=== PATIENT | female | born 1985 | race Caucasian/White ===

== ENCOUNTER 2019-04-05 12:51 | Emergency (ER) | payer SELFPAY ==
--- OUTSIDE RECORDS SUMMARY | 2019-04-05 12:57 | XMS REPORT | Continuity of Care Document ---
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 Locked-in state 02/06/2019 [facility] LOCKED-IN STATE Active [facility] Medications Medication Details Route Status Patient Ordering Order Source Instructions Provider Date baclofen 20 mg 20 mg=1 tab, Active 03/14/ [facility] oral tablet PO, TID, # 90 2019 tab, 4 Refill(s), Pharmacy: [facility] [place] citalopram 40 mg 40 mg=1 tab, Active 02/04/ [facility] oral tablet PEG, Daily, # 2019 30 tab, 1 Refill(s), Pharmacy: [facility] [place] lisinopril 40 mg 40 mg=1 tab, Active 02/04/ [facility] oral tablet PEG, Daily, # 2019 30 tab, 1 Refill(s), Pharmacy: [facility] metoprolol 100 mg=1 tab, Active 02/04/ [facility] tartrate 100 mg PEG, BID, # 60 2019 oral tablet tab, 1 Refill(s), Pharmacy: [facility] [place] pregabalin 150 mg 150 mg=1 cap, Active [facility] oral capsule PEG, Q8H-06, # 2019 90 caplet, 0 Refill(s) senna 8.8 mg/5 mL 26.4 mg=15 mL, Active [facility] oral syrup PEG, QNoon, # 2019 240 mL, 11 Refill(s) metoprolol 100 mg=2 tab, No Longer [facility] tartrate 50 mg PEG, BID, # 120 Active 2019 oral tablet tab, 1 Refill(s) lisinopril 20 mg 40 mg=2 tab, No Longer [facility] oral tablet GT, Daily, # 60 Active 2019 tab, 1 Refill(s) citalopram 20 mg 40 mg=2 tab, No Longer [facility] oral tablet PEG, Daily, # Active 2019 60 tab, 1 Refill(s) cetirizine 10 mg 10 mg=1 tab, Active [facility] oral tablet PO, Daily, 0 2019 Refill(s) Calcium Carbonate 1,500 mg=3 tab, Active [facility] 500 MG Chewable CHEW, TID, PRN 2019 Tablet acid reflux, 0 Refill(s) acetaminophen 160 PEG, Q6H, PRN Active [facility] mg/5 mL oral Other -See 2019 liquid Comment | Pain 1-10 or Temp >100.4F, 0 Refill(s) baclofen 10 mg 10 mg=1 tab, Active [facility] oral tablet PO, TID, # 90 2019 tab, 11 Refill(s) Bacitracin 1 appl, TOP, Active [facility] BID, 0 2019 Refill(s) Bacitracin 1 appl, Route: No Longer [facility] TOP, BID, Drug Active 2019 form: OINT, Start date: 02/01/19 21:00:00 CDT, Duration: 30 day, Stop date: 03/03/19 8:30:00 CDT phenol 6% AQ in 10 mL, Route: Inactive [facility] water for NERVE BLOCK, 2019 injection Drug Form: INJ, Dosing Weight 81.455, kg, ONCALL, Start date: 01/27/19 10:00:00 CDT, Duration: 30 day, Stop date: 02/26/19 9:59:00 CDTNotes: WASTE: F/P - Black; E - [employer]ash [employer] Baclofen 10 mg, 1 tab, No Longer [facility] Route: PO, Drug Active 2019 form: TAB, TID, Dosing Weight 81.455, kg, Start date: 01/25/19 13:00:00 CDT, Duration: 60 day, Stop date: 03/26/19 8:30:00 CDTNotes: (Same As: Lioresal) Baclofen 10 mg, Route: Inactive [facility] PO, Drug form: 2019 TAB, BID, Dosing Weight 81.455, kg, Start date: 01/24/19 21:00:00 CDT, Duration: 30 day, Stop date: 02/23/19 8:30:00 CDT Baclofen 10 mg, 1 tab, No Longer [facility] Route: PO, Drug Active 2019 form: TAB, BID, Dosing Weight 81.455, kg, Start date: 01/24/19 12:00:00 CDT, Duration: 30 day, Stop date: 02/23/19 8:30:00 CDTNotes: (Same As: Lioresal) pamidronate 60 mg, 20 mL, Inactive [facility] Route: IVPB, 2018 Drug form: SOLN, ONCE, Dosing Weight 81.455, kg, Start date: 01/24/19 11:45:00 CDT, Stop date: 01/24/19 11:45:00 CDT Diflucan 200 mg, 2 tab, No Longer [facility] Route: PO, Drug Active 2019 form: TAB, Daily, Dosing Weight 81.455, kg, Start date: 01/13/19 8:30:00 CDT, Duration: 3 day, Stop date: 01/15/19 8:30:00 CDT, ABX Indication: Genital Tract InfectionNotes: (Same as: Diflucan) Zyrtec 10 mg, 1 tab, No Longer [facility] Route: PO, Drug Active 2019 form: TAB, Daily, Dosing Weight 81.455, kg, Start date: 01/10/19 11:27:00 CDT, Duration: 30 day, Stop date: 03/11/19 8:30:00 CDTNotes: (Same As: Zyrtec) Cipro 250 mg, Route: Inactive [facility] PO, Drug form: 2019 TAB, [id number], Dosing Weight 81.455, kg, Start date: 01/10/19 8:00:00 CDT, Duration: 7 day, Stop date: 01/16/19 20:00:00 CDT, ABX Indication: Surgical Prophylaxis Cipro 500 mg, 1 tab, No Longer [facility] Route: NG, Drug Active 2018 form: TAB, [id number], Dosing Weight 81.455, kg, Start date: 01/09/19 20:00:00 CDT, Duration: 7 day, Stop date: 01/16/19 8:00:00 CDT, ABX Indication: Urinary Tract InfectionNotes: May interfere w/enteral feedings - Take 1 hr before or 2 hrs after antacids, dairy pdt & minerals. On empty stomach. Nystatin 100 1 appl, Route: No Longer [facility] UNT/MG Topical TOP, BID, Drug Active 2018 Powder form: PWDR, Start date: 01/06/19 10:23:00 CDT, Duration: 14 day, Stop date: 01/20/19 8:30:00 CDTNotes: (Same as:Mycostatin, Nilstat) For external use only. Lopressor 100 mg, 2 tab, No Longer [facility] Route: PEG, Active 2018 Drug form: TAB, BID, kg, Start date: 01/03/19 21:00:00 CDT, Duration: 60 day, Stop date: 03/04/19 8:30:00 CDTNotes: (Same as: Lopressor) pamidronate 60 mg, 20 mL, No Longer [facility] Route: IVPB, Active 2019 Drug form: SOLN, ONCE, Dosing Weight 81.455, kg, Start date: 01/03/19 17:00:00 CDT, Stop date: 01/03/19 17:00:00 CDT Guaifenesin 20 200 mg, 10 mL, No Longer [facility] MG/ML Oral Route: PO, Drug Active 2019 Solution form: SYRP, BID, Dosing Weight 81.455, kg, Start date: 01/02/19 21:00:00 CDT, Duration: 7 day, Stop date: 01/09/19 8:30:00 CDTNotes: (Same as: Robitussin) Sodium Chloride 3% 4 mL, Route: No Longer [facility] inhalation INHALATION, Active 2019 solution Drug Form: SOLN, Dosing Weight 81.455, kg, RQ6H, PRN Congestion, Start date: 01/02/19 13:19:00 CDT, Duration: 30 day, Stop date: 02/01/19 13:18:00 CDTNotes: SEE RT DOCUMENTATION (Same as: Hypertonic Saline 3%, Inhalation) Tums 1,500 mg, 3 No Longer [facility] tab, Route: Active 2018 CHEW, Drug form: CHEWTAB, TID, Dosing Weight 81.455, kg, PRN, Start date: 01/01/19 20:49:00 CDT, Stop date: 03/02/19 20:48:00 CDT, acid refluxNotes: (Same As: Tums) Calcium Carbonate 500 pv=274 mg elemental calcium Dose= mg calcium carbonate ( mg elemental calcium) pregabalin 150 mg, 1 cap, No Longer [facility] Route: PEG, Active 2018 Drug form: CAP, Q8H-06, kg, Start date: 12/27/18 14:00:00 CDT, Duration: 60 day, Stop date: 02/25/19 6:00:00 CDTNotes: Same as Lyrica Zyrtec 10 mg, 1 tab, No Longer [facility] Route: PO, Drug Active 2019 form: TAB, Daily, Dosing Weight 81.455, kg, Start date: 12/27/18 8:30:00 CDT, Duration: 30 day, Stop date: 01/25/19 8:30:00 CDTNotes: (Same As: Zyrtec) Pulmicort 180 microgram, Inactive [facility] Flexhaler Route: 2019 INHALATION, Dosing Weight 81.455, kg, BID, Start date: 12/26/18 21:00:00 CDT, Duration: 30 day, Stop date: 01/25/19 8:30:00 CDT Pulmicort Respules 0.25 mg, 2 mL, No Longer [facility] Route: NEB, Active 2018 Drug form: SUSP, TRBID, Start date: 12/26/18 19:30:00 CDT, Duration: 30 day, Stop date: 01/25/19 7:30:00 CDTNotes: (Same As: Pulmicort respule). pregabalin 100 mg, 1 cap, No Longer [facility] Route: PEG, Active 2018 Drug form: CAP, Q8H-06, kg, Start date: 12/23/18 14:00:00 CDT, Duration: 60 day, Stop date: 02/21/19 6:00:00 CDTNotes: (Same as: Lyrica) Lidocaine 40 MG/ML 1 appl, Route: No Longer [facility] Topical Cream TOP, TID, Drug Active 2019 form: CRM, Start date: 12/23/18 13:00:00 CDT, Duration: 7 day, Stop date: 12/30/18 8:30:00 CDTNotes: Same as Xylocaine Omnipaque 300 30,000 mg, Inactive [facility] Route: 2019 Intravesical, Dosing Weight 81.455, kg, ONCE, Start date: 12/19/18 13:26:00 CDT, Stop date: 12/19/18 13:26:00 CDT Tylenol 650 mg, 20.3 No Longer [facility] mL, Route: PEG, Active 2018 Drug form: LIQ, Q6H, Dosing Weight 81.455, kg, PRN Other -See Comment, Start date: 12/15/18 15:30:00 CDT, Duration: 38 day, Stop date: 02/13/19 9:13:00 CDT, Pain 1-10 or Temp >100.4FNotes: Max acetaminophen=4 000mg/day (4 gm/day). (Same as: Tylenol) Amlodipine 5 mg, 1 tab, No Longer [facility] Route: PEG, Active 2019 Drug form: TAB, Bedtime, kg, Start date: 12/13/18 21:00:00 CDT, Duration: 30 day, Stop date: 01/11/19 21:00:00 CDTNotes: (Same as: Aubree) Albuterol 0.833 3 ml, Route: No Longer [facility] MG/ML / NEB, Drug Form: Active 2019 Ipratropium SOLN, Dosing Pace 0.167 Weight 81.455, MG/ML Inhalant kg, PRN, PRN Solution [DuoNeb] Respiratory Pathway, Start date: 12/13/18 10:57:00 CDT, Duration: 36 day, Stop date: 02/11/19 9:12:00 CDTNotes: (Same as: Mehnaz) Amlodipine 5 mg, Route: No Longer [facility] PEG, Drug form: Active 2019 TAB, Daily, kg, Start date: 12/13/18 8:30:00 CDT, Duration: 30 day, Stop date: 01/11/19 8:30:00 CDT Albuterol 0.833 3 mL, Route: No Longer [facility] MG/ML / NEB, Drug Form: Active 2019 Ipratropium SOLN, kg, Pace 0.167 TRQ8H, Start MG/ML Inhalant date: 12/12/18 Solution [DuoNeb] 23:30:00 CDT, Duration: 30 day, Stop date: 01/11/19 15:30:00 CDTNotes: (Same as: Mehnaz) Fleet Enema Extra 230 mL, Route: Inactive [facility] MT, Drug Form: 2019 MICHELLE, Dosing Weight 81.455, kg, ONCE, Start date: 12/11/18 20:00:00 CDT, Stop date: 12/11/18 20:00:00 CDT sennosides, GROUP HOME 26.4 mg, 15 mL, No Longer [facility] Route: PEG, Active 2019 Drug Form: SYRP, kg, QNoon, Start date: 12/11/18 12:00:00 CDT, Duration: 60 day, Stop date: 04/09/19 12:00:00 CDTNotes: (Same as: Elsieot) sennosides, GROUP HOME 17.2 mg, 2 tab, Inactive [facility] Route: PO, Drug 2019 Form: TAB, Dosing Weight 81.455, kg, Daily, Start date: 12/11/18 8:30:00 CDT, Duration: 60 day, Stop date: 02/08/19 8:30:00 CDTNotes: (Same as: Barrett) Lisinopril 40 mg, 2 tab, No Longer [facility] Route: GT, Drug Active 2019 form: TAB, Daily, kg, Start date: 12/09/18 8:30:00 CDT, Duration: 30 day, Stop date: 03/08/19 8:30:00 CDTNotes: (Same as: Prinivil, Zestril) Amlodipine 10 mg, 1 tab, No Longer [facility] Route: PEG, Active 2019 Drug form: TAB, Daily, kg, Start date: 12/09/18 8:30:00 CDT, Duration: 30 day, Stop date: 01/07/19 8:30:00 CDTNotes: (Same as: Aubree) Lopressor 150 mg, 3 tab, No Longer [facility] Route: PEG, Active 2019 Drug form: TAB, BID, kg, Start date: 12/08/18 21:00:00 CDT, Duration: 30 day, Stop date: 02/06/19 8:30:00 CDTNotes: (Same as: Lopressor) Celexa 40 mg, 2 tab, No Longer [facility] Route: PEG, Active 2019 Drug form: TAB, Daily, Dosing Weight 81.455, kg, Start date: 12/07/18 8:30:00 CDT, Duration: 60 day, Stop date: 04/05/19 8:30:00 CDTNotes: (Same As: CeleXA) Sulfamethoxazole 1 tab, Route: No Longer [facility] 800 MG / PO, Drug Form: Active 2019 Trimethoprim 160 TAB, Dosing MG Oral Tablet Weight 81.455, [Bactrim] kg, Q12H, Start date: 12/06/18 21:00:00 CDT, Duration: 5 day, Stop date: 12/11/18 9:00:00 CDTNotes: One DS tablet=trimetho prim 160mg + sulfamethoxazol e 800 mg Dose based on trimethoprim component On empty stomach with a glass of water. (Same As: Bactrim DS, Septra DS) Tylenol 650 mg, 20.3 No Longer [facility] mL, Route: PEG, Active 2018 Drug form: LIQ, Q6H, kg, PRN Pain 1-3/Temp > 100.4 F, Start date: 12/05/18 11:14:00 CDT, Duration: 60 day, Stop date: 02/03/19 11:13:00 CDT, Pain 1-5/Temp > 100.4 FNotes: Max acetaminophen=4 000mg/day (4 gm/day). (Same as: Tylenol) Acetaminophen 300 1 tab, Route: No Longer [facility] MG / Codeine PEG, Drug Form: Active 2018 Phosphate 30 MG TAB, Dosing Oral Tablet Weight 81.455, [Tylenol with kg, Q6H, PRN Codeine #3] Pain Score 6-10, Start date: 12/05/18 11:14:00 CDT, Duration: 30 day, Stop date: 01/04/19 11:13:00 CDTNotes: Do not exceed 4gm/day of acetaminophen. (Same as: Tylenol with Codeine # 3) Ceftriaxone 1 gm, Route: No Longer [facility] IVP, [id number], Active 2018 Dosing Weight 81.455, kg, Start date: 12/04/18 19:00:00 CDT, Duration: 7 day, Stop date: 12/10/18 19:00:00 CDT, ABX Indication: Other (specify in Comments)Notes: (Same As: Rocephin). MEDICATION WASTE Product Size: 1000 mg Product Wasted: _0__ mg Sodium Chloride 1,000 mL, Rate: No Longer [facility] 0.45% IV 1,000 mL 100 ml/hr, Active 2018 Infuse over: 10 hr, Route: IV, Dosing Weight 81.455 kg, Total Volume: 1,000, Start date: 12/04/18 10:22:00 CDT, Duration: 30 day, Stop date: 01/03/19 10:21:00 CDT, 1.96, m2 Diflucan 150 mg, 1.5 Inactive [facility] tab, Route: PO, 2018 Drug form: TAB, Daily, Dosing Weight 81.455, kg, Start date: 12/03/18 10:14:00 CDT, Duration: 2 doses or times, Stop date: 12/04/18 8:30:00 CDT, ABX Indication: Other (specify in Comments)Notes: (Same as: Diflucan) pregabalin 75 mg, 1 cap, No Longer [facility] Route: PEG, Active 2018 Drug form: CAP, Q8H-06, kg, Start date: 12/02/18 22:00:00 CDT, Duration: 60 day, Stop date: 01/31/19 14:00:00 CDTNotes: (Same as: Lyrica) Diclofenac Sodium 4 gm, 2 appl, No Longer [facility] 0.01 MG/MG Topical Route: TOP, 2018 Gel Drug form: GEL, TID, Dosing Weight 81.455, kg, Start date: 12/02/18 21:00:00 CDT, Duration: 7 day, Stop date: 12/09/18 13:00:00 CDTNotes: Same as: Voltaren Gel Celexa 20 mg, 1 tab, No Longer [facility] Route: PEG, Active 2018 Drug form: TAB, Daily, Dosing Weight 81.455, kg, Start date: 12/02/18 8:30:00 CDT, Duration: 60 day, Stop date: 01/30/19 8:30:00 CDTNotes: (Same As: CeleXA) Guaifenesin 200 mg, 10 mL, No Longer [facility] Route: PEG, Active 2018 Drug form: SYRP, Q6H, kg, PRN as needed for congestion, Start date: 12/01/18 19:33:00 CDT, Duration: 30 day, Stop date: 12/31/18 19:32:00 CDTNotes: (Same as: Robitussin) pregabalin 75 mg, 1 cap, No Longer [facility] Route: PEG, Active 2018 Drug form: CAP, Q8H-06, kg, Start date: 12/01/18 14:00:00 CDT, Duration: 60 day, Stop date: 01/30/19 6:00:00 CDTNotes: (Same as: Lyrica) Celexa 20 mg, 1 tab, Inactive [facility] Route: PO, Drug 2019 form: TAB, Daily, Dosing Weight 81.455, kg, Start date: 12/01/18 8:30:00 CDT, Duration: 60 day, Stop date: 01/29/19 8:30:00 CDTNotes: (Same As: CeleXA) Tramadol 25 mg, 0.5 tab, No Longer [facility] Route: PO, Drug Active 2019 form: TAB, QID, Dosing Weight 81.455, kg, PRN Pain Score 4-6, Start date: 11/29/18 10:32:00 CDT, Duration: 30 day, Stop date: 12/29/18 10:31:00 CDTNotes: Not to exceed 400mg/day. (Same As: Ultram) tramadol 50 mg, 1 tab, No Longer [facility] hydrochloride 50 Route: PO, Drug Active 2019 MG Oral Tablet form: TAB, QID, Dosing Weight 81.455, kg, PRN Pain Score 7-10, Start date: 11/29/18 10:32:00 CDT, Duration: 30 day, Stop date: 12/29/18 10:31:00 CDTNotes: Not to exceed 400mg/day. (Same As: Ultram) Tylenol 650 mg, 20.3 No Longer [facility] mL, Route: PEG, Active 2018 Drug form: LIQ, Q6H, kg, PRN Pain 1-3/Temp > 100.4 F, Start date: 11/29/18 10:32:00 CDT, Duration: 30 day, Stop date: 12/29/18 10:31:00 CDTNotes: Max acetaminophen=4 000mg/day (4 gm/day). (Same as: Tylenol) pregabalin 50 mg, 1 cap, No Longer [facility] Route: PEG, Active 2018 Drug form: CAP, Q8H-06, kg, Start date: 11/28/18 22:00:00 CDT, Duration: 30 day, Stop date: 12/28/18 14:00:00 CDTNotes: Same as Lyrica Docusate Sodium 283 mg, 5 mL, No Longer [facility] 56.6 MG/ML Enema Route: MT, Drug Active 2019 [Enemeez] form: MICHELLE, Bedtime, Dosing Weight 81.455, kg, Start date: 11/28/18 21:00:00 CDT, Duration: 30 day, Stop date: 12/27/18 21:00:00 CDTNotes: Same as Enemeez Non formulary item Hydralazine 10 mg, 1 tab, No Longer [facility] Hydrochloride 10 Route: PO, Drug Active 2019 MG Oral Tablet form: TAB, Q6H, Dosing Weight 81.455, kg, PRN Hypertension, Start date: 11/28/18 19:44:00 CDT, Duration: 30 day, Stop date: 01/27/19 19:43:00 CDTNotes: (Same as: Apresoline) May interfere w/enteral feedings. Take With Food Dibucaine 1% 1 appl, Route: No Longer [facility] topical ointment TOP, BID, Drug Active 2018 form: OINT, PRN Other -See Comment, Start date: 11/28/18 16:24:00 CDT, Duration: 36 day, Stop date: 01/27/19 9:17:00 CDT, for comfort during bowel programNotes: Non-Formulary Drug (Same as: Nupercainal) Nitroglycerin 0.02 1 inch, Route: No Longer [facility] MG/MG Topical TOP, Drug Form: Active 2019 Ointment OINT, Dosing Weight 81.455, kg, TID, PRN Hypertension, Start date: 11/28/18 10:33:00 CDT, Duration: 60 day, Stop date: 03/28/19 9:17:00 CDTNotes: 1 gram is approximately 1 inch of nitroglycerin ointment (20 mg NTG per gram) (Same as:Nitro-Bid) Uro-Jet 2% topical 1 appl, Route: No Longer [facility] gel with TOP, QID, Drug Active 2018 applicator form: GEL/A, PRN Other -See Comment, Start date: 11/28/18 10:33:00 CDT, Duration: 36 day, Stop date: 01/27/19 9:17:00 CDT, urethral painNotes: (Same as: Uro-Jet) Irrigation w/ 250 ml, Route: No Longer [facility] Normal Saline IRRIG, Drug Active 2019 Form: SOLN, Dosing Weight 81.455, kg, PRN, PRN Other -See Comment, Start date: 11/28/18 10:33:00 CDT, Duration: 36 day, Stop date: 01/27/19 9:17:00 CDTNotes: For irrigation only. Dibucaine 1% 1 appl, Route: No Longer [facility] topical ointment TOP, PRN, Drug Active 2018 form: OINT, PRN Pain Score 1-3, Start date: 11/28/18 10:33:00 CDT, Duration: 30 day, Stop date: 12/28/18 10:32:00 CDTNotes: Non-Formulary Drug (Same as: Nupercainal) Sodium Chloride 3% 3 mL, Route: No Longer [facility] inhalation NEB, Drug Form: Active 2019 solution SOLN, Dosing Weight 81.455, kg, TRQ6H, PRN See Respiratory Notes, Start date: 11/26/18 19:30:00 CDT, Duration: 30 day, Stop date: 12/26/18 13:30:00 CDT, dry coughNotes: SEE RT DOCUMENTATION (Same as: Hypertonic Saline 3%, Inhalation) sennosides, GROUP HOME 17.6 mg, 10 mL, No Longer [facility] Route: PEG, Active 2018 Drug Form: SYRP, kg, QNoon, Start date: 11/26/18 12:00:00 CDT, Duration: 30 day, Stop date: 12/25/18 12:00:00 CDTNotes: (Same as: Senokot) Amlodipine 10 mg, 1 tab, No Longer [facility] Route: PEG, Active 2018 Drug form: TAB, Daily, kg, Start date: 11/26/18 8:30:00 CDT, Duration: 30 day, Stop date: 12/25/18 8:30:00 CDTNotes: (Same as: Norvasc) Lisinopril 40 mg, 2 tab, No Longer [facility] Route: GT, Drug Active 2018 form: TAB, Daily, kg, Start date: 11/26/18 8:30:00 CDT, Duration: 30 day, Stop date: 12/25/18 8:30:00 CDTNotes: (Same as: Prinivil, Zestril) Guaifenesin 200 mg, 10 mL, No Longer [facility] Route: PEG, Active 2018 Drug form: SYRP, Q6H, kg, Start date: 11/26/18 0:00:00 CDT, Duration: 30 day, Stop date: 12/25/18 18:00:00 CDTNotes: (Same as: Juanitussin) tramadol 50 mg, 1 tab, No Longer [facility] hydrochloride 50 Route: PO, Drug Active 2019 MG Oral Tablet form: TAB, Q4H, Dosing Weight 81.455, kg, PRN Pain Score 1-3, Start date: 11/25/18 22:56:00 CDT, Duration: 30 day, Stop date: 12/25/18 22:55:00 CDT Famotidine 20 mg, 1 tab, No Longer [facility] Route: PEG, 2018 Drug form: TAB, BID, kg, Start date: 11/25/18 21:00:00 CDT, Duration: 30 day, Stop date: 12/25/18 8:30:00 CDTNotes: (Same as: Pepcid) chlorhexidine 0.018 gm, No Longer [facility] gluconate 1.2 Route: PO, BID, Active 2019 MG/ML Mouthwash Drug form: LIQ, Start date: 11/25/18 21:00:00 CDT, Duration: 30 day, Stop date: 01/24/19 8:30:00 CDTNotes: (Same As: Peridex) Budesonide 0.5 mg, 2 mL, No Longer [facility] Route: NEB, Active 2018 Drug form: SUSP, TRBID, kg, Start date: 11/25/18 21:00:00 CDT, Duration: 30 day, Stop date: 12/25/18 19:30:00 CDTNotes: (Same As: Pulmicort) pregabalin 25 mg, 1 cap, No Longer [facility] Route: PEG, Active 2018 Drug form: CAP, TID, kg, Start date: 11/25/18 21:00:00 CDT, Duration: 30 day, Stop date: 12/25/18 13:00:00 CDTNotes: (Same as: Lyrica) Lopressor 150 mg, 3 tab, No Longer [facility] Route: PEG, Active 2018 Drug form: TAB, BID, kg, Start date: 11/25/18 21:00:00 CDT, Duration: 30 day, Stop date: 12/25/18 8:30:00 CDTNotes: (Same as: Lopressor) heparin 5,000 unit, 1 No Longer [facility] mL, Route: Active 2018 SUB-Q, Drug form: INJ, Q12H, kg, Start date: 11/25/18 21:00:00 CDT, Duration: 30 day, Stop date: 12/25/18 9:00:00 CDTNotes: porcine heparin Tylenol 500 mg, 1 tab, No Longer [facility] Route: PEG, Active 2018 Drug form: TAB, Q6H, kg, PRN Pain 1-3/Temp > 100.4 F, Start date: 11/25/18 19:48:00 CDT, Duration: 30 day, Stop date: 12/25/18 19:47:00 CDTNotes: Max acetaminophen 4000 mg/day (4 gm/day). (Same as: Tylenol Extra Strength) Albuterol 0.833 3 mL, Route: No Longer [facility] MG/ML / NEB, Drug Form: Active 2019 Ipratropium SOLN, kg, Pace 0.167 TRQ6H, Start MG/ML Inhalant date: 11/25/18 Solution [DuoNeb] 19:48:00 CDT, Duration: 30 day, Stop date: 12/25/18 19:30:00 CDTNotes: (Same as: Duoneb) Hydralazine 10 mg, 0.5 mL, No Longer 11/26/ [facility] Route: IVP, Active 2019 Drug form: INJ, Q4H, kg, PRN Hypertension, Start date: 11/25/18 19:48:00 CDT, Duration: 30 day, Stop date: 12/25/18 19:47:00 CDTNotes: (Same as: Apresoline) Push over 5 minutes Bisacodyl 10 mg, 1 supp, No Longer [facility] Route: MT, Drug Active 2019 form: SUPP, Daily, kg, PRN Constipation, Start date: 11/25/18 19:48:00 CDT, Duration: 30 day, Stop date: 12/25/18 19:47:00 CDTNotes: (Same As: Dulcolax, Bisco-Lax) Saline Flush 0.9% 10 mL, Route: No Longer [facility] IVP, Drug Form: Active 2019 INJ, kg, PRN, PRN Line Flush, Start date: 11/25/18 19:45:00 CDT, Duration: 30 day, Stop date: 12/25/18 19:44:00 CDTNotes: (Same as: BD Posiflush) Tylenol 500 mg, PEG, No Longer 11/25/ [facility] BID, 0 Active 2018 Refill(s) Budesonide 0.5 mg, NEB, No Longer 11/25/ [facility] BID, 0 Active 2018 Refill(s) amLODIPine 10 mg 10 mg=1 tab, No Longer 11/25/ [facility] oral tablet PEG, Daily, 0 Active 2018 Refill(s) Guaifenesin 200 mg, PEG, 0 No Longer 11/25/ [facility] Refill(s) Active 2019 pregabalin 25 mg, PEG, No Longer 11/25/ [facility] TID, 0 Active 2018 Refill(s) Famotidine 20 mg=1 tab, No Longer 11/25/ [facility] PEG, BID, # 60 Active 2019 tab, 0 Refill(s) Acetylcysteine 200 0.4 gm=2 mL, No Longer 11/25/ [facility] MG/ML Inhalant NEB, BID, 0 Active 2019 Solution Refill(s) Lopressor 150 mg, PEG, No Longer [facility] BID, 0 Active 2019 Refill(s) chlorhexidine 0.018 gm=15 ml, No Longer [facility] gluconate 1.2 PO, BID, # 480 Active 2018 MG/ML Mouthwash ml, 0 Refill(s) Albuterol 0.833 3 mL, NEB, Q6H, No Longer [facility] MG/ML / 0 Refill(s) Active 2019 Ipratropium Pace 0.167 MG/ML Inhalant Solution [DuoNeb] heparin 5,000 unit, No Longer [facility] SUB-Q, Q12H, 0 Active 2019 Refill(s) Allergies, Adverse Reactions, Alerts Substance Category Reaction Severity Reaction Status Date Comments Source type Reported traMADol<mendoza Assertion Propensity Active lethargic, [facility] p>1</sup> to adverse difficult reactions to arouse to drug Immunizations No Data Provided for This Section Results Order Name Results Value Reference Date Interpretation Comments Source Range CHEM PANEL Magnesium Lvl 2.1 1.8 - 2.4 02/02 [facility] CHEM PANEL Phosphorus 3.7 2.5 - 4.5 02/02 [facility] ELECTROLYTE AGAP 12.5 10.0 - 02/02 [facility] S 20.0 ELECTROLYTE eGFR 128 02/02 Result [facility] Comment: The eGFR is calculated using the CKD-EPI formula. In most young, healthy individuals the eGFR will be >90 mL/min/1.73m2 . The eGFR declines with age. An eGFR of 60-89 may be normal in some populations, particularly the elderly, for whom the CKD-EPI formula has not been extensively validated. Use of the eGFR is not recommended in the following populations:< br/>
Livia viduals with unstable creatinine concentration s, including patients and those with serious co-morbid conditions.<b r/>
Patie nts with extremes in muscle mass or diet.

The data above are obtained from the [employer] Program (NK[employer]) which additionally recommends that when the eGFR is used in patients with extremes of body mass index for purposes of drug dosing, the eGFR should be multiplied by the estimated BMI. ELECTROLYTE CO2 24 24 - 32 02/02 [facility] S ELECTROLYTE Calcium Lvl 9.0 8.5 - 10.5 02/02 [facility] S ELECTROLYTE Chloride Lvl 106 95 - 109 02/02 [facility] S ELECTROLYTE Potassium Lvl 4.5 3.5 - 5.1 02/02 [facility] S ELECTROLYTE Creatinine 0.51 0.50 - 02/02 [facility] S Lvl 1.40 /2019 ELECTROLYTE Sodium Lvl 138 135 - 145 02/02 [facility] ELECTROLYTE BUN 20 7 - 22 02/02 [facility] S /2018 ELECTROLYTE Glucose Lvl 76 70 - 99 02/02 [facility] HEMATOLOGY Lymphocytes # 2.6 1.0 - 5.5 02/02 [facility] /2018 HEMATOLOGY Neutrophils # 6.8 1.5 - 8.1 02/02 [facility] /2018 HEMATOLOGY Monocytes # 0.5 0.0 - 0.8 02/02 [facility] /2018 HEMATOLOGY Monocytes 5.0 2.0 - 12.0 02/02 [facility] /2018 HEMATOLOGY Lymphocytes 25.3 20.0 - 02/02 [facility] 40.0 2019 HEMATOLOGY Basophils 0.4 0.0 - 1.0 02/02 [facility] /2018 HEMATOLOGY Eosinophils 2.6 0.0 - 4.0 02/02 [facility] /2018 HEMATOLOGY Segs 66.7 45.0 - 02/02 [facility] 75.0 /2019 HEMATOLOGY Eosinophils # 0.3 0.0 - 0.5 02/02 [facility] /2018 HEMATOLOGY WBC 10.2 3.7 - 10.4 02/02 [facility] /2018 HEMATOLOGY RBC 4.15 4.20 - 02/02 [facility] 5.40 HEMATOLOGY MPV 10.6 7.4 - 10.4 02/02 [facility] /2018 HEMATOLOGY MCV 91.2 80.0 - 02/02 [facility] 98.0 2019 HEMATOLOGY Hgb 12.6 12.0 - 02/02 [facility] 16.0 /2018 HEMATOLOGY Hct 37.8 36.0 - 02/02 [facility] 48.0 /2018 HEMATOLOGY Platelet 256 133 - 450 02/02 [facility] /2018 HEMATOLOGY MCH 30.4 27.0 - 02/02 [facility] 31.0 HEMATOLOGY MCHC 33.3 32.0 - 02/02 [facility] 36.0 /2019 HEMATOLOGY RDW 13.0 11.5 - 06 [facility] 14. CHEM PANEL Phosphorus 2.8 2.5 - 4.5 01/26 [facility] CHEM PANEL Magnesium Lvl 2.1 1.8 - 2.4 01/26 [facility] ELECTROLYTE AGAP 12.1 10.0 - 01/26 [facility] S 20.0 ELECTROLYTE eGFR 130 01/26 Result [facility] Comment: The eGFR is calculated using the CKD-EPI formula. In most young, healthy individuals the eGFR will be >90 mL/min/1.73m2 . The eGFR declines with age. An eGFR of 60-89 may be normal in some populations, particularly the elderly, for whom the CKD-EPI formula has not been extensively validated. Use of the eGFR is not recommended in the following populations:< br/>
Livia viduals with unstable creatinine concentration s, including patients and those with serious co-morbid conditions.<b r/>
Patie nts with extremes in muscle mass or diet.

The data above are obtained from the National Kidney Disease Education Program (NKDEP) which additionally recommends that when the eGFR is used in patients with extremes of body mass index for purposes of drug dosing, the eGFR should be multiplied by the estimated BMI. ELECTROLYTE Calcium Lvl 8.8 8.5 - 10.5 01/26 [facility] ELECTROLYTE CO2 24 24 - 32 01/26R ELECTROLYTE BUN 18 7 - 22 01/26 [facility] ELECTROLYTE Glucose Lvl 67 70 - 99 01/26 [facility] ELECTROLYTE Sodium Lvl 139 135 - 145 01/26 [facility] ELECTROLYTE Creatinine 0.48 0.50 - 01/26 [facility] S Lvl 1.40 /2018 ELECTROLYTE Chloride Lvl 107 95 - 109 01/26 [facility] S ELECTROLYTE Potassium Lvl 4.1 3.5 - 5.1 01/26 [facility] HEMATOLOGY MPV 11.0 7.4 - 10.4 01/26 [facility] HEMATOLOGY Platelet 278 133 - 450 01/26 [facility] HEMATOLOGY MCHC 33.8 32.0 - 01/26 [facility] 36.0 HEMATOLOGY RDW 13.1 11.5 - 06/ [facility] 14.5 /2019 HEMATOLOGY RBC 3.97 4.20 - 06/ [facility] 5.40 /2018 HEMATOLOGY Hgb 12.3 12.0 - 01/26 [facility] 16.0 HEMATOLOGY MCV 91.6 80.0 - 01/26 [facility] 98.0 /2018 HEMATOLOGY Hct 36.3 36.0 - 01/26 [facility] 48.0 /2018 HEMATOLOGY MCH 31.0 27.0 - / [facility] 31.0 HEMATOLOGY WBC 6.4 3.7 - 10.4 06 [facility] /2018 HEMATOLOGY Eosinophils # 0.2 0.0 - 0.5 01/26 [facility] HEMATOLOGY Basophils # 0.1 0.0 - 0.2 01/26 [facility] /2018 HEMATOLOGY Monocytes 6.2 2.0 - 12.0 01/26 [facility] HEMATOLOGY Eosinophils 3.3 0.0 - 4.0 01/26 [facility] HEMATOLOGY Lymphocytes # 1.4 1.0 - 5.5 01/26 [facility] /2018 HEMATOLOGY Monocytes # 0.4 0.0 - 0.8 06 [facility] HEMATOLOGY Basophils 0.9 0.0 - 1.0 01/26 [facility] HEMATOLOGY Neutrophils # 4.3 1.5 - 8.1 01/26 [facility] HEMATOLOGY Segs 68.0 45.0 - 01/26 [facility] 75.0 HEMATOLOGY Lymphocytes 21.6 20.0 - 01/26 [facility] 40.0 2019 CHEM PANEL eGFR 130 01/19 Result [facility] Comment: The eGFR is calculated using the CKD-EPI formula. In most young, healthy individuals the eGFR will be >90 mL/min/1.73m2 . The eGFR declines with age. An eGFR of 60-89 may be normal in some populations, particularly the elderly, for whom the CKD-EPI formula has not been extensively validated. Use of the eGFR is not recommended in the following populations:< br/>
Livia viduals with unstable creatinine concentration s, including patients and those with serious co-morbid conditions.<b r/>
Patie nts with extremes in muscle mass or diet.

The data above are obtained from the National Kidney Disease Education Program (NKDEP) which additionally recommends that when the eGFR is used in patients with extremes of body mass index for purposes of drug dosing, the eGFR should be multiplied by the estimated BMI. CHEM PANEL Glucose Lvl 72 70 - 99 05/30 [facility] /2018 CHEM PANEL Sodium Lvl 139 135 - 145 05/30 [facility] /2018 CHEM PANEL Chloride Lvl 108 95 - 109 05/30 [facility] /2018 CHEM PANEL Creatinine 0.48 0.50 - 05/30 [facility] Lvl 1.40 /2019 CHEM PANEL BUN 16 7 - 22 05/30 [facility] /2018 CHEM PANEL Calcium Lvl 8.6 8.5 - 10.5 05/30 [facility] /2018 CHEM PANEL CO2 25 24 - 32 05/30 [facility] /2018 CHEM PANEL Potassium Lvl 4.3 3.5 - 5.1 05/ [facility] /2018 CHEM PANEL AGAP 10.3 10.0 - 05 [facility] 20.0 CHEM PANEL Phosphorus 3.0 2.5 - 4.5 05/30 [facility] /2018 CHEM PANEL Magnesium Lvl 2.3 1.8 - 2.4 05/30 [facility] /2019 HEMATOLOGY Lymphocytes 35.1 20.0 - 05/30 [facility] 40.0 /2019 HEMATOLOGY Monocytes 8.4 2.0 - 12.0 05/30 [facility] /2018 HEMATOLOGY Eosinophils 3.9 0.0 - 4.0 05/30 [facility] /2018 HEMATOLOGY Basophils 0.6 0.0 - 1.0 05/30 [facility] /2018 HEMATOLOGY Segs 52.0 45.0 - 05/ MH [facility] 75.0 /2019 HEMATOLOGY Monocytes # 0.7 0.0 - 0.8 05/30 [facility] /2019 HEMATOLOGY Eosinophils # 0.3 0.0 - 0.5 05/30 [facility] /2019 HEMATOLOGY Basophils # 0.1 0.0 - 0.2 05/30 [facility] /2019 HEMATOLOGY Lymphocytes # 2.8 1.0 - 5.5 05/30 [facility] /2019 HEMATOLOGY Neutrophils # 4.2 1.5 - 8.1 05/30 [facility] /2018 HEMATOLOGY MCH 31.2 27.0 - 0530 [facility] 31.0 /2018 HEMATOLOGY RBC 3.88 4.20 - 05/30 [facility] 5.40 /2018 HEMATOLOGY Hct 36.1 36.0 - 01/19 [facility] 48.0 /2018 HEMATOLOGY Hgb 12.1 12.0 - 01/19 [facility] 16.0 HEMATOLOGY MCV 92.9 80.0 - 01/19 [facility] 98.0 HEMATOLOGY WBC 8.1 3.7 - 10.4 01/19 [facility] HEMATOLOGY MPV 10.1 7.4 - 10.4 01/19 [facility] HEMATOLOGY Platelet 272 133 - 450 01/19 [facility] HEMATOLOGY MCHC 33.6 32.0 - 01/19 [facility] 36.0 HEMATOLOGY RDW 12.8 11.5 - 01/19 [facility] 14.5 TETRACYCLIN Culture: >100,000 CFU/mL Escherichia coli , Multi-drug Resistant Organism 01/10 [facility] E:SUSC:PT:I Urine Evaluation For ESBLIs SOLATE:ORDQ Upon supplemental testing, this organism was confirmed to produce a carbapenamase. N:THOMPSON >100,000 CFU/mL Skin Kyara TETRACYCLIN Enterococcus Enterococcu 01/10 [facility] E:SUSC:PT:I Species s Species SOLATE:ORDQ N:THOMPSON TETRACYCLIN Escherichia Escherichia 01/10 [facility] E:SUSC:PT:I coli coli SOLATE:ORDQ N:THOMPSON URINE AND UA Sq Epi None Seen 01/09 [facility] STOOL URINE AND UA Bacteria Few /HPF None Seen 01/09 [facility] STOOL /HPF URINE AND UA Amorph Moderate None Seen 01/09 [facility]OL Jill /HPF /HPF URINE AND UA Nitrite Positive Negative 01/09 [facility] *ABN* /2018 (01/09/19 6:31 PM) URINE AND UA <1.0 0.1 - 1.0 01/09 [facility] STOOL Urobilinogen /2018 URINE AND UA pH 7.0 5.0 - 8.0 01/09 [facility] URINE AND UA Spec Grav 1.005 <=1.030 01/09 [facility]OL URINE AND UA Turbidity Marked Clear 01/09 [facility] *ABN* /2018 (01/09/19 6:31 PM) URINE AND UA Color Yellow Yellow 01/09 [facility] *NA* /2018 (01/09/19 6:31 PM) URINE AND UA Protein Negative Negative 01/09 [facility] STOOL mg/dL mg/dL URINE AND UA RBC 4 0 - 2 01/09 [facility] STOOL /2018 URINE AND UA WBC 8 0 - 5 01/09 [facility]OL URINE AND UA Leuk Est Moderate Negative 01/09 [facility] STOOL *ABN* /2018 (01/09/19 6:31 PM) URINE AND UA Glucose Negative Negative 01/09 [facility]OOL mg/dL mg/dL URINE AND UA Blood Small Negative 01/09 [facility] STOOL *ABN* /2018 (01/09/19 6:31 PM) URINE AND UA Bili Negative Negative 01/09 [facility] STOOL *NA* /2018 (01/09/19 6:31 PM) URINE AND UA Ketones Negative Negative 01/09 [facility] STOOL mg/dL mg/dL IMIPENEM:MENDOZA Gram Stain Many Wbc'S; Less Than 25 Squamous Epithelial Cells/ Lpf 01/02 [facility] SC:PT:ISOLA Report Many Gram Positive Cocci In TE:ORDQN:OK Rare Gram Negative Rods C Good Quality Specimen IMIPENEM:MENDOZA Culture: Many Staphylococcus aureus 01/02 [facility] SC:PT:ISOLA Respiratory Few Escherichia coli TE:ORDQN:OK w/Gram Stain Rare Enterobacter cloacae C IMIPENEM:MENDOZA Enterobacter Enterobacte 01/02 [facility] SC:PT:ISOLA cloacae r cloacae TE:ORDQN:OK C IMIPENEM:MENDOZA Escherichia Escherichia 01/02 [facility] SC:PT:ISOLA coli coli TE:ORDQN:OK C IMIPENEM:MENDOZA Staphylococcu Staphylococ 01/02 [facility] SC:PT:ISOLA s aureus cus aureus TE:ORDQN:OK C CHEM PANEL Vitamin D, 41.9 30.0 - 12/15 [facility] 25-OH, Total 100.0 IMMUNOLOGY CRP, High 26.8 12/05 [facility] Sensitivity MOLECULAR Parainfluenza Negative Negative 12/04 [facility] DIAGNOSTIC 1 PCR (12/04/18 1:16 PM) MOLECULAR Parainfluenza Negative Negative 12/04 [facility] DIAGNOSTIC 3 PCR (12/04/18 1:16 PM) /2018 MOLECULAR Parainfluenza Negative Negative 12/04 [facility] DIAGNOSTIC 2 PCR (12/04/18 1:16 PM) /2018 MOLECULAR Source [employer] Swab 12/04 [facility] DIAGNOSTIC Parainfluenza (12/04/18 1:16 PM) /2018 Virus PCR MOLECULAR Adenovirus Negative Negative 12/04 [facility] DIAGNOSTIC PCR (12/04/18 1:16 PM) /2018 MOLECULAR Source [employer] Swab 12/04 [facility] DIAGNOSTIC Adenovirus (12/04/18 1:16 PM) /2018 PCR MOLECULAR RSV PCR Negative Negative 12/04 [facility] DIAGNOSTIC (12/04/18 1:16 PM) /2018 MOLECULAR Influenza A Negative Negative 12/04 [facility] DIAGNOSTIC PCR (12/04/18 1:16 PM) /2018 MOLECULAR Influenza B Negative Negative 12/04 [facility] DIAGNOSTIC PCR (12/04/18 1:16 PM) /2018 MOLECULAR Source [employer] Swab 12/04 [facility] DIAGNOSTIC Respiratory (12/04/18 1:16 PM) /2018 Panel PCR CEFAZOLIN:S Gram Stain Few Wbc'S; Less Than 25 Squamous Epithelial Cells/Lpf 12/04 [facility] USC:PT:ISOL Report Moderate Gram Positive Cocci In Pairs ATE:ORDQN:M Few Gram Negative Rods IC CEFAZOLIN:S Culture: Many Staphylococcus aureus 12/04 [facility] USC:PT:ISOL Respiratory Few Escherichia coli /2018 ATE:ORDQN:M w/Gram Stain IC CEFAZOLIN:S Escherichia Escherichia 12/04 [facility] USC:PT:ISOL coli coli ATE:ORDQN:M IC CEFAZOLIN:S Staphylococcu Staphylococ 12/04 [facility] USC:PT:ISOL s aureus cus aureus ATE:ORDQN:M IC CHEM PANEL Procalcitonin 0.10 0.00 - 12/04 [facility] Lvl 0.10 HEMATOLOGY RBC Morph Normal 12/04 [facility] (12/04/18 12:34 PM) HEMATOLOGY Large Plt slight 12/04 [facility] /2018 HEMATOLOGY Basophils # 0.1 0.0 - 0.2 12/04 [facility] /2018 CEFEPIME:MENDOZA Culture: 10,000 - 50,000 CFU/mL Enterobacter cloacae 12/04 [facility] SC:PT:ISOLA Urine 10,000 - 50,000 CFU/mL Escherichia coli /2018 TE:ORDQN:OK 10,000 - 50,000 CFU/mL Skin Kyara C CEFEPIME:MENDOZA Escherichia Escherichia 12/04 [facility] SC:PT:ISOLA coli coli /2018 TE:ORDQN:OK C CEFEPIME:MENDOZA Enterobacter Enterobacte 12/04 [facility] SC:PT:ISOLA cloacae r cloacae TE:ORDQN:OK C URINE AND UA Protein Negative Negative 12/04 [facility] STOOL (12/04/18 1:32 AM) URINE AND UA Ketones Negative Negative 12/04 [facility] STOOL *NA* (12/04/18 1:32 AM) URINE AND UA pH 7.0 5.0 - 8.0 12/04 [facility] STOOL URINE AND UA Glucose Negative Negative 12/04 [facility] STOOL *NA* (12/04/18 1:32 AM) URINE AND UA Bili Negative Negative 12/04 [facility] STOOL *NA* (12/04/18 1:32 AM) URINE AND UA Blood Negative Negative 12/04 [facility] STOOL (12/04/18 1:32 AM) URINE AND UA Nitrite Negative Negative 12/04 [facility] STOOL (12/04/18 1:32 AM) URINE AND UA 0.2 0.1 - 1.0 12/04 [facility] STOOL Urobilinogen /2018 URINE AND UA Leuk Est Small Negative 12/04 [facility]OOL *ABN* (12/04/18 1:32 AM) URINE AND UA Sq Epi Few /LPF Few /LPF 12/04 [facility]OOL URINE AND UA Color Yellow Yellow 12/04 [facility]OL *NA* (12/04/18 1:32 AM) URINE AND UA Turbidity Marked Clear 12/04 [facility] STOOL *ABN* (12/04/18 1:32 AM) URINE AND UA Spec Grav 1.016 <=1.030 12/04 [facility] ST[facility]OL URINE AND UA WBC 31 0 - 5 12/04 [facility]OOL URINE AND UA Bacteria Occasional None Seen 12/04 [facility] STOOL /HPF /HPF /2019 URINE AND UA Amorph Moderate None Seen 12/04 [facility] STOOL Jill /HPF /HPF /2019 URINE AND UA RBC 6 0 - 2 12/04 [facility] URINE AND UA Mucus Few /LPF None Seen 12/04 [facility] STOOL /LPF /2019 URINE AND UA Mesick Yeast Occasional None Seen 12/04 [facility] /HPF /HPF /2019 CHEM PANEL Bili Total 0.3 0.2 - 1.3 11/26 [facility] CHEM PANEL Alk Phos 110 39 - 136 04 [facility] CHEM PANEL AST 21 0 - 37 04 [facility] CHEM PANEL ALT 56 0 - 65 04 [facility] /2018 CHEM PANEL Albumin Lvl 3.2 3.5 - 5.0 11/26 [facility] /2018 CHEM PANEL Total Protein 7.5 6.4 - 8.4 04 [facility] CHEM PANEL A/G Ratio 0.7 0.7 - 1.6 11/26 [facility] /2018 CHEM PANEL Globulin 4.3 2.7 - 4.2 04 [facility] /2018 CHEM PANEL B/C Ratio 35 6 - 25 04 [facility] /2018 HEMATOLOGY INR 0.98 0.85 - 04 [facility] 1.17 /2019 HEMATOLOGY PT 12.8 12.0 - 04 [facility] 14.7 /2018 IMMUNOLOGY Prealbumin 19.2 18.0 - 04/06 [facility] 45.0 /2019 URINE AND UA WBC 7 0 - 5 11/26 [facility] STOOL URINE AND UA RBC 1 0 - 2 11/26 [facility] STOOL URINE AND UA Amorph Few /HPF None Seen 11/26 [facility] STOOL Jill /HPF /2019 URINE AND UA Sq Epi Occasional Few /LPF 11/26 [facility] STOOL /LPF /2019 URINE AND UA Bacteria Occasional None Seen 11/26 [facility] /HPF /HPF /2019 URINE AND UA Leuk Est Small Negative 11/26 [facility] STOOL *ABN* /2018 (11/26/18 5:30 AM) URINE AND UA <1.0 0.1 - 1.0 11/26 [facility] STOOL Urobilinogen /2018 URINE AND UA Blood Small Negative 11/26 [facility] STOOL *ABN* /2018 (11/26/18 5:30 AM) URINE AND UA Nitrite Positive Negative 11/26 [facility] STOOL *ABN* (11/26/18 5:30 AM) URINE AND UA Turbidity Slight Clear 11/26 [facility] STOOL *ABN* (11/26/18 5:30 AM) URINE AND UA Protein Negative Negative 11/26 [facility] STOOL (11/26/18 5:30 AM) URINE AND UA Spec Grav 1.010 <=1.030 11/26 [facility]OOL URINE AND UA Color Yellow Yellow 11/26 [facility] STOOL *NA* (11/26/18 5:30 AM) URINE AND UA Bili Negative Negative 11/26 [facility] STOOL *NA* (11/26/18 5:30 AM) URINE AND UA Ketones Negative Negative 11/26 [facility] STOOL *NA* (11/26/18 5:30 AM) URINE AND UA pH 7.0 5.0 - 8.0 11/26 [facility]OL URINE AND UA Glucose Negative Negative 11/26 [facility] STOOL *NA* (11/26/18 5:30 AM) Pathology Reports No Data Provided for This Section Diagnostic Reports Report Value Date Source Abdomen AP DX 1 view abdomen: 01/31/2019 [facility] HISTORY: PEG tube placement. FINDINGS: There are 2 radiopaque catheters over the abdomen. The more dense pigtail-type catheter is to the right of the spine in the right upper quadrant away from the expected position of the stomach. The less dense catheter crosses from right to left with the catheter tip over the left upper pelvis. This could be within an elongated stomach. For confirmation, suggest contrast injection with repeat KUB. There is a moderate amount of stool in the colon and rectum. No bowel obstruction. Lung bases clear. Intrauterine device in place. IMPRESSION: Uncertain catheter position SL: EG-M Hip 2/3 views uni w Right hip 2 views: 01/23/2019 [facility] pelvis DX HISTORY: Heterotopic ossification. FINDINGS: Minimal developing heterotopic ossification and soft tissues around the right femoral neck compared with 12/02/2018. No similar-type finding on the left side. Intrauterine device in place. No other bone or joint abnormality SL: EG-M Chest 2 views DX EXAM: Chest 2 views DX 12/05/2018 [facility] DATE: 12/05/2018 4:00 PM CDT INDICATION: Positive resp culture - Positive tracheal aspirate COMPARISON: 11/25/2018. IMPRESSION: Mildly enlarged cardiac silhouette. No definite failure. No gross focal consolidation, significant pleural effusion or pneumothorax. Tracheostomy tube is unchanged. Left ureteral stent is barely visualized. SL: [id number] Brain wo contrast CT Clinical Indication: - History of hemorrhagic stroke, now with some altered mental status; 12/03/2018 [facility] Comparison: None TECHNIQUE: CT images were obtained from the foramen magnum to the vertex without the use of intravenous contrast on a multidetector CT. Coronal and sagittal reconstructions were obtained. CT imaging performed at this location utilizes radiation dose optimization techniques which include one or more of the following: -Automated exposure control -Adjustment of the mA and/or kV according to patient size -Use of iterative reconstruction technique CT Radiation Dose DLP 1738.24 mGy-cm FINDINGS: BRAIN PARENCHYMA AND VENTRICLES: There is no acute intracranial hemorrhage, extra-axial collection, hydrocephalus, mass effect or midline shift. No cortical edema in large vascular distribution to suggest acute infarction. Supra and in fratentorial brain parenchyma is normal. Ventricles and cortical sulci are within normal limits. SKULL: There are no osseous abnormalities. ORBITS, MASTOIDS AND PARANASAL SINUSES: The limited visualized orbits are unremarkable. The limited visualized paranasal sinuses are unremarkable. The mastoid air cells are clear. IMPRESSION: 1. No CT demonstrable acute intracranial abnormality. If there is further concern for intracranial pathology or acute stroke, MRI of the brain may be performed for complete assessment. SL: LISA Hip 2/3 views uni w Patient Name: PAULA JERNIGAN 12/02/2018 [facility] pelvis DX : 1985; Age: 33 years y/o Female MR: [id number] * LEFT HIP (2 views) with frontal PELVIS History: Acute left anterior hip pain. Technique: Frontal neutral and frog-leg images of the left hip and a frontal radiograph of the pelvis were obtained. FINDINGS: There is no evidence of fracture, dislocation, or acute change. The joint space is well-maintained. There are no degenerative changes or other significant osseous abnormalities. The pelvic ring is intact. There are no destructive lesions. Again noted is a T-shaped intrauterine device in the mid pelvis. IMPRESSION: 1. Negative left hip and pelvis. 2. T-shaped intrauterine device noted. SL: [id number]-PC Chest 1view DX PROCEDURE: Chest Radiograph. 11/25/2018 [facility] Clinical Indication: Tracheostomy tube placement. Comparison: None. FINDINGS: The chest shows minimal vascular congestion. A tracheostomy tube is present with tip approximately 2.8 cm cephalad of lyndsay. The cardiac silhouette appears slightly enlarged. The trachea is midline. There are no clinically significant osseous abnormalities noted. IMPRESSION: 1. Findings suggesting minimal vascular congestion. 2. Tracheostomy tube placement as described. SL:[id number] Abdomen AP DX Procedure: Abdominal Radiograph. 11/25/2018 [facility] Clinical Indication: PEG tube placement, constipation. Comparison: None. FINDINGS: A supine radiograph of the abdomen in 2 views demonstrates a pigtail catheter projected overlying the stomach bubble. There is a nonspecific bowel gas pattern without definitive bowel obstruct ion or free intraperitoneal air. There is minimal retained fecal matter throughout the colon. No pathologic calcifications are observed. An intrauterine device projects overlying the pelvis. IMPRESSION: 1. Gastrostomy tube and intrauterine device present. 2. Nonspecific bowel gas pattern with minimal retained fecal matter throughout the colon. [id number] Consultation Notes No Data Provided for This Section Discharge Summaries No Data Provided for This Section History and Physicals No Data Provided for This Section Vital Signs Vital Sign Value Date Comments Source Weight 81.818 03/14/2019 [facility] BMI Calculated 35.23 03/14/2019 [facility] Systolic (mm Hg) 124 03/14/2019 [facility] Diastolic (mm Hg) 88 03/14/2019 [facility] Heart Rate 65 03/14/2019 [facility] Respitory Rate 20 03/14/2019 [facility] Height 152.4 cm 03/14/2019 [facility] Heart Rate 62 02/20/2019 [facility] Systolic (mm Hg) 120 02/20/2019 [facility] Diastolic (mm Hg) 83 02/20/2019 [facility] Respitory Rate 18 02/20/2019 [facility] Temperature Oral (F) 98 F 02/20/2019 [facility] Systolic (mm Hg) 126 02/04/2019 [facility] Diastolic (mm Hg) 85 02/04/2019 [facility] Temperature Oral (F) 97.7 F 02/04/2019 [facility] Heart Rate 94 02/04/2019 [facility] Respitory Rate 18 02/04/2019 [facility] Systolic (mm Hg) 98 02/04/2019 [facility] Diastolic (mm Hg) 63 02/04/2019 [facility] Heart Rate 82 02/04/2019 [facility] Systolic (mm Hg) 99 02/04/2019 [facility] Diastolic (mm Hg) 64 02/04/2019 [facility] Heart Rate 87 02/04/2019 [facility] Respitory Rate 18 02/04/2019 [facility] Temperature Oral (F) 98.1 F 02/04/2019 [facility] Respitory Rate 16 02/03/2019 [facility] Temperature Oral (F) 98.1 F 02/03/2019 [facility] Height 165.1 cm 11/26/2018 [facility] BMI Calculated 32.84 11/26/2018 [facility] Weight 81.455 11/26/2018 [facility] Height 157.48 cm 11/26/2018 [facility] Encounters Location Location Encounter Encounter Reason Attending ADM DC Status Source Details Type Number For Provider Date Date Visit [id number] [place] [facility] [place] [facility] [id number] [place] 02[facility]20 02/21 [facility] Outpatient [id number] [place] 03/14 03/15 [facility] [place] [facility] ([facility] Procedures Procedure Code Date Perfomer Comments [place] [id number] 01/27/2019 [facility] neurolytic agent; other peripheral nerve or branch Cystostomy and [id number] 01/12/2019 [facility] insertion of suprapubic tube Video urodynamic [id number] 12/19/2018 [facility] study Assessment and Plan No Data Provided for This Section Plan of Care No Data Provided for This Section Social History Social History Date Source Social History TypeResponse 03/14/2019 [facility] Smoking Status Never smoker; Exposure to Tobacco Smoke None; Cigarette Smoking Last 365 Days No; Reg Smoking Cessation Counseling No entered on: 03/14/19 Family History No Data Provided for This Section Advance Directives No Data Provided for This Section Functional Status No Data Provided for This Section"
--- OUTSIDE RECORDS SUMMARY | 2019-04-05 12:58 | XMS REPORT | Summary of Care ---
:1985 [address] [facility] Address [address] [place] [id number] Encounter [facility] Juan(FIN) [id number] Date(s): 02/20/19 - 02/20/[address] [address]- [phone] Discharge Disposition: Home or Self Care Attending Physician: [place] Bob MD Referring Physician: [place] Bob MD Vital Signs Most recent to oldest [Reference Range]: 1 Temperature Oral [96.4-99.1 DegF] 98 DegF (02/20/19 1:15 PM) Blood Pressure [90-140/60-90 mmHg] 120/83 mmHg (02/20/19 1:15 PM) Respiratory Rate [14-20 BRMIN] 18 BRMIN (02/20/19 1:15 PM) Peripheral Pulse Rate [60-100 bpm] 62 bpm (02/20/19 1:15 PM) Problem List Condition Effective Dates Status Health Status Informant Acute respiratory failure(Confirmed) Active Cerebrovascular accident Active (CVA)(Confirmed) Dysphagia(Confirmed) Active Escherichia coli(Confirmed)1, 2 Active Impaired mobility and ADLs(Confirmed) Active Impaired cognition(Confirmed) Active 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 Allergies, Adverse Reactions, Alerts Substance Reaction Severity Status NKDA Active [id number] Active 1lethargic, difficult to arouse Medications No Known Medications Results No data available for this section Immunizations No data available for this section Procedures Procedure Date Related Diagnosis Body Site Status Cystostomy and insertion of suprapubic 01/12/19 Completed tube Video urodynamic study 12/19/18 Completed Social History Social History Type Response Smoking Status Never smoker; Exposure to Tobacco Smoke None; Cigarette Smoking Last 365 Days No; Reg Smoking Cessation Counseling No entered on: 02/20/19 Assessment and Plan No data available for this section
--- OUTSIDE RECORDS SUMMARY | 2019-04-05 12:58 | XMS REPORT | Summary of Care ---
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) - Discharge Disposition: Home or Self Care Attending Physician: Diego Rust MD Admitting Physician: Diego Rust MD Vital Signs Most recent to oldest 1 2 3 [Reference Range]: Height 165.1 cm 157.48 cm (11/25/18 9:14 PM) (11/25/18 8:55 PM) Current Weight 84.091 kg 83.75 kg 80.727 kg (01/27/19 1:25 PM) (01/20/19 7:01 PM) (01/13/19 7:21 PM) Temperature Oral [96.4-99.1 97.7 DegF 98.1 DegF 98.1 DegF DegF] (02/04/19 7:03 AM) (02/03/19 7:30 PM) (02/02/19 7:30 PM) Blood Pressure [90-140/60-90 98/63 mmHg 99/64 mmHg mmHg] (02/03/19 9:12 PM) (02/03/19 9:11 PM) Systolic Blood Pressure 126 mmHg [90-140 mmHg] (02/04/19 7:03 AM) Diastolic Blood Pressure 85 mmHg [60-90 mmHg] (02/04/19 7:03 AM) Respiratory Rate [14-20 BRMIN] 18 BRMIN 18 BRMIN 16 BRMIN (02/04/19 7:03 AM) (02/03/19 7:30 PM) (02/03/19 12:00 PM) Peripheral Pulse Rate [60-100 94 bpm 82 bpm 87 bpm bpm] (02/04/19 7:03 AM) (02/03/19 9:12 PM) (02/03/19 9:11 PM) Weight 81.455 kg (11/25/18 8:55 PM) Body Mass Index 32.84 m2 (11/25/18 8:55 PM) Problem List Condition Effective Dates Status Health Status Informant Acute respiratory failure(Confirmed) Active Cerebrovascular accident Active (CVA)(Confirmed) Dysphagia(Confirmed) Active Escherichia coli(Confirmed)1, 2 Active Impaired mobility and ADLs(Confirmed) Active Impaired cognition(Confirmed) Active 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 Allergies, Adverse Reactions, Alerts Substance Reaction Severity Status NKDA Active [id number] Active 1lethargic, difficult to arouse Medications acetaminophen 160 mg/5 mL oral liquid PEG, Q6H, PRN Other -See Comment | Pain 1-10 or Temp >100.4F, 0 Refill(s) Start Date: 02/03/19 Status: Orderedacetylcysteine 20% inhalation solution 0.4 gm=2 mL, NEB, BID, 0 Refill(s) Start Date: 11/25/18 Stop Date: 02/03/19 Status: DiscontinuedamLODIPine 10 mg, 1 tab, Route: PEG, Drug form: TAB, Daily, kg, Start date: 11/26/18 8:30: 00 CDT, Duration: 30 day, Stop date: 12/25/18 8:30:00 CDT Notes: (Same as: Aubree) Start Date: 11/26/18 Stop Date: 12/08/18 Status: DiscontinuedamLODIPine 5 mg, 1 tab, Route: PEG, Drug form: TAB, Bedtime, kg, Start date: 12/13/18 21:00 :00 CDT, Duration: 30 day, Stop date: 01/11/19 21:00:00 CDT Notes: (Same as: Aubree) Start Date: 12/13/18 Stop Date: 12/15/18 Status: DiscontinuedamLODIPine 10 mg, 1 tab, Route: PEG, Drug form: TAB, Daily, kg, Start date: 12/09/18 8:30: 00 CDT, Duration: 30 day, Stop date: 01/07/19 8:30:00 CDT Notes: (Same as: Aubree) Start Date: 12/09/18 Stop Date: 12/12/18 Status: DiscontinuedamLODIPine 5 mg, Route: PEG, Drug form: TAB, Daily, kg, Start date: 12/13/18 8:30:00 CDT, Duration: 30 day, Stop date: 01/11/19 8:30:00 CDT Start Date: 12/13/18 Stop Date: 12/12/18 Status: CanceledamLODIPine 10 mg oral tablet 10 mg=1 tab, PEG, Daily, 0 Refill(s) Start Date: 11/25/18 Stop Date: 12/15/18 Status: Discontinuedbacitracin topical 1 appl, Route: TOP, BID, Drug form: OINT, Start date: 02/01/19 21:00:00 CDT, Duration: 30 day, Stop date: 03/03/19 8:30:00 CDT Start Date: 02/01/19 Stop Date: 02/04/19 Status: Discontinuedbacitracin topical 1 appl, TOP, BID, 0 Refill(s) Start Date: 02/03/19 Status: Orderedbaclofen 10 mg, 1 tab, Route: PO, Drug form: TAB, BID, Dosing Weight 81.455, kg, Start date: 01/24/19 12:00:00 CDT, Duration: 30 day, Stop date: 02/23/19 8:30:00 CDT Notes: (Same As: Flower) Start Date: 01/24/19 Stop Date: 01/25/19 Status: Discontinuedbaclofen 10 mg, Route: PO, Drug form: TAB, BID, Dosing Weight 81.455, kg, Start date: 12/09 21:00:00 CDT, Duration: 30 day, Stop date: 02/23/19 8:30:00 CDT Start Date: 01/24/19 Stop Date: 01/24/19 Status: Canceledbaclofen 10 mg, 1 tab, Route: PO, Drug form: TAB, TID, Dosing Weight 81.455, kg, Start date: 01/25/19 13:00:00 CDT, Duration: 60 day, Stop date: 03/26/19 8:30:00 CDT Notes: (Same As: Lioresal) Start Date: 01/25/19 Stop Date: 02/04/19 Status: Discontinuedbaclofen 10 mg oral tablet 10 mg=1 tab, PO, TID, # 90 tab, 11 Refill(s) Start Date: 02/03/19 Status: OrderedBactrim DS 800 mg- 160 mg oral tablet 1 tab, Route: PO, Drug Form: TAB, Dosing Weight 81.455, kg, Q12H, Start date: 21:00:00 CDT,Duration: 5 day, Stop date: 12/11/18 9:00:00 CDT Notes: One DS tablet=trimethoprim 160mg + sulfamethoxazole 800 mgDose based on trimethoprim component On empty stomach with a glass of water. (Same As: Bactrim DS, Septra DS) Start Date: 12/06/18 Stop Date: 12/11/18 Status: Completedbisacodyl 10 mg, 1 supp, Route: UT, Drug form: SUPP, Daily, kg, PRN Constipation, Start date: 11/25/18 19:48:00 CDT, Duration: 30 day, Stop date: 12/25/18 19:47:00 CDT Notes: (Same As: Dulcolax, Bisco-Lax) Start Date: 11/25/18 Stop Date: 11/29/18 Status: Discontinuedbudesonide 0.5 mg, 2 mL, Route: NEB, Drug form: SUSP, TRBID, kg, Start date: 11/25/18 21:00 :00 CDT, Duration: 30 day, Stop date: 12/25/18 19:30:00 CDT Notes: (Same As: Pulmicort) Start Date: 11/25/18 Stop Date: 12/12/18 Status: Discontinuedbudesonide 0.5 mg, NEB, BID, 0 Refill(s) Start Date: 11/25/18 Stop Date: 01/09/19 Status: Discontinuedcalcium carbonate 500 mg (200 mg elemental calcium) oral tablet 1,500 mg=3 tab, CHEW, TID, PRN acid reflux, 0 Refill(s) Start Date: 02/03/19 Status: OrderedcefTRIAXone + sterile water 10 mL 1 gm, Route: IVP, [id number], Dosing Weight 81.455, kg, Start date: 12/04/18 19:00: 00 CDT, Duration: 7 day, Stop date: 12/10/18 19:00:00 CDT, ABX Indication: Other (specify in Comments) Notes: (Same As: Alissa). MEDICATION WASTE Product Size: 1000 mgProduct Wasted: _0__ mg Start Date: 12/04/18 Stop Date: 12/06/18 Status: DiscontinuedCeleXA 40 mg, 2 tab, Route: PEG, Drug form: TAB, Daily, Dosing Weight 81.455, kg, Start date: 12/07/18 8:30:00 CDT, Duration: 60 day, Stop date: 04/05/19 8:30:00 CDT Notes: (Same As: CeleXA) Start Date: 12/07/18 Stop Date: 02/04/19 Status: DiscontinuedCeleXA 20 mg, 1 tab, Route: PO, Drug form: TAB, Daily, Dosing Weight 81.455, kg, Start date: 12/01/18 8:30:00 CDT, Duration: 60 day, Stop date: 01/29/19 8:30:00 CDT Notes: (Same As: CeleXA) Start Date: 12/01/18 Stop Date: 12/01/18 Status: DiscontinuedCeleXA 20 mg, 1 tab, Route: PEG, Drug form: TAB, Daily, Dosing Weight 81.455, kg, Start date: 12/02/18 8:30:00 CDT, Duration: 60 day, Stop date: 01/30/19 8:30:00 CDT Notes: (Same As: CeleXA) Start Date: 12/02/18 Stop Date: 12/07/18 Status: Discontinuedcetirizine 10 mg oral tablet 10 mg=1 tab, PO, Daily, 0 Refill(s) Start Date: 02/03/19 Status: Orderedchlorhexidine topical 0.12% liquid 0.018 gm, Route: PO, BID, Drug form: LIQ, Start date: 11/25/18 21:00:00 CDT, Duration: 30 day, Stop date: 01/24/19 8:30:00 CDT Notes: (Same As: Peridex) Start Date: 11/25/18 Stop Date: 01/05/19 Status: Discontinuedchlorhexidine topical 0.12% liquid 0.018 gm=15 ml, PO, BID, # 480 ml, 0 Refill(s) Start Date: 11/25/18 Stop Date: 01/05/19 Status: DiscontinuedCipro 500 mg, 1 tab, Route: NG, Drug form: TAB, [id number], Dosing Weight 81.455, kg, Start date: 01/09/19 20:00:00 CDT, Duration: 7 day, Stop date: 01/16/19 8:00:00 CDT, ABX Indication: Urinary Tract Infection Notes: May interfere w/enteral feedings - Take 1 hr before or 2 hrs after antacids, dairy pdt & minerals. On empty stomach. Start Date: 01/09/19 Stop Date: 01/16/19 Status: CompletedCipro 250 mg, Route: PO, Drug form: TAB, [id number], Dosing Weight 81.455, kg, Start date : 01/10/19 8:00:00 CDT, Duration: 7 day, Stop date: 01/16/19 20:00:00 CDT, ABX Indication: Surgical Prophylaxis Start Date: 01/10/19 Stop Date: 01/10/19 Status: Deletedcitalopram 20 mg oral tablet 40 mg=2 tab, PEG, Daily, # 60 tab, 1 Refill(s) Start Date: 02/03/19 Stop Date: 02/04/19 Status: Discontinuedcitalopram 40 mg oral tablet 40 mg=1 tab, PEG, Daily, # 30 tab, 1 Refill(s), Pharmacy: [facility] [place] Start Date: 02/04/19 Status: OrderedDibucaine 1% topical ointment 1 appl, Route: TOP, BID, Drug form: OINT, PRN Other -See Comment, Start date: 16:24:00 CDT,Duration: 36 day, Stop date: 01/27/19 9:17:00 CDT, for comfort during bowel program Notes: Non-Formulary Drug (Same as: Nupercainal) Start Date: 11/28/18 Stop Date: 01/19/19 Status: DiscontinuedDibucaine 1% topical ointment 1 appl, Route: TOP, PRN, Drug form: OINT, PRN Pain Score 1-3, Start date: 10:33:00 CDT, Duration: 30 day, Stop date: 12/28/18 10:32:00 CDT Notes: Non-Formulary Drug (Same as: Nupercainal) Start Date: 11/28/18 Stop Date: 12/06/18 Status: Discontinueddiclofenac topical 1% gel 4 gm, 2 appl, Route: TOP, Drug form: GEL, TID, Dosing Weight 81.455, kg, Start date: 12/02/18 21:00:00 CDT, Duration: 7 day, Stop date: 12/09/18 13:00:00 CDT Notes: Same as: Voltaren Gel Start Date: 12/02/18 Stop Date: 12/09/18 Status: CompletedDiflucan 200 mg, 2 tab, Route: PO, Drug form: TAB, Daily, Dosing Weight 81.455, kg, Start date: 01/13/19 8:30:00 CDT, Duration: 3 day, Stop date: 01/15/19 8:30:00 CDT, ABX Indication: Genital Tract Infection Notes: (Same as: Diflucan) Start Date: 01/13/19 Stop Date: 01/15/19 Status: CompletedDiflucan 150 mg, 1.5 tab, Route: PO, Drug form: TAB, Daily, Dosing Weight 81.455, kg, Start date: 12/03/18 10:14:00 CDT, Duration: 2 doses or times, Stop date: 8:30:00 CDT, ABX Indication: Other (specify in Comments) Notes: (Same as: Diflucan) Start Date: 12/03/18 Stop Date: 12/03/18 Status: DiscontinuedDuoNeb inhalation solution 3 mL, Route: NEB, Drug Form: SOLN, kg, TRQ8H, Start date: 12/12/18 23:30:00 CDT , Duration: 30 day, Stop date: 01/11/19 15:30:00 CDT Notes: (Same as: Duoneb) Start Date: 12/12/18 Stop Date: 12/13/18 Status: DiscontinuedDuoNeb inhalation solution 3 ml, Route: NEB, Drug Form: SOLN, Dosing Weight 81.455, kg, PRN, PRN Respiratory Pathway, Start date: 12/13/18 10:57:00 CDT, Duration: 36 day, Stop date: 02/11/19 9:12:00 CDT Notes: (Same as: Duoneb) Start Date: 12/13/18 Stop Date: 01/10/19 Status: DiscontinuedDuoNeb inhalation solution 3 mL, Route: NEB, Drug Form: SOLN, kg, TRQ6H, Start date: 11/25/18 19:48:00 CDT , Duration: 30 day, Stop date: 12/25/18 19:30:00 CDT Notes: (Same as: Duoneb) Start Date: 11/25/18 Stop Date: 12/12/18 Status: DiscontinuedDuoNeb inhalation solution 3 mL, NEB, Q6H, 0 Refill(s) Start Date: 11/25/18 Stop Date: 02/03/19 Status: DiscontinuedEnemeez Mini 283 mg rectal enema 283 mg, 5 mL, Route: UT, Drug form: MICHELLE, Bedtime, Dosing Weight 81.455, kg, Start date: 11/28/18 21:00:00 CDT, Duration: 30 day, Stop date: 12/27/18 21:00: 00 CDT Notes: Same as Joie Non formulary item Start Date: 11/28/18 Stop Date: 12/06/18 Status: Discontinuedfamotidine 20 mg, 1 tab, Route: PEG, Drug form: TAB, BID, kg, Start date: 11/25/18 21:00: 00 CDT, Duration: 30 day, Stop date: 12/25/18 8:30:00 CDT Notes: (Same as: Pepcid) Start Date: 11/25/18 Stop Date: 11/29/18 Status: Discontinuedfamotidine 20 mg=1 tab, PEG, BID, # 60 tab, 0 Refill(s) Start Date: 11/25/18 Stop Date: 02/03/19 Status: DiscontinuedFleet Enema Extra 230 mL, Route: UT, Drug Form: MICHELLE, Dosing Weight 81.455, kg, ONCE, Start date: 12/11/18 20:00:00 CDT, Stop date: 12/11/18 20:00:00 CDT Start Date: 12/11/18 Stop Date: 12/11/18 Status: CompletedguaiFENesin 200 mg, 10 mL, Route: PEG, Drug form: SYRP, Q6H, kg, PRN as needed for congestion, Start date: 12/01/18 19:33:00 CDT, Duration: 30 day, Stop date: 07/11 19:32:00 CDT Notes: (Same as: Bayron) Start Date: 12/01/18 Stop Date: 12/06/18 Status: DiscontinuedguaiFENesin 200 mg, PEG, 0 Refill(s) Start Date: 11/25/18 Stop Date: 02/03/19 Status: DiscontinuedguaiFENesin 200 mg, 10 mL, Route: PEG, Drug form: SYRP, Q6H, kg, Start date: 11/26/18 0:00: 00 CDT, Duration: 30 day, Stop date: 12/25/18 18:00:00 CDT Notes: (Same as: Bayron) Start Date: 11/26/18 Stop Date: 12/01/18 Status: DiscontinuedguaiFENesin 100 mg/5 mL oral liquid 200 mg, 10 mL, Route: PO, Drug form: SYRP, BID, Dosing Weight 81.455, kg, Start date: 01/02/19 21:00:00 CDT, Duration: 7 day, Stop date: 01/09/19 8:30:00 CDT Notes: (Same as: Bayron) Start Date: 01/02/19 Stop Date: 01/09/19 Status: Completedheparin 5,000 unit, 1 mL, Route: SUB-Q, Drug form: INJ, Q12H, kg, Start date: 11/25/18 21:00:00 CDT, Duration: 30 day, Stop date: 12/25/18 9:00:00 CDT Notes: porcine heparin Start Date: 11/25/18 Stop Date: 11/29/18 Status: Discontinuedheparin 5,000 unit, SUB-Q, Q12H, 0 Refill(s) Start Date: 11/25/18 Stop Date: 02/03/19 Status: DiscontinuedhydrALAZINE 10 mg, 0.5 mL, Route: IVP, Drug form: INJ, Q4H, kg, PRN Hypertension, Start date : 11/25/18 19:48:00 CDT, Duration: 30 day, Stop date: 12/25/18 19:47:00 CDT Notes: (Same as: Apresoline)Push over 5 minutes Start Date: 11/25/18 Stop Date: 11/28/18 Status: DiscontinuedhydrALAZINE 10 mg oral tablet 10 mg, 1 tab, Route: PO, Drug form: TAB, Q6H, Dosing Weight 81.455, kg, PRN Hypertension, Start date: 11/28/18 19:44:00 CDT, Duration: 30 day, Stop date: 19:43:00 CDT Notes: (Same as: Apresoline) May interfere w/enteral feedings.Take With Food Start Date: 11/28/18 Stop Date: 12/22/18 Status: DiscontinuedIrrigation w/ Normal Saline 250 ml, Route: IRRIG, Drug Form: SOLN, Dosing Weight 81.455, kg, PRN, PRN Other -See Comment, Start date: 11/28/18 10:33:00 CDT, Duration: 36 day, Stop date: 9:17:00 CDT Notes: For irrigation only. Start Date: 11/28/18 Stop Date: 01/19/19 Status: Discontinuedlidocaine 4% topical cream 1 appl, Route: TOP, TID, Drug form: CRM, Start date: 12/23/18 13:00:00 CDT, Duration: 7 day, Stop date: 12/30/18 8:30:00 CDT Notes: Same as Xylocaine Start Date: 12/23/18 Stop Date: 12/30/18 Status: Completedlisinopril 40 mg, 2 tab, Route: GT, Drug form: TAB, Daily, kg, Start date: 12/09/18 8:30: 00 CDT, Duration: 30 day, Stop date: 03/08/19 8:30:00 CDT Notes: (Same as: Prinivchristal Zestril) Start Date: 12/09/18 Stop Date: 02/04/19 Status: Discontinuedlisinopril 40 mg, 2 tab, Route: GT, Drug form: TAB, Daily, kg, Start date: 11/26/18 8:30: 00 CDT, Duration: 30 day, Stop date: 12/25/18 8:30:00 CDT Notes: (Same as: Prinivil, Zestril) Start Date: 11/26/18 Stop Date: 12/08/18 Status: Discontinuedlisinopril 20 mg oral tablet 40 mg=2 tab, GT, Daily, # 60 tab, 1 Refill(s) Start Date: 02/03/19 Stop Date: 02/04/19 Status: Discontinuedlisinopril 40 mg oral tablet 40 mg=1 tab, PEG, Daily, # 30 tab, 1 Refill(s), Pharmacy: [facility] Start Date: 02/04/19 Status: OrderedLopressor 100 mg, 2 tab, Route: PEG, Drug form: TAB, BID, kg, Start date: 01/03/19 21:00: 00 CDT, Duration: 60 day, Stop date: 03/04/19 8:30:00 CDT Notes: (Same as: Lopressor) Start Date: 01/03/19 Stop Date: 02/04/19 Status: DiscontinuedLopressor 150 mg, 3 tab, Route: PEG, Drug form: TAB, BID, kg, Start date: 11/25/18 21:00: 00 CDT, Duration: 30 day, Stop date: 12/25/18 8:30:00 CDT Notes: (Same as: Lopressor) Start Date: 11/25/18 Stop Date: 12/08/18 Status: DiscontinuedLopressor 150 mg, 3 tab, Route: PEG, Drug form: TAB, BID, kg, Start date: 12/08/18 21:00: 00 CDT, Duration: 30 day, Stop date: 02/06/19 8:30:00 CDT Notes: (Same as: Lopressor) Start Date: 12/08/18 Stop Date: 01/03/19 Status: DiscontinuedLopressor 150 mg, PEG, BID, 0 Refill(s) Start Date: 11/25/18 Stop Date: 02/03/19 Status: Discontinuedmetoprolol tartrate 100 mg oral tablet 100 mg=1 tab, PEG, BID, # 60 tab, 1 Refill(s), Pharmacy: [facility] Start Date: 02/04/19 Status: Orderedmetoprolol tartrate 50 mg oral tablet 100 mg=2 tab, PEG, BID, # 120 tab, 1 Refill(s) Start Date: 02/03/19 Stop Date: 02/04/19 Status: Discontinuednitroglycerin 2% topical ointment 1 inch, Route: TOP, Drug Form: OINT, Dosing Weight 81.455, kg, TID, PRN Hypertension, Start date: 11/28/18 10:33:00 CDT, Duration: 60 day, Stop date: 9:17:00 CDT Notes: 1 gram is approximately 1 inch of nitroglycerin ointment (20 mg NTG per gram) (Same as:Nitro-Bid) Start Date: 11/28/18 Stop Date: 02/04/19 Status: Discontinuednystatin topical 100,000 units/g powder 1 appl, Route: TOP, BID, Drug form: PWDR, Start date: 01/06/19 10:23:00 CDT, Duration: 14 day, Stop date: 01/20/19 8:30:00 CDT Notes: (Same as:Mycostatin, Nilstat) For external use only. Start Date: 01/06/19 Stop Date: 01/20/19 Status: CompletedOmnipaque 300 30,000 mg, Route: Intravesical, Dosing Weight 81.455, kg, ONCE, Start date: 13:26:00 CDT, Stop date: 12/19/18 13:26:00 CDT Start Date: 12/19/18 Stop Date: 12/19/18 Status: Completedpamidronate + Sodium Chloride 0.9% IV 500 mL 60 mg, 20 mL, Route: IVPB, Drug form: SOLN, ONCE, Dosing Weight 81.455, kg, Start date: 01/03/19 17:00:00 CDT, Stop date: 01/03/19 17:00:00 CDT Start Date: 01/03/19 Stop Date: 01/04/19 Status: Completedpamidronate + Sodium Chloride 0.9% IV 500 mL 60 mg, 20 mL, Route: IVPB, Drug form: SOLN, ONCE, Dosing Weight 81.455, kg, Start date: 01/24/19 11:45:00 CDT, Stop date: 01/24/19 11:45:00 CDT Start Date: 01/24/19 Stop Date: 01/24/19 Status: Completedphenol 6% AQ in water for injection 10 mL, Route: NERVE BLOCK, Drug Form: INJ, Dosing Weight 81.455, kg, ONCALL, Start date: 01/27/19 10:00:00 CDT, Duration: 30 day, Stop date: 02/26/19 9:59: 00 CDT Notes: WASTE: F/P - Black; E - [facility] Trash [facility] Start Date: 01/27/19 Stop Date: 01/27/19 Status: Completedpregabalin 50 mg, 1 cap, Route: PEG, Drug form: CAP, Q8H-06, kg, Start date: 11/28/18 22:00 :00 CDT, Duration: 30 day, Stop date: 12/28/18 14:00:00 CDT Notes: Same as Lyrica Start Date: 11/28/18 Stop Date: 12/01/18 Status: Discontinuedpregabalin 100 mg, 1 cap, Route: PEG, Drug form: CAP, Q8H-06, kg, Start date: 12/23/18 14: 00:00 CDT, Duration: 60 day, Stop date: 02/21/19 6:00:00 CDT Notes: (Same as: Lyrica) Start Date: 12/23/18 Stop Date: 12/27/18 Status: Discontinuedpregabalin 75 mg, 1 cap, Route: PEG, Drug form: CAP, Q8H-06, kg, Start date: 12/02/18 22:00 :00 CDT, Duration: 60 day, Stop date: 01/31/19 14:00:00 CDT Notes: (Same as: Lyrica) Start Date: 12/02/18 Stop Date: 12/23/18 Status: Discontinuedpregabalin 25 mg, 1 cap, Route: PEG, Drug form: CAP, TID, kg, Start date: 11/25/18 21:00: 00 CDT, Duration: 30 day, Stop date: 12/25/18 13:00:00 CDT Notes: (Same as: Lyrica) Start Date: 11/25/18 Stop Date: 11/28/18 Status: Discontinuedpregabalin 150 mg, 1 cap, Route: PEG, Drug form: CAP, Q8H-06, kg, Start date: 12/27/18 14: 00:00 CDT, Duration: 60 day, Stop date: 02/25/19 6:00:00 CDT Notes: Same as Lyrica Start Date: 12/27/18 Stop Date: 02/04/19 Status: Discontinuedpregabalin 25 mg, PEG, TID, 0 Refill(s) Start Date: 11/25/18 Stop Date: 02/03/19 Status: Discontinuedpregabalin 75 mg, 1 cap, Route: PEG, Drug form: CAP, Q8H-06, kg, Start date: 12/01/18 14:00 :00 CDT, Duration: 60 day, Stop date: 01/30/19 6:00:00 CDT Notes: (Same as: Lyrica) Start Date: 12/01/18 Stop Date: 12/02/18 Status: Discontinuedpregabalin 150 mg oral capsule 150 mg=1 cap, PEG, Q8H-06, # 90 caplet, 0 Refill(s) Start Date: 02/03/19 Status: OrderedPulmicort Flexhaler 180 microgram, Route: INHALATION, Dosing Weight 81.455, kg, BID, Start date: 02/08 21:00:00 CDT, Duration: 30 day, Stop date: 01/25/19 8:30:00 CDT Start Date: 12/26/18 Stop Date: 12/26/18 Status: DeletedPulmicort Respules 0.25 mg, 2 mL, Route: NEB, Drug form: SUSP, TRBID, Start date: 12/26/18 19:30: 00 CDT, Duration: 30 day, Stop date: 01/25/19 7:30:00 CDT Notes: (Same As: Pulmicort respule). Start Date: 12/26/18 Stop Date: 01/09/19 Status: DiscontinuedSaline Flush 0.9% 10 mL, Route: IVP, Drug Form: INJ, kg, PRN, PRN Line Flush, Start date: 04/05/ 19 19:45:00 CDT, Duration: 30 day, Stop date: 12/25/18 19:44:00 CDT Notes: (Same as: BD Posiflush) Start Date: 11/25/18 Stop Date: 12/06/18 Status: Discontinuedsenna 17.2 mg, 2 tab, Route: PO, Drug Form: TAB, Dosing Weight 81.455, kg, Daily, Start date: 12/11/18 8:30:00 CDT, Duration: 60 day, Stop date: 02/08/19 8:30:00 CDT Notes: (Same as: Barrett) Start Date: 12/11/18 Stop Date: 12/11/18 Status: Discontinuedsenna 17.6 mg, 10 mL, Route: PEG, Drug Form: SYRP, kg, QNoon, Start date: 11/26/18 12: 00:00 CDT, Duration:30 day, Stop date: 12/25/18 12:00:00 CDT Notes: (Same as: Barrett) Start Date: 11/26/18 Stop Date: 12/11/18 Status: Discontinuedsenna 26.4 mg, 15 mL, Route: PEG, Drug Form: SYRP, kg, QNoon, Start date: 12/11/18 12: 00:00 CDT, Duration:60 day, Stop date: 04/09/19 12:00:00 CDT Notes: (Same as: Barrett) Start Date: 12/11/18 Stop Date: 02/04/19 Status: Discontinuedsenna 8.8 mg/5 mL oral syrup 26.4 mg=15 mL, PEG, QNoon, # 240 mL, 11 Refill(s) Start Date: 02/03/19 Status: OrderedSodium Chloride 0.45% IV 1,000 mL 1,000 mL, Rate: 100 ml/hr, Infuse over: 10 hr, Route: IV, Dosing Weight 81.455 kg, Total Volume: 1,000, Start date: 12/04/18 10:22:00 CDT, Duration: 30 day, Stop date: 01/03/19 10:21:00 CDT, 1.96, m2 Start Date: 12/04/18 Stop Date: 12/06/18 Status: DiscontinuedSodium Chloride 3% inhalation solution 4 mL, Route: INHALATION, Drug Form: SOLN, Dosing Weight 81.455, kg, RQ6H, PRN Congestion, Start date: 01/02/19 13:19:00 CDT, Duration: 30 day, Stop date: 08/10 13:18:00 CDT Notes: SEE RT DOCUMENTATION (Same as: Hypertonic Saline 3%, Inhalation) Start Date: 01/02/19 Stop Date: 01/19/19 Status: DiscontinuedSodium Chloride 3% inhalation solution 3 mL, Route: NEB, Drug Form: SOLN, Dosing Weight 81.455, kg, TRQ6H, PRN See Respiratory Notes, Startdate: 11/26/18 19:30:00 CDT, Duration: 30 day, Stop date : 12/26/18 13:30:00 CDT, dry cough Notes: SEE RT DOCUMENTATION (Same as: Hypertonic Saline 3%, Inhalation) Start Date: 11/26/18 Stop Date: 12/06/18 Status: Discontinuedtramadol 25 mg, 0.5 tab, Route: PO, Drug form: TAB, QID, Dosing Weight 81.455, kg, PRN Pain Score 4-6, Start date: 11/29/18 10:32:00 CDT, Duration: 30 day, Stop date: 12/29/18 10:31:00 CDT Notes: Not to exceed 400mg/day. (Same As: Ultram) Start Date: 11/29/18 Stop Date: 12/05/18 Status: Discontinuedtramadol 50 mg oral tablet 50 mg, 1 tab, Route: PO, Drug form: TAB, QID, Dosing Weight 81.455, kg, PRN Pain Score 7-10, Start date: 11/29/18 10:32:00 CDT, Duration: 30 day, Stop date : 12/29/18 10:31:00 CDT Notes: Not to exceed 400mg/day. (Same As: Ultram) Start Date: 11/29/18 Stop Date: 12/05/18 Status: Discontinuedtramadol 50 mg oral tablet 50 mg, 1 tab, Route: PO, Drug form: TAB, Q4H, Dosing Weight 81.455, kg, PRN Pain Score 1-3, Start date: 11/25/18 22:56:00 CDT, Duration: 30 day, Stop date: 12/25/18 22:55:00 CDT Start Date: 11/25/18 Stop Date: 11/29/18 Status: DiscontinuedTums 1,500 mg, 3 tab, Route: CHEW, Drug form: CHEWTAB, TID, Dosing Weight 81.455, kg , PRN, Start date: 01/01/19 20:49:00 CDT, Stop date: 03/02/19 20:48:00 CDT, acid reflux Notes: (Same As: Tums)Calcium Carbonate 500 ef=406 mg elemental calcium Dose=_ mg calcium carbonate ( mg elemental calcium) Start Date: 01/01/19 Stop Date: 02/04/19 Status: DiscontinuedTylenol 500 mg, PEG, BID, 0 Refill(s) Start Date: 11/25/18 Stop Date: 02/03/19 Status: DiscontinuedTylenol 650 mg, 20.3 mL, Route: PEG, Drug form: LIQ, Q6H, kg, PRN Pain 1-3/Temp > 100.4 F, Start date: 12/05/18 11:14:00 CDT, Duration: 60 day, Stop date: 11:13:00 CDT, Pain 1-5/Temp > 100.4 F Notes: Max amkkccprqkjml=9791uj/day (4 gm/day). (Same as: Tylenol) Start Date: 12/05/18 Stop Date: 12/15/18 Status: DiscontinuedTylenol 500 mg, 1 tab, Route: PEG, Drug form: TAB, Q6H, kg, PRN Pain 1-3/Temp > 100.4 F, Start date: 11/25/18 19:48:00 CDT, Duration: 30 day, Stop date: 19:47:00 CDT Notes: Max acetaminophen 4000 mg/day (4 gm/day). (Same as: Tylenol Extra Strength) Start Date: 11/25/18 Stop Date: 11/29/18 Status: DiscontinuedTylenol 650 mg, 20.3 mL, Route: PEG, Drug form: LIQ, Q6H, kg, PRN Pain 1-3/Temp > 100.4 F, Start date: 11/29/18 10:32:00 CDT, Duration: 30 day, Stop date: 10:31:00 CDT Notes: Max iqlzhmofthdkv=5208bj/day (4 gm/day). (Same as: Tylenol) Start Date: 11/29/18 Stop Date: 12/05/18 Status: DiscontinuedTylenol 650 mg, 20.3 mL, Route: PEG, Drug form: LIQ, Q6H, Dosing Weight 81.455, kg, PRN Other -See Comment, Start date: 12/15/18 15:30:00 CDT, Duration: 38 day, Stop date: 02/13/19 9:13:00 CDT, Pain 1-10 or Temp >100.4F Notes: Max [id number]=7892cn/day (4 gm/day). (Same as: Tylenol) Start Date: 12/15/18 Stop Date: 02/04/19 Status: DiscontinuedTylenol with Codeine #3 oral tablet 1 tab, Route: PEG, Drug Form: TAB, Dosing Weight 81.455, kg, Q6H, PRN Pain Score 6-10, Start date: 12/05/18 11:14:00 CDT, Duration: 30 day, Stop date: 11:13:00 CDT Notes: Do not exceed 4gm/day of acetaminophen. (Same as: Tylenol with Codeine # 3) Start Date: 12/05/18 Stop Date: 12/15/18 Status: DiscontinuedUro-Jet 2% topical gel with applicator 1 appl, Route: TOP, QID, Drug form: GEL/A, PRN Other -See Comment, Start date: 11/28/18 10:33:00 CDT, Duration: 36 day, Stop date: 01/27/19 9:17:00 CDT, urethral pain Notes: (Same as: Uro-Jet) Start Date: 11/28/18 Stop Date: 01/19/19 Status: DiscontinuedZyrTEC 10 mg, 1 tab, Route: PO, Drug form: TAB, Daily, Dosing Weight 81.455, kg, Start date: 12/27/18 8:30:00 CDT, Duration: 30 day, Stop date: 01/25/19 8:30:00 CDT Notes: (Same As: Zyrtec) Start Date: 12/27/18 Stop Date: 01/09/19 Status: DiscontinuedZyrTEC 10 mg, 1 tab, Route: PO, Drug form: TAB, Daily, Dosing Weight 81.455, kg, Start date: 01/10/19 11:27:00 CDT, Duration: 30 day, Stop date: 03/11/19 8:30:00 CDT Notes: (Same As: Zyrtec) Start Date: 01/10/19 Stop Date: 02/04/19 Status: Discontinued Results Most recent to oldest 1 2 3 [Reference Range]: Procalcitonin Lvl 0.10 ng/mL [0.00-0.10 ng/mL] (12/04/18 12:34 PM) Neutrophils # [1.5-8.1 6.8 K/CMM 4.3 K/CMM 4.2 K/CMM K/CMM] (02/02/19 5:23 AM) (01/26/19 4:23 AM) (01/19/19 5:31 AM) Lymphocytes # [1.0-5.5 2.6 K/CMM 1.4 K/CMM 2.8 K/CMM K/CMM] (02/02/19 5:23 AM) (01/26/19 4:23 AM) (01/19/19 5:31 AM) Monocytes # [0.0-0.8 0.5 K/CMM 0.4 K/CMM 0.7 K/CMM K/CMM] (02/02/19 5:23 AM) (01/26/19 4:23 AM) (01/19/19 5:31 AM) Eosinophils # [0.0-0.5 0.3 K/CMM 0.2 K/CMM 0.3 K/CMM K/CMM] (02/02/19 5:23 AM) (01/26/19 4:23 AM) (01/19/19 5:31 AM) Basophils # [0.0-0.2 0.1 K/CMM 0.1 K/CMM 0.1 K/CMM K/CMM] (01/26/19 4:23 AM) (01/19/19 5:31 AM) (12/04/18 12:34 PM) CRP, High Sensitivity 26.8 mg/L *NA* (12/05/18 6:28 AM) Large Plt slight *NA* (12/04/18 12:34 PM) eGFR 128 mL/min/1.73m2 1 130 mL/min/1.73m2 2 130 mL/min/1.73m2 3 *NA* *NA* *NA* (02/02/19 5:23 AM) (01/26/19 4:23 AM) (01/19/19 5:31 AM) A/G Ratio [0.7-1.6] 0.7 (11/26/18 5:30 AM) Albumin Lvl [3.5-5.0 3.2 g/dL g/dL] *LOW* (11/26/18 5:30 AM) Alk Phos [39-136 unit/L] 110 unit/L (11/26/18 5:30 AM) ALT [0-65 unit/L] 56 unit/L (11/26/18 5:30 AM) AGAP [10.0-20.0 mEq/L] 12.5 mEq/L 12.1 mEq/L 10.3 mEq/L (02/02/19 5:23 AM) (01/26/19 4:23 AM) (01/19/19 5:31 AM) AST [0-37 unit/L] 21 unit/L (11/26/18 5:30 AM) B/C Ratio [6-25] 35 *HI* (11/26/18 5:30 AM) Basophils [0.0-1.0 %] 0.4 % 0.9 % 0.6 % (02/02/19 5:23 AM) (01/26/19 4:23 AM) (01/19/19 5:31 AM) BUN [7-22 mg/dL] 20 mg/dL 18 mg/dL 16 mg/dL (02/02/19 5:23 AM) (01/26/19 4:23 AM) (01/19/19 5:31 AM) Calcium Lvl [8.5-10.5 9.0 mg/dL 8.8 mg/dL 8.6 mg/dL mg/dL] (02/02/19 5:23 AM) (01/26/19 4:23 AM) (01/19/19 5:31 AM) Chloride Lvl [95-109 106 mEq/L 107 mEq/L 108 mEq/L mEq/L] (02/02/19 5:23 AM) (01/26/19 4:23 AM) (01/19/19 5:31 AM) CO2 [24-32 mEq/L] 24 mEq/L 24 mEq/L 25 mEq/L (02/02/19 5:23 AM) (01/26/19 4:23 AM) (01/19/19 5:31 AM) Creatinine Lvl [0.50-1.40 0.51 mg/dL 0.48 mg/dL 0.48 mg/dL mg/dL] (02/02/19 5:23 AM) *LOW* *LOW* (01/26/19 4:23 AM) (01/19/19 5:31 AM) Eosinophils [0.0-4.0 %] 2.6 % 3.3 % 3.9 % (02/02/19 5:23 AM) (01/26/19 4:23 AM) (01/19/19 5:31 AM) Globulin [2.7-4.2 g/dL] 4.3 g/dL *HI* (11/26/18 5:30 AM) Glucose Lvl [70-99 mg/dL] 76 mg/dL 67 mg/dL 72 mg/dL (02/02/19 5:23 AM) *LOW* (01/19/19:31 AM) (01/26/19 4:23 AM) Hct [36.0-48.0 %] 37.8 % 36.3 % 36.1 % (02/02/19 5:23 AM) (01/26/19 4:23 AM) (01/19/19 5:31 AM) Hgb [12.0-16.0 g/dL] 12.6 g/dL 12.3 g/dL 12.1 g/dL (02/02/19 5:23 AM) (01/26/19 4:23 AM) (01/19/19 5:31 AM) INR [0.85-1.17] 0.98 (11/26/18 5:30 AM) Potassium Lvl [3.5-5.1 4.5 mEq/L 4.1 mEq/L 4.3 mEq/L mEq/L] (02/02/19 5:23 AM) (01/26/19 4:23 AM) (01/19/19 5:31 AM) Lymphocytes [20.0-40.0 %] 25.3 % 21.6 % 35.1 % (02/02/19 5:23 AM) (01/26/19:23 AM) (01/19/19 5:31 AM) MCH [27.0-31.0 pg] 30.4 pg 31.0 pg 31.2 pg (02/02/19:23 AM) (01/26/19:23 AM) *HI* (01/19/19 5:31 AM) MCHC [32.0-36.0 g/dL] 33.3 g/dL 33.8 g/dL 33.6 g/dL (02/02/19:23 AM) (01/26/19:23 AM) (01/19/19 5:31 AM) MCV [80.0-98.0 fL] 91.2 fL 91.6 fL 92.9 fL (02/02/19:23 AM) (01/26/19:23 AM) (01/19/19 5:31 AM) Magnesium Lvl [1.8-2.4 2.1 mg/dL 2.1 mg/dL 2.3 mg/dL mg/dL] (02/02/19 5:23 AM) (01/26/19:23 AM) (01/19/19 5:31 AM) Monocytes [2.0-12.0 %] 5.0 % 6.2 % 8.4 % (02/02/19:23 AM) (01/26/19:23 AM) (01/19/19 5:31 AM) MPV [7.4-10.4 fL] 10.6 fL 11.0 fL 10.1 fL *HI* *HI* (01/19/19 5:31 AM) (02/02/19 5:23 AM) (6/6/19 4:23 AM) Sodium Lvl [135-145 138 mEq/L 139 mEq/L 139 mEq/L mEq/L] (02/02/19 5:23 AM) (01/26/19 4:23 AM) (01/19/19 5:31 AM) Phosphorus [2.5-4.5 3.7 mg/dL 2.8 mg/dL 3.0 mg/dL mg/dL] (02/02/19 5:23 AM) (01/26/19 4:23 AM) (01/19/19 5:31 AM) Platelet [133-450 K/CMM] 256 K/CMM 278 K/CMM 272 K/CMM (02/02/19 5:23 AM) (01/26/19 4:23 AM) (01/19/19 5:31 AM) Segs [45.0-75.0 %] 66.7 % 68.0 % 52.0 % (02/02/19 5:23 AM) (01/26/19 4:23 AM) (01/19/19 5:31 AM) Prealbumin [18.0-45.0 19.2 mg/dL mg/dL] (11/26/18 5:30 AM) Total Protein [6.4-8.4 7.5 g/dL g/dL] (11/26/18 5:30 AM) PT [12.0-14.7 seconds] 12.8 seconds (11/26/18 5:30 AM) RBC [4.20-5.40 M/CMM] 4.15 M/CMM 3.97 M/CMM 3.88 M/CMM *LOW* *LOW* *LOW* (02/02/19 5:23 AM) (01/26/19 4:23 AM) (01/19/19 5:31 AM) RBC Morph Normal (12/04/18 12:34 PM) RDW [11.5-14.5 %] 13.0 % 13.1 % 12.8 % (02/02/19 5:23 AM) (01/26/19 4:23 AM) (01/19/19 5:31 AM) Bili Total [0.2-1.3 0.3 mg/dL mg/dL] (11/26/18 5:30 AM) UA Amorph Jill [None Seen Moderate /HPF Moderate /HPF Few /HPF /HPF] *ABN* *ABN* *NA* (01/09/19 6:31 PM) (12/04/18 1:32 AM) (11/26/18 5:30 AM) UA Bacteria [None Seen Few /HPF Occasional /HPF Occasional /HPF /HPF] *NA* *NA* *NA* (01/09/19 6:31 PM) (12/04/18 1:32 AM) (11/26/18 5:30 AM) UA Bili [Negative] Negative Negative Negative *NA* *NA* *NA* (01/09/19 6:31 PM) (12/04/18 1:32 AM) (11/26/18 5:30 AM) UA Blood [Negative] Small Negative Small *ABN* (12/04/18 1:32 AM) *ABN* (01/09/19 6:31 PM) (11/26/18 5:30 AM) UA Color [Yellow] Yellow Yellow Yellow *NA* *NA* *NA* (01/09/19 6:31 PM) (12/04/18 1:32 AM) (11/26/18 5:30 AM) UA Glucose [Negative Negative mg/dL mg/dL] *NA* (01/09/19 6:31 PM) UA Glucose [Negative] Negative Negative *NA* *NA* (12/04/18 1:32 AM) (11/26/18 5:30 AM) UA Ketones [Negative Negative mg/dL mg/dL] *NA* (01/09/19 6:31 PM) UA Ketones [Negative] Negative Negative *NA* *NA* (12/04/18 1:32 AM) (11/26/18 5:30 AM) UA Leuk Est [Negative] Moderate Small Small *ABN* *ABN* *ABN* (01/09/19 6:31 PM) (12/04/18 1:32 AM) (11/26/18 5:30 AM) UA Mucus [None Seen /LPF] Few /LPF *NA* (12/04/18 1:32 AM) UA Nitrite [Negative] Positive Negative Positive *ABN* (12/04/18 1:32 AM) *ABN* (5/20/19 6:31 PM) (11/26/18 5:30 AM) UA pH [5.0-8.0] 7.0 7.0 7.0 (01/09/19 6:31 PM) (12/04/18 1:32 AM) (11/26/18 5:30 AM) UA Protein [Negative Negative mg/dL mg/dL] (01/09/19 6:31 PM) UA Protein [Negative] Negative Negative (12/04/18 1:32 AM) (11/26/18 5:30 AM) UA RBC [0-2 /HPF] 4 /HPF 6 /HPF 1 /HPF *HI* *HI* (11/26/18 5:30 AM) (01/09/19 6:31 PM) (12/04/18 1:32 AM) UA Spec Grav [<=1.030] 1.005 1.016 1.010 (01/09/19 6:31 PM) (12/04/18 1:32 AM) (11/26/18 5:30 AM) UA Sq Epi None Seen *NA* (01/09/19 6:31 PM) UA Sq Epi [Few /LPF] Few /LPF Occasional /LPF *NA* *NA* (12/04/18 1:32 AM) (11/26/18 5:30 AM) UA Turbidity [Clear] Marked Marked Slight *ABN* *ABN* *ABN* (01/09/19 6:31 PM) (12/04/18 1:32 AM) (11/26/18 5:30 AM) UA Urobilinogen [0.1-1.0 <1.0 mg/dL 0.2 mg/dL <1.0 mg/dL mg/dL] (01/09/19 6:31 PM) (12/04/18 1:32 AM) (11/26/18 5:30 AM) UA WBC [0-5 /HPF] 8 /HPF 31 /HPF 7 /HPF *HI* *HI* *HI* (01/09/19 6:31 PM) (12/04/18 1:32 AM) (11/26/18 5:30 AM) UA [place] Yeast [None Seen Occasional /HPF /HPF] *ABN* (12/04/18 1:32 AM) Vitamin D, 25-OH, Total 41.9 ng/mL [30.0-100.0 ng/mL] (12/15/18 4:28 AM) WBC [3.7-10.4 K/CMM] 10.2 K/CMM 6.4 K/CMM 8.1 K/CMM (02/02/19 5:23 AM) (01/26/19 4:23 AM) (01/19/19 5:31 AM) Influenza A PCR Negative [Negative] (12/04/18 1:16 PM) Influenza B PCR Negative [Negative] (12/04/18 1:16 PM) RSV PCR [Negative] Negative (12/04/18 1:16 PM) Source Respiratory Panel [employer]GER Swab PCR (12/04/18 1:16 PM) Adenovirus PCR [Negative] Negative (12/04/18 1:16 PM) Source Adenovirus PCR [employer] OPER[employer] MA[employer]GER Swab (12/04/18 1:16 PM) Parainfluenza 1 PCR Negative [Negative] (12/04/18 1:16 PM) Parainfluenza 2 PCR Negative [Negative] (12/04/18 1:16 PM) Parainfluenza 3 PCR Negative [Negative] (12/04/18 1:16 PM) Source Parainfluenza [employer] OPER[employer] MA[employer]GER Swab Virus PCR (12/04/18 1:16 PM) 1Result Comment: The eGFR is calculated using the CKD-EPI formula. In most young , healthy individualsthe eGFR will be >90 mL/min/1.73m2. The eGFR declines with age. An eGFR of 60-89 may be normal insome populations, particularly the elderly, for whom the CKD-EPI formula has not been extensively validated. Use of the eGFR is not recommended in the following populations: Individuals with unstable creatinine concentrations, including patients and those with serious co-morbid conditions. Patients with extremes in muscle mass or diet. The data above are obtained from the National Kidney Disease Education Program ( NKDEP) which additionally recommends that when the eGFR is used in patients with extremes of body mass index for purposesof drug dosing, the eGFR should be multiplied by the estimated BMI.2Result Comment: The eGFR is calculated using the CKD-EPI formula. In most young, healthy individualsthe eGFR will be >90 mL/min/1.73m2. The eGFR declines with age. An eGFR of 60-89 may be normal insome populations, particularly the elderly, for whom the CKD-EPI formula has not been extensively validated. Use of the eGFR is not recommended in the following populations: Individuals with unstable creatinine concentrations, including patients and those with serious co-morbid conditions. Patients with extremes in muscle mass or diet. The data above are obtained from the National Kidney Disease Education Program ( NKDEP) which additionally recommends that when the eGFR is used in patients with extremes of body mass index for purposesof drug dosing, the eGFR should be multiplied by the estimated BMI.3Result Comment: The eGFR is calculated using the CKD-EPI formula. In most young, healthy individualsthe eGFR will be >90 mL/min/1.73m2. The eGFR declines with age. An eGFR of 60-89 may be normal insome populations, particularly the elderly, for whom the CKD-EPI formula has not been extensively validated. Use of the eGFR is not recommended in the following populations: Individuals with unstable creatinine concentrations, including patients and those with serious co-morbid conditions. Patients with extremes in muscle mass or diet. The data above are obtained from the National Kidney Disease Education Program ( NKDEP) which additionally recommends that when the eGFR is used in patients with extremes of body mass index for purposesof drug dosing, the eGFR should be multiplied by the estimated BMI.Microbiology Reports TEST:Culture: Urine STATUS:Modified/Amended/Cor BODY SITE: SOURCE:Urine, Jesus COLLECTED DATE/TIME:01/10/19 6:31 PMFINAL REPORT>100,000 CFU/mL Escherichia coli , Multi-drug Resistant Organism Evaluation For ESBLIs Indeterminate Upon supplemental testing, this organism was confirmed to produce a carbapenamase. >100,000 CFU/mL Skin Kyara ORGANISM:Escherichia coliORGANISM:Enterococcus SpeciesTEST:Culture: Respiratory w/Gram Stain STATUS:Auth (Verified) BODY SITE: SOURCE:Sputum COLLECTED DATE/TIME:01/02/19 3:46 PMFINAL REPORTMany Staphylococcus aureus Few Escherichia coli Rare Enterobacter cloacaeSTAIN REPORTMany Wbc'S; Less Than 25 Squamous Epithelial Cells/Lpf Many Gram Positive Cocci In Clusters Rare Gram Negative Rods Good Quality Specimen ORGANISM:Staphylococcus aureusORGANISM:Escherichia coliORGANISM:Enterobacter cloacaeTEST:Culture: Respiratory w/Gram Stain STATUS:Auth (Verified) BODY SITE: SOURCE:Tracheal Aspirate COLLECTED DATE/TIME:12/04/18 12:46 PMFINAL REPORTMany Staphylococcus aureus Few Escherichia coliSTAIN REPORTFew Wbc'S; Less Than 25 Squamous Epithelial Cells/Lpf Moderate Gram Positive Cocci In Pairs Few Gram Negative Rods ORGANISM:Staphylococcus aureusORGANISM:Escherichia coliTEST:Culture: Urine STATUS:Auth (Verified) BODY SITE: SOURCE:Urine, Clean Catch COLLECTED DATE/TIME:12/04/18 3:29 AMFINAL REPORT10,000 - 50,000 CFU/mL Enterobacter cloacae 10,000 - 50,000 CFU/mL Escherichia coli 10,000 - 50,000 CFU/mL Skin Kyara ORGANISM:Enterobacter cloacaeORGANISM:Escherichia coli Immunizations No data available for this section Procedures Procedure Date Related Diagnosis Body Site Status Destruction by neurolytic agent; other 01/27/19 Completed peripheral nerve or branch Destruction by neurolytic agent; other 01/27/19 Completed peripheral nerve or branch Video urodynamic study 12/19/18 Completed Social History Social History Type Response Smoking Status Never smoker; Exposure to Tobacco Smoke None; Cigarette Smoking Last 365 Days No; Reg Smoking Cessation Counseling No entered on: 12/19/18 Assessment and Plan Extracted from: Title: Discharge Summary Author: Renea Salazar MD Date: 02/06/19 DISCHARGE SUMMARY ADMISSION DATE: 11/25/2018 DISCHARGE DATE: 02/04/2019 ADMISSION DIAGNOSIS: 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) Quadriplegia, unspecified (G82.50) Dysphagia, oropharyngeal phase (R13.12) Neurogenic bowel, not elsewhere classified (K59.2) Other muscle spasm (M62.838) Neuromuscular dysfunction of bladder, unspecified (N31.9) DISCHARGE DIAGNOSIS: 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) Quadriplegia, unspecified (G82.50) Dysphagia, oropharyngeal phase (R13.12) Neurogenic bowel, not elsewhere classified (K59.2) Other muscle spasm (M62.838) Neuromuscular dysfunction of bladder, unspecified (N31.9) ATTENDING PHYSICIAN: Barrera CONSULTING PHYSICIANS: Consulting Physicians: Scott Irwin MD Office: Service: Urology Brooks Herrera MD Office: Service: Otolaryngology Wilton Bob MD Office: Service: Urology Nuria Abhinav Lauren OD Office: Service: Eye Keila Chery MD Office: Service: Physical Medicine/ Rehabilitation Wood Vail MD Office: Service: Medicine BRIEF SUMMARY OF PRESENT ILLNESS: Per HPI: "This 33-year-old female with no past medical history was transferred to [facility] after she was found unresponsive on 09/06/18. It was reported that she met her at 9:30 AM and l eft for the gym. While at the gym at 10 AM she was reported to have a bout of emesis with decreased responsiveness. She was found to have an acute pontine hemorrhage on imaging. The patient was follo wed by pulmonology and the patient was eventually weaned from mechanical ventilation while at [facility]. She was treated for vaginal candidiasis while at [facility] also. She is currently being robert nued on straight cathing protocols for bladder care. It is reported that the patient is on Lyrica for reported burning pain and cramps in the lower extremities. Her blood pressure was also being manag ed while at [facility]. The patient received a PEG on 11/12/18 and was continued on tube feeds. Functionally she was reported to start moving her right hand and fingers on 11/11. Currently the patient is not in any respiratory distress that she feels comfortable in her bed. She does complain of left-sided neuropathic burning and tingling pain. She is anxious to start therapy s ets here but mother is present at bedside and state that they both ready" PERTINENT PAST HISTORY: Past Medical History: No past medical history Past Surgical History: History of Family History: Family history of high blood pressure Social History: Patient is , 1 child She denies smoking, drinking, it is reported that she does use marijuana Lives in a one-story home with 1 step to get in with her Allergies: traMADol, NKDA HOSPITAL COURSE: Pontinue hemorrhagic CVA: - likely due to uncontrolled HTN since OSH imaging demonstrated no evidence of vascular malformation, occurred on 08/27/18, 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 Neurogenic bowel: - due to stroke as above - cont. senna 3 tab at noon Neuropathic pain: - urning pain in bilateral feet - lyrica 150mg q8h (previously had hallucination w/ use of gabapentin at OSH) Nociceptive pain: - under control Chronic respiratory failure: - s/p trach, decannulated on 01/06 - INTERNATIONAL MARKETING SPECIALIST following; RT following - Pt reports h/o chronic bronchitis (smoked marijuana daily prior to CVA) for which she took Pulmicort and Zyrtec for allergic rhinitis. Pulmicort discontinued during hospitalization with no complications. Spasticity: - Increase spasticity specially in left hip flexor region, also has HO in right hip. Started baclofen 10 mg BID on 01/24, increase to TID (01/25). Dr. Chery for bilateral hip flexor phenol injection performed on 01/27.. Continue ROM. will benefit from outpatient PT for ROM in setting of HO and spasticity. Right Hip HO: 01/24: Noted on x ray, Pamidronate 60 mg x 1 on 01/24 Dysphagia: - due to stroke as above - fleet administrative assistant following - NPO except for pleasure feeds as below, TFs via PEG on admission - advanced to pureed and thin on 12/30, discontinued TF on 01/06 - started on ground diet with thin on 01/20, tolerating well - bacitracin to peg site 02/01 Impaired phonation: - likely due to lack of breath support and limited strength & endurance - decannulated 01/06, gradually phonation improving - continue therapy Visual disturbance: - due to stroke as above, diplopia, & vertical nystagmus at rest - alternate eye patch to minimize diplopia - appreciate funtional vision recs (12/07): continue to wear current glasses full-time, use patch over either eye for diplopia relief especially during therapy, ok for the patient to remove the occluder /patch during non-therapy times if desired; next appt due ~01/18 Depression: - celexa 20mg daily HTN: - continue lopressor and lisinopril - was previously on amlodipine but now stopped - appreciate medicine Skin: - nystatin powder for bilateral groin rash and moisture, completed (01/06-01/20) DISCHARGE FIM SCORES: PT Current Status PT Treatment Recommendations PT Treatment Recommendations: Pt is a 33 yo F w no significant PMH noted in history w fully independent PLOF who was found unresponsive on 09/06/18. At ED, pt found to have acute pontine hemorrhage. Pt h as been weaned from vent, PEG placed 0n 11/12/18, and trach w HME. Pt presents to inpatient rehabe w spasticity in B LEs, total A for all mobility, AOX 4, impaired functional mobility, severe generalized weakness in trunk and B LEs, pain in B hips w end range HF, and transfer deficits. Pt would benefit from skilled inpatient physical therapy to address above deficits, facilitate discharge home, decreas ed caregiver burden, return to role as and mother. Performed: 11/26/18 09 :09 Mobility Transfer Bed to and From Chair: Total assistance Performed: 02/02/19 12:51 Ambulation Level Surfaces Ambulation Device: Walker, rolling/platform standard Performed: 02/02/19 12:51 Ambulation Distance: 1 ft Performed: 02/02/19 12:51 Ambulation Uneven Surfaces Locomotion Walk: Tot A - 1 Performed: 02/02/19 12:51 Locomotion Stair: Does not occur Performed: 02/02/19 12:51 Bed,Chair,Wheelchair: Tot A - 1 Performed: 02/02/19 12:51 Wheelchair Mobility Level Surfaces Wheelchair Mobility Level Distance: 300 ft Performed: 02/02/19 12:51 OT Current Status ADL Eating: Tot A - 1 Performed: 02/03/19 17:29 Grooming: Tot A - 1 Performed: 02/03/19 17:29 Bathing: Tot A - 1 Performed: 02/03/19 17:29 Upper Extremity Dressing: Tot A - 1 Performed: 02/03/19 17:29 Lower Extremity Dressing: Tot A - 1 Performed: 02/03/19 17:29 Toileting: Tot A - 1 Performed: 02/04/19 09:00 Toilet Transfer: Does not occur Performed: 02/02/19 12:51 Shower Transfer: Tot A - 1 Performed: 02/02/19 12:51 IADL Meal Prep: Total A Performed: 12/31/18 18:17 Writing: Total A Performed: 12/31/18 18:17 Keyboarding: Total A Performed: 12/31/18 18:17 Phone Use: MAX A Performed: 12/31/18 18:17 Money Management: Total A Performed: 12/31/18 18:17 Grocery Shopping: Total A Performed: 12/31/18 18:17 Clothing Care: Total A Performed: 12/31/18 18:17 Light Cleaning: Total A Performed: 12/31/18 18:17 Heavy Cleaning: Total A Performed: 12/31/18 18:17 Transportation: Total A Performed: 12/31/18 18:17 Community Mobility, Safety: Total A Performed: 12/31/18 18:17 Care of Others: Total A Performed: 12/31/18 18:17 Medication Management: Total A Performed: 12/31/18 18:17 Child Rearing: Pt has 10 year old daughter at home with . Performed: 18:17 Other IADL: Total A Performed: 12/31/18 18:17 Cognition Cognition: Within functional limits Performed: 01/25/19 08:49 Vision Vision Status: Impaired Performed: 11/26/18 07:41 INTERNATIONAL MARKETING SPECIALIST Current Status Severity Level Comprehension: Modified I - 6 Performed: 02/05/19 07:56 Comprehension Mode: Auditory Performed: 02/05/19 07:56 Expression: Standby prompting - 5 Performed: 02/05/19 07:56 Expression Mode: Nonvocal Performed: 02/05/19 07:56 Memory: Modified I - 6 Performed: 02/05/19 07:56 Problem Solving: Modified I - 6 Performed: 02/05/19 07:56 Social Interaction: Modified I - 6 Performed: 02/05/19 07:56 PROCEDURES PERFORMED DURING ADMISSION: SPT, phenol injection PHYSICAL EXAM (at time of discharge): Vitals Tmp(F) Pulse BP RR SpO2 FIO2 (no data in last 48 hours) 24 Hr Tmax: No Data Available Vital Signs are the last 5 in the past 48 hours. Physical Exam General: awake and alert, No acute distress HEENT: NC, AT, PERRL, EOMI Neck: supple, trachea midline CV: tachycardic, S1S2, no murmurs/gallops/regurgitation Lungs: CTAB, non-labored respirations, on trach colar Abd: soft, NT, ND, +BS : SPT Psych: mood non-labile, affect appropriate Skin: Intact. Also refer to nursing intake. Neuro: Mental Status: alert and active Level of consciousness: Patient is awake alert interactive Orientation: Oriented to person place time and situation Speech and language: hypophonic Cerebellar: no nystagmus Reflexes: The patient is hyperreflexive with increased tone throughout DISCHARGE MEDICATIONS: Discharge Medications citalopram 40 mg oral tablet :40 mg, 1 tab, PEG, Daily, 30 tab, 1 Refill(s) Ordered by: Rosemary Shafer MD - 02/04/2019 09:37 lisinopril 40 mg oral tablet :40 mg, 1 tab, PEG, Daily, 30 tab, 1 Refill(s) Ordered by: Rosemary Shafer MD - 02/04/2019 09:36 metoprolol tartrate 100 mg oral tablet :100 mg, 1 tab, PEG, BID, 60 tab, 1 Refill(s) Ordered by: Rosemary Shafer MD - 02/04/2019 09:36 senna 8.8 mg/5 mL oral syrup :26.4 mg, 15 mL, PEG, QNoon, 240 mL, 11 Refill(s) Ordered by: Gary Rao (Fellow) - 02/03/2019 13:18 baclofen 10 mg oral tablet :10 mg, 1 tab, PO, TID, 90 tab, 11 Refill(s) Ordered by: Gary Rao (Fellow) - 02/03/2019 13:16 pregabalin 150 mg oral capsule :150 mg, 1 cap, PEG, Q8H-06, 90 caplet, 0 Refill (s) Ordered by: Gary Rao (Fellow) - 02/03/2019 13:15 CONDITION OF PATIENT ON DISCHARGE: stable DISPOSITION/INSTRUCTIONS/FOLLOW UP: Discharge to: home Helpful Information Primary Physician: Primary Care Physician Comments: Please make an appointment with your PCP within 2 weeks. Ask PCP to refer you to an ENT physician and neurologist, schedule as indicated. Follow up Care Provider: Diego Rust, [facility] Address: [address] [place] [phone] When: 03/07/2019 15:45 PM Comments: You have been scheduled for your pos discharge follow up visit. Please contact scheduling at [phone] should you need to reschedule your appoinmtnemt. Provider: [facility] Address: [address] [place] [id number] When: 02/15/2019 9:45 AM Comments: You have been scheduled for you post discharge follow up visit. Please contact scheduling at [phone] should you need to reschedule your appointment. Other: Spinal Cord Injury (SCI) Manual Download Comments: Please visit: [email or web address] to view helpful topics regarding Spinal Cord Injuries Other: Oral-maxillofacial Surgeon Comments: Ask your PCP to refer you to an Oral-Maxillofacial Surgeon for palatial lift consultation after discharge, schedule follow up as indicated. Other: ENT physician Comments: Ask your PCP to refer you to an ENT physician for evaluation of left hearing impairment and schedule follow-up as indicated. Other: Pharmacy refill request fax Comments: [phone] Other: [facility] Address: [facility] [address] Comments: A referral has yesy made for you for home health services. You will be contacted to schedule you first home health visit. Other: Dr. Margarito Quiñones, OD Address: [address] [address] Comments: Call for follow up functional vision appointment for evaluation of cranial nerve palsies, VALENTINA, diplopia and hypertropia 6-8 weeks from 12/07/18 ( around 01/18/19) to monitor possible improvment. Other: [employer] link referral for urological supplies Comments: Please call Cheri Casas @ [phone] or email her at [email or web address] for questions regarding home urological supplies after discharge from [facility]. Other: Triage/medical questions Comments: [phone] Other: Sherrie Randall, Supervisor [employer], Comments: Please call to schedule your follow-up appointment with Dr. Kuhn for palatial lift consultation. Other: Dorene Lennon, Shiftman, Comments: Please give me a call should you have any questions or concerns. Other: [place] concerns Comments: [phone] Other: Neurologist Comments: Call for follow up appointment after discharge. Other: [facility] Address: [address] [place] [address] When: 02/15/2019 9:45 AM Comments: Follow up with [facility] for Initial SP jesus change. No follow up referral services info available Activity: as tolerated Diet: Diet Dysphagia -- 01/20/19 11:43:00 CDT, Dysphagia Level Dysphagia-Mechanical ( ground), Liquid Consistency Thin Liquids, Extra Gravy Follow up Appointments: The discharge plan was reviewed and discussed with the patient/family and appropriate education and counseling was provided. They were given the opportunity to ask any questions which were answered to the best of my knowledge. Issues to address during [facility] follow up visit: HO, spasticity, phonation, dysphagia, SPT Extracted from: Title: pmr Author: Rosemary Shafer MD Date: 02/04/19 PM&R Progress Note Subjective: No event reported by nursing. Pain is controlled patient says she has had swelling in her ankle, nothing new Medication: Medication List Active Medications Ordered acetaminophen: 650 mg, 20.3 mL, PEG, Q6H, PRN: Other -See Comment. bacitracin topical: 1 appl, TOP, BID. baclofen: 10 mg, 1 tab, PO, TID. calcium carbonate: 1,500 mg, 3 tab, CHEW, TID, PRN: acid reflux. cetirizine: 10 mg, 1 tab, PO, Daily. citalopram: 40 mg, 2 tab, PEG, Daily. lisinopril: 40 mg, 2 tab, GT, Daily. metoprolol: 100 mg, 2 tab, PEG, BID. nitroglycerin: 1 inch, TOP, TID, PRN: Hypertension. pregabalin: 150 mg, 1 cap, PEG, Q8H-06. senna: 26.4 mg, 15 mL, PEG, QNoon. Prescribed baclofen: 10 mg, 1 tab, PO, TID, 90 tab, 11 Refill(s). citalopram: 40 mg, 2 tab, PEG, Daily, 60 tab, 1 Refill(s). lisinopril: 40 mg, 2 tab, GT, Daily, 60 tab, 1 Refill(s). metoprolol: 100 mg, 2 tab, PEG, BID, 120 tab, 1 Refill(s). pregabalin: 150 mg, 1 cap, PEG, Q8H-06, 90 caplet, 0 Refill(s). senna: 26.4 mg, 15 mL, PEG, QNoon, 240 mL, 11 Refill(s). Documented acetaminophen: PEG, Q6H, PRN: Other -See Comment | Pain 1-10 or Temp >100.4F, 0 Refill(s). bacitracin topical: 1 appl, TOP, BID, 0 Refill(s). calcium carbonate: 1,500 mg, 3 tab, CHEW, TID, PRN: acid reflux, 0 Refill(s). cetirizine: 10 mg, 1 tab, PO, Daily, 0 Refill(s). Medications Inactivated in the Last 72 Hours acetaminophen: 500 mg, PEG, BID, 0 Refill(s). acetylcysteine: 0.4 gm, 2 mL, NEB, BID, 0 Refill(s). albuterol-ipratropium: 3 mL, NEB, Q6H, 0 Refill(s). famotidine: 20 mg, 1 tab, PEG, BID, for 30 day, 60 tab, 0 Refill(s). guaiFENesin: 200 mg, PEG, 0 Refill(s). heparin: 5,000 unit, SUB-Q, Q12H, 0 Refill(s). metoprolol: 150 mg, PEG, BID, 0 Refill(s). pregabalin: 25 mg, PEG, TID, 0 Refill(s). Physical Exam: Vitals Tmp(F) Pulse BP RR SpO2 FIO2 02/03 21:12 ---- 82 98/63 -- --- --- 02/03 21:11 ---- 64 -- --- --- 02/03 21:02 ---- 64 -- --- --- 02/03 19:30 98.1 83 109/74 18 --- --- 02/03 12:00 96.8 72 107/77 16 --- --- 24 Hr Tmax: 98.1F (36.72c) at 02/03 19:30 Vital Signs are the last 5 in the past 48 hours. General: NAD, awake, well developed,well nourished HEENT: nc, neck supple resp: unlabored breathing, cta b/l, symmetric expansion CV: RRR GI: ND, +BS, NT, S neuro: alert, oriented, answers questions appropriately mood and affect appropriate LLE edema (pt says not new, will ask medicine to double check) lines/Tubes/Drains: [employer] BUN: 20 mg/dL (02/02/19) Hct: 37.8 % (02/02/19) Hgb: 12.6 g/dL (02/02/19) MCH: 30.4 pg (02/02/19) MCHC: 33.3 g/dL (02/02/19) MCV: 91.2 fL (02/02/19) MPV: 10.6 fL High (02/02/19) Platelet: 256 K/CMM (02/02/19) RBC: 4.15 M/CMM Low (02/02/19) RDW: 13 % (02/02/19) WBC: 10.2 K/CMM (02/02/19) Assessment/Plan: 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 Dr. Chaudhari. I agree with the assessment and plan as described above. per nurse leg edema stable Addendum by Rosemary Shafer MD on I contacted Dr. Rust, who confirmed 02/04/2019 13:15 patient discharging today. Asked patient re concerns about discharge and she had none. Extracted from: Title: Functional Vision Assessment Author: Abhinav Quiñones OD Date : 12/07/18 FUNCTIONAL VISION ASSESSMENT AT [facility]: Patient Name: Donna Flynn Date of Consult:12/07/18 HISTORY: Reason for referral: The patient was referred for vision consult requested by Dr. Avelar to determine if there are any vision deficits secondary to non- traumatic pontine stroke. Concerns from physician and/or rehab team are: no concerns noted Patient complaints: double and oscillopsia History of present illness: Medical: 33-year-old female with no past medical history was transferred to [facility] after she was found unresponsive on 09/06/18. It was reported that she met her at 9:30 AM an d left for the gym. While at the gym at 10 AM she was reported to have a bout of emesis with decreased responsiveness. She was found to have an acute pontine hemorrhage on imaging. The patient was fo llowed by pulmonology and the patient was eventually weaned from mechanical ventilation while at [facility]. She was treated for vaginal candidiasis while at [facility] also. She is currently being co ntinued on straight cathing protocols for bladder care. It is reported that the patient is on Lyrica for reported burning pain and cramps in the lower extremities. Her blood pressure was also being ma naged while at [facility]. The patient received a PEG on 11/12/18 and was continued on tube feeds. Functionally she was reported to start moving her right hand and fingers on 11/11. Ocular/Visual: Glasses: SV distance Blur: denies Diplopia: (+) constant horizontal and vertical with no noted improvement Visual Field loss Ocular discomfort Past medical/surgical history: No PMH previous to stroke Past ocular history: LAUREN: December 2017; updated glasses Ocular disease: denies Ocular surgery: denies Ocular Injury: denies Family history: HTN Social history:Patient is , 1 child (daughter) She denies smoking, drinking, it is reported that she does use marijuana Lives in a one-story home with 1 step to get in with her PM&R History & Physical and Review of Systems (ROS): The patient s admit History & Physical as well as Review of Systems were reviewed in [employer] from 11/25/18. There are no significant changes noted at this time. Behavioral/functional limitations: Pt in WC (automated), non-verbal but can mouth letters/words reliably and cooperative. No family present for exam. Allergies: NKDA Medications: The patient s current medications were reviewed in the [employer] EMR system. EXAMINATION DATA: DVAcc: RE 5/15 LE 10/30 (measured with HOTV mouthing) NVAcc: RE 20/40- LE 20/30- (measured with HOTV mouthing) Presenting Rx: RE: -2.25-2.40s512 Le: -2.00-1.58x907 Confrontation Visual Anguiano (nonseeing to seeing): (F=full; R=restricted) LE RE ST F SN F SN F ST F T F N F N F T F IT F IN F IN F IT F Difficult to neutralize CT with nystagmus Lisetky(cc): 10^IAET; 10^ILHrT Convergence: (+) intact but difficult EOM: RE LE SR-4 IO-4 IO-3 SR-4 LR-4 MR-4 MR-3 LR-4 IR-4 SO-4 SO-3 IR-4 -possible increase of nystagmus in right and left gazes with attempted abduction Pupils: Eye Light Dark D/C APD RE 4.5mm 5mm 3+ possible trace? LE 4.5mm 5mm 3+ - -difficult to confirm with eye movements between right APD vs hippus Retinoscopy: RE -2.00-1.54g900 40- LE -1.50-1.61i292 40 Subjective: RE -2.50-1.94w374 NI LE -2.00-1.06u607 NI External Ocular Health: (Handheld Slit lamp, gross externals) Tears: intact, BE Lids/Lashes: trace bleph, BE Conj/Sclera: W&Q, BE Cornea: clear, BE Iris: blue, flat, BE Ant. Chamber: 3x3, BE Lens: clear, BE Drops Instilled: 1gt BE 0.5% Tetracaine at 8:54am 1gt BE 1.0% Tropicamide at 8:55am Intraocular Pressure: (Tonopen) RE 14 mmHg; LE 15 mmHg; performed at 8:54am Internal Ocular Health: (BIO + 20D, 15D) C/D: 0.10R, RE; 0.15R, LE ONH: trace I-N edema, WP, (-)hemes, RE; WP, distinct, LE Macula: flat, even, (+)FR, BE Vasculature: A/V 2/3, BE Posterior Pole: clear, BE Periphery: flat, intact, (-)H/B/T, BE UH FUNCTIONAL VISION ASSESSMENT CONSULT REPORT OF FINDINGS: ASSESSMENT: 1. Distance aided visual acuity with her current glasses is 20/60 in the right eye and 20/60 in the left eye. There was no improvement with manifest refraction and the decreased vision is likely due to the patient's vertical nystagmus causing blur. 2. Near aided visual acuity with her current glasses is 20/40- (6pt font) in the right eye and 20/30- (5pt font) in the left eye. 3. Confrontation visual field testing revealed: full confrontation visual anguiano in each eye. 4. Binocular vision testing revealed: intermittent alternating esotropia ( inward eyeturn) and intermittent left hypertropia secondary to the patient's pontine stroke. 5. 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 A full diagnosis of VALENTINA is noted with horizontal nystagmus of the abducting eye which in this patient is potentially masked by her vertical nystagmus but the vertical nystagmus notably increased in right and left gazes with intact convergence. Another differential would be a right and left horizontal gaze palsy. 6. Down-beat nystagmus of moderate amplitude and frequency in primary gaze with an increase in frequency with attempted lateral gazes. Positive oscillopsia. 7. Pupil evaluation revealed: equal, round and reactive pupils with a possible trace right afferent pupillary defect. 8. The refractive error is low myopia and astigmatism in each eye. 9. External ocular health revealed: mild blepharitis with otherwise normal anterior segment structures bilaterally. 10. Internal ocular health revealed: mild optic nerve head edema on the right eye with otherwise normal macula, retina, and retinal vasculature. Normal optic nerve, macula, retina, and retinal vasculature in the left eye. PLAN: 1. The patient should continue to wear her current glasses full-time. Allow patient time to find the target. 2. Normal sized font is ok but if patient is having trouble finding the target be sure to have spacing between choices of visual targets to aid in her finding it. 3. Monitor visual field status yearly or PRN. 4. Use patch over either eye for diplopia relief especially during therapy time. It would be okay for the patient to remove the occluder during non-therapy times if desired. We recommend follow-up of the esotropia, hypertropia and diplopia in 6-8 weeks to monitor for possible improvement. 5. Recommend the patient move her head in all positions of gaze as much as possible to compensate for her EOM underactions. We also recommend placing materials in the patient's durect line of sight. U se patch over either eye for diplopia relief especially during therapy time. Today the patient was given a pirate patch (she preferred it over an occlusion foil). It would be okay for the patient to re move the occluder during non-therapy times if desired. We recommend follow-up of the cranial nerve palsies, VALENTINA and diplopia in 6-8 weeks to monitor for possible improvement. 6. Increase font or target size as necessary and recommend decluttering the patient's space to aid in tracking and finding targets, especially during therapies. 7. Recommend reassessing at the follow-up in 6-8 weeks. 8. Monitor external ocular health yearly or PRN. Recommend daily lid hygiene (wash eyelids and lashes with a warm wet washcloth) to manage the blepharitis and help alleviate ocular dryness and irritation. 9. Recommend further assessment of her ONH with OCT at the follow-up in 6-8 weeks for continued resolution. 10. We explained the A&P to the patient and gave them our contact information. 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 It was reported that she met her at 9:30 AM and le ft for the gym. While at the gym at 10 AM she was reported to have a bout of emesis with decreased responsiveness. She was found to have an acute pontine hemorrhage on imaging. The patient was follow ed by pulmonology and the patient was eventually weaned from mechanical ventilation while at [facility]. She was treated for vaginal candidiasis while at [facility] also. She is currently being contin ued on straight cathing protocols for bladder care. It is reported that the patient is on Lyrica for reported burning pain and cramps in the lower extremities. Her blood pressure was also being manage d while at [facility]. The patient received a PEG on 11/12/18 and was continued on tube feeds. Functionally she was reported to start moving her right hand and fingers on 11/11. Currently the patient is not in any respiratory distress that she feels comfortable in her bed. She does complain of left-sided neuropathic burning and tingling pain. She is anxious to start therapy s ets here but mother is present at bedside and state that they both ready Past Medical History: No past medical history Past Surgical History: History of Family History: Family history of high blood pressure Social History: Patient is , 1 child She denies smoking, drinking, it is reported that she does use marijuana Lives in a one-story home with 1 step to get in with her Functional History: Patient was completely independent with all mobility and ADLs without the use of an assistive device prior to injury. Current Function: Preadm Current Functional Status Bathing : Total A Bed Mobility : Total A Bed Wheelchair Transfer : Total A Bladder : Total A Bowel : Total A Eating : Does not occur Grooming : Total A Locomotion Walk : Does not occur Locomotion Wheelchair : Total A Lower Body Bathing : Total A Lower Extremity Dressing : Total A Rolling-Left to Right : Total A Rolling-Right to Left : Total A Toilet Transfer : Does not occur Sit to Stand : Does not occur Supine to Sit : Total A Tub, Shower Transfer : Does not occur Upper Body Bathing : Total A Upper Extremity Dressing : Total A Per speech notes from [facility] the patient seems to be able to mouth words and utilize facial expressions while using let us from an alphabet board to communicate. She is unable to write, point, or u tilize sunscreen selection. She may be a candidate for an eye gaze board. Allergies: Allergies: NKDA Medications: Medications (15) Active Scheduled Meds (11): 11/25/18 albuterol-ipratropium (DuoNeb inhalation solution) 3 mL NEB Q6H 11/26/18 amLODIPine 10 mg PEG Daily 11/25/18 budesonide 0.5 mg NEB BID 11/25/18 chlorhexidine topical (chlorhexidine topical 0.12% liquid) 0.018 gm PO BID 11/25/18 famotidine 20 mg PEG BID 11/25/18 guaiFENesin 200 mg PEG Q6H 11/25/18 heparin 5,000 unit SUB-Q Q12H 11/26/18 lisinopril 40 mg GT Daily 11/25/18 metoprolol (Lopressor) 150 mg PEG BID 11/25/18 pregabalin 25 mg PEG TID 11/26/18 senna 2 tab PO QNoon Unscheduled Meds: None PRN Meds (4): 11/25/18 acetaminophen (Tylenol) 500 mg PEG Q6H 11/25/18 bisacodyl 10 mg UT Daily 11/25/18 hydrALAZINE 10 mg IVP Q4H 11/25/18 sodium chloride (Saline Flush 0.9%) 10 mL IVP PRN One Time Meds: None Continuous Infusions: None Review of Systems: GENERAL: negative for fevers, chills, weight loss HEENT: negative for headache, positive for dysphagia CARDIOVASCULAR: negative for chest pain, palpitations RESPIRATORY: negative for shortness of breath, cough GASTROINTESTINAL: positive for constipation, Last BM today ENDOCRINE: negative for heat/cold intolerance HEMATOLOGY: negative for anemia or easy bruising MUSCULOSKELETAL: positive for pain on the left side of her body NEUROLOGICAL: positive for weakness PSYCHIATRIC: negative for sleep disturbance, depression, memory loss GENITOURINARY: negative for frequency, urgency, dysuria, has retention SKIN: negative for surgical incisions Physical Examination: Vitals and Temp: Vitals Tmp(F) Pulse BP RR SpO2 FIO2 11/25 19:52 98 --- 119/85 18 --- --- 24 Hr Tmax: 98F (36.67c) at 04 19:52 Vital Signs are the last 5 in the past 48 hours. General: awake and alert, No acute distress HEENT: NC, AT, PERRL, EOMI Neck: supple, trachea midline, Trach+ CV: tachycardic, S1S2, no murmurs/gallops/regurgitation Lungs: CTAB, non-labored respirations, on trach colar Abd: soft, NT, ND, +BS : no jesus Psych: mood non-labile, affect appropriate Skin: Intact. Also refer to nursing intake. Tubes/Lines: Neuro: Mental Status: alert and active Level of consciousness: Patient is awake alert interactive Orientation: Oriented to person place time and situation Attention/Concentration: The patient was able to attend well to interview content despite not being able to phonate Speech and language: Patient is unable to phonate but is able to communicate via a word board that her mother uses Sensory: Sensory is grossly not intact on the right side of her body on the left side she feels burning and tingling, and is responsive to touch Cerebellar: no nystagmus Reflexes: The patient is hyperreflexive with increased tone throughout MSK: The patient is only volitionally able to move her right hand on command otherwise all other extremities are not able to be actively moved. Imaging: Findings: No mediastinal or hilar lymphadenopathy. Mild cardiomegaly. No pericardial effusion. No thoracic aortic aneurysm or dissection. No pulmonary arterial filling defect. Central venous catheter terminates within the right atrium. Patent central airways. Satisfactory tracheostomy tube position. No pleural effusion or pneumothorax. Limited evaluation of the pulmonary parenchyma secondary to patient respiratory motion. The lungs demonstrate mild dependent atelectasis, but are otherwise clear. A calcified granuloma within the left lower lobe is consistent with previous granulomatous disease. No significant findings in the partially imaged abdomen. No aggressive osseous lesion. Impression: No evidence of pulmonary embolus. No additional acute findings in the chest. 10/29/18 Transthoracic Echocardiography Report (TTE) Summary Technically difficult study. Patient supine. Unable to position in left lateral position. Tachycardia to 140 bpm during the study. The LV endocardium is incompletely visualized. 1. The left ventricle is chamber size (by PSLAX dimension) is small (female - LVIDd < 3.8cm) . Moderate concentric LV hypertrophy. Endocardial definition is poor in the apical views. Based on the limited views obtained, from the parasternal window, grossly no significant regional wall motion bnormalities noted. Global LV systolic function hyperdynamic . Estimated LVEF by qualitative assessment is increased (>60%) . 2. Very limited views of the RV from the Parasternal windows. Grossly the RV appears normal in size and function. 3. LA is not well seen in the apical views. Based on the PLAX diameter of CT Brain 10/28/18 FINDINGS: The examination exhibits expected/inherent limitations in the evaluation of the brainstem, shavonne and posterior fossa. No acute abnormalities are identified. Previously noted pontine hemorrhage is no longer apparent. Supratentorial brain is stable and unremarkable in appearance. There is no identifiable supratentorial or extra-axial blood. There is no midline shift or hydrocephalus. No new or interval infarction is identified. Osseous structures are stable. IMPRESSION: Chronic appearing changes; suboptimal evaluation of the brainstem and posterior fossa. Impression: DONNA FLYNN 33 year old female with hx of pontine hemorrhage on 09/06/18 admitted for acute rehabilitation Impairments: pontine hemorrhage Cognitive deficits acute respiratory failure s/p trach Spasticity Dysphagia requiring PEG Neurogenic bladder Neurogenic bowel Neuropathic Pain Activity limitations: Decreased mobility Decreased transfers Decreased speech Decreased ADLs Participation restrictions: Driving Return to work/school Taking care of the home Recreation and leisure activities Baptism activities Community reintegration Plan: Rehabilitation: The patient will require oversight and coordination of an interdisciplinary team , 24 hour rehabilitation nursing for management of bowel, bladder, skin integrity, medication management, safety measur es and preventing risk factors and complications. Patient will require a minimum of 3 hours of therapy a day for 5-7 days a week throughout the hospitalization, including at least the followin.5-2 h ours of physical therapy and 1.5-2 hours of occupational therapy in order to improve the patient's impairments in mobility, transfers, and activities of daily living, swallowing, and cognition, as well as to evaluate need for durable medical equipment at discharge. Social work and case management will be consult to assist with discharge planning and family coping strategies. 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 showed no vascular malformation #Acute respiratory failure status post trach -patient was weaned from vent at [facility] -She is now called tolerating trach collar -Continue duo nebs and Pulmicort #Urinary retention neurogenic bladder -The patient has history of being treated for UTI with Rocephin for 3 doses on 11/17 -Continue straight cathing PVRs #Reported burning leg cramps in lower extremities -Patient was reported to have hallucinations while on gabapentin, -She is now on Lyrica since 11/16 -She is also on Tylenol as needed #Uncontrolled hypertension -Continue amlodipine 10 mg daily -Continue lisinopril 40 mg daily -Continue Lopressor 150 mg twice daily started on 11/13 [address] team [facility] at [facility] #Dysphasia -Continue on tube feeds bolus feeds -Continue dietitian following #Dispo -To be discussed at team rounds Addendum by Lien Jean DO on PM&R ATTENDING PHYSICIAN ADDENDUM 11/26/2018 17:23 POST-ADMISSION PHYSICIAN EVALUATION I saw, examined and discussed the patient with the resident, Dr. Astudillo and agree with the documentation except for the strikethrough and/or edits noted here: Labs reviewed, UA with pyuria but patient without symptoms, otherwise no acute findings Medications reviewed. Added hypertonic saline nebs for respiratoyr care. 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 There are no medical or functional changes since the pre-admission assessme nt. The patient has ongoing medical and functional impairments that can safely be met in the IRF setting, and these needs cannot be adequately addressed in a lower level of care, as the patient requires 24 hour nursing and daily medical management. The patient also has comorbidities including: tracheostomy status, neurogenic bowel and bladder, neuropathic pain, orophayrngeal dysphagia s/p PEG, which a lso necessitate close medical supervision, specialized rehabilitation nursing , and skilled therapy intervention. The patient is able to participate in and benefit from an acute inpatient rehabilitation program, with anticipated measurable gains as a result of this program. Prior to this event, the patient was independent. Currently, the patient is total A. There are no obvious barriers to disposition to the community following the IRF admission. Initial Plan of Care: Patient will require oversight by a rehabilitation physician and 24 hour rehabilitation nursing for management of bowel, bladder, skin integrity, medication management, safety measures, and preventing r isk factors and complications. Patient will require a minimum of 3 hours of therapy a day for 5-7 days a week throughout the hospitalization, including at least the followin-2 hours Physical Therapy , 1-2 hours Occupational Therapy, and 1 hour Speech-Language pathology, Neuropsychology, Exercise and Multidisciplinary Groups. These disciplines will be needed in order to improve the patient's impairm ents in mobility, transfers, activities of daily living, swallowing and cognition, and evaluation of durable medical equipment if needed at discharge. Social Work and Case Management will be consulted t o assist with discharge planning and family coping strategies. 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
--- OUTSIDE RECORDS SUMMARY | 2019-04-05 12:59 | XMS REPORT | Summary of Care ---
:1985 Author Organization [facility] Address [address] [place] [id number] Encounter HQ Samy_gabriel(FIN) [id number] Date(s): 03/14/19 - 03/14/[address] [address]- [phone] Discharge Disposition: Home or Self Care Attending Physician: Diego Rust MD Referring Physician: Diego Rust MD Vital Signs Most recent to oldest [Reference Range]: 1 Height 152.4 cm (03/14/19 4:33 PM) Blood Pressure [90-140/60-90 mmHg] 124/88 mmHg (03/14/19 4:33 PM) Respiratory Rate [14-20 BRMIN] 20 BRMIN (03/14/19 4:33 PM) Peripheral Pulse Rate [60-100 bpm] 65 bpm (03/14/19 4:33 PM) Weight 81.818 kg (03/14/19 4:33 PM) Body Mass Index 35.23 m2 (03/14/19 4:33 PM) Problem List Condition Effective Dates Status Health Status Informant Acute respiratory failure(Confirmed) Active Cerebrovascular accident Active (CVA)(Confirmed) Dysphagia(Confirmed) Active Escherichia coli(Confirmed)1, 2 Active Impaired mobility and ADLs(Confirmed) Active Impaired cognition(Confirmed) Active 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 Allergies, Adverse Reactions, Alerts Substance Reaction Severity Status NKDA Active traMADol1 Active 1lethargic, difficult to arouse Medications baclofen 20 mg oral tablet 20 mg=1 tab, PO, TID, # 90 tab, 4 Refill(s), Pharmacy: [facility] Start Date: 03/14/19 Status: Ordered Results No data available for this section [...] Smoking Cessation Counseling No entered on: 03/14/19 Assessment and Plan No data available for this section
--- OUTSIDE RECORDS SUMMARY | 2019-04-05 13:07 | XMS REPORT ---
:1985 [facility] Address [address] [place] [address] Care Team Providers Name Role Phone CROW DAIGLE Unavailable Unavailable Problems This patient has no known problems. Allergies, Adverse Reactions, Alerts This patient has no known allergies or adverse reactions. Medications This patient has no known medications. Results Test Description Test Time Test Comments Text Results Atomic Results Result Comments HCG Qualitative Urine 2019-01-12 09:08:25 Test Item Value Reference Range Comments hCG Ur (test code=hCG Ur) Negative If the result is "Negative" in patients suspected to be , recommend retest with a sample obtained 48 to 72 hours later, or by ordering a quantitative assay. If the result is "Borderline" testing should be repeated in 48 to 72 hours. Lot # (test code=Lot #) [id number] Expiration Dt (test code=Expiration 2020-01-21 Dt) Neg Control (test code=Neg Control) Negative Pos Control (test code=Pos Control) Positive Internal QC (test code=Internal QC) Acceptable COMPREHENSIVE METABOLIC [id number] 07:02:00 Test Item Value Reference Range Comments TOTAL PROTEIN (BEAKER) 7.3 gm/dL 6.0-8.3 (test cevr=364) ALBUMIN (BEAKER) (test 3.7 g/dL 3.5-5.0 bvms=3722) ALKALINE PHOSPHATASE 102 U/L 40-150 (BEAKER) (test tfmu=266) BILIRUBIN TOTAL (BEAKER) 0.4 mg/dL 0.2-1.2 (test glnc=095) SODIUM (BEAKER) (test 138 meq/L 136-145 nwfm=153) POTASSIUM (BEAKER) (test 4.3 meq/L 3.5-5.1 cvrr=359) CHLORIDE (BEAKER) (test 101 meq/L 98-107 zykf=308) CO2 (BEAKER) (test 28 meq/L 22-29 jeuh=280) BLOOD UREA NITROGEN 16 mg/dL 7-21 (BEAKER) (test ymvo=366) CREATININE (BEAKER) (test 0.56 mg/dL 0.57-1.25 oocr=748) GLUCOSE RANDOM (BEAKER) 94 mg/dL 70-105 (test ejav=731) CALCIUM (BEAKER) (test 10.5 mg/dL 8.4-10.2 ncey=352) AST (SGOT) (BEAKER) (test 23 U/L 5-34 maob=416) ALT (SGPT) (BEAKER) (test 49 U/L 6-55 rgaz=053) EGFR (BEAKER) (test 125 mL/min/1.73 sq ESTIMATED GFR IS NOT gthk=7837) m ACCURATE CREATININE CLEARANCE IN PREDICTING GLOMERULAR FILTRATION RATE. ESTIMATED GFR IS NOT APPLICABLE FOR DIALYSIS PATIENTS. CBC W/PLT COUNT & AUTO [id number] 06:29:00 Test Item Value Reference Range Comments WHITE BLOOD CELL COUNT (BEAKER) (test plbd=491) 11.0 K/ L 3.5-10.5 RED BLOOD CELL COUNT (BEAKER) (test humt=032) 3.87 M/ L 3.93-5.22 HEMOGLOBIN (BEAKER) (test wfcx=599) 12.5 GM/DL 11.2-15.7 HEMATOCRIT (BEAKER) (test tvgf=190) 37.9 % 34.1-44.9 MEAN CORPUSCULAR VOLUME (BEAKER) (test yrut=825) 97.9 fL 79.4-94.8 MEAN CORPUSCULAR HEMOGLOBIN (BEAKER) (test 32.3 pg 25.6-32.2 froe=113) MEAN CORPUSCULAR HEMOGLOBIN CONC (BEAKER) (test 33.0 GM/DL 32.2-35.5 aodm=860) RED CELL DISTRIBUTION WIDTH (BEAKER) (test 14.6 % 11.7-14.4 ayaq=139) PLATELET COUNT (BEAKER) (test oqvn=909) 263 K/CU MM 150-450 MEAN PLATELET VOLUME (BEAKER) (test vfph=539) 12.0 fL 9.4-12.3 NUCLEATED RED BLOOD CELLS (BEAKER) (test 0 /100 WBC 0-0 zqdb=694) NEUTROPHILS RELATIVE PERCENT (BEAKER) (test 69 % aehj=783) LYMPHOCYTES RELATIVE PERCENT (BEAKER) (test 20 % aejg=179) MONOCYTES RELATIVE PERCENT (BEAKER) (test 8 % bvzy=446) EOSINOPHILS RELATIVE PERCENT (BEAKER) (test 2 % jhlk=288) BASOPHILS RELATIVE PERCENT (BEAKER) (test 0 % vjjp=422) NEUTROPHILS ABSOLUTE COUNT (BEAKER) (test 7.55 K/ L 1.56-6.13 oprh=734) LYMPHOCYTES ABSOLUTE COUNT (BEAKER) (test 2.22 K/ L 1.18-3.74 ffja=656) MONOCYTES ABSOLUTE COUNT (BEAKER) (test 0.83 K/ L 0.24-0.36 bmfq=081) EOSINOPHILS ABSOLUTE COUNT (BEAKER) (test 0.24 K/ L 0.04-0.36 xesl=140) BASOPHILS ABSOLUTE COUNT (BEAKER) (test 0.04 K/ L 0.01-0.08 berc=181) IMMATURE GRANULOCYTES-RELATIVE PERCENT (BEAKER) 1 % 0-1 (test nllr=4661) GENITAL CULTURE + GRAM [id number] 12:06:00 Test Item Value Reference Range Comments CULTURE (BEAKER) (test ESCHERICHIA COLI 2+ Escherichia coli zxkq=8953) Amikacin (test code=1) Ampicillin + Sulbactam (test code=6) Aztreonam (test code=32) Cefepime (test code=51) Cefoxitin (test code=68) Ceftazidime (test code=27) Ceftriaxone (test code=52) Ertapenem (test code=38) Gentamicin (test code=18) Levofloxacin (test code=22) Meropenem (test code=34) Nitrofurantoin (test code=23) Piperacillin + Tazobactam (test code=29) Tetracycline (test code=2) Tobramycin (test code=25) Trimethoprim + Sulfamethoxazole (test code=47) GRAM STAIN RESULT (BEAKER) <1+ WBCs (test joej=9257) GRAM STAIN RESULT (BEAKER) 2+ gram positive rods (test hjjo=384090) GRAM STAIN RESULT (BEAKER) 2+ gram positive rods (test hpdj=917594) GRAM STAIN RESULT (BEAKER) 4+ gram positive cocci (test buxc=396273) in chains and pairs <1+ Normal vaginal jammie presentPOCT-GLUCOSE [id number] 09:10:00 Test Item Value Reference Range Comments POC-GLUCOSE METER (BEAKER) 85 mg/dL 70-110 TESTED AT [address] (test jiyf=4370) [facility] [address] POCT-GLUCOSE [id number] 21:00:00 Test Item Value Reference Range Comments POC-GLUCOSE METER (BEAKER) 92 mg/dL 70-110 TESTED AT [address] (test ycqq=4481) [facility] [address] POCT-GLUCOSE [id number] 12:05:00 Test Item Value Reference Range Comments POC-GLUCOSE METER (BEAKER) 85 mg/dL 70-110 TESTED AT [address] (test ueoa=2000) [facility] [address] POCT-GLUCOSE [id number] 08:23:00 Test Item Value Reference Range Comments POC-GLUCOSE METER (BEAKER) 91 mg/dL 70-110 TESTED AT [address] (test ndni=0985) [place] [address] RAD, CHEST, 1 VIEW, NON [id number] 12:57:00Reason for exam:->chest pain/ difficulty breathingShould this be performed at the bedside?->YesFINAL REPORT AP view of the chest dated 11/20/2018 COMPARISON: October 26, 2018 CLINICAL INFORMATION: chest pain/ difficulty breathing Comment: Heart is normal in size. Tracheostomy tube is present. Previously noted right PICC line has been removed. Pulmonary vasculature is unremarkable. Lungs are clear. No pulmonary infiltrate or pleural effusion is present. Impression: No active cardiopulmonary disease. Signed: Miles Arriaza Verified Date/Time : 11/20/2018 12:57:40 Reading Location: [facility] C0X Ortho Consult Reading Room POCT -GLUCOSE [id number] 09:31:00 Test Item Value Reference Range Comments POC-GLUCOSE METER (BEAKER) 89 mg/dL 70-110 TESTED AT [address] (test btrs=1868) [facility] [address] POCT-GLUCOSE [id number] 08:34:00 Test Item Value Reference Range Comments POC-GLUCOSE METER (BEAKER) 157 mg/dL 70-110 TESTED AT [address] (test tady=2262) [place] [address] WET [id number] 15:41:00 Test Item Value Reference Range Comments WBC WET PREP (BEAKER) (test Few white blood cells seen odas=066) CLUE CELLS (BEAKER) (test No clue cells seen vjzc=421) YEAST WET PREP (BEAKER) (test Few budding yeast seen bivr=803) TRICH WET PREP (BEAKER) (test No Trichomonas seen qrga=026) BACT WET PREP (BEAKER) (test Many bacteria seen gfhd=907) POCT-GLUCOSE [id number] 11:35:00 Test Item Value Reference Range Comments POC-GLUCOSE METER (BEAKER) 117 mg/dL 70-110 TESTED AT [address] (test ugmq=6015) [place] [address] POCT-GLUCOSE [id number] 10:13:00 Test Item Value Reference Range Comments POC-GLUCOSE METER (BEAKER) 104 mg/dL 70-110 TESTED AT [address] (test eetv=5974) [place] [address] URINALYSIS W/ REFLEX URINE [id number] 19:02:00 Test Item Value Reference Range Comments COLOR (BEAKER) (test ahfo=911) Yellow CLARITY (BEAKER) (test gzdx=057) Hazy SPECIFIC GRAVITY UA (BEAKER) (test ehfz=030) 1.010 1.001-1.035 PH UA (BEAKER) (test fakr=218) 7.0 5.0-8.0 PROTEIN UA (BEAKER) (test ntyh=581) Negative Negative GLUCOSE UA (BEAKER) (test omib=176) Negative Negative KETONES UA (BEAKER) (test kisl=814) Negative Negative BILIRUBIN UA (BEAKER) (test vzgj=005) Negative Negative BLOOD UA (BEAKER) (test miod=628) Negative Negative NITRITE UA (BEAKER) (test nmmt=550) Negative Negative LEUKOCYTE ESTERASE UA (BEAKER) (test grzb=108) Trace Negative UROBILINOGEN UA (BEAKER) (test gvpj=138) 0.2 mg/dL 0.2-1.0 RBC UA (BEAKER) (test diwy=238) 0 /HPF WBC UA (BEAKER) (test dkjo=107) 4 /HPF SOURCE(BEAKER) (test cyzc=4796) POCT-GLUCOSE [id number] 08:45:00 Test Item Value Reference Range Comments POC-GLUCOSE METER (BEAKER) 109 mg/dL 70-110 TESTED AT [address] (test toud=0719) [place] [id number] POCT-GLUCOSE [id number] 08:42:00 Test Item Value Reference Range Comments POC-GLUCOSE METER (BEAKER) 91 mg/dL 70-110 TESTED AT [address] (test egfj=1656) [place] [id number] SCREEN, [id number] 14:10:00 Test Item Value Reference Range Comments TEST URINE (BEAKER) (test mryc=532) Negative POCT-GLUCOSE [id number] 09:15:00 Test Item Value Reference Range Comments POC-GLUCOSE METER (BEAKER) 98 mg/dL 70-110 TESTED AT [address] (test sakn=3560) [place] [id number] CBC W/PLT COUNT & AUTO [id number] 14:21:00 Test Item Value Reference Range Comments WHITE BLOOD CELL COUNT (BEAKER) (test bwzq=241) 8.1 K/ L 3.5-10.5 RED BLOOD CELL COUNT (BEAKER) (test fnbi=279) 3.70 M/ L 3.93-5.22 HEMOGLOBIN (BEAKER) (test kqjn=374) 11.9 GM/DL 11.2-15.7 HEMATOCRIT (BEAKER) (test segn=334) 35.6 % 34.1-44.9 MEAN CORPUSCULAR VOLUME (BEAKER) (test vjfw=404) 96.2 fL 79.4-94.8 MEAN CORPUSCULAR HEMOGLOBIN (BEAKER) (test 32.2 pg 25.6-32.2 nsnp=415) MEAN CORPUSCULAR HEMOGLOBIN CONC (BEAKER) (test 33.4 GM/DL 32.2-35.5 wmzb=748) RED CELL DISTRIBUTION WIDTH (BEAKER) (test 15.1 % 11.7-14.4 apws=312) PLATELET COUNT (BEAKER) (test ysdi=424) 330 K/CU MM 150-450 MEAN PLATELET VOLUME (BEAKER) (test dkak=034) 11.4 fL 9.4-12.3 NUCLEATED RED BLOOD CELLS (BEAKER) (test 0 /100 WBC 0-0 ltwz=940) NEUTROPHILS RELATIVE PERCENT (BEAKER) (test 67 % ywhk=799) LYMPHOCYTES RELATIVE PERCENT (BEAKER) (test 22 % chdk=958) MONOCYTES RELATIVE PERCENT (BEAKER) (test 7 % clrm=380) EOSINOPHILS RELATIVE PERCENT (BEAKER) (test 3 % pznl=212) BASOPHILS RELATIVE PERCENT (BEAKER) (test 0 % kwxc=047) NEUTROPHILS ABSOLUTE COUNT (BEAKER) (test 5.43 K/ L 1.56-6.13 aizc=867) LYMPHOCYTES ABSOLUTE COUNT (BEAKER) (test 1.79 K/ L 1.18-3.74 ckan=566) MONOCYTES ABSOLUTE COUNT (BEAKER) (test 0.60 K/ L 0.24-0.36 gozn=926) EOSINOPHILS ABSOLUTE COUNT (BEAKER) (test 0.25 K/ L 0.04-0.36 fkvx=661) BASOPHILS ABSOLUTE COUNT (BEAKER) (test 0.02 K/ L 0.01-0.08 dhgf=038) IMMATURE GRANULOCYTES-RELATIVE PERCENT (BEAKER) 1 % 0-1 (test lkpf=9744) [id number] 14:02:00 Test Item Value Reference Range Comments MAGNESIUM (BEAKER) (test hojh=132) 1.8 mg/dL 1.6-2.6 COMPREHENSIVE METABOLIC [id number] 14:02:00 Test Item Value Reference Range Comments TOTAL PROTEIN (BEAKER) 7.2 gm/dL 6.0-8.3 (test duyx=029) ALBUMIN (BEAKER) (test 3.5 g/dL 3.5-5.0 qtbo=2782) ALKALINE PHOSPHATASE 111 U/L 40-150 (BEAKER) (test cqlv=012) BILIRUBIN TOTAL (BEAKER) 0.2 mg/dL 0.2-1.2 (test memg=894) SODIUM (BEAKER) (test 137 meq/L 136-145 nvtt=012) POTASSIUM (BEAKER) (test 4.2 meq/L 3.5-5.1 esje=400) CHLORIDE (BEAKER) (test 101 meq/L 98-107 tupx=107) CO2 (BEAKER) (test 29 meq/L 22-29 xfln=172) BLOOD UREA NITROGEN 16 mg/dL 7-21 (BEAKER) (test hdmw=202) CREATININE (BEAKER) (test 0.56 mg/dL 0.57-1.25 zqzo=042) GLUCOSE RANDOM (BEAKER) 131 mg/dL 70-105 (test bgrc=332) CALCIUM (BEAKER) (test 9.5 mg/dL 8.4-10.2 okxq=282) AST (SGOT) (BEAKER) (test 27 U/L 5-34 ybrz=665) ALT (SGPT) (BEAKER) (test 75 U/L 6-55 lklr=947) EGFR (BEAKER) (test 125 mL/min/1.73 sq ESTIMATED GFR IS NOT kwef=4786) m ACCURATE CREATININE CLEARANCE IN PREDICTING GLOMERULAR FILTRATION RATE. ESTIMATED GFR IS NOT APPLICABLE FOR DIALYSIS PATIENTS. POCT-GLUCOSE [id number] 08:21:00 Test Item Value Reference Range Comments POC-GLUCOSE METER (BEAKER) 82 mg/dL 70-110 TESTED AT [address] (test zzge=4945) [place] [address] POCT-GLUCOSE [id number] 08:32:00 Test Item Value Reference Range Comments POC-GLUCOSE METER (BEAKER) 104 mg/dL 70-110 TESTED AT [address] (test nlkm=5627) [place] [address] TROPONIN [id number] 13:17:00 Test Item Value Reference Range Comments TROPONIN I (BEAKER) (test lsut=310) < ng/mL 0.00-0.03 Troponin I (TnI) levels must be interpreted in the context of the presenting symptoms and the clinical findings. Elevated TnI levels indicate myocardial damage, but are not specific for ischemic heart disease. Elevated TnI levels are seen in patients with other cardiac conditions (including myocarditis and congestive heart failure), and slight TnI elevations occur in patients with other conditions, including sepsis, renal failure, acidosis, acute neurological disease, and persistent tachyarrhythmia.B-TYPE NATRIURETIC FACTOR (BNP) 13:14:00 Test Item Value Reference Range Comments B-TYPE NATRIURETIC PEPTIDE (BEAKER) (test kkuk=490) 17 pg/mL 0-100 [id number] 13:11:00 Test Item Value Reference Range Comments MAGNESIUM (BEAKER) (test 2.3 mg/dL 1.6-2.6 Specimen moderately hemolyzed ulmt=507) COMPREHENSIVE METABOLIC [id number] 13:11:00 Test Item Value Reference Range Comments TOTAL PROTEIN (BEAKER) 7.5 gm/dL 6.0-8.3 Specimen moderately (test blxn=636) hemolyzed ALBUMIN (BEAKER) (test 3.4 g/dL 3.5-5.0 Specimen moderately hpfo=7321) hemolyzed ALKALINE PHOSPHATASE 95 U/L 40-150 (BEAKER) (test iftb=037) BILIRUBIN TOTAL (BEAKER) 0.2 mg/dL 0.2-1.2 Specimen moderately (test zimp=422) hemolyzed SODIUM (BEAKER) (test 137 meq/L 136-145 qhoc=087) POTASSIUM (BEAKER) (test 4.9 meq/L 3.5-5.1 Specimen moderately zhnr=121) hemolyzed CHLORIDE (BEAKER) (test 100 meq/L 98-107 tvah=388) CO2 (BEAKER) (test 28 meq/L 22-29 hkie=880) BLOOD UREA NITROGEN 17 mg/dL 7-21 (BEAKER) (test hkmt=784) CREATININE (BEAKER) (test 0.59 mg/dL 0.57-1.25 Specimen moderately xwjo=760) hemolyzed GLUCOSE RANDOM (BEAKER) 112 mg/dL 70-105 (test xgty=555) CALCIUM (BEAKER) (test 10.0 mg/dL 8.4-10.2 uudw=488) AST (SGOT) (BEAKER) (test 39 U/L 5-34 Specimen moderately argm=239) hemolyzed ALT (SGPT) (BEAKER) (test 73 U/L 6-55 Specimen moderately meuh=325) hemolyzed EGFR (BEAKER) (test 118 mL/min/1.73 sq ESTIMATED GFR IS NOT fkpv=4158) m ACCURATE CREATININE CLEARANCE IN PREDICTING GLOMERULAR FILTRATION RATE. ESTIMATED GFR IS NOT APPLICABLE FOR DIALYSIS PATIENTS. CREATINE KINASE (CK)2018-11-12 13:11:00 Test Item Value Reference Range Comments CREATINE KINASE TOTAL (BEAKER) (test uyly=707) 20 U/L 29-200 POCT-GLUCOSE [id number] 12:58:00 Test Item Value Reference Range Comments POC-GLUCOSE METER (BEAKER) 107 mg/dL 70-110 TESTED AT [facility] [address] (test pdww=8804) [place] [address] CBC W/PLT COUNT & AUTO [id number] 12:43:00 Test Item Value Reference Range Comments WHITE BLOOD CELL COUNT (BEAKER) (test shkl=612) 7.7 K/ L 3.5-10.5 RED BLOOD CELL COUNT (BEAKER) (test rrqs=156) 3.64 M/ L 3.93-5.22 HEMOGLOBIN (BEAKER) (test vaex=039) 11.7 GM/DL 11.2-15.7 HEMATOCRIT (BEAKER) (test rhso=450) 35.1 % 34.1-44.9 MEAN CORPUSCULAR VOLUME (BEAKER) (test ckft=739) 96.4 fL 79.4-94.8 MEAN CORPUSCULAR HEMOGLOBIN (BEAKER) (test 32.1 pg 25.6-32.2 bpxt=740) MEAN CORPUSCULAR HEMOGLOBIN CONC (BEAKER) (test 33.3 GM/DL 32.2-35.5 pkai=836) RED CELL DISTRIBUTION WIDTH (BEAKER) (test 15.0 % 11.7-14.4 ixof=308) PLATELET COUNT (BEAKER) (test gelx=979) 323 K/CU MM 150-450 MEAN PLATELET VOLUME (BEAKER) (test drwn=430) 10.9 fL 9.4-12.3 NUCLEATED RED BLOOD CELLS (BEAKER) (test 0 /100 WBC 0-0 spjg=930) NEUTROPHILS RELATIVE PERCENT (BEAKER) (test 54 % qjvs=135) LYMPHOCYTES RELATIVE PERCENT (BEAKER) (test 31 % xapp=389) MONOCYTES RELATIVE PERCENT (BEAKER) (test 11 % hwyr=790) EOSINOPHILS RELATIVE PERCENT (BEAKER) (test 3 % vqbq=490) BASOPHILS RELATIVE PERCENT (BEAKER) (test 0 % hbfq=803) NEUTROPHILS ABSOLUTE COUNT (BEAKER) (test 4.14 K/ L 1.56-6.13 tdrz=701) LYMPHOCYTES ABSOLUTE COUNT (BEAKER) (test 2.41 K/ L 1.18-3.74 oyzs=590) MONOCYTES ABSOLUTE COUNT (BEAKER) (test 0.83 K/ L 0.24-0.36 nrba=275) EOSINOPHILS ABSOLUTE COUNT (BEAKER) (test 0.23 K/ L 0.04-0.36 uakz=903) BASOPHILS ABSOLUTE COUNT (BEAKER) (test 0.03 K/ L 0.01-0.08 ljqr=316) IMMATURE GRANULOCYTES-RELATIVE PERCENT (BEAKER) 1 % 0-1 (test eaqc=3312) POCT-GLUCOSE [id number] 12:21:00 Test Item Value Reference Range Comments POC-GLUCOSE METER (BEAKER) 90 mg/dL 70-110 TESTED AT [address] (test xkqj=1210) [place] [address] POCT-GLUCOSE [id number] 08:57:00 Test Item Value Reference Range Comments POC-GLUCOSE METER (BEAKER) 92 mg/dL 70-110 TESTED AT [address] (test tlah=1201) [place] [address] POCT-GLUCOSE [id number] 13:03:00 Test Item Value Reference Range Comments POC-GLUCOSE METER (BEAKER) 133 mg/dL 70-110 TESTED AT [address] (test fgal=3293) [place] [address] POCT-GLUCOSE [id number] 08:49:00 Test Item Value Reference Range Comments POC-GLUCOSE METER (BEAKER) 88 mg/dL 70-110 TESTED AT [address] (test xyzo=4960) [place] [id number] POCT-GLUCOSE [id number] 19:04:00 Test Item Value Reference Range Comments POC-GLUCOSE METER (BEAKER) 131 mg/dL 70-110 TESTED AT [address] (test sxhd=6953) [place] [id number] POCT-GLUCOSE [id number] 12:14:00 Test Item Value Reference Range Comments POC-GLUCOSE METER (BEAKER) 101 mg/dL 70-110 TESTED AT [address] (test uplt=7727) [place] [address] URINALYSIS W/ REFLEX URINE [id number] 11:39:00 Test Item Value Reference Range Comments COLOR (BEAKER) (test sfhn=238) Yellow CLARITY (BEAKER) (test xvwd=367) Hazy SPECIFIC GRAVITY UA (BEAKER) (test ppxw=038) 1.011 1.001-1.035 PH UA (BEAKER) (test zcpw=837) 7.0 5.0-8.0 PROTEIN UA (BEAKER) (test rygb=668) Negative Negative GLUCOSE UA (BEAKER) (test hwvp=300) Negative Negative KETONES UA (BEAKER) (test afct=780) Negative Negative BILIRUBIN UA (BEAKER) (test svcp=389) Negative Negative BLOOD UA (BEAKER) (test dfly=303) Negative Negative NITRITE UA (BEAKER) (test fhbq=719) Negative Negative LEUKOCYTE ESTERASE UA (BEAKER) (test npww=104) Negative Negative UROBILINOGEN UA (BEAKER) (test pmmg=160) 2.0 mg/dL 0.2-1.0 RBC UA (BEAKER) (test wmlc=645) 0 /HPF WBC UA (BEAKER) (test tuoc=726) 0 /HPF MUCUS (BEAKER) (test wots=7520) Rare AMORPHOUS CRYSTALS (BEAKER) (test cqqp=1860) Moderate SOURCE(BEAKER) (test rpmj=5875) POCT-GLUCOSE [id number] 08:14:00 Test Item Value Reference Range Comments POC-GLUCOSE METER (BEAKER) 94 mg/dL 70-110 TESTED AT [address] (test fpuk=3980) [facility] [address] POCT-GLUCOSE [id number] 08:54:00 Test Item Value Reference Range Comments POC-GLUCOSE METER (BEAKER) 91 mg/dL 70-110 TESTED AT [address] (test zlgs=1567) [facility] [address] POCT-GLUCOSE [id number] 18:20:00 Test Item Value Reference Range Comments POC-GLUCOSE METER (BEAKER) 154 mg/dL 70-110 TESTED AT [address] (test rojr=8886) [facility] [address] POCT-GLUCOSE [id number] 12:49:00 Test Item Value Reference Range Comments POC-GLUCOSE METER (BEAKER) 84 mg/dL 70-110 TESTED AT [address] (test lnfn=8632) [facility] [address] POCT-GLUCOSE [id number] 09:06:00 Test Item Value Reference Range Comments POC-GLUCOSE METER (BEAKER) 99 mg/dL 70-110 TESTED AT [address] (test rtnp=4576) [place] [id number] POCT-GLUCOSE [id number] 06:02:00 Test Item Value Reference Range Comments POC-GLUCOSE METER (BEAKER) 98 mg/dL 70-110 TESTED AT [facility] [address] (test upuo=2836) [facility] [address] [id number] 05:39:00 Test Item Value Reference Range Comments MAGNESIUM (BEAKER) (test buys=214) 2.1 mg/dL 1.6-2.6 COMPREHENSIVE METABOLIC [id number] 05:39:00 Test Item Value Reference Range Comments TOTAL PROTEIN (BEAKER) 6.9 gm/dL 6.0-8.3 (test mxdf=428) ALBUMIN (BEAKER) (test 3.4 g/dL 3.5-5.0 nyte=5565) ALKALINE PHOSPHATASE 82 U/L 40-150 (BEAKER) (test yovo=440) BILIRUBIN TOTAL (BEAKER) 0.3 mg/dL 0.2-1.2 (test hosb=409) SODIUM (BEAKER) (test 138 meq/L 136-145 qkta=704) POTASSIUM (BEAKER) (test 4.7 meq/L 3.5-5.1 lvxh=030) CHLORIDE (BEAKER) (test 101 meq/L 98-107 ttqv=808) CO2 (BEAKER) (test 28 meq/L 22-29 anzj=356) BLOOD UREA NITROGEN 18 mg/dL 7-21 (BEAKER) (test nhyn=737) CREATININE (BEAKER) (test 0.55 mg/dL 0.57-1.25 qexs=780) GLUCOSE RANDOM (BEAKER) 83 mg/dL 70-105 (test rweh=824) CALCIUM (BEAKER) (test 10.5 mg/dL 8.4-10.2 oybb=324) AST (SGOT) (BEAKER) (test 20 U/L 5-34 ezip=883) ALT (SGPT) (BEAKER) (test 59 U/L 6-55 crtu=206) EGFR (BEAKER) (test 128 mL/min/1.73 sq ESTIMATED GFR IS NOT ezah=7049) m ACCURATE CREATININE CLEARANCE IN PREDICTING GLOMERULAR FILTRATION RATE. ESTIMATED GFR IS NOT APPLICABLE FOR DIALYSIS PATIENTS. CBC W/PLT COUNT & AUTO [id number] 05:07:00 Test Item Value Reference Range Comments WHITE BLOOD CELL COUNT (BEAKER) (test xdgr=279) 6.6 K/ L 3.5-10.5 RED BLOOD CELL COUNT (BEAKER) (test uror=134) 3.69 M/ L 3.93-5.22 HEMOGLOBIN (BEAKER) (test iaix=600) 11.5 GM/DL 11.2-15.7 HEMATOCRIT (BEAKER) (test hwov=382) 36.4 % 34.1-44.9 MEAN CORPUSCULAR VOLUME (BEAKER) (test bhke=481) 98.6 fL 79.4-94.8 MEAN CORPUSCULAR HEMOGLOBIN (BEAKER) (test 31.2 pg 25.6-32.2 ckwt=117) MEAN CORPUSCULAR HEMOGLOBIN CONC (BEAKER) (test 31.6 GM/DL 32.2-35.5 jnqw=168) RED CELL DISTRIBUTION WIDTH (BEAKER) (test 15.9 % 11.7-14.4 ezab=167) PLATELET COUNT (BEAKER) (test onqx=283) 339 K/CU MM 150-450 MEAN PLATELET VOLUME (BEAKER) (test coug=848) 11.0 fL 9.4-12.3 NUCLEATED RED BLOOD CELLS (BEAKER) (test 0 /100 WBC 0-0 fosh=063) NEUTROPHILS RELATIVE PERCENT (BEAKER) (test 49 % ivmk=616) LYMPHOCYTES RELATIVE PERCENT (BEAKER) (test 37 % qlek=212) MONOCYTES RELATIVE PERCENT (BEAKER) (test 9 % qehe=000) EOSINOPHILS RELATIVE PERCENT (BEAKER) (test 4 % yknx=945) BASOPHILS RELATIVE PERCENT (BEAKER) (test 1 % nfgw=202) NEUTROPHILS ABSOLUTE COUNT (BEAKER) (test 3.23 K/ L 1.56-6.13 jlfb=872) LYMPHOCYTES ABSOLUTE COUNT (BEAKER) (test 2.43 K/ L 1.18-3.74 krfj=844) MONOCYTES ABSOLUTE COUNT (BEAKER) (test 0.60 K/ L 0.24-0.36 pqjr=560) EOSINOPHILS ABSOLUTE COUNT (BEAKER) (test 0.24 K/ L 0.04-0.36 ykyt=824) BASOPHILS ABSOLUTE COUNT (BEAKER) (test 0.03 K/ L 0.01-0.08 wnby=404) IMMATURE GRANULOCYTES-RELATIVE PERCENT (BEAKER) 1 % 0-1 (test ravr=7514) POCT-GLUCOSE [id number] 23:57:00 Test Item Value Reference Range Comments POC-GLUCOSE METER (BEAKER) 109 mg/dL 70-110 TESTED AT [address] (test cevl=9641) [facility] [address] POCT-GLUCOSE [id number] 18:11:00 Test Item Value Reference Range Comments POC-GLUCOSE METER (BEAKER) 100 mg/dL 70-110 TESTED AT [address] (test kqgp=4885) [facility] [id number] POCT-GLUCOSE [id number] 12:28:00 Test Item Value Reference Range Comments POC-GLUCOSE METER (BEAKER) 96 mg/dL 70-110 TESTED AT [address] (test hpub=7250) [facility] [address] POCT-GLUCOSE [id number] 08:01:00 Test Item Value Reference Range Comments POC-GLUCOSE METER (BEAKER) 104 mg/dL 70-110 TESTED AT [address] (test tdoq=7741) [facility] [address] POCT-GLUCOSE [id number] 06:30:00 Test Item Value Reference Range Comments POC-GLUCOSE METER (BEAKER) 99 mg/dL 70-110 TESTED AT [address] (test nyjp=8155) [facility] [address] POCT-GLUCOSE [id number] 02:07:00 Test Item Value Reference Range Comments POC-GLUCOSE METER (BEAKER) 131 mg/dL 70-110 TESTED AT [address] (test emug=8112) [facility] [address] POCT-GLUCOSE [id number] 16:38:00 Test Item Value Reference Range Comments POC-GLUCOSE METER (BEAKER) 108 mg/dL 70-110 TESTED AT [address] (test melc=4729) [facility] [address] POCT-GLUCOSE [id number] 06:28:00 Test Item Value Reference Range Comments POC-GLUCOSE METER (BEAKER) 92 mg/dL 70-110 TESTED AT [address] (test jesc=6520) [facility] [address] POCT-GLUCOSE [id number] 00:32:00 Test Item Value Reference Range Comments POC-GLUCOSE METER (BEAKER) 122 mg/dL 70-110 TESTED AT [address] (test xwos=6760) [facility] [address] POCT-GLUCOSE [id number] 08:49:00 Test Item Value Reference Range Comments POC-GLUCOSE METER (BEAKER) 99 mg/dL 70-110 TESTED AT [address] (test tgjb=2114) [facility] [address] POCT-GLUCOSE [id number] 06:31:00 Test Item Value Reference Range Comments POC-GLUCOSE METER (BEAKER) 98 mg/dL 70-110 TESTED AT [address] (test sqif=8322) [facility] [address] POCT-GLUCOSE [id number] 00:13:00 Test Item Value Reference Range Comments POC-GLUCOSE METER (BEAKER) 152 mg/dL 70-110 TESTED AT [address] (test ofug=5169) [facility] [address] POCT-GLUCOSE [id number] 06:30:00 Test Item Value Reference Range Comments POC-GLUCOSE METER (BEAKER) 105 mg/dL 70-110 TESTED AT [address] (test hlal=6407) [facility] [address] POCT-GLUCOSE [id number] 23:58:00 Test Item Value Reference Range Comments POC-GLUCOSE METER (BEAKER) 125 mg/dL 70-110 TESTED AT [address] (test qvkl=2923) [facility] [address] POCT-GLUCOSE [id number] 16:59:00 Test Item Value Reference Range Comments POC-GLUCOSE METER (BEAKER) 123 mg/dL 70-110 TESTED AT [address] (test xweo=5968) [facility] [address] BLOOD [id number] 12:01:00 Test Item Value Reference Range Comments CULTURE (BEAKER) (test qftd=0422) No growth in 5 days BLOOD [id number] 12:01:00 Test Item Value Reference Range Comments CULTURE (BEAKER) (test pfqp=3448) No growth in 5 days POCT-GLUCOSE [id number] 11:55:00 Test Item Value Reference Range Comments POC-GLUCOSE METER (BEAKER) 96 mg/dL 70-110 TESTED AT [address] (test nogi=5871) [facility] [address] POCT-GLUCOSE [id number] 06:12:00 Test Item Value Reference Range Comments POC-GLUCOSE METER (BEAKER) 125 mg/dL 70-110 TESTED AT [facility] [address] (test huwl=6361) [facility] [address] BASIC METABOLIC [id number] 04:43:00 Test Item Value Reference Range Comments SODIUM (BEAKER) (test 139 meq/L 136-145 vvep=992) POTASSIUM (BEAKER) (test 4.0 meq/L 3.5-5.1 peoc=424) CHLORIDE (BEAKER) (test 102 meq/L 98-107 gijn=797) CO2 (BEAKER) (test 27 meq/L 22-29 ihcb=974) BLOOD UREA NITROGEN 20 mg/dL 7-21 (BEAKER) (test gnmq=481) CREATININE (BEAKER) (test 0.57 mg/dL 0.57-1.25 sdvq=896) GLUCOSE RANDOM (BEAKER) 173 mg/dL 70-105 (test qmld=279) CALCIUM (BEAKER) (test 9.7 mg/dL 8.4-10.2 gcgm=509) EGFR (BEAKER) (test 123 mL/min/1.73 sq m ESTIMATED GFR IS NOT lcae=3194) ACCURATE CREATININE CLEARANCE IN PREDICTING GLOMERULAR FILTRATION RATE. ESTIMATED GFR IS NOT APPLICABLE FOR DIALYSIS PATIENTS. CBC W/PLT COUNT & AUTO [id number] 04:33:00 Test Item Value Reference Range Comments WHITE BLOOD CELL COUNT (BEAKER) (test xtmn=393) 8.4 K/ L 3.5-10.5 RED BLOOD CELL COUNT (BEAKER) (test faog=110) 3.20 M/ L 3.93-5.22 HEMOGLOBIN (BEAKER) (test htrg=235) 10.2 GM/DL 11.2-15.7 HEMATOCRIT (BEAKER) (test vjcw=495) 30.6 % 34.1-44.9 MEAN CORPUSCULAR VOLUME (BEAKER) (test ayrj=954) 95.6 fL 79.4-94.8 MEAN CORPUSCULAR HEMOGLOBIN (BEAKER) (test 31.9 pg 25.6-32.2 sops=246) MEAN CORPUSCULAR HEMOGLOBIN CONC (BEAKER) (test 33.3 GM/DL 32.2-35.5 lkoo=612) RED CELL DISTRIBUTION WIDTH (BEAKER) (test 15.6 % 11.7-14.4 jnfe=118) PLATELET COUNT (BEAKER) (test eypo=983) 298 K/CU MM 150-450 MEAN PLATELET VOLUME (BEAKER) (test rcmf=605) 10.9 fL 9.4-12.3 NUCLEATED RED BLOOD CELLS (BEAKER) (test 0 /100 WBC 0-0 htvb=155) NEUTROPHILS RELATIVE PERCENT (BEAKER) (test 62 % zpzd=641) LYMPHOCYTES RELATIVE PERCENT (BEAKER) (test 25 % ynki=941) MONOCYTES RELATIVE PERCENT (BEAKER) (test 9 % knrh=258) EOSINOPHILS RELATIVE PERCENT (BEAKER) (test 3 % viop=588) BASOPHILS RELATIVE PERCENT (BEAKER) (test 0 % tyxi=986) NEUTROPHILS ABSOLUTE COUNT (BEAKER) (test 5.18 K/ L 1.56-6.13 rzhv=848) LYMPHOCYTES ABSOLUTE COUNT (BEAKER) (test 2.09 K/ L 1.18-3.74 ribd=430) MONOCYTES ABSOLUTE COUNT (BEAKER) (test 0.78 K/ L 0.24-0.36 lsjt=416) EOSINOPHILS ABSOLUTE COUNT (BEAKER) (test 0.23 K/ L 0.04-0.36 ruvs=885) BASOPHILS ABSOLUTE COUNT (BEAKER) (test 0.02 K/ L 0.01-0.08 zlni=858) IMMATURE GRANULOCYTES-RELATIVE PERCENT (BEAKER) 1 % 0-1 (test diif=8686) POCT-GLUCOSE [id number] 23:59:00 Test Item Value Reference Range Comments POC-GLUCOSE METER (BEAKER) 117 mg/dL 70-110 TESTED AT [address] (test ejuj=9407) [place] [address] POCT-GLUCOSE [id number] 13:25:00 Test Item Value Reference Range Comments POC-GLUCOSE METER (BEAKER) 134 mg/dL 70-110 TESTED AT [address] (test obwc=1742) [place] [address] BLOOD [id number] 02:00:00 Test Item Value Reference Range Comments CULTURE (BEAKER) (test obuq=3751) No growth in 5 days POCT-GLUCOSE [id number] 00:16:00 Test Item Value Reference Range Comments POC-GLUCOSE METER (BEAKER) 149 mg/dL 70-110 TESTED AT [address] (test wyee=2125) [facility] [address] POCT-GLUCOSE [id number] 17:33:00 Test Item Value Reference Range Comments POC-GLUCOSE METER (BEAKER) 78 mg/dL 70-110 TESTED AT [address] (test vubk=8140) [facility] [address] POCT-GLUCOSE [id number] 13:00:00 Test Item Value Reference Range Comments POC-GLUCOSE METER (BEAKER) 116 mg/dL 70-110 TESTED AT [address] (test tvxj=5973) [facility] [address] POCT-GLUCOSE [id number] 06:21:00 Test Item Value Reference Range Comments POC-GLUCOSE METER (BEAKER) 118 mg/dL 70-110 TESTED AT [address] (test lsmc=6838) [facility] [address] POCT-GLUCOSE [id number] 06:02:00 Test Item Value Reference Range Comments POC-GLUCOSE METER (BEAKER) 107 mg/dL 70-110 TESTED AT [address] (test jhws=8536) [facility] [address] POCT-GLUCOSE [id number] 18:33:00 Test Item Value Reference Range Comments POC-GLUCOSE METER (BEAKER) 170 mg/dL 70-110 TESTED AT [address] (test smuc=2272) [facility] [address] POCT-GLUCOSE [id number] 17:17:00 Test Item Value Reference Range Comments POC-GLUCOSE METER (BEAKER) 143 mg/dL 70-110 TESTED AT [address] (test hyii=5057) [facility] [address] POCT-GLUCOSE [id number] 06:28:00 Test Item Value Reference Range Comments POC-GLUCOSE METER (BEAKER) 77 mg/dL 70-110 TESTED AT [address] (test ulou=0821) [facility] [address] LACTIC ACID, VENOUS, WHOLE [id number] 04:16:00 Test Item Value Reference Range Comments LACTATE BLOOD VENOUS (2) (BEAKER) (test 1.0 mmol/L 0.5-2.2 eedt=3412) POCT-GLUCOSE [id number] 23:44:00 Test Item Value Reference Range Comments POC-GLUCOSE METER (BEAKER) 186 mg/dL 70-110 TESTED AT [address] (test xwqd=7053) [place] [address] POCT-GLUCOSE [id number] 18:39:00 Test Item Value Reference Range Comments [facility] 134 mg/dL 70-110 TESTED AT [address] (test rhqh=7803) [place] [address] VANCOMYCIN LEVEL, [id number] 17:24:00 Test Item Value Reference Range Comments VANCOMYCIN TROUGH (BEAKER) (test rgxv=722) 14.9 ug/mL 10.0-20.0 POCT-GLUCOSE [id number] 12:47:00 Test Item Value Reference Range Comments POC-GLUCOSE METER (BEAKER) 150 mg/dL 70-110 TESTED AT [address] (test xlin=2262) [place] [address] TROPONIN [id number] 10:28:00 Test Item Value Reference Range Comments TROPONIN I (BEAKER) (test gwnl=259) < ng/mL 0.00-0.03 Troponin I (TnI) levels must be interpreted in the context of the presenting symptoms and the clinical findings. Elevated TnI levels indicate myocardial damage, but are not specific for ischemic heart disease. Elevated TnI levels are seen in patients with other cardiac conditions (including myocarditis and congestive heart failure), and slight TnI elevations occur in patients with other conditions, including sepsis, renal failure, acidosis, acute neurological disease, and persistent tachyarrhythmia.BLOOD [id number] 08:41:00 Test Item Value Reference Range Comments CULTURE (BEAKER) From Aerobic And Anaerobic (test nhmw=3308) Bottles Coagulase negative Staphylococcus GRAM STAIN RESULT From aerobic and (BEAKER) (test anaerobic bottles: lcgd=3464) gram positive cocci in clusters [id number] 07:15:00 Test Item Value Reference Range Comments PROCALCITONIN (BEAKER) (test jmkw=4492) 0.07 ng/mL <0.05 SEPSIS RISK (ng/mL)Low: 0.05-0.50Intermediate: 0.51-2.00High: & gt;=2.01CBC W/PLT COUNT & AUTO [id number] 05:01:00 Test Item Value Reference Range Comments WHITE BLOOD CELL COUNT (BEAKER) (test ppfr=054) 7.2 K/ L 3.5-10.5 RED BLOOD CELL COUNT (BEAKER) (test ojal=027) 2.93 M/ L 3.93-5.22 HEMOGLOBIN (BEAKER) (test hkyj=318) 9.3 GM/DL 11.2-15.7 HEMATOCRIT (BEAKER) (test umwn=350) 28.4 % 34.1-44.9 MEAN CORPUSCULAR VOLUME (BEAKER) (test shor=694) 96.9 fL 79.4-94.8 MEAN CORPUSCULAR HEMOGLOBIN (BEAKER) (test 31.7 pg 25.6-32.2 kkkl=744) MEAN CORPUSCULAR HEMOGLOBIN CONC (BEAKER) (test 32.7 GM/DL 32.2-35.5 zked=914) RED CELL DISTRIBUTION WIDTH (BEAKER) (test 15.6 % 11.7-14.4 qnos=036) PLATELET COUNT (BEAKER) (test mzno=468) 256 K/CU MM 150-450 MEAN PLATELET VOLUME (BEAKER) (test inpg=208) 11.0 fL 9.4-12.3 NUCLEATED RED BLOOD CELLS (BEAKER) (test 0 /100 WBC 0-0 afeq=096) NEUTROPHILS RELATIVE PERCENT (BEAKER) (test 53 % yqhz=265) LYMPHOCYTES RELATIVE PERCENT (BEAKER) (test 31 % agiw=130) MONOCYTES RELATIVE PERCENT (BEAKER) (test 11 % sstm=232) EOSINOPHILS RELATIVE PERCENT (BEAKER) (test 4 % rwsl=592) BASOPHILS RELATIVE PERCENT (BEAKER) (test 0 % sjxr=922) NEUTROPHILS ABSOLUTE COUNT (BEAKER) (test 3.78 K/ L 1.56-6.13 mjgt=143) LYMPHOCYTES ABSOLUTE COUNT (BEAKER) (test 2.24 K/ L 1.18-3.74 jggt=822) MONOCYTES ABSOLUTE COUNT (BEAKER) (test 0.76 K/ L 0.24-0.36 kalw=235) EOSINOPHILS ABSOLUTE COUNT (BEAKER) (test 0.29 K/ L 0.04-0.36 rgyh=682) BASOPHILS ABSOLUTE COUNT (BEAKER) (test 0.02 K/ L 0.01-0.08 cefz=185) IMMATURE GRANULOCYTES-RELATIVE PERCENT (BEAKER) 1 % 0-1 (test oceb=3418) LACTIC ACID, VENOUS, WHOLE [id number] 04:59:00 Test Item Value Reference Range Comments LACTATE BLOOD VENOUS (2) (AKER) (test 0.8 mmol/L 0.5-2.2 zjqv=5195) POCT-GLUCOSE [id number] 21:20:00 Test Item Value Reference Range Comments POC-GLUCOSE METER (BEAKER) 114 mg/dL 70-110 TESTED AT [address] (test vyuo=8488) [place] [id number] TSH/FREE T4 IF [id number] 19:16:00 Test Item Value Reference Range Comments THYROID STIMULATING HORMONE (BEAKER) (test 1.86 uIU/mL 0.35-4.94 tdws=758) TROPONIN [id number] 19:02:00 Test Item Value Reference Range Comments TROPONIN I (BEAKER) (test oqgn=246) < ng/mL 0.00-0.03 Troponin I (TnI) levels must be interpreted in the context of the presenting symptoms and the clinical findings. Elevated TnI levels indicate myocardial damage, but are not specific for ischemic heart disease. Elevated TnI levels are seen in patients with other cardiac conditions (including myocarditis and congestive heart failure), and slight TnI elevations occur in patients with other conditions, including sepsis, renal failure, acidosis, acute neurological disease, and persistent tachyarrhythmia.POCT-GLUCOSE [id number] 18:10:00 Test Item Value Reference Range Comments POC-GLUCOSE METER (BEAKER) 158 mg/dL 70-110 TESTED AT [address] (test ittl=4692) [place] [address] CT, CHEST WITH IV CONTRAST- PE TEST [id number] 13:15:00FINAL REPORT CT Chest with contrast (pulmonary embolus protocol) History:Tachycardia Comparison:none Technique: serial axial imaging was performed following up to 100cc of non ionic iodinated intravenous contrast as per departmental protocol. Multiplanar and maximum intensity projection images are reconstructed and reviewed. This CT examination is performed using one or moreof the following dose reduction techniques: Automated exposure control, adjustment of the mA and /orkV according to patient size, and/or use of iterative reconstruction technique. Findings:No mediastinal or hilar lymphadenopathy. Mild cardiomegaly. No pericardial effusion. No thoracic aortic aneurysm or dissection. No pulmonary arterial filling defect. Central venous catheter terminates withinthe right atrium. Patent central airways. Satisfactory tracheostomy tube position. No pleural effusion or pneumothorax. Limited evaluation of the pulmonary parenchyma secondary to patient respiratory motion. The lungs demonstrate mild dependent atelectasis, but are otherwise clear. A calcified granuloma within the left lower lobe is consistent with previous granulomatous disease. No significant findings in the partially imaged abdomen. No aggressive osseous lesion. Impression:No evidence of pulmonary embolus. No additional acute findings in the chest. Signed: Juan José Lawrence Verified Date/Time: 10/28/2018 13:15:09 Reading Location: [facility] Diagnostic Imaging Reading Room - [place] [address], BRAIN, WITHOUT [id number] 12:45:00FINAL REPORT CT, BRAIN, WITHOUT CONTRAST CLINICAL INDICATION: acute encephalopathy COMPARISON: October 20, 2018 TECHNIQUE: Noncontrast axial CT imaging of the brain and skull. DOSE REDUCTION : Dose modulation, iterative reconstruction, and/or weight-based adjustment of the mA/kV was utilized to reduce the radiation dose to as low as reasonably achievable. FINDINGS:The examination exhibits expected/inherent limitations in the evaluation [...] evaluation of the brainstem and posterior fossa. If there is persistent clinical concern for intracranialpathology, MR examination is recommended for further characterization. Signed: JR Edmond Robert MDReport Verified Date/Time: 10/28/2018 12:45:44 Reading Location: [facility] Radiology Reading Room POCT-LACTIC ACID, [id number] 12:10:00 Test Item Value Reference Range Comments POC-LACTIC ACID, ARTERIAL 1.2 mmol/L 0.4-1.3 TESTED AT [facility] [address] (BEAKER) (test tidd=6848) [place] [id number] POCT-BLOOD GASES, [id number] 12:10:00 Test Item Value Reference Range Comments TEMP, CELSIUS-POC (BEAKER) 37.0 (test fvyx=8710) FIO2-POC (BEAKER) (test TESTED AT [address] lcdf=4883) [place] [address] PH, ARTERIAL-POC (BEAKER) 7.472 7.350-7.450 (test amwp=1429) PCO2, ARTERIAL-POC (BEAKER) 40.8 mm Hg 35.0-45.0 (test osph=8304) PO2, ARTERIAL-POC (BEAKER) 146.0 mm Hg 80.0-90.0 (test sirw=5902) SO2, ARTERIAL-POC (BEAKER) 99.0 % 96.0-97.0 (test raeu=5858) HCO3, ARTERIAL-POC (BEAKER) 29.8 meq/L 21.0-29.0 (test veiv=7163) BASE EXCESS, ARTERIAL-POC 6.0 meq/L -2.0-3.0 (BEAKER) (test wwul=4377) [id number] 12:10:00 Test Item Value Reference Range Comments POC-SODIUM (BEAKER) (test 136 meq/L 135-148 TESTED AT [address] mnow=2157) [place] [address] [id number] 12:10:00 Test Item Value Reference Range Comments POC-POTASSIUM (BEAKER) (test 4.6 meq/L 3.6-5.5 TESTED AT [address] lqgr=8223) [place] [address] [id number] 12:10:00 Test Item Value Reference Range Comments POC-GLUCOSE (BEAKER) (test 124 mg/dL 70-110 TESTED AT [address] ughq=3703) [place] [address] POCT-CALCIUM [id number] 12:10:00 Test Item Value Reference Range Comments POC-CALCIUM IONIZED (BEAKER) 1.29 mmol/L 1.12-1.27 TESTED AT [address] (test wopi=1620) [place] [address] [id number] 12:10:00 Test Item Value Reference Range Comments POC-HEMATOCRIT (BEAKER) (test 31 % 36-45 TESTED AT [address] ghuh=8096) [place] [address] [id number] 12:10:00 Test Item Value Reference Range Comments POC-HEMOGLOBIN (BEAKER) 10.5 g/dL 12.0-15.0 TESTED AT [address] (test xfif=6029) [place] [address]TESTED AT [place] [address] POCT-GLUCOSE [id number] 11:38:00 Test Item Value Reference Range Comments POC-GLUCOSE METER (BEAKER) 126 mg/dL 70-110 TESTED AT [address] (test nadf=9279) [place] [address] POCT-GLUCOSE [id number] 09:08:00 Test Item Value Reference Range Comments POC-GLUCOSE METER (BEAKER) 120 mg/dL 70-110 TESTED AT [address] (test wbwi=1059) [place] [address] LACTIC ACID, VENOUS, WHOLE [id number] 08:13:00 Test Item Value Reference Range Comments LACTATE BLOOD VENOUS (2) (BEAKER) (test 1.4 mmol/L 0.5-2.2 hrda=8561) POCT-GLUCOSE [id number] 08:06:00 Test Item Value Reference Range Comments POC-GLUCOSE METER (BEAKER) 99 mg/dL 70-110 TESTED AT [address] (test oyos=3193) [place] [address] CBC W/PLT COUNT & AUTO [id number] 04:22:00 Test Item Value Reference Range Comments WHITE BLOOD CELL COUNT (BEAKER) (test fckl=683) 7.1 K/ L 3.5-10.5 RED BLOOD CELL COUNT (BEAKER) (test xsas=188) 3.13 M/ L 3.93-5.22 HEMOGLOBIN (BEAKER) (test irmg=085) 9.7 GM/DL 11.2-15.7 HEMATOCRIT (BEAKER) (test zlfz=894) 30.1 % 34.1-44.9 MEAN CORPUSCULAR VOLUME (BEAKER) (test sogs=103) 96.2 fL 79.4-94.8 MEAN CORPUSCULAR HEMOGLOBIN (BEAKER) (test 31.0 pg 25.6-32.2 bxln=418) MEAN CORPUSCULAR HEMOGLOBIN CONC (BEAKER) (test 32.2 GM/DL 32.2-35.5 gydd=218) RED CELL DISTRIBUTION WIDTH (BEAKER) (test 15.5 % 11.7-14.4 alup=287) PLATELET COUNT (BEAKER) (test alwo=520) 257 K/CU MM 150-450 MEAN PLATELET VOLUME (BEAKER) (test cbeo=000) 10.7 fL 9.4-12.3 NUCLEATED RED BLOOD CELLS (BEAKER) (test 0 /100 WBC 0-0 vsfg=217) NEUTROPHILS RELATIVE PERCENT (BEAKER) (test 52 % etce=259) LYMPHOCYTES RELATIVE PERCENT (BEAKER) (test 32 % vwiw=402) MONOCYTES RELATIVE PERCENT (BEAKER) (test 10 % tmcn=907) EOSINOPHILS RELATIVE PERCENT (BEAKER) (test 5 % ddlh=208) BASOPHILS RELATIVE PERCENT (BEAKER) (test 0 % dbqb=715) NEUTROPHILS ABSOLUTE COUNT (BEAKER) (test 3.69 K/ L 1.56-6.13 sfbe=123) LYMPHOCYTES ABSOLUTE COUNT (BEAKER) (test 2.24 K/ L 1.18-3.74 vnio=118) MONOCYTES ABSOLUTE COUNT (BEAKER) (test 0.72 K/ L 0.24-0.36 lfqx=200) EOSINOPHILS ABSOLUTE COUNT (BEAKER) (test 0.33 K/ L 0.04-0.36 zyza=106) BASOPHILS ABSOLUTE COUNT (BEAKER) (test 0.02 K/ L 0.01-0.08 xjyg=746) IMMATURE GRANULOCYTES-RELATIVE PERCENT (BEAKER) 1 % 0-1 (test ddbq=3794) POCT-GLUCOSE [id number] 00:22:00 Test Item Value Reference Range Comments POC-GLUCOSE METER (BEAKER) 110 mg/dL 70-110 TESTED AT [address] (test lqrn=1374) [place] [address] POCT-GLUCOSE [id number] 22:10:00 Test Item Value Reference Range Comments POC-GLUCOSE METER (BEAKER) 96 mg/dL 70-110 TESTED AT [address] (test zzlu=9226) [place] [address] BASIC METABOLIC [id number] 14:24:00 Test Item Value Reference Range Comments SODIUM (BEAKER) (test 136 meq/L 136-145 ujqw=367) POTASSIUM (BEAKER) (test 4.4 meq/L 3.5-5.1 ynls=283) CHLORIDE (BEAKER) (test 99 meq/L 98-107 rhhd=762) CO2 (BEAKER) (test 31 meq/L 22-29 denh=561) BLOOD UREA NITROGEN 29 mg/dL 7-21 (BEAKER) (test agot=872) CREATININE (BEAKER) (test 0.62 mg/dL 0.57-1.25 ihkw=557) GLUCOSE RANDOM (BEAKER) 126 mg/dL 70-105 (test gjcc=054) CALCIUM (BEAKER) (test 9.8 mg/dL 8.4-10.2 uhap=289) EGFR (BEAKER) (test 112 mL/min/1.73 sq m ESTIMATED GFR IS NOT nnot=0767) ACCURATE CREATININE CLEARANCE IN PREDICTING GLOMERULAR FILTRATION RATE. ESTIMATED GFR IS NOT APPLICABLE FOR DIALYSIS PATIENTS. LACTIC ACID, VENOUS, WHOLE [id number] 14:22:00 Test Item Value Reference Range Comments LACTATE BLOOD VENOUS (2) (BEAKER) (test 1.1 mmol/L 0.5-2.2 tniv=7921) BLOOD CULTURE IDENTIFICATION [id number] 14:15:00 Test Item Value Reference Range Comments LISTERIA MONOCYTOGENES (test Not detected Not detected ypio=1022258) STAPHYLOCOCCUS (test Detected Not detected First line therapy: inlr=[id number]) Vancomycin Coagulase Negative Staphylococcus (CoNS) DETECTEDmecA DETECTED Possible contamination.The likelihood of pathogenicity is increased if the organism is observed in multiple blood cultures obtained from separate venipunctures. Reference Range: Not Detected STAPHYLOCOCCUS AUREUS (test Not detected Not detected mabr=4751438) STREPTOCOCCUS (test Not detected Not detected dpom=5960652) STREPTOCOCCUS AGALACTIAE Not detected Not detected (GROUP B) (test jkvs=9665521) STREPTOCOCCUS PNEUMONIAE (test Not detected Not detected evhn=1246478) STREPTOCOCCUS PYOGENES (GROUP Not detected Not detected A) (test grwa=5414330) ACINETOBACTER BAUMANNII (test Not detected Not detected wamy=1730276) HAEMOPHILUS INFLUENZAE (test Not detected Not detected loub=5455592) NEISSERIA MENINGITIDIS (test Not detected Not detected adtv=6643155) ENTEROBACTERIACEAE (test Not detected Not detected qhcw=9734731) ENTEROBACTER CLOACOE COMPLEX Not detected Not detected (test owza=4709176) KLEBSIELLA OXYTOCA (test Not detected Not detected sbgu=9752277) KLEBSIELLA PNEUMONIAE (test Not detected Not detected ylsc=8215) PROTEUS (test jzgm=7365955) Not detected Not detected SERRATIA MARCESCENS (test Not detected Not detected igwv=4269016) NURA ALBICANS (test Not detected Not detected slyg=1253903) NURA GLABRATA (test Not detected Not detected taju=8854761) NURA KRUSEI (test Not detected Not detected ioaf=8715018) NURA PARAPSILOSIS (test Not detected Not detected sgvy=7630846) NURA TROPICALIS (test Not detected Not detected evme=9963416) ESCHERICHIA COLI (test Not detected Not detected owud=6402473) METHICILLIN-RESISTANCE GENE Detected Not detected (test rxjf=8302338) VANCOMYCIN-RESISTANCE GENE Not detected (test kfhn=[id number]) CARBAPENEM-RESISTANCE GENE Not detected (test vijx=[id number]) ENTEROCOCCUS-BEAKER (test Not detected Not detected olkr=[id number]) PSEUDOMONAS AERUGINOSA-BEAKER Not detected Not detected (test wrnw=[id number]) Other bacteria and resistance markers not targeted by this PCR panel cannot be excluded; therefore clinical correlation and follow up of serology, culture results, and other molecular studies is required. The results are not intended to be used as the sole means for clinical diagnosis or patient management decisions. This sample was tested at the [facility] using the CrossReader Blood Culture ID Panel. It is FDA cleared and has been verified and approved by the [facility] for clinical use. This laboratory is CLIA-certified and [employer] (CAP)-accredited to perform high complexity testing.CBC W/PLT COUNT & AUTO [id number] 14:10:00 Test Item Value Reference Range Comments WHITE BLOOD CELL COUNT (BEAKER) (test yqar=911) 9.3 K/ L 3.5-10.5 RED BLOOD CELL COUNT (BEAKER) (test tiyt=974) 3.64 M/ L 3.93-5.22 HEMOGLOBIN (BEAKER) (test pour=162) 11.3 GM/DL 11.2-15.7 HEMATOCRIT (BEAKER) (test pzum=368) 34.6 % 34.1-44.9 MEAN CORPUSCULAR VOLUME (BEAKER) (test yobv=189) 95.1 fL 79.4-94.8 MEAN CORPUSCULAR HEMOGLOBIN (BEAKER) (test 31.0 pg 25.6-32.2 gnyy=255) MEAN CORPUSCULAR HEMOGLOBIN CONC (BEAKER) (test 32.7 GM/DL 32.2-35.5 fewk=773) RED CELL DISTRIBUTION WIDTH (BEAKER) (test 15.3 % 11.7-14.4 kibf=328) PLATELET COUNT (BEAKER) (test lksm=959) 309 K/CU MM 150-450 MEAN PLATELET VOLUME (BEAKER) (test kson=616) 10.6 fL 9.4-12.3 NUCLEATED RED BLOOD CELLS (BEAKER) (test 0 /100 WBC 0-0 gjad=488) NEUTROPHILS RELATIVE PERCENT (BEAKER) (test 54 % hfhq=680) LYMPHOCYTES RELATIVE PERCENT (BEAKER) (test 32 % yflo=966) MONOCYTES RELATIVE PERCENT (BEAKER) (test 10 % nzov=668) EOSINOPHILS RELATIVE PERCENT (BEAKER) (test 3 % pfag=678) BASOPHILS RELATIVE PERCENT (BEAKER) (test 0 % roet=905) NEUTROPHILS ABSOLUTE COUNT (BEAKER) (test 5.04 K/ L 1.56-6.13 woqq=515) LYMPHOCYTES ABSOLUTE COUNT (BEAKER) (test 2.94 K/ L 1.18-3.74 fujv=192) MONOCYTES ABSOLUTE COUNT (BEAKER) (test 0.93 K/ L 0.24-0.36 pgwx=122) EOSINOPHILS ABSOLUTE COUNT (BEAKER) (test 0.29 K/ L 0.04-0.36 pbgx=632) BASOPHILS ABSOLUTE COUNT (BEAKER) (test 0.04 K/ L 0.01-0.08 skpo=495) IMMATURE GRANULOCYTES-RELATIVE PERCENT (BEAKER) 1 % 0-1 (test bjlm=6466) POCT-GLUCOSE [id number] 12:13:00 Test Item Value Reference Range Comments POC-GLUCOSE METER (BEAKER) 160 mg/dL 70-110 TESTED AT [address] (test ojbe=4443) [facility] [address] POCT-GLUCOSE [id number] 08:49:00 Test Item Value Reference Range Comments POC-GLUCOSE METER (BEAKER) 94 mg/dL 70-110 TESTED AT [address] (test urwx=5292) [facility] [address] POCT-GLUCOSE [id number] 00:30:00 Test Item Value Reference Range Comments POC-GLUCOSE METER (BEAKER) 148 mg/dL 70-110 TESTED AT [facility] [address] [facility] (test zmqs=1926) [facility] [address] POCT-GLUCOSE [id number] 18:38:00 Test Item Value Reference Range Comments POC-GLUCOSE METER (BEAKER) 108 mg/dL 70-110 TESTED AT [place] [id number] [facility] (test mkqf=8760) [facility] [address] RAD, CHEST, 1 VIEW, NON [id number] 18:36:00Reason for exam:->feverFINAL REPORT History: Fever Comparison: 10/20/2018 Findings: Minimal horizontal linear opacity in the lower right lung, most likely subsegmental atelectasis. No pleural effusions or pneumothorax. The heart shadow is normal in size. The thoracic aorta is normal in caliber. Tracheostomy tube tip remains well above the lyndsay. Right PICC line tip is in the region of the atriocaval junction. Signed: Kathy Ulloa MDReport Verified Date/Time: 01/2019 18:36:56 Reading Location: [address] Consult Reading Room LACTIC ACID, VENOUS, WHOLE [id number] 17:22:00 Test Item Value Reference Range Comments LACTATE BLOOD VENOUS (2) (BEAKER) (test 2.0 mmol/L 0.5-2.2 mhlt=0404) URINALYSIS W/ REFLEX URINE [id number] 17:14:00 Test Item Value Reference Range Comments COLOR (BEAKER) (test ezvq=002) Light Yellow CLARITY (BEAKER) (test flsl=357) Clear SPECIFIC GRAVITY UA (BEAKER) (test kimc=649) 1.013 1.001-1.035 PH UA (BEAKER) (test sfri=658) 7.0 5.0-8.0 PROTEIN UA (BEAKER) (test iywi=871) Negative Negative GLUCOSE UA (BEAKER) (test fmql=687) Negative Negative KETONES UA (BEAKER) (test oddo=143) Negative Negative BILIRUBIN UA (BEAKER) (test bifw=131) Negative Negative BLOOD UA (BEAKER) (test offu=508) Negative Negative NITRITE UA (BEAKER) (test ipac=220) Positive Negative LEUKOCYTE ESTERASE UA (BEAKER) (test pdnq=492) Small Negative UROBILINOGEN UA (BEAKER) (test rvtu=828) 2.0 mg/dL 0.2-1.0 RBC UA (BEAKER) (test cmgl=246) 1 /HPF WBC UA (BEAKER) (test wvmf=134) 1 /HPF BACTERIA (BEAKER) (test aonc=110) Occasional MUCUS (BEAKER) (test azbv=4171) Rare SQUAMOUS EPITHELIAL (BEAKER) (test teiw=658) 1 /HPF SOURCE(BEAKER) (test xsts=5408) CBC W/PLT COUNT & AUTO [id number] 13:59:00 Test Item Value Reference Range Comments WHITE BLOOD CELL COUNT (BEAKER) (test palt=161) 8.4 K/ L 3.5-10.5 RED BLOOD CELL COUNT (BEAKER) (test gurd=932) 3.58 M/ L 3.93-5.22 HEMOGLOBIN (BEAKER) (test xvty=025) 11.3 GM/DL 11.2-15.7 HEMATOCRIT (BEAKER) (test palz=925) 33.8 % 34.1-44.9 MEAN CORPUSCULAR VOLUME (BEAKER) (test icqq=546) 94.4 fL 79.4-94.8 MEAN CORPUSCULAR HEMOGLOBIN (BEAKER) (test 31.6 pg 25.6-32.2 ddzf=052) MEAN CORPUSCULAR HEMOGLOBIN CONC (BEAKER) (test 33.4 GM/DL 32.2-35.5 nial=292) RED CELL DISTRIBUTION WIDTH (BEAKER) (test 15.1 % 11.7-14.4 bptn=092) PLATELET COUNT (BEAKER) (test zoce=310) 328 K/CU MM 150-450 MEAN PLATELET VOLUME (BEAKER) (test awly=031) 10.7 fL 9.4-12.3 NUCLEATED RED BLOOD CELLS (BEAKER) (test 0 /100 WBC 0-0 oggf=674) NEUTROPHILS RELATIVE PERCENT (BEAKER) (test 54 % xmhl=778) LYMPHOCYTES RELATIVE PERCENT (BEAKER) (test 30 % gtvc=909) MONOCYTES RELATIVE PERCENT (BEAKER) (test 12 % prrd=446) EOSINOPHILS RELATIVE PERCENT (BEAKER) (test 3 % ihff=730) BASOPHILS RELATIVE PERCENT (BEAKER) (test 0 % zilh=564) NEUTROPHILS ABSOLUTE COUNT (BEAKER) (test 4.54 K/ L 1.56-6.13 jrgh=856) LYMPHOCYTES ABSOLUTE COUNT (BEAKER) (test 2.52 K/ L 1.18-3.74 ieup=986) MONOCYTES ABSOLUTE COUNT (BEAKER) (test 0.99 K/ L 0.24-0.36 vlqu=554) EOSINOPHILS ABSOLUTE COUNT (BEAKER) (test 0.24 K/ L 0.04-0.36 zmwg=221) BASOPHILS ABSOLUTE COUNT (BEAKER) (test 0.02 K/ L 0.01-0.08 mktv=674) IMMATURE GRANULOCYTES-RELATIVE PERCENT (BEAKER) 1 % 0-1 (test dvnw=5304) POCT-GLUCOSE [id number] 22:25:00 Test Item Value Reference Range Comments POC-GLUCOSE METER (BEAKER) 179 mg/dL 70-110 TESTED AT [address] (test evxx=5546) [place] [address] POCT-GLUCOSE [id number] 17:57:00 Test Item Value Reference Range Comments POC-GLUCOSE METER (BEAKER) 163 mg/dL 70-110 TESTED AT [address] (test ghrz=9456) [place] [address] POCT-GLUCOSE [id number] 12:04:00 Test Item Value Reference Range Comments POC-GLUCOSE METER (BEAKER) 158 mg/dL 70-110 TESTED AT [address] (test rykl=9865) [place] [address] POCT-GLUCOSE [id number] 08:37:00 Test Item Value Reference Range Comments POC-GLUCOSE METER (BEAKER) 127 mg/dL 70-110 TESTED AT [address] (test pigy=7731) [place] [address] BASIC METABOLIC [id number] 06:30:00 Test Item Value Reference Range Comments SODIUM (BEAKER) (test 136 meq/L 136-145 azxe=975) POTASSIUM (BEAKER) (test 4.5 meq/L 3.5-5.1 kcrp=815) CHLORIDE (BEAKER) (test 99 meq/L 98-107 jvqa=659) CO2 (BEAKER) (test 28 meq/L 22-29 ivzc=455) BLOOD UREA NITROGEN 28 mg/dL 7-21 (BEAKER) (test crpc=134) CREATININE (BEAKER) (test 0.60 mg/dL 0.57-1.25 tvxe=882) GLUCOSE RANDOM (BEAKER) 109 mg/dL 70-105 (test jzok=774) CALCIUM (BEAKER) (test 10.4 mg/dL 8.4-10.2 dpxc=440) EGFR (BEAKER) (test 116 mL/min/1.73 sq m ESTIMATED GFR IS NOT qhdq=6342) ACCURATE CREATININE CLEARANCE IN PREDICTING GLOMERULAR FILTRATION RATE. ESTIMATED GFR IS NOT APPLICABLE FOR DIALYSIS PATIENTS. CBC W/PLT COUNT & AUTO [id number] 05:54:00 Test Item Value Reference Range Comments WHITE BLOOD CELL COUNT (BEAKER) (test jalx=980) 7.5 K/ L 3.5-10.5 RED BLOOD CELL COUNT (BEAKER) (test bery=493) 3.41 M/ L 3.93-5.22 HEMOGLOBIN (BEAKER) (test dlvy=746) 10.4 GM/DL 11.2-15.7 HEMATOCRIT (BEAKER) (test mmvd=522) 32.8 % 34.1-44.9 MEAN CORPUSCULAR VOLUME (BEAKER) (test mpvh=422) 96.2 fL 79.4-94.8 MEAN CORPUSCULAR HEMOGLOBIN (BEAKER) (test 30.5 pg 25.6-32.2 sbfe=283) MEAN CORPUSCULAR HEMOGLOBIN CONC (BEAKER) (test 31.7 GM/DL 32.2-35.5 wokq=814) RED CELL DISTRIBUTION WIDTH (BEAKER) (test 14.8 % 11.7-14.4 fxsa=609) PLATELET COUNT (BEAKER) (test wejo=204) 293 K/CU MM 150-450 MEAN PLATELET VOLUME (BEAKER) (test gima=589) 10.9 fL 9.4-12.3 NUCLEATED RED BLOOD CELLS (BEAKER) (test 0 /100 WBC 0-0 dppv=962) NEUTROPHILS RELATIVE PERCENT (BEAKER) (test 46 % yxrf=455) LYMPHOCYTES RELATIVE PERCENT (BEAKER) (test 37 % ehog=809) MONOCYTES RELATIVE PERCENT (BEAKER) (test 10 % ofsc=079) EOSINOPHILS RELATIVE PERCENT (BEAKER) (test 5 % iglr=459) BASOPHILS RELATIVE PERCENT (BEAKER) (test 1 % yzzs=260) NEUTROPHILS ABSOLUTE COUNT (BEAKER) (test 3.44 K/ L 1.56-6.13 qzcs=014) LYMPHOCYTES ABSOLUTE COUNT (BEAKER) (test 2.78 K/ L 1.18-3.74 xakz=631) MONOCYTES ABSOLUTE COUNT (BEAKER) (test 0.77 K/ L 0.24-0.36 gqbg=602) EOSINOPHILS ABSOLUTE COUNT (BEAKER) (test 0.40 K/ L 0.04-0.36 rvbt=927) BASOPHILS ABSOLUTE COUNT (BEAKER) (test 0.04 K/ L 0.01-0.08 torl=850) IMMATURE GRANULOCYTES-RELATIVE PERCENT (BEAKER) 1 % 0-1 (test dukr=5043) POCT-GLUCOSE [id number] 23:34:00 Test Item Value Reference Range Comments POC-GLUCOSE METER (BEAKER) 174 mg/dL 70-110 TESTED AT [address] (test jmko=3000) [facility] [address] POCT-GLUCOSE [id number] 18:24:00 Test Item Value Reference Range Comments POC-GLUCOSE METER (BEAKER) 146 mg/dL 70-110 TESTED AT [address] (test zzvq=0696) [facility] [address] POCT-GLUCOSE [id number] 12:20:00 Test Item Value Reference Range Comments POC-GLUCOSE METER (BEAKER) 112 mg/dL 70-110 TESTED AT [address] (test iiid=2321) [facility] [address] POCT-GLUCOSE [id number] 08:17:00 Test Item Value Reference Range Comments POC-GLUCOSE METER (BEAKER) 91 mg/dL 70-110 TESTED AT [address] (test jygr=7690) [facility] [address] POCT-GLUCOSE [id number] 05:47:00 Test Item Value Reference Range Comments POC-GLUCOSE METER (BEAKER) 89 mg/dL 70-110 TESTED AT [address] (test mmwl=1576) [facility] [address] POCT-GLUCOSE [id number] 23:36:00 Test Item Value Reference Range Comments POC-GLUCOSE METER (BEAKER) 98 mg/dL 70-110 TESTED AT [address] (test qgub=6232) [facility] [address] POCT-GLUCOSE [id number] 17:36:00 Test Item Value Reference Range Comments POC-GLUCOSE METER (BEAKER) 76 mg/dL 70-110 TESTED AT [address] (test wzqq=1863) [facility] [address] POCT-GLUCOSE [id number] 12:06:00 Test Item Value Reference Range Comments POC-GLUCOSE METER (BEAKER) 100 mg/dL 70-110 TESTED AT [address] (test inhh=8889) [facility] [address] POCT-GLUCOSE [id number] 06:27:00 Test Item Value Reference Range Comments POC-GLUCOSE METER (BEAKER) 117 mg/dL 70-110 TESTED AT [address] (test rtzi=1462) [facility] [address] POCT-GLUCOSE [id number] 23:48:00 Test Item Value Reference Range Comments POC-GLUCOSE METER (BEAKER) 149 mg/dL 70-110 TESTED AT [address] (test scqe=5418) [facility] [address] POCT-GLUCOSE [id number] 17:42:00 Test Item Value Reference Range Comments POC-GLUCOSE METER (BEAKER) 131 mg/dL 70-110 TESTED AT [address] (test rtpf=3541) [facility] [address] POCT-GLUCOSE [id number] 12:32:00 Test Item Value Reference Range Comments POC-GLUCOSE METER (BEAKER) 132 mg/dL 70-110 TESTED AT [address] (test xbyj=3115) [facility] [address] POCT-GLUCOSE [id number] 06:16:00 Test Item Value Reference Range Comments POC-GLUCOSE METER (BEAKER) 112 mg/dL 70-110 TESTED AT [address] (test fmdd=4798) [facility] [address] POCT-GLUCOSE [id number] 00:37:00 Test Item Value Reference Range Comments POC-GLUCOSE METER (BEAKER) 107 mg/dL 70-110 TESTED AT [address] (test gjmy=7538) [facility] [address] POCT-GLUCOSE [id number] 00:25:00 Test Item Value Reference Range Comments POC-GLUCOSE METER (BEAKER) 80 mg/dL 70-110 TESTED AT [address] (test voxr=0568) [facility] [address] POCT-GLUCOSE [id number] 13:34:00 Test Item Value Reference Range Comments POC-GLUCOSE METER (BEAKER) 95 mg/dL 70-110 TESTED AT [address] (test zsyy=5681) [facility] [address] POCT-GLUCOSE [id number] 09:48:00 Test Item Value Reference Range Comments POC-GLUCOSE METER (BEAKER) 107 mg/dL 70-110 TESTED AT [address] (test aanf=5291) [facility] [address] POCT-GLUCOSE [id number] 00:31:00 Test Item Value Reference Range Comments POC-GLUCOSE METER (BEAKER) 147 mg/dL 70-110 TESTED AT [address] (test xink=8215) [facility] [address] URINALYSIS W/ REFLEX URINE [id number] 16:19:00 Test Item Value Reference Range Comments COLOR (BEAKER) (test aqit=008) Yellow CLARITY (BEAKER) (test uboe=359) Clear SPECIFIC GRAVITY UA (BEAKER) (test xian=910) 1.022 1.001-1.035 PH UA (BEAKER) (test qotx=009) 5.5 5.0-8.0 PROTEIN UA (BEAKER) (test npwi=425) Negative Negative GLUCOSE UA (BEAKER) (test ihcd=868) Negative Negative KETONES UA (BEAKER) (test djzd=430) Negative Negative BILIRUBIN UA (BEAKER) (test txtm=900) Negative Negative BLOOD UA (BEAKER) (test hspu=117) Negative Negative NITRITE UA (BEAKER) (test toke=253) Negative Negative LEUKOCYTE ESTERASE UA (BEAKER) (test uqhm=144) Trace Negative UROBILINOGEN UA (BEAKER) (test uwll=533) 0.2 mg/dL 0.2-1.0 RBC UA (BEAKER) (test yepo=373) 0 /HPF WBC UA (BEAKER) (test rtof=122) 3 /HPF BACTERIA (BEAKER) (test lknr=048) Many MUCUS (BEAKER) (test mdvl=1127) Many SOURCE(BEAKER) (test ggwl=2571) RAD, CHEST, 1 VIEW, NON [id number] 13:31:00Reason for exam:->decreased mental statusShould this be performed at the bedside?->YesFINAL REPORT AP view of the chest dated 10/20/2018 COMPARISON: September 27, 1999 and CLINICAL INFORMATION: decreased mental status Comment: Heart is normal in size. Pulmonary vasculature is unremarkable. Lungs are clear. No pulmonary infiltrate or pleural effusion is present. Tracheostomy tube and right PICC line remain in place. Impression: No active cardiopulmonary disease or interval change. Signed: Miles Arriaza MDReport Verified Date/Time: 10/20/2018 13:31:42 Reading Location: [facility] [id number] Consult Reading Room 01: 31 PMCOMPREHENSIVE METABOLIC [id number] 11:10:00 Test Item Value Reference Range Comments TOTAL PROTEIN (BEAKER) 7.1 gm/dL 6.0-8.3 (test yejt=798) ALBUMIN (BEAKER) (test 3.6 g/dL 3.5-5.0 qccn=3769) ALKALINE PHOSPHATASE 54 U/L 40-150 (BEAKER) (test vcke=291) BILIRUBIN TOTAL (BEAKER) 0.4 mg/dL 0.2-1.2 (test wrpr=373) SODIUM (BEAKER) (test 137 meq/L 136-145 nhbw=825) POTASSIUM (BEAKER) (test 4.9 meq/L 3.5-5.1 muzs=363) CHLORIDE (BEAKER) (test 99 meq/L 98-107 kebl=560) CO2 (BEAKER) (test 30 meq/L 22-29 jwhj=805) BLOOD UREA NITROGEN 36 mg/dL 7-21 (BEAKER) (test eldb=324) CREATININE (BEAKER) (test 0.65 mg/dL 0.57-1.25 agrd=387) GLUCOSE RANDOM (BEAKER) 110 mg/dL 70-105 (test qvnn=426) CALCIUM (BEAKER) (test 10.3 mg/dL 8.4-10.2 ffom=209) AST (SGOT) (BEAKER) (test 17 U/L 5-34 mmjs=583) ALT (SGPT) (BEAKER) (test 26 U/L 6-55 zagn=248) EGFR (BEAKER) (test 106 mL/min/1.73 sq ESTIMATED GFR IS NOT tgfs=8436) m ACCURATE CREATININE CLEARANCE IN PREDICTING GLOMERULAR FILTRATION RATE. ESTIMATED GFR IS NOT APPLICABLE FOR DIALYSIS PATIENTS. CBC W/PLT COUNT & AUTO [id number] 10:57:00 Test Item Value Reference Range Comments WHITE BLOOD CELL COUNT (BEAKER) (test gpus=060) 6.7 K/ L 3.5-10.5 RED BLOOD CELL COUNT (BEAKER) (test jydw=509) 3.38 M/ L 3.93-5.22 HEMOGLOBIN (BEAKER) (test iolp=232) 10.4 GM/DL 11.2-15.7 HEMATOCRIT (BEAKER) (test oows=755) 32.0 % 34.1-44.9 MEAN CORPUSCULAR VOLUME (BEAKER) (test gpcl=129) 94.7 fL 79.4-94.8 MEAN CORPUSCULAR HEMOGLOBIN (BEAKER) (test 30.8 pg 25.6-32.2 xetc=215) MEAN CORPUSCULAR HEMOGLOBIN CONC (BEAKER) (test 32.5 GM/DL 32.2-35.5 lqgi=907) RED CELL DISTRIBUTION WIDTH (BEAKER) (test 15.0 % 11.7-14.4 ehzr=509) PLATELET COUNT (BEAKER) (test okka=688) 258 K/CU MM 150-450 MEAN PLATELET VOLUME (BEAKER) (test aiar=591) 11.6 fL 9.4-12.3 NUCLEATED RED BLOOD CELLS (BEAKER) (test 0 /100 WBC 0-0 czbw=294) NEUTROPHILS RELATIVE PERCENT (BEAKER) (test 59 % achg=488) LYMPHOCYTES RELATIVE PERCENT (BEAKER) (test 27 % oioo=802) MONOCYTES RELATIVE PERCENT (BEAKER) (test 10 % lhae=299) EOSINOPHILS RELATIVE PERCENT (BEAKER) (test 3 % rodm=411) BASOPHILS RELATIVE PERCENT (BEAKER) (test 0 % luie=296) NEUTROPHILS ABSOLUTE COUNT (BEAKER) (test 3.91 K/ L 1.56-6.13 cezs=522) LYMPHOCYTES ABSOLUTE COUNT (BEAKER) (test 1.82 K/ L 1.18-3.74 yrtk=360) MONOCYTES ABSOLUTE COUNT (BEAKER) (test 0.69 K/ L 0.24-0.36 zjxa=049) EOSINOPHILS ABSOLUTE COUNT (BEAKER) (test 0.21 K/ L 0.04-0.36 djfe=767) BASOPHILS ABSOLUTE COUNT (BEAKER) (test 0.02 K/ L 0.01-0.08 ksbi=237) IMMATURE GRANULOCYTES-RELATIVE PERCENT (BEAKER) 0 % 0-1 (test yifc=6692) CT, BRAIN/STROKE [id number] 10:57:00FINAL REPORT CT Head without contrast CLINICAL HISTORY: Stroke TECHNIQUE: Contiguous axial images through the head without contrast. This exam was performed according to the departmental dose optimization program which includes automated exposure control, adjustment of the mA and/or kV according to the patient size, and/or use of an iterative reconstruction technique. COMPARISON: 09/15/2018 FINDINGS: There is no CT evidence of acute infarct or intracranial hemorrhage. 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 There is no hydrocephalus or midlineshift. A right frontal gay hole and underlying catheter tract is again seen. There are no extra-axial fluid collections. The paranasal sinuses are well-aerated. IMPRESSION: There is no CT evidence of acute infarct or intracranial hemorrhage. The findings were discussed with the stroke neurologist at 10/20/2018 Signed: Krzysztof Seymour Verified Date/ Time: 10/20/2018 10:57:25 Reading Location: [address] Neuro Reading Room POCT- LACTIC ACID, [id number] 10:52:00 Test Item Value Reference Range Comments POC-LACTIC ACID, ARTERIAL 1.6 mmol/L 0.4-1.3 TESTED AT [address] ([facility]) (test xlbj=8675) [facility] [address] POCT-BLOOD GASES, [id number] 10:52:00 Test Item Value Reference Range Comments TEMP, CELSIUS-POC (BEAKER) 36.1 (test cazi=5605) FIO2-POC (BEAKER) (test 40 TESTED AT [address] yjtx=8325) [place] [address] PH, ARTERIAL-POC (BEAKER) 7.446 7.350-7.450 (test htxm=6288) PCO2, ARTERIAL-POC (BEAKER) 45.3 mm Hg 35.0-45.0 (test cfbs=3104) PO2, ARTERIAL-POC (BEAKER) 123.0 mm Hg 80.0-90.0 (test dqnt=9916) SO2, ARTERIAL-POC (BEAKER) 99.0 % 96.0-97.0 (test odng=9915) HCO3, ARTERIAL-POC (BEAKER) 31.4 meq/L 21.0-29.0 (test doqt=4305) BASE EXCESS, ARTERIAL-POC 7.0 meq/L -2.0-3.0 (BEAKER) (test gcfy=1906) [id number] 10:52:00 Test Item Value Reference Range Comments POC-SODIUM (BEAKER) (test 135 meq/L 135-148 TESTED AT [address] klsz=9953) [place] [address] [id number] 10:52:00 Test Item Value Reference Range Comments POC-POTASSIUM (BEAKER) (test 4.8 meq/L 3.6-5.5 TESTED AT [address] xtze=2787) [place] [address] [id number] 10:52:00 Test Item Value Reference Range Comments POC-GLUCOSE (BEAKER) (test 114 mg/dL 70-110 TESTED AT [address] odmy=5644) [place] [address] POCT-CALCIUM [id number] 10:52:00 Test Item Value Reference Range Comments POC-CALCIUM IONIZED (BEAKER) 1.27 mmol/L 1.12-1.27 TESTED AT [address] (test dqig=9723) [place] [address] [id number] 10:52:00 Test Item Value Reference Range Comments POC-HEMATOCRIT (BEAKER) (test 31 % 36-45 TESTED AT [address] pyhn=0619) [place] [address] [id number] 10:52:00 Test Item Value Reference Range Comments POC-HEMOGLOBIN (BEAKER) 10.5 g/dL 12.0-15.0 TESTED AT [address] (test rphr=8493) [facility] [address]CT[place] AT [address] [address] POCT-GLUCOSE [id number] 06:41:00 Test Item Value Reference Range Comments POC-GLUCOSE METER (BEAKER) 113 mg/dL 70-110 TESTED AT [address] (test hjse=3625) [facility] [address] POCT-GLUCOSE [id number] 00:04:00 Test Item Value Reference Range Comments POC-GLUCOSE METER (BEAKER) 109 mg/dL 70-110 TESTED AT [address] (test zckb=9410) [facility] [address] POCT-GLUCOSE [id number] 06:19:00 Test Item Value Reference Range Comments POC-GLUCOSE METER (BEAKER) 137 mg/dL 70-110 TESTED AT [address] (test nbqq=0162) [place] [id number] POCT-GLUCOSE [id number] 23:52:00 Test Item Value Reference Range Comments POC-GLUCOSE METER (BEAKER) 117 mg/dL 70-110 TESTED AT [address] (test fkpm=4113) [facility] [address] POCT-LACTIC ACID, [id number] 22:24:00 Test Item Value Reference Range Comments POC-LACTIC ACID, VENOUS 1.1 mmol/L 0.9-1.7 TESTED AT [address] (BEAKER) (test tgah=1441) [facility] [address] POCT-GLUCOSE [id number] 22:23:00 Test Item Value Reference Range Comments POC-GLUCOSE METER (BEAKER) 129 mg/dL 70-110 TESTED AT [address] (test cjaw=5678) [facility] [address] POCT-GLUCOSE [id number] 11:27:00 Test Item Value Reference Range Comments POC-GLUCOSE METER (BEAKER) 104 mg/dL 70-110 TESTED AT [address] (test iwma=8050) [facility] [address] POCT-GLUCOSE [id number] 05:23:00 Test Item Value Reference Range Comments POC-GLUCOSE METER (BEAKER) 104 mg/dL 70-110 TESTED AT [address] (test npql=0461) [facility] [address] POCT-GLUCOSE [id number] 00:15:00 Test Item Value Reference Range Comments POC-GLUCOSE METER (BEAKER) 105 mg/dL 70-110 TESTED AT [address] (test aiam=3592) [facility] [address] POCT-GLUCOSE [id number] 17:06:00 Test Item Value Reference Range Comments POC-GLUCOSE METER (BEAKER) 89 mg/dL 70-110 TESTED AT [address] (test vdnn=4899) [facility] [address] POCT-GLUCOSE [id number] 11:39:00 Test Item Value Reference Range Comments POC-GLUCOSE METER (BEAKER) 121 mg/dL 70-110 TESTED AT [address] (test brid=8379) [facility] [address] POCT-GLUCOSE [id number] 06:40:00 Test Item Value Reference Range Comments POC-GLUCOSE METER (BEAKER) 114 mg/dL 70-110 TESTED AT [address] (test oycn=0961) [facility] [address] POCT-GLUCOSE [id number] 00:09:00 Test Item Value Reference Range Comments POC-GLUCOSE METER (BEAKER) 120 mg/dL 70-110 TESTED AT [address] (test gthn=5977) [facility] [address] POCT-GLUCOSE [id number] 17:44:00 Test Item Value Reference Range Comments POC-GLUCOSE METER (BEAKER) 104 mg/dL 70-110 TESTED AT [address] (test cdqm=1848) [facility] [address] POCT-GLUCOSE [id number] 11:56:00 Test Item Value Reference Range Comments POC-GLUCOSE METER (BEAKER) 122 mg/dL 70-110 TESTED AT [address] (test ckoo=4640) [facility] [address] POCT-GLUCOSE [id number] 17:48:00 Test Item Value Reference Range Comments POC-GLUCOSE METER (BEAKER) 91 mg/dL 70-110 TESTED AT [address] (test sjsy=8984) [facility] [address] POCT-GLUCOSE [id number] 12:24:00 Test Item Value Reference Range Comments POC-GLUCOSE METER (BEAKER) 141 mg/dL 70-110 TESTED AT [address] (test rmck=6296) [facility] [address] POCT-GLUCOSE [id number] 06:02:00 Test Item Value Reference Range Comments POC-GLUCOSE METER (BEAKER) 108 mg/dL 70-110 [facility]ED AT [facility] [address] [facility] (test ldxd=7418) [facility] [address] BASIC METABOLIC [id number] 05:23:00 Test Item Value Reference Range Comments SODIUM (BEAKER) (test 135 meq/L 136-145 iycb=602) POTASSIUM (BEAKER) (test 4.5 meq/L 3.5-5.1 Specimen slightly yzvs=651) hemolyzed CHLORIDE (BEAKER) (test 97 meq/L 98-107 aubn=258) CO2 (BEAKER) (test 27 meq/L 22-29 alej=074) BLOOD UREA NITROGEN 42 mg/dL 7-21 (BEAKER) (test hoea=035) CREATININE (BEAKER) (test 0.73 mg/dL 0.57-1.25 Specimen slightly hkzg=543) hemolyzed GLUCOSE RANDOM (BEAKER) 92 mg/dL 70-105 (test hxvh=879) CALCIUM (BEAKER) (test 10.9 mg/dL 8.4-10.2 rugu=954) EGFR (BEAKER) (test 92 mL/min/1.73 sq m ESTIMATED GFR IS NOT vszl=3718) ACCURATE CREATININE CLEARANCE IN PREDICTING GLOMERULAR FILTRATION RATE. ESTIMATED GFR IS NOT APPLICABLE FOR DIALYSIS PATIENTS. CBC W/PLT COUNT & AUTO [id number] 04:41:00 Test Item Value Reference Range Comments WHITE BLOOD CELL COUNT (BEAKER) (test wxed=960) 6.9 K/ L 3.5-10.5 RED BLOOD CELL COUNT (BEAKER) (test wcbw=760) 3.81 M/ L 3.93-5.22 HEMOGLOBIN (BEAKER) (test msbo=070) 11.7 GM/DL 11.2-15.7 HEMATOCRIT (BEAKER) (test zngy=003) 36.3 % 34.1-44.9 MEAN CORPUSCULAR VOLUME (BEAKER) (test ggnh=182) 95.3 fL 79.4-94.8 MEAN CORPUSCULAR HEMOGLOBIN (BEAKER) (test 30.7 pg 25.6-32.2 ossk=476) MEAN CORPUSCULAR HEMOGLOBIN CONC (BEAKER) (test 32.2 GM/DL 32.2-35.5 kujj=327) RED CELL DISTRIBUTION WIDTH (BEAKER) (test 14.9 % 11.7-14.4 zhkp=770) PLATELET COUNT (BEAKER) (test jegv=837) 236 K/CU MM 150-450 MEAN PLATELET VOLUME (BEAKER) (test gsdn=225) 12.3 fL 9.4-12.3 NUCLEATED RED BLOOD CELLS (BEAKER) (test 0 /100 WBC 0-0 nfaw=314) NEUTROPHILS RELATIVE PERCENT (BEAKER) (test 44 % oubk=737) LYMPHOCYTES RELATIVE PERCENT (BEAKER) (test 41 % jjdx=806) MONOCYTES RELATIVE PERCENT (BEAKER) (test 12 % zjmy=085) EOSINOPHILS RELATIVE PERCENT (BEAKER) (test 3 % fuid=155) BASOPHILS RELATIVE PERCENT (BEAKER) (test 0 % kdwo=596) NEUTROPHILS ABSOLUTE COUNT (BEAKER) (test 3.00 K/ L 1.56-6.13 hmni=110) LYMPHOCYTES ABSOLUTE COUNT (BEAKER) (test 2.80 K/ L 1.18-3.74 nupj=570) MONOCYTES ABSOLUTE COUNT (BEAKER) (test 0.85 K/ L 0.24-0.36 imla=594) EOSINOPHILS ABSOLUTE COUNT (BEAKER) (test 0.19 K/ L 0.04-0.36 keng=318) BASOPHILS ABSOLUTE COUNT (BEAKER) (test 0.02 K/ L 0.01-0.08 tguv=282) IMMATURE GRANULOCYTES-RELATIVE PERCENT (BEAKER) 0 % 0-1 (test arnh=5025) POCT-GLUCOSE [id number] 03:44:00 Test Item Value Reference Range Comments POC-GLUCOSE METER (BEAKER) 91 mg/dL 70-110 TESTED AT [address] (test vect=3872) [facility] [address] POCT-GLUCOSE [id number] 18:28:00 Test Item Value Reference Range Comments POC-GLUCOSE METER (BEAKER) 123 mg/dL 70-110 TESTED AT [address] (test xneu=8727) [facility] [address] POCT-GLUCOSE [id number] 12:00:00 Test Item Value Reference Range Comments POC-GLUCOSE METER (BEAKER) 118 mg/dL 70-110 TESTED AT [address] (test tgwb=8665) [facility] [facility] [address] POCT-GLUCOSE [id number] 06:24:00 Test Item Value Reference Range Comments POC-GLUCOSE METER (BEAKER) 107 mg/dL 70-110 TESTED AT [address] (test mefp=2352) [facility] [address] POCT-GLUCOSE [id number] 23:26:00 Test Item Value Reference Range Comments POC-GLUCOSE METER (BEAKER) 122 mg/dL 70-110 TESTED AT [address] (test emht=3882) [facility] [address] POCT-GLUCOSE [id number] 17:27:00 Test Item Value Reference Range Comments POC-GLUCOSE METER (BEAKER) 104 mg/dL 70-110 TESTED AT [address] (test blpa=4527) [facility] [address] POCT-GLUCOSE [id number] 11:56:00 Test Item Value Reference Range Comments POC-GLUCOSE METER (BEAKER) 140 mg/dL 70-110 TESTED AT [address] (test jbzh=6447) [facility] [address] POCT-GLUCOSE [id number] 06:29:00 Test Item Value Reference Range Comments POC-GLUCOSE METER (BEAKER) 114 mg/dL 70-110 TESTED AT [address] (test mspc=5490) [facility] [address] POCT-GLUCOSE [id number] 00:10:00 Test Item Value Reference Range Comments POC-GLUCOSE METER (BEAKER) 116 mg/dL 70-110 TESTED AT [address] (test hffs=1266) [facility] [address] POCT-GLUCOSE [id number] 17:52:00 Test Item Value Reference Range Comments POC-GLUCOSE METER (BEAKER) 171 mg/dL 70-110 TESTED AT [address] (test flra=4084) [facility] [address] POCT-GLUCOSE [id number] 11:41:00 Test Item Value Reference Range Comments POC-GLUCOSE METER (BEAKER) 113 mg/dL 70-110 TESTED AT [address] (test cwkb=9852) [facility] [address] POCT-GLUCOSE [id number] 18:26:00 Test Item Value Reference Range Comments POC-GLUCOSE METER (BEAKER) 116 mg/dL 70-110 TESTED AT [address] (test aibg=0297) [facility] [address] POCT-GLUCOSE [id number] 14:13:00 Test Item Value Reference Range Comments POC-GLUCOSE METER (BEAKER) 95 mg/dL 70-110 TESTED AT [address] (test qexj=1991) [facility] [address] POCT-GLUCOSE [id number] 01:35:00 Test Item Value Reference Range Comments POC-GLUCOSE METER (BEAKER) 116 mg/dL 70-110 TESTED AT [address] (test jdkr=6050) [facility] [address] POCT-GLUCOSE [id number] 18:34:00 Test Item Value Reference Range Comments POC-GLUCOSE METER (BEAKER) 115 mg/dL 70-110 TESTED AT [address] (test odlu=9958) [facility] [address] POCT-GLUCOSE [id number] 11:24:00 Test Item Value Reference Range Comments POC-GLUCOSE METER (BEAKER) 123 mg/dL 70-110 TESTED AT [address] (test hkhk=5666) [facility] [address] POCT-GLUCOSE [id number] 05:46:00 Test Item Value Reference Range Comments POC-GLUCOSE METER (BEAKER) 131 mg/dL 70-110 TESTED AT [address] (test tglj=2290) [facility] [address] COMPREHENSIVE METABOLIC [id number] 03:51:00 Test Item Value Reference Range Comments TOTAL PROTEIN (BEAKER) 7.4 gm/dL 6.0-8.3 (test ukas=575) ALBUMIN (BEAKER) (test 3.7 g/dL 3.5-5.0 dvmb=6292) ALKALINE PHOSPHATASE 47 U/L 40-150 (BEAKER) (test vetm=040) BILIRUBIN TOTAL (BEAKER) 0.3 mg/dL 0.2-1.2 (test ocub=486) SODIUM (BEAKER) (test 136 meq/L 136-145 iyvo=199) POTASSIUM (BEAKER) (test 4.2 meq/L 3.5-5.1 xiam=105) CHLORIDE (BEAKER) (test 98 meq/L 98-107 galn=566) CO2 (BEAKER) (test 26 meq/L 22-29 gaar=993) BLOOD UREA NITROGEN 40 mg/dL 7-21 (BEAKER) (test ppvj=105) CREATININE (BEAKER) (test 0.71 mg/dL 0.57-1.25 xyrt=722) GLUCOSE RANDOM (BEAKER) 111 mg/dL 70-105 (test wxvu=089) CALCIUM (BEAKER) (test 10.2 mg/dL 8.4-10.2 pnur=324) AST (SGOT) (BEAKER) (test 12 U/L 5-34 cida=851) ALT (SGPT) (BEAKER) (test 20 U/L 6-55 qoxr=250) EGFR (BEAKER) (test 95 mL/min/1.73 sq m ESTIMATED GFR IS NOT gnbo=0278) ACCURATE CREATININE CLEARANCE IN PREDICTING GLOMERULAR FILTRATION RATE. ESTIMATED GFR IS NOT APPLICABLE FOR DIALYSIS PATIENTS. CBC W/PLT COUNT & AUTO [id number] 03:36:00 Test Item Value Reference Range Comments WHITE BLOOD CELL COUNT (BEAKER) (test wdiq=393) 10.9 K/ L 3.5-10.5 RED BLOOD CELL COUNT (BEAKER) (test ikty=378) 3.92 M/ L 3.93-5.22 HEMOGLOBIN (BEAKER) (test ljvs=642) 11.8 GM/DL 11.2-15.7 HEMATOCRIT (BEAKER) (test hkcy=547) 37.4 % 34.1-44.9 MEAN CORPUSCULAR VOLUME (BEAKER) (test secg=957) 95.4 fL 79.4-94.8 MEAN CORPUSCULAR HEMOGLOBIN (BEAKER) (test 30.1 pg 25.6-32.2 ldyi=279) MEAN CORPUSCULAR HEMOGLOBIN CONC (BEAKER) (test 31.6 GM/DL 32.2-35.5 zpjn=001) RED CELL DISTRIBUTION WIDTH (BEAKER) (test 15.0 % 11.7-14.4 aaom=050) PLATELET COUNT (BEAKER) (test tczr=153) 274 K/CU MM 150-450 MEAN PLATELET VOLUME (BEAKER) (test mndw=860) 10.8 fL 9.4-12.3 NUCLEATED RED BLOOD CELLS (BEAKER) (test 0 /100 WBC 0-0 byjh=669) NEUTROPHILS RELATIVE PERCENT (BEAKER) (test 53 % rqhk=840) LYMPHOCYTES RELATIVE PERCENT (BEAKER) (test 33 % wiwq=432) MONOCYTES RELATIVE PERCENT (BEAKER) (test 10 % zbfl=311) EOSINOPHILS RELATIVE PERCENT (BEAKER) (test 2 % swtl=602) BASOPHILS RELATIVE PERCENT (BEAKER) (test 1 % gvnw=208) NEUTROPHILS ABSOLUTE COUNT (BEAKER) (test 5.79 K/ L 1.56-6.13 txzi=167) LYMPHOCYTES ABSOLUTE COUNT (BEAKER) (test 3.58 K/ L 1.18-3.74 dmto=106) MONOCYTES ABSOLUTE COUNT (BEAKER) (test 1.10 K/ L 0.24-0.36 xdtp=001) EOSINOPHILS ABSOLUTE COUNT (BEAKER) (test 0.23 K/ L 0.04-0.36 hzul=233) BASOPHILS ABSOLUTE COUNT (BEAKER) (test 0.05 K/ L 0.01-0.08 tpmm=796) IMMATURE GRANULOCYTES-RELATIVE PERCENT (BEAKER) 1 % 0-1 (test vzgr=0610) POCT-GLUCOSE [id number] 23:32:00 Test Item Value Reference Range Comments POC-GLUCOSE METER (BEAKER) 107 mg/dL 70-110 TESTED AT [address] (test qxpx=8589) [place] [address] POCT-GLUCOSE [id number] 18:13:00 Test Item Value Reference Range Comments POC-GLUCOSE METER (BEAKER) 99 mg/dL 70-110 TESTED AT [address] (test ywqh=9752) [place] [id number] POCT-GLUCOSE [id number] 12:09:00 Test Item Value Reference Range Comments POC-GLUCOSE METER (BEAKER) 110 mg/dL 70-110 TESTED AT [address] (test schb=8521) [place] [id number] COMPREHENSIVE METABOLIC [id number] 08:21:00 Test Item Value Reference Range Comments TOTAL PROTEIN (BEAKER) 7.5 gm/dL 6.0-8.3 Specimen slightly (test qwvv=596) hemolyzed ALBUMIN (BEAKER) (test 3.7 g/dL 3.5-5.0 Specimen slightly ripx=2252) hemolyzed ALKALINE PHOSPHATASE 47 U/L 40-150 (BEAKER) (test oupx=680) BILIRUBIN TOTAL (BEAKER) 0.4 mg/dL 0.2-1.2 Specimen slightly (test yuxq=036) hemolyzed SODIUM (BEAKER) (test 137 meq/L 136-145 nfat=528) POTASSIUM (BEAKER) (test 4.2 meq/L 3.5-5.1 Specimen slightly bfgc=437) hemolyzed CHLORIDE (BEAKER) (test 99 meq/L 98-107 ezlf=693) CO2 (BEAKER) (test 25 meq/L 22-29 tsaf=226) BLOOD UREA NITROGEN 37 mg/dL 7-21 (BEAKER) (test fnto=997) CREATININE (BEAKER) (test 0.76 mg/dL 0.57-1.25 Specimen slightly qhnd=338) hemolyzed GLUCOSE RANDOM (BEAKER) 118 mg/dL 70-105 (test fass=905) CALCIUM (BEAKER) (test 10.4 mg/dL 8.4-10.2 ygif=742) AST (SGOT) (BEAKER) (test 17 U/L 5-34 Specimen slightly slkp=640) hemolyzed ALT (SGPT) (BEAKER) (test 23 U/L 6-55 Specimen slightly hdvx=001) hemolyzed EGFR (BEAKER) (test 88 mL/min/1.73 sq m ESTIMATED GFR IS NOT irej=0765) ACCURATE CREATININE CLEARANCE IN PREDICTING GLOMERULAR FILTRATION RATE. ESTIMATED GFR IS NOT APPLICABLE FOR DIALYSIS PATIENTS. POCT-GLUCOSE [id number] 06:59:00 Test Item Value Reference Range Comments POC-GLUCOSE METER (BEAKER) 102 mg/dL 70-110 TESTED AT [facility] [address] [facility] (test roxu=0922) [facility] [address] BLOOD GAS, [id number] 05:29:00 Test Item Value Reference Range Comments PH ARTERIAL (BEAKER) (test ytfy=716) 7.43 7.35-7.45 PCO2 ARTERIAL (BEAKER) (test uqzt=503) 44 mmHg 35-45 PO2 ARTERIAL (BEAKER) (test cjha=519) 109 mmHg 80-90 O2 SATURATION ARTERIAL (BEAKER) (test qvnp=824) 98.1 % 96.0-97.0 HCO3 ARTERIAL (BEAKER) (test yrsa=484) 29 mmol/L 21-29 BASE EXCESS ARTERIAL (BEAKER) (test nopy=637) 4.1 mmol/L -2.0-3.0 PATIENT TEMPERATURE (BEAKER) (test jbwz=9650) 37.1 C FIO2 (BEAKER) (test gbtd=2556) 28.0 % CBC W/PLT COUNT & AUTO [id number] 04:22:00 Test Item Value Reference Range Comments WHITE BLOOD CELL COUNT (BEAKER) (test zbgo=601) 9.3 K/ L 3.5-10.5 RED BLOOD CELL COUNT (BEAKER) (test czqj=547) 3.79 M/ L 3.93-5.22 HEMOGLOBIN (BEAKER) (test zzih=814) 11.4 GM/DL 11.2-15.7 HEMATOCRIT (BEAKER) (test ldmy=446) 35.8 % 34.1-44.9 MEAN CORPUSCULAR VOLUME (BEAKER) (test xnxz=934) 94.5 fL 79.4-94.8 MEAN CORPUSCULAR HEMOGLOBIN (BEAKER) (test 30.1 pg 25.6-32.2 xkli=309) MEAN CORPUSCULAR HEMOGLOBIN CONC (BEAKER) (test 31.8 GM/DL 32.2-35.5 jkmi=995) RED CELL DISTRIBUTION WIDTH (BEAKER) (test 14.7 % 11.7-14.4 iwme=530) PLATELET COUNT (BEAKER) (test mymn=164) 249 K/CU MM 150-450 MEAN PLATELET VOLUME (BEAKER) (test aaff=982) 10.8 fL 9.4-12.3 NUCLEATED RED BLOOD CELLS (BEAKER) (test 0 /100 WBC 0-0 qnwn=612) NEUTROPHILS RELATIVE PERCENT (BEAKER) (test 55 % tyak=288) LYMPHOCYTES RELATIVE PERCENT (BEAKER) (test 32 % lelv=843) MONOCYTES RELATIVE PERCENT (BEAKER) (test 9 % jgtx=377) EOSINOPHILS RELATIVE PERCENT (BEAKER) (test 3 % nypr=915) BASOPHILS RELATIVE PERCENT (BEAKER) (test 0 % xtgy=278) NEUTROPHILS ABSOLUTE COUNT (BEAKER) (test 5.09 K/ L 1.56-6.13 bkrn=262) LYMPHOCYTES ABSOLUTE COUNT (BEAKER) (test 2.92 K/ L 1.18-3.74 rbnc=697) MONOCYTES ABSOLUTE COUNT (BEAKER) (test 0.84 K/ L 0.24-0.36 fyuw=835) EOSINOPHILS ABSOLUTE COUNT (BEAKER) (test 0.25 K/ L 0.04-0.36 seln=868) BASOPHILS ABSOLUTE COUNT (BEAKER) (test 0.04 K/ L 0.01-0.08 dpfl=210) IMMATURE GRANULOCYTES-RELATIVE PERCENT (BEAKER) 1 % 0-1 (test fhws=5395) POCT-GLUCOSE [id number] 23:29:00 Test Item Value Reference Range Comments POC-GLUCOSE METER (BEAKER) 102 mg/dL 70-110 TESTED AT [address] (test snrh=8750) [facility] [address] POCT-GLUCOSE [id number] 17:56:00 Test Item Value Reference Range Comments POC-GLUCOSE METER (BEAKER) 113 mg/dL 70-110 TESTED AT [address] (test nfke=1219) [facility] [address] POCT-GLUCOSE [id number] 11:57:00 Test Item Value Reference Range Comments POC-GLUCOSE METER (BEAKER) 103 mg/dL 70-110 TESTED AT [address] (test yszi=3607) [facility] [address] POCT-GLUCOSE [id number] 06:38:00 Test Item Value Reference Range Comments POC-GLUCOSE METER (BEAKER) 105 mg/dL 70-110 TESTED AT [address] (test ulfw=1121) [facility] [address] POCT-GLUCOSE [id number] 01:39:00 Test Item Value Reference Range Comments POC-GLUCOSE METER (BEAKER) 121 mg/dL 70-110 TESTED AT [address] (test npfi=7576) [facility] [address] POCT-GLUCOSE [id number] 18:15:00 Test Item Value Reference Range Comments POC-GLUCOSE METER (BEAKER) 114 mg/dL 70-110 TESTED AT [address] (test lrdy=7895) [facility] [address] POCT-GLUCOSE [id number] 12:12:00 Test Item Value Reference Range Comments POC-GLUCOSE METER (BEAKER) 110 mg/dL 70-110 TESTED AT [address] (test tlsv=6728) [facility] [address] POCT-GLUCOSE [id number] 06:36:00 Test Item Value Reference Range Comments POC-GLUCOSE METER (BEAKER) 130 mg/dL 70-110 TESTED AT [facility] [address] (test klot=7510) [facility] [address] COMPREHENSIVE METABOLIC [id number] 05:36:00 Test Item Value Reference Range Comments TOTAL PROTEIN (BEAKER) 7.2 gm/dL 6.0-8.3 (test dmts=331) ALBUMIN (BEAKER) (test 3.6 g/dL 3.5-5.0 hyvw=6840) ALKALINE PHOSPHATASE 48 U/L 40-150 (BEAKER) (test fjyf=675) BILIRUBIN TOTAL (BEAKER) 0.3 mg/dL 0.2-1.2 (test vfuk=937) SODIUM (BEAKER) (test 138 meq/L 136-145 kqoi=517) POTASSIUM (BEAKER) (test 4.4 meq/L 3.5-5.1 ljtj=264) CHLORIDE (BEAKER) (test 102 meq/L 98-107 wvgx=784) CO2 (BEAKER) (test 26 meq/L 22-29 xzqi=134) BLOOD UREA NITROGEN 37 mg/dL 7-21 (BEAKER) (test tsea=654) CREATININE (BEAKER) (test 0.71 mg/dL 0.57-1.25 ogyj=464) GLUCOSE RANDOM (BEAKER) 113 mg/dL 70-105 (test fwag=656) CALCIUM (BEAKER) (test 10.3 mg/dL 8.4-10.2 buhc=121) AST (SGOT) (BEAKER) (test 16 U/L 5-34 ohte=986) ALT (SGPT) (BEAKER) (test 36 U/L 6-55 gzbl=503) EGFR (BEAKER) (test 95 mL/min/1.73 sq m ESTIMATED GFR IS NOT xrca=3341) ACCURATE CREATININE CLEARANCE IN PREDICTING GLOMERULAR FILTRATION RATE. ESTIMATED GFR IS NOT APPLICABLE FOR DIALYSIS PATIENTS. CBC W/PLT COUNT & AUTO [id number] 05:09:00 Test Item Value Reference Range Comments WHITE BLOOD CELL COUNT (BEAKER) (test kegp=262) 9.0 K/ L 3.5-10.5 RED BLOOD CELL COUNT (BEAKER) (test wkqd=516) 3.85 M/ L 3.93-5.22 HEMOGLOBIN (BEAKER) (test bnea=804) 11.6 GM/DL 11.2-15.7 HEMATOCRIT (BEAKER) (test sdgu=487) 37.5 % 34.1-44.9 MEAN CORPUSCULAR VOLUME (BEAKER) (test clks=125) 97.4 fL 79.4-94.8 MEAN CORPUSCULAR HEMOGLOBIN (BEAKER) (test 30.1 pg 25.6-32.2 ushj=510) MEAN CORPUSCULAR HEMOGLOBIN CONC (BEAKER) (test 30.9 GM/DL 32.2-35.5 nblv=375) RED CELL DISTRIBUTION WIDTH (BEAKER) (test 14.6 % 11.7-14.4 loyb=242) PLATELET COUNT (BEAKER) (test bbau=526) 277 K/CU MM 150-450 MEAN PLATELET VOLUME (BEAKER) (test rqyj=839) 10.7 fL 9.4-12.3 NUCLEATED RED BLOOD CELLS (BEAKER) (test 0 /100 WBC 0-0 ktyg=335) NEUTROPHILS RELATIVE PERCENT (BEAKER) (test 54 % lmnx=711) LYMPHOCYTES RELATIVE PERCENT (BEAKER) (test 32 % dbzo=201) MONOCYTES RELATIVE PERCENT (BEAKER) (test 8 % tlmf=836) EOSINOPHILS RELATIVE PERCENT (BEAKER) (test 3 % erif=164) BASOPHILS RELATIVE PERCENT (BEAKER) (test 0 % wqmd=595) NEUTROPHILS ABSOLUTE COUNT (BEAKER) (test 4.87 K/ L 1.56-6.13 zccn=001) LYMPHOCYTES ABSOLUTE COUNT (BEAKER) (test 2.86 K/ L 1.18-3.74 buer=394) MONOCYTES ABSOLUTE COUNT (BEAKER) (test 0.75 K/ L 0.24-0.36 kbeu=235) EOSINOPHILS ABSOLUTE COUNT (BEAKER) (test 0.28 K/ L 0.04-0.36 tanc=056) BASOPHILS ABSOLUTE COUNT (BEAKER) (test 0.04 K/ L 0.01-0.08 gepz=091) IMMATURE GRANULOCYTES-RELATIVE PERCENT (BEAKER) 2 % 0-1 (test gvyt=3499) POCT-GLUCOSE [id number] 23:53:00 Test Item Value Reference Range Comments POC-GLUCOSE METER (BEAKER) 122 mg/dL 70-110 TESTED AT [facility] [address] [facility] (test xcib=7621) [facility] [address] POCT-GLUCOSE [id number] 18:09:00 Test Item Value Reference Range Comments POC-GLUCOSE METER (BEAKER) 105 mg/dL 70-110 TESTED AT [address] (test qyuc=8304) [facility] [address] POCT-GLUCOSE [id number] 12:13:00 Test Item Value Reference Range Comments POC-GLUCOSE METER (BEAKER) 97 mg/dL 70-110 TESTED AT [address] (test ibcy=3680) [facility] [address] POCT-GLUCOSE [id number] 06:15:00 Test Item Value Reference Range Comments POC-GLUCOSE METER (BEAKER) 116 mg/dL 70-110 TESTED AT [address] (test oohj=2899) [facility] [address] POCT-GLUCOSE [id number] 00:39:00 Test Item Value Reference Range Comments POC-GLUCOSE METER (BEAKER) 119 mg/dL 70-110 TESTED AT [address] (test iirz=1918) [facility] [address] POCT-GLUCOSE [id number] 18:51:00 Test Item Value Reference Range Comments POC-GLUCOSE METER (BEAKER) 110 mg/dL 70-110 TESTED AT [address] (test enhe=2515) [facility] [address] POCT-GLUCOSE [id number] 12:42:00 Test Item Value Reference Range Comments POC-GLUCOSE METER (BEAKER) 131 mg/dL 70-110 TESTED AT [address] (test geoo=5283) [facility] [address] POCT-GLUCOSE [id number] 05:27:00 Test Item Value Reference Range Comments POC-GLUCOSE METER (BEAKER) 111 mg/dL 70-110 TESTED AT [address] (test pzyi=1480) [facility] [address] POCT-GLUCOSE [id number] 00:09:00 Test Item Value Reference Range Comments POC-GLUCOSE METER (BEAKER) 117 mg/dL 70-110 TESTED AT [address] (test inyo=5714) [facility] [address] POCT-GLUCOSE [id number] 17:33:00 Test Item Value Reference Range Comments POC-GLUCOSE METER (BEAKER) 108 mg/dL 70-110 TESTED AT [address] (test ubnr=0308) [facility] [address] POCT-GLUCOSE [id number] 11:33:00 Test Item Value Reference Range Comments POC-GLUCOSE METER (BEAKER) 126 mg/dL 70-110 TESTED AT [facility] [address] [facility] (test aach=5932) [facility] [address] POCT-GLUCOSE [id number] 05:37:00 Test Item Value Reference Range Comments POC-GLUCOSE METER (BEAKER) 117 mg/dL 70-110 TESTED AT [facility] [address] [facility] (test frwt=2688) [facility] [address] COMPREHENSIVE METABOLIC [id number] 05:21:00 Test Item Value Reference Range Comments TOTAL PROTEIN (BEAKER) 7.2 gm/dL 6.0-8.3 (test wgqv=121) ALBUMIN (BEAKER) (test 3.5 g/dL 3.5-5.0 piur=9919) ALKALINE PHOSPHATASE 47 U/L 40-150 (BEAKER) (test qsbp=529) BILIRUBIN TOTAL (BEAKER) 0.4 mg/dL 0.2-1.2 (test uphi=138) SODIUM (BEAKER) (test 138 meq/L 136-145 jmig=798) POTASSIUM (BEAKER) (test 4.1 meq/L 3.5-5.1 ekke=974) CHLORIDE (BEAKER) (test 102 meq/L 98-107 sxjc=763) CO2 (BEAKER) (test 29 meq/L 22-29 cbzt=174) BLOOD UREA NITROGEN 32 mg/dL 7-21 (BEAKER) (test ponh=557) CREATININE (BEAKER) (test 0.75 mg/dL 0.57-1.25 lzas=820) GLUCOSE RANDOM (BEAKER) 115 mg/dL 70-105 (test tpzx=615) CALCIUM (BEAKER) (test 10.0 mg/dL 8.4-10.2 ztbw=632) AST (SGOT) (BEAKER) (test 31 U/L 5-34 kery=493) ALT (SGPT) (BEAKER) (test 67 U/L 6-55 ukvo=075) EGFR (BEAKER) (test 90 mL/min/1.73 sq m ESTIMATED GFR IS NOT nahr=4300) ACCURATE CREATININE CLEARANCE IN PREDICTING GLOMERULAR FILTRATION RATE. ESTIMATED GFR IS NOT APPLICABLE FOR DIALYSIS PATIENTS. CBC W/PLT COUNT & AUTO [id number] 05:06:00 Test Item Value Reference Range Comments WHITE BLOOD CELL COUNT (BEAKER) (test vhhh=981) 8.2 K/ L 3.5-10.5 RED BLOOD CELL COUNT (BEAKER) (test vyxs=546) 3.58 M/ L 3.93-5.22 HEMOGLOBIN (BEAKER) (test iqib=595) 10.8 GM/DL 11.2-15.7 HEMATOCRIT (BEAKER) (test rlhn=269) 34.0 % 34.1-44.9 MEAN CORPUSCULAR VOLUME (BEAKER) (test vomw=973) 95.0 fL 79.4-94.8 MEAN CORPUSCULAR HEMOGLOBIN (BEAKER) (test 30.2 pg 25.6-32.2 voko=527) MEAN CORPUSCULAR HEMOGLOBIN CONC (BEAKER) (test 31.8 GM/DL 32.2-35.5 vygm=251) RED CELL DISTRIBUTION WIDTH (BEAKER) (test 13.6 % 11.7-14.4 rfnp=404) PLATELET COUNT (BEAKER) (test rdmg=548) 250 K/CU MM 150-450 MEAN PLATELET VOLUME (BEAKER) (test gypp=958) 11.3 fL 9.4-12.3 NUCLEATED RED BLOOD CELLS (BEAKER) (test 0 /100 WBC 0-0 brpe=251) NEUTROPHILS RELATIVE PERCENT (BEAKER) (test 58 % bcwn=790) LYMPHOCYTES RELATIVE PERCENT (BEAKER) (test 30 % jkys=607) MONOCYTES RELATIVE PERCENT (BEAKER) (test 8 % guoq=215) EOSINOPHILS RELATIVE PERCENT (BEAKER) (test 3 % sfhn=932) BASOPHILS RELATIVE PERCENT (BEAKER) (test 0 % emxa=407) NEUTROPHILS ABSOLUTE COUNT (BEAKER) (test 4.75 K/ L 1.56-6.13 ytaa=834) LYMPHOCYTES ABSOLUTE COUNT (BEAKER) (test 2.45 K/ L 1.18-3.74 djne=930) MONOCYTES ABSOLUTE COUNT (BEAKER) (test 0.63 K/ L 0.24-0.36 vxwp=247) EOSINOPHILS ABSOLUTE COUNT (BEAKER) (test 0.28 K/ L 0.04-0.36 ullh=094) BASOPHILS ABSOLUTE COUNT (BEAKER) (test 0.02 K/ L 0.01-0.08 jisn=614) IMMATURE GRANULOCYTES-RELATIVE PERCENT (BEAKER) 1 % 0-1 (test vnjk=1306) POCT-GLUCOSE [id number] 00:55:00 Test Item Value Reference Range Comments POC-GLUCOSE METER (BEAKER) 101 mg/dL 70-110 TESTED AT [address] (test ujcm=7335) [place] [address] POCT-GLUCOSE [id number] 17:44:00 Test Item Value Reference Range Comments POC-GLUCOSE METER (BEAKER) 131 mg/dL 70-110 TESTED AT [address] (test pjmx=9877) [place] [address] MR, BRAIN, WITHOUT [id number] 14:18:00FINAL REPORT MRI Brain without contrast Clinical History: Stroke Technique: MRI of the brain utilizing axial T2, FLAIR, GRE, DWI; sagittal and coronal T1-weighted images. Comparisons: CT 09/15/2018 Findings: There is T1 and T2 signal hyperintensity in the central shavonne corresponding to the subacute hemorrhage seen on the previous head CT. Allowing for differences in technique, the overall size is unchanged. There is mild T2 FLAIR signal hyperintensity in the bilateral middle cerebellar peduncles, compatible with vasogenic edema. There is no evidence of acute infarct or acute hemorrhage. A right frontal approach EVD tract is again seen post catheter removal. There is no hydrocephalus or midline shift. There are no extra-axial fluid collections. The craniocervical junction is otherwise preserved. The major intracranial flow-voids appear patent. Please note that I was not on service during the week of this examination, but was asked to report this examination today. 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 Signed: Krzysztof Seymour MDReport Verified Date/ Time: 10/03/2018 14:18:49 Reading Location:[address] Neuro Reading Room POCT- GLUCOSE [id number] 11:45:00 Test Item Value Reference Range Comments POC-GLUCOSE METER (BEAKER) 118 mg/dL 70-110 TESTED AT [address] (test ouds=3988) [place] [address] POCT-GLUCOSE [id number] 06:13:00 Test Item Value Reference Range Comments POC-GLUCOSE METER (BEAKER) 122 mg/dL 70-110 TESTED AT [address] (test vwem=3440) [facility] [address] POCT-GLUCOSE [id number] 23:44:00 Test Item Value Reference Range Comments POC-GLUCOSE METER (BEAKER) 108 mg/dL 70-110 TESTED AT [address] (test vxeg=9885) [place] [id number] POCT-GLUCOSE [id number] 17:48:00 Test Item Value Reference Range Comments POC-GLUCOSE METER (BEAKER) 105 mg/dL 70-110 TESTED AT [address] (test qrov=7174) [place] [id number] POCT-GLUCOSE [id number] 12:10:00 Test Item Value Reference Range Comments POC-GLUCOSE METER (BEAKER) 101 mg/dL 70-110 TESTED AT [address] (test ljdf=3355) [place] [address] BLOOD [id number] 11:00:00 Test Item Value Reference Range Comments CULTURE (BEAKER) (test uxzd=2659) No growth in 5 days BLOOD [id number] 11:00:00 Test Item Value Reference Range Comments CULTURE (BEAKER) (test tyfj=2994) No growth in 5 days POCT-GLUCOSE [id number] 06:09:00 Test Item Value Reference Range Comments POC-GLUCOSE METER (BEAKER) 108 mg/dL 70-110 TESTED AT [address] (test xepr=9735) [facility] [address] POCT-GLUCOSE [id number] 04:00:00 Test Item Value Reference Range Comments POC-GLUCOSE METER (BEAKER) 106 mg/dL 70-110 TESTED AT [address] (test hbjg=5992) [facility] [address] POCT-GLUCOSE [id number] 23:28:00 Test Item Value Reference Range Comments POC-GLUCOSE METER (BEAKER) 73 mg/dL 70-110 TESTED AT [address] (test kxvn=9378) [facility] [address] POCT-GLUCOSE [id number] 18:04:00 Test Item Value Reference Range Comments POC-GLUCOSE METER (BEAKER) 100 mg/dL 70-110 TESTED AT [address] (test fbxv=8022) [facility] [address] POCT-GLUCOSE [id number] 12:41:00 Test Item Value Reference Range Comments POC-GLUCOSE METER (BEAKER) 116 mg/dL 70-110 TESTED AT [address] (test pxqh=7591) [facility] [address] POCT-GLUCOSE [id number] 06:10:00 Test Item Value Reference Range Comments POC-GLUCOSE METER (BEAKER) 115 mg/dL 70-110 TESTED AT [address] (test ievb=1874) [facility] [address] BASIC METABOLIC [id number] 04:32:00 Test Item Value Reference Range Comments SODIUM (BEAKER) (test 142 meq/L 136-145 lusi=009) POTASSIUM (BEAKER) (test 3.7 meq/L 3.5-5.1 lmjm=426) CHLORIDE (BEAKER) (test 107 meq/L 98-107 ddkw=753) CO2 (BEAKER) (test 28 meq/L 22-29 vehs=334) BLOOD UREA NITROGEN 34 mg/dL 7-21 (BEAKER) (test nlnx=006) CREATININE (BEAKER) (test 0.70 mg/dL 0.57-1.25 rohl=460) GLUCOSE RANDOM (BEAKER) 109 mg/dL 70-105 (test eswi=854) CALCIUM (BEAKER) (test 9.6 mg/dL 8.4-10.2 nanw=469) EGFR (BEAKER) (test 97 mL/min/1.73 sq m ESTIMATED GFR IS NOT kktn=0108) ACCURATE CREATININE CLEARANCE IN PREDICTING GLOMERULAR FILTRATION RATE. ESTIMATED GFR IS NOT APPLICABLE FOR DIALYSIS PATIENTS. CBC W/PLT COUNT & AUTO [id number] 03:56:00 Test Item Value Reference Range Comments WHITE BLOOD CELL COUNT (BEAKER) (test bvnx=303) 5.2 K/ L 3.5-10.5 RED BLOOD CELL COUNT (BEAKER) (test qtzg=968) 3.13 M/ L 3.93-5.22 HEMOGLOBIN (BEAKER) (test dnaq=934) 9.5 GM/DL 11.2-15.7 HEMATOCRIT (BEAKER) (test lwin=958) 30.1 % 34.1-44.9 MEAN CORPUSCULAR VOLUME (BEAKER) (test uwps=996) 96.2 fL 79.4-94.8 MEAN CORPUSCULAR HEMOGLOBIN (BEAKER) (test 30.4 pg 25.6-32.2 wsud=912) MEAN CORPUSCULAR HEMOGLOBIN CONC (BEAKER) (test 31.6 GM/DL 32.2-35.5 unts=404) RED CELL DISTRIBUTION WIDTH (BEAKER) (test 14.3 % 11.7-14.4 tqon=103) PLATELET COUNT (BEAKER) (test zvze=990) 147 K/CU MM 150-450 MEAN PLATELET VOLUME (BEAKER) (test dldg=446) 13.1 fL 9.4-12.3 NUCLEATED RED BLOOD CELLS (BEAKER) (test 0 /100 WBC 0-0 ddlf=367) NEUTROPHILS RELATIVE PERCENT (BEAKER) (test 56 % ybfd=712) LYMPHOCYTES RELATIVE PERCENT (BEAKER) (test 28 % ujgi=700) MONOCYTES RELATIVE PERCENT (BEAKER) (test 11 % elpd=396) EOSINOPHILS RELATIVE PERCENT (BEAKER) (test 4 % lbnj=388) BASOPHILS RELATIVE PERCENT (BEAKER) (test 0 % askm=318) NEUTROPHILS ABSOLUTE COUNT (BEAKER) (test 2.93 K/ L 1.56-6.13 pfvx=784) LYMPHOCYTES ABSOLUTE COUNT (BEAKER) (test 1.47 K/ L 1.18-3.74 qywo=716) MONOCYTES ABSOLUTE COUNT (BEAKER) (test 0.59 K/ L 0.24-0.36 cvci=803) EOSINOPHILS ABSOLUTE COUNT (BEAKER) (test 0.18 K/ L 0.04-0.36 ievj=368) BASOPHILS ABSOLUTE COUNT (BEAKER) (test 0.01 K/ L 0.01-0.08 rgdn=191) IMMATURE GRANULOCYTES-RELATIVE PERCENT (BEAKER) 0 % 0-1 (test ywxn=8951) POCT-GLUCOSE [id number] 00:03:00 Test Item Value Reference Range Comments POC-GLUCOSE METER (BEAKER) 107 mg/dL 70-110 TESTED AT [address] (test erlv=3597) [facility] [address] POCT-GLUCOSE [id number] 17:48:00 Test Item Value Reference Range Comments POC-GLUCOSE METER (BEAKER) 100 mg/dL 70-110 TESTED AT [address] (test ksmb=7578) [facility] [address] POCT-GLUCOSE [id number] 11:41:00 Test Item Value Reference Range Comments POC-GLUCOSE METER (BEAKER) 102 mg/dL 70-110 TESTED AT [address] (test wlgc=2595) [place] [id number] POCT-GLUCOSE [id number] 05:29:00 Test Item Value Reference Range Comments POC-GLUCOSE METER (BEAKER) 111 mg/dL 70-110 TESTED AT [address] (test zvnk=3289) [place] [id number] POCT-GLUCOSE [id number] 00:03:00 Test Item Value Reference Range Comments POC-GLUCOSE METER (BEAKER) 100 mg/dL 70-110 TESTED AT [address] (test oqoc=4392) [place] [id number] POCT-GLUCOSE [id number] 17:48:00 Test Item Value Reference Range Comments POC-GLUCOSE METER (BEAKER) 108 mg/dL 70-110 TESTED AT [address] (test zrox=8526) [place] [id number] POCT-GLUCOSE [id number] 12:04:00 Test Item Value Reference Range Comments POC-GLUCOSE METER (BEAKER) 123 mg/dL 70-110 TESTED AT [address] (test csoq=4470) [place] [address] SPUTUM CULTURE + GRAM [id number] 10:50:00 Test Item Value Reference Range Comments CULTURE (BEAKER) (test ESCHERICHIA COLI 4+ Escherichia coli yzrx=7214) Amikacin (test code=1) Ampicillin + Sulbactam (test code=6) Aztreonam (test code=32) Cefepime (test code=51) Cefoxitin (test code=68) Ceftazidime (test code=27) Ceftriaxone (test code=52) Ertapenem (test code=38) Gentamicin (test code=18) Levofloxacin (test code=22) Meropenem (test code=34) Nitrofurantoin (test code=23) Piperacillin + Tazobactam (test code=29) Tetracycline (test code=2) Tobramycin (test code=25) Trimethoprim + Sulfamethoxazole (test code=47) GRAM STAIN RESULT (BEAKER) 3+ WBCs (test felw=7045) GRAM STAIN RESULT (BEAKER) 0-5 epithelial cells (test ipyp=030268) GRAM STAIN RESULT (BEAKER) 1+ gram negative rods (test cgad=612662) GRAM STAIN RESULT (BEAKER) 3+ gram positive rods (test clop=234573) GRAM STAIN RESULT (BEAKER) 2+ gram positive cocci (test dqla=878464) in pairs and clusters 4+ Normal respiratory jammie presentCBC W/PLT COUNT & AUTO [id number] 09:42:00 Test Item Value Reference Range Comments WHITE BLOOD CELL COUNT (BEAKER) (test wolu=518) 6.5 K/ L 3.5-10.5 RED BLOOD CELL COUNT (BEAKER) (test pntc=037) 2.87 M/ L 3.93-5.22 HEMOGLOBIN (BEAKER) (test nkmi=244) 8.8 GM/DL 11.2-15.7 HEMATOCRIT (BEAKER) (test bmiu=161) 27.8 % 34.1-44.9 MEAN CORPUSCULAR VOLUME (BEAKER) (test zuet=520) 96.9 fL 79.4-94.8 MEAN CORPUSCULAR HEMOGLOBIN (BEAKER) (test 30.7 pg 25.6-32.2 biui=836) MEAN CORPUSCULAR HEMOGLOBIN CONC (BEAKER) (test 31.7 GM/DL 32.2-35.5 kxrp=949) RED CELL DISTRIBUTION WIDTH (BEAKER) (test 15.0 % 11.7-14.4 keqy=996) PLATELET COUNT (BEAKER) (test cchq=987) 116 K/CU MM 150-450 MEAN PLATELET VOLUME (BEAKER) (test oiul=633) 13.5 fL 9.4-12.3 NUCLEATED RED BLOOD CELLS (BEAKER) (test 0 /100 WBC 0-0 zalj=673) (CELLAVISION MANUAL DIFF)2018-09-29 09:42:00 Test Item Value Reference Range Comments NEUTROPHILS - REL (CELLAVISION)(BEAKER) (test 77 % ihxo=2136) LYMPHOCYTES - REL (CELLAVISION)(BEAKER) (test 17 % yhjh=2984) MONOCYTES - REL (CELLAVISION)(BEAKER) (test 2 % ybuz=3335) EOSINOPHILS - REL (CELLAVISION)(BEAKER) (test 2 % ysqq=4229) BANDS - REL (CELLAVISION)(BEAKER) (test irqf=9376) 2 % 0-10 NEUTROPHILS - ABS (CELLAVISION)(BEAKER) (test 5.01 K/ul 1.56-6.13 pccc=9457) LYMPHOCYTES - ABS (CELLAVISION)(BEAKER) (test 1.11 K/ul 1.18-3.74 xnqr=8140) MONOCYTES - ABS (CELLAVISION)(BEAKER) (test 0.13 K/uL 0.24-0.36 empe=6740) EOSINOPHILS - ABS (CELLAVISION)(BEAKER) (test 0.13 K/uL 0.04-0.36 emiw=6883) BANDS - ABS (CELLAVISION)(BEAKER) (test wdls=2892) 0.13 K/uL 0.00-0.80 TOTAL COUNTED (BEAKER) (test bfgl=9904) 100 RBC MORPHOLOGY (BEAKER) (test yzzt=265) Normal WBC MORPHOLOGY (BEAKER) (test ftag=919) Normal PLT MORPHOLOGY (BEAKER) (test pnfj=408) Normal ARTIFACT (CELLAVISION)(BEAKER) (test qaet=0290) Present PLATELET CONCENTRATION (CELLAVISION)(BEAKER) (test Decreased vrsx=0111) Received comment: User comments: Slide comments:POCT-GLUCOSE [id number] 05: 40:00 Test Item Value Reference Range Comments POC-GLUCOSE METER (BEAKER) 129 mg/dL 70-110 TESTED AT [address] (test vgdd=0466) [facility] [address] [id number] 05:19:00 Test Item Value Reference Range Comments MAGNESIUM (BEAKER) (test vfho=843) 1.9 mg/dL 1.6-2.6 BASIC METABOLIC [id number] 05:19:00 Test Item Value Reference Range Comments SODIUM (BEAKER) (test 142 meq/L 136-145 lxxf=198) POTASSIUM (BEAKER) (test 4.3 meq/L 3.5-5.1 wpxt=678) CHLORIDE (BEAKER) (test 111 meq/L 98-107 yfdw=740) CO2 (BEAKER) (test 24 meq/L 22-29 ycjp=540) BLOOD UREA NITROGEN 45 mg/dL 7-21 ([facility]) (test pjsn=491) CREATININE (BEAKER) (test 0.81 mg/dL 0.57-1.25 wnxg=853) GLUCOSE RANDOM ([facility]) 106 mg/dL 70-105 (test mfzy=206) CALCIUM (AKER) (test 9.0 mg/dL 8.4-10.2 rknd=552) EGFR ([facility]) (test 82 mL/min/1.73 sq m ESTIMATED GFR IS NOT coot=6681) ACCURATE CREATININE CLEARANCE IN PREDICTING GLOMERULAR FILTRATION RATE. ESTIMATED GFR IS NOT APPLICABLE FOR DIALYSIS PATIENTS. POCT-GLUCOSE [id number] 18:02:00 Test Item Value Reference Range Comments POC-GLUCOSE METER ([facility]) 146 mg/dL 70-110 TESTED AT [address] (test jnvi=0944) [place] [address] URINE [id number] 14:15:00 Test Item Value Reference Range Comments CULTURE ([facility]) (test ESCHERICHIA COLI >100,000 col/mL qgvu=4805) Escherichia coli Amikacin (test code=1) Ampicillin + Sulbactam (test code=6) Aztreonam (test code=32) Cefepime (test code=51) Cefoxitin (test code=68) Ceftazidime (test code=27) Ceftriaxone (test code=52) Ertapenem (test code=38) Gentamicin (test code=18) Levofloxacin (test code=22) Meropenem (test code=34) Nitrofurantoin (test code=23) Piperacillin + Tazobactam (test code=29) Tetracycline (test code=2) Tobramycin (test code=25) Trimethoprim + Sulfamethoxazole (test code=47) POCT-GLUCOSE [id number] 11:50:00 Test Item Value Reference Range Comments POC-GLUCOSE METER ([facility]) 159 mg/dL 70-110 TESTED AT [address] (test taxg=6643) [place] [address] CBC W/PLT COUNT & AUTO [id number] 08:37:00 Test Item Value Reference Range Comments WHITE BLOOD CELL COUNT ([facility]) (test uwpx=103) 9.9 K/ L 3.5-10.5 RED BLOOD CELL COUNT (BEAKER) (test tblt=763) 3.28 M/ L 3.93-5.22 HEMOGLOBIN (BEAKER) (test rxih=735) 9.9 GM/DL 11.2-15.7 HEMATOCRIT (BEAKER) (test mxrg=576) 31.1 % 34.1-44.9 MEAN CORPUSCULAR VOLUME (BEAKER) (test qgea=893) 94.8 fL 79.4-94.8 MEAN CORPUSCULAR HEMOGLOBIN (BEAKER) (test 30.2 pg 25.6-32.2 ibhs=915) MEAN CORPUSCULAR HEMOGLOBIN CONC (BEAKER) (test 31.8 GM/DL 32.2-35.5 ycbc=076) RED CELL DISTRIBUTION WIDTH (BEAKER) (test 14.6 % 11.7-14.4 hakw=133) PLATELET COUNT (BEAKER) (test xjbp=531) 139 K/CU MM 150-450 MEAN PLATELET VOLUME (BEAKER) (test ophj=467) 13.4 fL 9.4-12.3 NUCLEATED RED BLOOD CELLS (BEAKER) (test 0 /100 WBC 0-0 vmkj=764) (CELLAVISION MANUAL DIFF)2018-09-28 08:37:00 Test Item Value Reference Range Comments NEUTROPHILS - REL (CELLAVISION)(BEAKER) (test 78 % xpxl=9313) LYMPHOCYTES - REL (CELLAVISION)(BEAKER) (test 9 % nppv=3865) BANDS - REL (CELLAVISION)(BEAKER) (test kxiw=5527) 12 % 0-10 ATYPICAL LYMPHOCYTES - REL (CELLAVISION)(BEAKER) 1 % 0-0 (test rvhi=9675) NEUTROPHILS - ABS (CELLAVISION)(BEAKER) (test 7.72 K/ul 1.56-6.13 jgqp=5110) LYMPHOCYTES - ABS (CELLAVISION)(BEAKER) (test 0.89 K/ul 1.18-3.74 jdlw=7594) BANDS - ABS (CELLAVISION)(BEAKER) (test puqo=6020) 1.19 K/uL 0.00-0.80 ATYPICAL LYMPHOCYTES - ABS (CELLAVISION)(BEAKER) 0.10 K/uL 0.00-0.00 (test pfqf=5630) TOTAL COUNTED (BEAKER) (test tgkc=2823) 100 WBC MORPHOLOGY (BEAKER) (test lwse=208) Normal PLT MORPHOLOGY (BEAKER) (test uxju=470) Normal POLYCHROMATOPHILLIC RBCS(BEAKER) (test xrbb=496) 1+ few ANISOCYTOSIS (BEAKER) (test ghhd=737) 1+ few ARTIFACT (CELLAVISION)(BEAKER) (test ehfm=6406) Present PLATELET CONCENTRATION (CELLAVISION)(BEAKER) (test Decreased ysqr=4428) Received comment: User comments: Slide comments:POCT-GLUCOSE [id number] 07: 26:00 Test Item Value Reference Range Comments POC-GLUCOSE METER (BEAKER) 157 mg/dL 70-110 TESTED AT [facility] [address] [facility] (test amoc=3757) [facility] [address] [id number] 03:50:00 Test Item Value Reference Range Comments MAGNESIUM (BEAKER) (test spnk=020) 1.9 mg/dL 1.6-2.6 BASIC METABOLIC [id number] 03:50:00 Test Item Value Reference Range Comments SODIUM (BEAKER) (test 138 meq/L 136-145 snvr=185) POTASSIUM (BEAKER) (test 4.3 meq/L 3.5-5.1 axxt=525) CHLORIDE (BEAKER) (test 104 meq/L 98-107 onsv=935) CO2 (BEAKER) (test 25 meq/L 22-29 xvgi=949) BLOOD UREA NITROGEN 74 mg/dL 7-21 (BEAKER) (test xsgz=847) CREATININE (BEAKER) (test 1.92 mg/dL 0.57-1.25 wvjo=394) GLUCOSE RANDOM (BEAKER) 138 mg/dL 70-105 (test umid=531) CALCIUM (BEAKER) (test 9.4 mg/dL 8.4-10.2 efso=918) EGFR (BEAKER) (test 30 mL/min/1.73 sq m ESTIMATED GFR IS NOT sjro=0503) ACCURATE CREATININE CLEARANCE IN PREDICTING GLOMERULAR FILTRATION RATE. ESTIMATED GFR IS NOT APPLICABLE FOR DIALYSIS PATIENTS. POCT-GLUCOSE [id number] 00:46:00 Test Item Value Reference Range Comments POC-GLUCOSE METER (BEAKER) 140 mg/dL 70-110 TESTED AT [facility] [address] [facility] (test fsew=8826) [facility] [address] POCT-GLUCOSE [id number] 17:10:00 Test Item Value Reference Range Comments POC-GLUCOSE METER (BEAKER) 125 mg/dL 70-110 TESTED AT [facility] [address] [facility] [address] (test raqx=2123) [facility] [address] C. DIFFICILE GDH [id number] 16:18:00 Test Item Value Reference Range Comments CDT TOXIN (test Negative Negative arez=[id number]) CDT GDH ANTIGEN (test Negative Negative No indication of Clostridium mdyk=[id number]) difficile infection and no colonization. Discontinue enteric isolation and therapy. Testing performed by [employer] Rapid Cassette Assay. For GDH, published sensitivity of the assay is 98.7% compared to cytotoxicity testing. For Toxin AB, published sensitivity is 87.8% and specificity 99.4% compared to cytotoxicity testing.Verification of kit performance was done by the [facility] Microbiology Lab prior to clinical use.URINALYSIS W/ REFLEX URINE [id number] 12:04:00 Test Item Value Reference Range Comments COLOR (BEAKER) (test rqat=391) Yellow CLARITY (BEAKER) (test cldv=097) Cloudy SPECIFIC GRAVITY UA (BEAKER) (test dlud=720) 1.014 1.001-1.035 PH UA (BEAKER) (test tbow=589) 7.5 5.0-8.0 PROTEIN UA (BEAKER) (test irbn=968) 200 mg/dL Negative GLUCOSE UA (BEAKER) (test uxbz=514) Negative Negative KETONES UA (BEAKER) (test cwni=478) Negative Negative BILIRUBIN UA (BEAKER) (test makq=358) Negative Negative BLOOD UA (BEAKER) (test sgqp=170) Moderate Negative NITRITE UA (BEAKER) (test glpn=801) Negative Negative LEUKOCYTE ESTERASE UA (BEAKER) (test wajb=464) Large Negative UROBILINOGEN UA (BEAKER) (test anft=432) 0.2 mg/dL 0.2-1.0 RBC UA (BEAKER) (test oexw=251) 37 /HPF WBC UA (BEAKER) (test idjv=913) 1325 /HPF BACTERIA (BEAKER) (test yfwu=708) Many SOURCE(BEAKER) (test vltx=0602) CREATININE, RANDOM [id number] 11:53:00 Test Item Value Reference Range Comments CREATININE URINE (BEAKER) (test yuzj=823) 69.4 mg/dL Reference Range: No NormalsSODIUM, RANDOM [id number] 11:53:00 Test Item Value Reference Range Comments SODIUM URINE (BEAKER) (test arld=386) 31 meq/L Reference Range: No NormalsPOCT-GLUCOSE [id number] 11:35:00 Test Item Value Reference Range Comments POC-GLUCOSE METER (BEAKER) 133 mg/dL 70-110 TESTED AT [facility] [address] [facility] (test ycsu=1178) [place] [address] CBC W/PLT COUNT & AUTO [id number] 11:12:00 Test Item Value Reference Range Comments WHITE BLOOD CELL COUNT (BEAKER) (test ccem=713) 14.0 K/ L 3.5-10.5 RED BLOOD CELL COUNT (BEAKER) (test ireq=333) 3.53 M/ L 3.93-5.22 HEMOGLOBIN (BEAKER) (test sukp=509) 10.8 GM/DL 11.2-15.7 HEMATOCRIT (BEAKER) (test wgqn=138) 34.0 % 34.1-44.9 MEAN CORPUSCULAR VOLUME (BEAKER) (test yjca=400) 96.3 fL 79.4-94.8 MEAN CORPUSCULAR HEMOGLOBIN (BEAKER) (test 30.6 pg 25.6-32.2 smeb=008) MEAN CORPUSCULAR HEMOGLOBIN CONC (BEAKER) (test 31.8 GM/DL 32.2-35.5 ynmo=082) RED CELL DISTRIBUTION WIDTH (BEAKER) (test 14.6 % 11.7-14.4 jgxo=063) PLATELET COUNT (BEAKER) (test inam=946) 208 K/CU MM 150-450 MEAN PLATELET VOLUME (BEAKER) (test lmln=705) 12.8 fL 9.4-12.3 NUCLEATED RED BLOOD CELLS (BEAKER) (test 0 /100 WBC 0-0 bvkv=754) (CELLAVISION MANUAL DIFF)2018-09-27 11:12:00 Test Item Value Reference Range Comments NEUTROPHILS - REL (CELLAVISION)(BEAKER) (test 86 % xgyb=2408) LYMPHOCYTES - REL (CELLAVISION)(BEAKER) (test 7 % ezja=9610) MONOCYTES - REL (CELLAVISION)(BEAKER) (test 1 % rylu=0978) BANDS - REL (CELLAVISION)(BEAKER) (test 6 % 0-10 qjnn=1238) NEUTROPHILS - ABS (CELLAVISION)(BEAKER) (test 12.04 K/ul 1.56-6.13 sgfl=3760) LYMPHOCYTES - ABS (CELLAVISION)(BEAKER) (test 0.98 K/ul 1.18-3.74 aotf=9291) MONOCYTES - ABS (CELLAVISION)(BEAKER) (test 0.14 K/uL 0.24-0.36 jawy=6552) BANDS - ABS (CELLAVISION)(BEAKER) (test 0.84 K/uL 0.00-0.80 wqau=6365) TOTAL COUNTED (BEAKER) (test toqd=7336) 100 WBC MORPHOLOGY (BEAKER) (test ndpm=107) Normal LARGE PLT(BEAKER) (test hrby=4802) Present POLYCHROMATOPHILLIC RBCS(BEAKER) (test imfj=537) 1+ few PLATELET CONCENTRATION (CELLAVISION)(BEAKER) Adequate (test bgan=6849) Received comment: User comments: Slide comments:BASIC METABOLIC [id number] 09:50:00 Test Item Value Reference Range Comments SODIUM (BEAKER) (test 137 meq/L 136-145 frdj=118) POTASSIUM (BEAKER) (test 4.5 meq/L 3.5-5.1 llyb=627) CHLORIDE (BEAKER) (test 103 meq/L 98-107 gjcs=680) CO2 (BEAKER) (test 23 meq/L 22-29 bpni=713) BLOOD UREA NITROGEN 64 mg/dL 7-21 (BEAKER) (test dtck=421) CREATININE (BEAKER) (test 1.69 mg/dL 0.57-1.25 gkcx=955) GLUCOSE RANDOM (BEAKER) 140 mg/dL 70-105 (test ngcp=750) CALCIUM (BEAKER) (test 9.7 mg/dL 8.4-10.2 eavk=581) EGFR (BEAKER) (test 35 mL/min/1.73 sq m ESTIMATED GFR IS NOT skjq=9709) ACCURATE CREATININE CLEARANCE IN PREDICTING GLOMERULAR FILTRATION RATE. ESTIMATED GFR IS NOT APPLICABLE FOR DIALYSIS PATIENTS. RAD, CHEST, 1 VIEW, NON [id number] 09:36:00Reason for exam:->fever on vent, eval for pnaShould this be performed at the bedside?->YesFINAL REPORT Chest, 1 view. History: Fever. Comparison: 09/18/2018. Discussion: Tracheostomy cannula identified in stable position. Right-sided PICC line identified in stable position. The trachea is midline. The lungs are symmetrically without evidence for focal consolidation, pneumothorax, or significant pleural effusion. The cardiomediastinal silhouette is stable in appearance. No acute osseous abnormality is identified. Partially visualized pigtail gastrostomy catheter identified within the left upper quadrant. IMPRESSION: No significant detrimental interval change from09/18/2018. Signed: Nacho Samson MDReport Verified Date/Time: 09/27/2018 09:36:17 Reading Location :[facility] Radiology Reading Room POCT-GLUCOSE [id number] 17:58:00 Test Item Value Reference Range Comments POC-GLUCOSE METER (BEAKER) 107 mg/dL 70-110 TESTED AT [address] (test qzcd=8390) [facility] [address] POCT-GLUCOSE [id number] 12:02:00 Test Item Value Reference Range Comments POC-GLUCOSE METER (BEAKER) 107 mg/dL 70-110 TESTED AT [address] (test lnsv=2824) [facility] [address] POCT-GLUCOSE [id number] 06:30:00 Test Item Value Reference Range Comments POC-GLUCOSE METER (BEAKER) 117 mg/dL 70-110 TESTED AT [address] (test bwyd=7449) [facility] [address] POCT-GLUCOSE [id number] 00:04:00 Test Item Value Reference Range Comments POC-GLUCOSE METER (BEAKER) 113 mg/dL 70-110 TESTED AT [address] (test foqn=2211) [facility] [address] POCT-GLUCOSE [id number] 17:43:00 Test Item Value Reference Range Comments POC-GLUCOSE METER (BEAKER) 106 mg/dL 70-110 TESTED AT [address] (test aglo=4311) [place] [address] POCT-GLUCOSE [id number] 11:24:00 Test Item Value Reference Range Comments POC-GLUCOSE METER (BEAKER) 119 mg/dL 70-110 TESTED AT [address] (test nvlo=5164) [place] [address] [id number] 06:53:00 Test Item Value Reference Range Comments MAGNESIUM (BEAKER) (test wglt=065) 1.7 mg/dL 1.6-2.6 BASIC METABOLIC [id number] 06:53:00 Test Item Value Reference Range Comments SODIUM (BEAKER) (test 141 meq/L 136-145 pbvq=811) POTASSIUM (BEAKER) (test 4.0 meq/L 3.5-5.1 nmty=476) CHLORIDE (BEAKER) (test 109 meq/L 98-107 umrn=972) CO2 (BEAKER) (test 26 meq/L 22-29 wskw=372) BLOOD UREA NITROGEN 34 mg/dL 7-21 (BEAKER) (test yohj=678) CREATININE (BEAKER) (test 0.88 mg/dL 0.57-1.25 xjlc=320) GLUCOSE RANDOM (BEAKER) 105 mg/dL 70-105 (test xgsv=321) CALCIUM (BEAKER) (test 9.1 mg/dL 8.4-10.2 ntfj=779) EGFR (BEAKER) (test 74 mL/min/1.73 sq m ESTIMATED GFR IS NOT kndv=7351) ACCURATE CREATININE CLEARANCE IN PREDICTING GLOMERULAR FILTRATION RATE. ESTIMATED GFR IS NOT APPLICABLE FOR DIALYSIS PATIENTS. POCT-GLUCOSE [id number] 06:31:00 Test Item Value Reference Range Comments POC-GLUCOSE METER (BEAKER) 117 mg/dL 70-110 TESTED AT [address] (test musg=0835) [place] [address] CBC W/PLT COUNT & AUTO [id number] 05:59:00 Test Item Value Reference Range Comments WHITE BLOOD CELL COUNT (BEAKER) (test uktu=383) 8.9 K/ L 3.5-10.5 RED BLOOD CELL COUNT (BEAKER) (test sbtz=474) 3.35 M/ L 3.93-5.22 HEMOGLOBIN (BEAKER) (test fgke=104) 10.0 GM/DL 11.2-15.7 HEMATOCRIT (BEAKER) (test pgkk=512) 32.3 % 34.1-44.9 MEAN CORPUSCULAR VOLUME (BEAKER) (test ybea=985) 96.4 fL 79.4-94.8 MEAN CORPUSCULAR HEMOGLOBIN (BEAKER) (test 29.9 pg 25.6-32.2 uhar=219) MEAN CORPUSCULAR HEMOGLOBIN CONC (BEAKER) (test 31.0 GM/DL 32.2-35.5 aklf=656) RED CELL DISTRIBUTION WIDTH (BEAKER) (test 14.1 % 11.7-14.4 spxs=956) PLATELET COUNT (BEAKER) (test kacz=217) 237 K/CU MM 150-450 MEAN PLATELET VOLUME (BEAKER) (test rshy=990) 12.9 fL 9.4-12.3 NUCLEATED RED BLOOD CELLS (BEAKER) (test 0 /100 WBC 0-0 uakn=570) NEUTROPHILS RELATIVE PERCENT (BEAKER) (test 69 % czfg=462) LYMPHOCYTES RELATIVE PERCENT (BEAKER) (test 19 % slsu=965) MONOCYTES RELATIVE PERCENT (BEAKER) (test 8 % kloi=221) EOSINOPHILS RELATIVE PERCENT (BEAKER) (test 4 % sqcz=873) BASOPHILS RELATIVE PERCENT (BEAKER) (test 0 % cecl=947) NEUTROPHILS ABSOLUTE COUNT (BEAKER) (test 6.13 K/ L 1.56-6.13 iwxj=282) LYMPHOCYTES ABSOLUTE COUNT (BEAKER) (test 1.67 K/ L 1.18-3.74 rmcb=934) MONOCYTES ABSOLUTE COUNT (BEAKER) (test 0.69 K/ L 0.24-0.36 vkmo=847) EOSINOPHILS ABSOLUTE COUNT (BEAKER) (test 0.35 K/ L 0.04-0.36 zhxy=738) BASOPHILS ABSOLUTE COUNT (BEAKER) (test 0.03 K/ L 0.01-0.08 tanu=647) IMMATURE GRANULOCYTES-RELATIVE PERCENT (BEAKER) 0 % 0-1 (test mqyz=3458) POCT-GLUCOSE [id number] 00:35:00 Test Item Value Reference Range Comments POC-GLUCOSE METER (BEAKER) 114 mg/dL 70-110 TESTED AT [address] (test mkcm=0813) [place] [id number] POCT-GLUCOSE [id number] 17:28:00 Test Item Value Reference Range Comments POC-GLUCOSE METER (BEAKER) 113 mg/dL 70-110 TESTED AT [address] (test hvyx=5651) [place] [id number] POCT-GLUCOSE [id number] 12:02:00 Test Item Value Reference Range Comments POC-GLUCOSE METER (BEAKER) 120 mg/dL 70-110 TESTED AT [address] (test wvln=4551) [place] [id number] POCT-GLUCOSE [id number] 05:58:00 Test Item Value Reference Range Comments POC-GLUCOSE METER (BEAKER) 97 mg/dL 70-110 TESTED AT [address] (test zbfe=0835) [place] [id number] POCT-GLUCOSE [id number] 00:35:00 Test Item Value Reference Range Comments POC-GLUCOSE METER (BEAKER) 99 mg/dL 70-110 TESTED AT [address] (test cgvs=6338) [place] [address] BLOOD [id number] 19:01:00 Test Item Value Reference Range Comments CULTURE (BEAKER) (test nunj=1424) No growth in 5 days POCT-GLUCOSE [id number] 18:06:00 Test Item Value Reference Range Comments POC-GLUCOSE METER (BEAKER) 103 mg/dL 70-110 TESTED AT [address] (test mlxp=1375) [place] [id number] POCT-GLUCOSE [id number] 12:19:00 Test Item Value Reference Range Comments POC-GLUCOSE METER (BEAKER) 107 mg/dL 70-110 TESTED AT [address] (test wcva=9087) [place] [id number] POCT-GLUCOSE [id number] 06:18:00 Test Item Value Reference Range Comments POC-GLUCOSE METER (BEAKER) 114 mg/dL 70-110 TESTED AT [address] (test kwxi=6686) [place] [address] [id number] 06:09:00 Test Item Value Reference Range Comments MAGNESIUM (BEAKER) (test udki=556) 1.8 mg/dL 1.6-2.6 BASIC METABOLIC [id number] 06:09:00 Test Item Value Reference Range Comments SODIUM (BEAKER) (test 142 meq/L 136-145 ibxq=363) POTASSIUM (BEAKER) (test 3.8 meq/L 3.5-5.1 kzxb=953) CHLORIDE (BEAKER) (test 111 meq/L 98-107 qpok=067) CO2 (BEAKER) (test 26 meq/L 22-29 frud=523) BLOOD UREA NITROGEN 26 mg/dL 7-21 (BEAKER) (test wvas=632) CREATININE (BEAKER) (test 0.76 mg/dL 0.57-1.25 tsdd=477) GLUCOSE RANDOM (BEAKER) 112 mg/dL 70-105 (test yaws=637) CALCIUM (BEAKER) (test 8.3 mg/dL 8.4-10.2 kato=922) EGFR (BEAKER) (test 88 mL/min/1.73 sq m ESTIMATED GFR IS NOT domg=9080) ACCURATE CREATININE CLEARANCE IN PREDICTING GLOMERULAR FILTRATION RATE. ESTIMATED GFR IS NOT APPLICABLE FOR DIALYSIS PATIENTS. CBC W/PLT COUNT & AUTO [id number] 05:41:00 Test Item Value Reference Range Comments WHITE BLOOD CELL COUNT (BEAKER) (test irfl=799) 7.2 K/ L 3.5-10.5 RED BLOOD CELL COUNT (BEAKER) (test ngnt=203) 3.13 M/ L 3.93-5.22 HEMOGLOBIN (BEAKER) (test xxzj=153) 9.5 GM/DL 11.2-15.7 HEMATOCRIT (BEAKER) (test uexh=925) 30.3 % 34.1-44.9 MEAN CORPUSCULAR VOLUME (BEAKER) (test siic=799) 96.8 fL 79.4-94.8 MEAN CORPUSCULAR HEMOGLOBIN (BEAKER) (test 30.4 pg 25.6-32.2 onfm=613) MEAN CORPUSCULAR HEMOGLOBIN CONC (BEAKER) (test 31.4 GM/DL 32.2-35.5 fjhl=214) RED CELL DISTRIBUTION WIDTH (BEAKER) (test 13.2 % 11.7-14.4 gnoo=205) PLATELET COUNT (BEAKER) (test rfbt=626) 221 K/CU MM 150-450 MEAN PLATELET VOLUME (BEAKER) (test rbmo=230) 12.8 fL 9.4-12.3 NUCLEATED RED BLOOD CELLS (BEAKER) (test 0 /100 WBC 0-0 xgbq=158) NEUTROPHILS RELATIVE PERCENT (BEAKER) (test 70 % eueh=002) LYMPHOCYTES RELATIVE PERCENT (BEAKER) (test 19 % ehjt=546) MONOCYTES RELATIVE PERCENT (BEAKER) (test 8 % utdz=639) EOSINOPHILS RELATIVE PERCENT (BEAKER) (test 2 % oflp=526) BASOPHILS RELATIVE PERCENT (BEAKER) (test 0 % minj=573) NEUTROPHILS ABSOLUTE COUNT (BEAKER) (test 4.98 K/ L 1.56-6.13 ltcg=372) LYMPHOCYTES ABSOLUTE COUNT (BEAKER) (test 1.38 K/ L 1.18-3.74 muke=682) MONOCYTES ABSOLUTE COUNT (BEAKER) (test 0.60 K/ L 0.24-0.36 rqfh=805) EOSINOPHILS ABSOLUTE COUNT (BEAKER) (test 0.15 K/ L 0.04-0.36 nkwv=840) BASOPHILS ABSOLUTE COUNT (BEAKER) (test 0.02 K/ L 0.01-0.08 tznc=545) IMMATURE GRANULOCYTES-RELATIVE PERCENT (BEAKER) 0 % 0-1 (test gjxo=4169) POCT-GLUCOSE [id number] 00:38:00 Test Item Value Reference Range Comments POC-GLUCOSE METER (BEAKER) 110 mg/dL 70-110 TESTED AT [address] (test isuo=2016) [place] [address] POCT-GLUCOSE [id number] 19:02:00 Test Item Value Reference Range Comments POC-GLUCOSE METER (BEAKER) 107 mg/dL 70-110 TESTED AT [address] (test nvca=9525) [place] [address] POCT-GLUCOSE [id number] 12:30:00 Test Item Value Reference Range Comments POC-GLUCOSE METER (BEAKER) 89 mg/dL 70-110 TESTED AT [address] (test ljyz=0422) [place] [address] POCT-GLUCOSE [id number] 08:27:00 Test Item Value Reference Range Comments POC-GLUCOSE METER (BEAKER) 106 mg/dL 70-110 TESTED AT [address] (test izcc=6213) [place] [address] [id number] 05:16:00 Test Item Value Reference Range Comments MAGNESIUM (BEAKER) (test vjos=398) 1.9 mg/dL 1.6-2.6 BASIC METABOLIC [id number] 05:16:00 Test Item Value Reference Range Comments SODIUM (BEAKER) (test 141 meq/L 136-145 gpcm=796) POTASSIUM (BEAKER) (test 3.8 meq/L 3.5-5.1 skyy=398) CHLORIDE (BEAKER) (test 107 meq/L 98-107 hikn=536) CO2 (BEAKER) (test 27 meq/L 22-29 zzfl=298) BLOOD UREA NITROGEN 26 mg/dL 7-21 (BEAKER) (test wbni=183) CREATININE (BEAKER) (test 0.85 mg/dL 0.57-1.25 weof=094) GLUCOSE RANDOM (BEAKER) 103 mg/dL 70-105 (test jtku=175) CALCIUM (BEAKER) (test 8.9 mg/dL 8.4-10.2 ynrh=853) EGFR (BEAKER) (test 78 mL/min/1.73 sq m ESTIMATED GFR IS NOT wwfr=1328) ACCURATE CREATININE CLEARANCE IN PREDICTING GLOMERULAR FILTRATION RATE. ESTIMATED GFR IS NOT APPLICABLE FOR DIALYSIS PATIENTS. CBC W/PLT COUNT & AUTO [id number] 05:00:00 Test Item Value Reference Range Comments WHITE BLOOD CELL COUNT (BEAKER) (test tukj=440) 8.8 K/ L 3.5-10.5 RED BLOOD CELL COUNT (BEAKER) (test tmmz=131) 3.08 M/ L 3.93-5.22 HEMOGLOBIN (BEAKER) (test ygja=447) 9.4 GM/DL 11.2-15.7 HEMATOCRIT (BEAKER) (test awjs=364) 29.3 % 34.1-44.9 MEAN CORPUSCULAR VOLUME (BEAKER) (test afth=252) 95.1 fL 79.4-94.8 MEAN CORPUSCULAR HEMOGLOBIN (BEAKER) (test 30.5 pg 25.6-32.2 oasv=544) MEAN CORPUSCULAR HEMOGLOBIN CONC (BEAKER) (test 32.1 GM/DL 32.2-35.5 bieh=692) RED CELL DISTRIBUTION WIDTH (BEAKER) (test 13.2 % 11.7-14.4 skft=026) PLATELET COUNT (BEAKER) (test glia=797) 220 K/CU MM 150-450 MEAN PLATELET VOLUME (BEAKER) (test pdtk=051) 12.9 fL 9.4-12.3 NUCLEATED RED BLOOD CELLS (BEAKER) (test 0 /100 WBC 0-0 gplp=897) NEUTROPHILS RELATIVE PERCENT (BEAKER) (test 72 % unux=939) LYMPHOCYTES RELATIVE PERCENT (BEAKER) (test 18 % frzl=495) MONOCYTES RELATIVE PERCENT (BEAKER) (test 6 % ckwd=720) EOSINOPHILS RELATIVE PERCENT (BEAKER) (test 3 % rdmr=679) BASOPHILS RELATIVE PERCENT (BEAKER) (test 0 % srmy=309) NEUTROPHILS ABSOLUTE COUNT (BEAKER) (test 6.32 K/ L 1.56-6.13 qsul=905) LYMPHOCYTES ABSOLUTE COUNT (BEAKER) (test 1.60 K/ L 1.18-3.74 abwp=040) MONOCYTES ABSOLUTE COUNT (BEAKER) (test 0.54 K/ L 0.24-0.36 nfxa=704) EOSINOPHILS ABSOLUTE COUNT (BEAKER) (test 0.26 K/ L 0.04-0.36 vucz=511) BASOPHILS ABSOLUTE COUNT (BEAKER) (test 0.02 K/ L 0.01-0.08 qdvf=462) IMMATURE GRANULOCYTES-RELATIVE PERCENT (BEAKER) 1 % 0-1 (test sumr=1260) POCT-GLUCOSE [id number] 00:05:00 Test Item Value Reference Range Comments POC-GLUCOSE METER (BEAKER) 113 mg/dL 70-110 TESTED AT [address] (test uvdj=4226) [place] [address] POCT-GLUCOSE [id number] 17:34:00 Test Item Value Reference Range Comments POC-GLUCOSE METER (BEAKER) 95 mg/dL 70-110 TESTED AT [address] (test yakd=1794) [place] [address] SPUTUM CULTURE + GRAM [id number] 15:37:00 Test Item Value Reference Range Comments CULTURE (BEAKER) (test dfaa=8714) See comment GRAM STAIN RESULT (BEAKER) (test 2+ WBCs usai=4474) GRAM STAIN RESULT (BEAKER) (test 0-5 epithelial cells pzuw=905562) GRAM STAIN RESULT (BEAKER) (test <1+ yeast cgyp=412634) 1+ Yeast<1+ normal respiratory jammie presentPOCT-GLUCOSE [id number] 11: 39:00 Test Item Value Reference Range Comments POC-GLUCOSE METER (BEAKER) 98 mg/dL 70-110 TESTED AT [place] [id number] [facility] (test oqvd=4650) [facility] [address] POCT-GLUCOSE [id number] 06:51:00 Test Item Value Reference Range Comments POC-GLUCOSE METER (BEAKER) 90 mg/dL 70-110 TESTED AT [address] (test dngd=0517) [facility] [address] [id number] 04:33:00 Test Item Value Reference Range Comments MAGNESIUM (BEAKER) (test yxjo=459) 2.1 mg/dL 1.6-2.6 BASIC METABOLIC [id number] 04:33:00 Test Item Value Reference Range Comments SODIUM (BEAKER) (test 143 meq/L 136-145 ptbn=486) POTASSIUM (BEAKER) (test 3.9 meq/L 3.5-5.1 tego=635) CHLORIDE (BEAKER) (test 111 meq/L 98-107 xgvw=067) CO2 (BEAKER) (test 27 meq/L 22-29 fnvw=118) BLOOD UREA NITROGEN 23 mg/dL 7-21 (BEAKER) (test nikx=014) CREATININE (BEAKER) (test 0.93 mg/dL 0.57-1.25 ljut=584) GLUCOSE RANDOM (BEAKER) 97 mg/dL 70-105 (test chen=460) CALCIUM (BEAKER) (test 9.0 mg/dL 8.4-10.2 quzg=818) EGFR (BEAKER) (test 70 mL/min/1.73 sq m ESTIMATED GFR IS NOT ynae=4315) ACCURATE CREATININE CLEARANCE IN PREDICTING GLOMERULAR FILTRATION RATE. ESTIMATED GFR IS NOT APPLICABLE FOR DIALYSIS PATIENTS. CBC W/PLT COUNT & AUTO [id number] 04:24:00 Test Item Value Reference Range Comments WHITE BLOOD CELL COUNT (BEAKER) (test ikgp=772) 9.7 K/ L 3.5-10.5 RED BLOOD CELL COUNT (BEAKER) (test rdqe=135) 3.15 M/ L 3.93-5.22 HEMOGLOBIN (BEAKER) (test krhl=157) 9.6 GM/DL 11.2-15.7 HEMATOCRIT (BEAKER) (test bseb=812) 30.3 % 34.1-44.9 MEAN CORPUSCULAR VOLUME (BEAKER) (test ktbe=171) 96.2 fL 79.4-94.8 MEAN CORPUSCULAR HEMOGLOBIN (BEAKER) (test 30.5 pg 25.6-32.2 fzin=581) MEAN CORPUSCULAR HEMOGLOBIN CONC (BEAKER) (test 31.7 GM/DL 32.2-35.5 sfal=743) RED CELL DISTRIBUTION WIDTH (BEAKER) (test 13.3 % 11.7-14.4 cczb=418) PLATELET COUNT (BEAKER) (test kixh=954) 214 K/CU MM 150-450 MEAN PLATELET VOLUME (BEAKER) (test xlkf=114) 12.8 fL 9.4-12.3 NUCLEATED RED BLOOD CELLS (BEAKER) (test 0 /100 WBC 0-0 mler=980) NEUTROPHILS RELATIVE PERCENT (BEAKER) (test 72 % fjnq=870) LYMPHOCYTES RELATIVE PERCENT (BEAKER) (test 19 % mhzd=860) MONOCYTES RELATIVE PERCENT (BEAKER) (test 6 % hlxj=132) EOSINOPHILS RELATIVE PERCENT (BEAKER) (test 3 % qwud=218) BASOPHILS RELATIVE PERCENT (BEAKER) (test 0 % uaph=716) NEUTROPHILS ABSOLUTE COUNT (BEAKER) (test 7.04 K/ L 1.56-6.13 vtdh=969) LYMPHOCYTES ABSOLUTE COUNT (BEAKER) (test 1.81 K/ L 1.18-3.74 xfda=860) MONOCYTES ABSOLUTE COUNT (BEAKER) (test 0.57 K/ L 0.24-0.36 wang=699) EOSINOPHILS ABSOLUTE COUNT (BEAKER) (test 0.26 K/ L 0.04-0.36 nccl=844) BASOPHILS ABSOLUTE COUNT (BEAKER) (test 0.01 K/ L 0.01-0.08 cbbj=038) IMMATURE GRANULOCYTES-RELATIVE PERCENT (BEAKER) 0 % 0-1 (test yijb=5644) POCT-GLUCOSE [id number] 00:20:00 Test Item Value Reference Range Comments POC-GLUCOSE METER (BEAKER) 91 mg/dL 70-110 TESTED AT [place] [id number] [facility] (test ugfj=0002) [facility] [address] [id number] 17:58:00 Test Item Value Reference Range Comments MAGNESIUM (BEAKER) (test ljou=155) 2.3 mg/dL 1.6-2.6 ANG, INSERTION G TUBE, W/ [id number] 16:37:00Reason for exam:->insert PEG tubeFINAL REPORT History: Stroke. Procedure: Following informed written consent,the patient's anterior abdominal wall was prepped and draped in the usual sterile manner. The patient was given one mg of IV glucagon. 2% lidocaine was used locally for anesthesia. No conscious sedation was administered. Vitals signs were monitored and remained stable. Conscious sedation and continuous patient monitoring were performed by the attending radiologist and a registered nurse for approximately 20 minutes during the procedure. The stomach was insufflated through the patient's existing nasogastric feeding tube. Under fluoroscopic guidance and using a 19 gauge singlewall needle, direct percutaneous access to the gastric body was obtained. Small contrast injection was performed to confirm position. An Amplatz wire was placed through the needle and coiled in the gastric fundus. The tract was dilated and a 14 [place] percutaneous gastrostomy tube was placed over the wire and into position under fluoroscopic guidance. Repeat contrast injection was performed to confirm position. The catheterwas secured to the skin using 2-0 silk suture. There were no immediate complications. Findings: Spotfilms of the stomach during the procedure demonstrate a 19 gauge needle and subsequently the catheter within the gastric lumen. Contrast is noted within the gastric fundus. Impression: 1. Successful uncomplicated placement of a 14 [place] percutaneous gastrostomy tube. Fluoroscopy time: 2.8 minsEstimated dose reported as (Ka,r): 66 mGy Signed: Pj Gunter MDReport Verified Date/ Time: 09/20/2018 16:37:40 Reading Location: [place] [address] Angio Body Reading Room BLOOD GAS, [id number] 15:28:00 Test Item Value Reference Range Comments PH ARTERIAL (BEAKER) (test npit=586) 7.49 7.35-7.45 PCO2 ARTERIAL (BEAKER) (test honz=943) 33 mmHg 35-45 PO2 ARTERIAL (BEAKER) (test aifk=011) 154 mmHg 80-90 O2 SATURATION ARTERIAL (BEAKER) (test edjx=793) 99.1 % 96.0-97.0 HCO3 ARTERIAL (BEAKER) (test wdcx=856) 25 mmol/L 21-29 BASE EXCESS ARTERIAL (BEAKER) (test etfa=130) 2.0 mmol/L -2.0-3.0 PATIENT TEMPERATURE (BEAKER) (test pqgj=0524) 38.1 C FIO2 (BEAKER) (test cbvj=6170) 30.0 % POCT-GLUCOSE [id number] 12:00:00 Test Item Value Reference Range Comments POC-GLUCOSE METER (BEAKER) 87 mg/dL 70-110 TESTED AT [facility] [address] [facility] (test bocf=4293) [facility] [address] BLOOD [id number] 11:01:00 Test Item Value Reference Range Comments CULTURE (BEAKER) (test gejk=5169) No growth in 5 days BLOOD [id number] 11:01:00 Test Item Value Reference Range Comments CULTURE (BEAKER) (test bhln=5150) No growth in 5 days BASIC METABOLIC [id number] 05:26:00 Test Item Value Reference Range Comments SODIUM (BEAKER) (test 143 meq/L 136-145 eolw=759) POTASSIUM (BEAKER) (test 3.8 meq/L 3.5-5.1 bkks=802) CHLORIDE (BEAKER) (test 108 meq/L 98-107 dtup=484) CO2 (BEAKER) (test 26 meq/L 22-29 hegt=236) BLOOD UREA NITROGEN 27 mg/dL 7-21 (BEAKER) (test knxi=638) CREATININE (BEAKER) (test 0.99 mg/dL 0.57-1.25 vvzh=635) GLUCOSE RANDOM (BEAKER) 108 mg/dL 70-105 (test wkox=572) CALCIUM (BEAKER) (test 9.0 mg/dL 8.4-10.2 xoty=136) EGFR (BEAKER) (test 65 mL/min/1.73 sq m ESTIMATED GFR IS NOT lydx=8812) ACCURATE CREATININE CLEARANCE IN PREDICTING GLOMERULAR FILTRATION RATE. ESTIMATED GFR IS NOT APPLICABLE FOR DIALYSIS PATIENTS. [id number] 03:56:00 Test Item Value Reference Range Comments MAGNESIUM (BEAKER) (test oang=487) 1.8 mg/dL 1.6-2.6 CBC W/PLT COUNT & AUTO [id number] 03:44:00 Test Item Value Reference Range Comments WHITE BLOOD CELL COUNT (BEAKER) (test bltp=939) 9.6 K/ L 3.5-10.5 RED BLOOD CELL COUNT (BEAKER) (test nrzc=197) 3.09 M/ L 3.93-5.22 HEMOGLOBIN (BEAKER) (test dpeg=424) 9.4 GM/DL 11.2-15.7 HEMATOCRIT (BEAKER) (test atkd=871) 29.6 % 34.1-44.9 MEAN CORPUSCULAR VOLUME (BEAKER) (test oqmn=876) 95.8 fL 79.4-94.8 MEAN CORPUSCULAR HEMOGLOBIN (BEAKER) (test 30.4 pg 25.6-32.2 vtaa=523) MEAN CORPUSCULAR HEMOGLOBIN CONC (BEAKER) (test 31.8 GM/DL 32.2-35.5 nzzy=288) RED CELL DISTRIBUTION WIDTH (BEAKER) (test 13.5 % 11.7-14.4 okra=130) PLATELET COUNT (BEAKER) (test imzq=341) 219 K/CU MM 150-450 MEAN PLATELET VOLUME (BEAKER) (test ucgm=658) 12.4 fL 9.4-12.3 NUCLEATED RED BLOOD CELLS (BEAKER) (test 0 /100 WBC 0-0 avfa=668) NEUTROPHILS RELATIVE PERCENT (BEAKER) (test 68 % mpdk=394) LYMPHOCYTES RELATIVE PERCENT (BEAKER) (test 23 % mlmt=653) MONOCYTES RELATIVE PERCENT (BEAKER) (test 6 % vntx=180) EOSINOPHILS RELATIVE PERCENT (BEAKER) (test 2 % ltbn=344) BASOPHILS RELATIVE PERCENT (BEAKER) (test 0 % uqok=631) NEUTROPHILS ABSOLUTE COUNT (BEAKER) (test 6.48 K/ L 1.56-6.13 vcab=306) LYMPHOCYTES ABSOLUTE COUNT (BEAKER) (test 2.22 K/ L 1.18-3.74 vynw=766) MONOCYTES ABSOLUTE COUNT (BEAKER) (test 0.58 K/ L 0.24-0.36 mtjn=825) EOSINOPHILS ABSOLUTE COUNT (BEAKER) (test 0.22 K/ L 0.04-0.36 zlqj=962) BASOPHILS ABSOLUTE COUNT (BEAKER) (test 0.02 K/ L 0.01-0.08 jcig=172) IMMATURE GRANULOCYTES-RELATIVE PERCENT (BEAKER) 0 % 0-1 (test ixrj=9179) POCT-GLUCOSE [id number] 00:49:00 Test Item Value Reference Range Comments POC-GLUCOSE METER (BEAKER) 78 mg/dL 70-110 TESTED AT [address] (test hqvo=6838) [place] [address] POCT-GLUCOSE [id number] 17:42:00 Test Item Value Reference Range Comments POC-GLUCOSE METER (BEAKER) 106 mg/dL 70-110 TESTED AT [address] (test xbno=4825) [place] [address] POCT-GLUCOSE [id number] 12:47:00 Test Item Value Reference Range Comments POC-GLUCOSE METER (BEAKER) 84 mg/dL 70-110 TESTED AT [address] (test hxec=7730) [place] [address] PROTHROMBIN [id number] 10:31:00 Test Item Value Reference Range Comments PROTIME (BEAKER) (test xcwk=809) 14.8 seconds 11.7-14.7 INR (BEAKER) (test qdmo=775) 1.2 <=5.9 RECOMMENDED COUMADIN/WARFARIN INR THERAPY RANGESSTANDARD DOSE: 2.0 - 3.0 Includes: PROPHYLAXIS forvenous thrombosis, systemic embolization; TREATMENT for venous thrombosis and/or pulmonary embolus.HIGH RISK: Target INR is 2.5-3.5 for patients with mechanical heart valves.POCT-GLUCOSE [id number] 08:03:00 Test Item Value Reference Range Comments POC-GLUCOSE METER (BEAKER) 93 mg/dL 70-110 TESTED AT [address] (test ommn=7317) [place] [id number] BASIC METABOLIC [id number] 03:53:00 Test Item Value Reference Range Comments SODIUM (BEAKER) (test 149 meq/L 136-145 zumq=405) POTASSIUM (BEAKER) (test 3.7 meq/L 3.5-5.1 mztx=886) CHLORIDE (BEAKER) (test 118 meq/L 98-107 kexr=745) CO2 (BEAKER) (test 26 meq/L 22-29 utjb=341) BLOOD UREA NITROGEN 32 mg/dL 7-21 (BEAKER) (test pvjw=560) CREATININE (BEAKER) (test 1.02 mg/dL 0.57-1.25 useq=152) GLUCOSE RANDOM (BEAKER) 86 mg/dL 70-105 (test xslg=903) CALCIUM (BEAKER) (test 9.0 mg/dL 8.4-10.2 bysj=929) EGFR (BEAKER) (test 63 mL/min/1.73 sq m ESTIMATED GFR IS NOT mesg=3078) ACCURATE CREATININE CLEARANCE IN PREDICTING GLOMERULAR FILTRATION RATE. ESTIMATED GFR IS NOT APPLICABLE FOR DIALYSIS PATIENTS. CBC W/PLT COUNT & AUTO [id number] 03:43:00 Test Item Value Reference Range Comments WHITE BLOOD CELL COUNT (BEAKER) (test hsbv=480) 8.8 K/ L 3.5-10.5 RED BLOOD CELL COUNT (BEAKER) (test njtm=138) 3.03 M/ L 3.93-5.22 HEMOGLOBIN (BEAKER) (test sqjk=913) 9.1 GM/DL 11.2-15.7 HEMATOCRIT (BEAKER) (test ubvz=481) 30.3 % 34.1-44.9 MEAN CORPUSCULAR VOLUME (BEAKER) (test vwdt=495) 100.0 fL 79.4-94.8 MEAN CORPUSCULAR HEMOGLOBIN (BEAKER) (test 30.0 pg 25.6-32.2 gilq=352) MEAN CORPUSCULAR HEMOGLOBIN CONC (BEAKER) (test 30.0 GM/DL 32.2-35.5 lmin=838) RED CELL DISTRIBUTION WIDTH (BEAKER) (test 14.0 % 11.7-14.4 aedo=815) PLATELET COUNT (BEAKER) (test jnso=104) 228 K/CU MM 150-450 MEAN PLATELET VOLUME (BEAKER) (test wili=582) 12.3 fL 9.4-12.3 NUCLEATED RED BLOOD CELLS (BEAKER) (test 0 /100 WBC 0-0 phkq=863) NEUTROPHILS RELATIVE PERCENT (BEAKER) (test 62 % diwx=811) LYMPHOCYTES RELATIVE PERCENT (BEAKER) (test 28 % npnh=134) MONOCYTES RELATIVE PERCENT (BEAKER) (test 7 % tpdw=900) EOSINOPHILS RELATIVE PERCENT (BEAKER) (test 3 % ztcd=918) BASOPHILS RELATIVE PERCENT (BEAKER) (test 0 % cqvy=508) NEUTROPHILS ABSOLUTE COUNT (BEAKER) (test 5.49 K/ L 1.56-6.13 hyjj=796) LYMPHOCYTES ABSOLUTE COUNT (BEAKER) (test 2.43 K/ L 1.18-3.74 seeh=623) MONOCYTES ABSOLUTE COUNT (BEAKER) (test 0.61 K/ L 0.24-0.36 gmxt=533) EOSINOPHILS ABSOLUTE COUNT (BEAKER) (test 0.26 K/ L 0.04-0.36 tguj=160) BASOPHILS ABSOLUTE COUNT (BEAKER) (test 0.02 K/ L 0.01-0.08 lbis=705) IMMATURE GRANULOCYTES-RELATIVE PERCENT (BEAKER) 0 % 0-1 (test klqd=0271) POCT-GLUCOSE [id number] 00:07:00 Test Item Value Reference Range Comments POC-GLUCOSE METER (BEAKER) 116 mg/dL 70-110 TESTED AT [address] (test ftpg=6753) [place] [id number] POCT-GLUCOSE [id number] 18:14:00 Test Item Value Reference Range Comments POC-GLUCOSE METER (BEAKER) 116 mg/dL 70-110 TESTED AT [address] (test ktkg=3314) [facility] [address] SODIUM, RANDOM [id number] 17:54:00 Test Item Value Reference Range Comments SODIUM URINE (BEAKER) (test qzqi=255) 88 meq/L Reference Range: No NormalsOSMOLALITY, [id number] 16:41:00 Test Item Value Reference Range Comments OSMOLALITY, SERUM (BEAKER) (test pzus=249) 328 mOsm/kg 275-295 [id number] 16:32:00 Test Item Value Reference Range Comments SODIUM (BEAKER) (test ldwz=902) 151 meq/L 136-145 POTASSIUM (BEAKER) (test hdsj=859) 3.6 meq/L 3.5-5.1 CHLORIDE (BEAKER) (test rtkq=207) 119 meq/L 98-107 CO2 (BEAKER) (test jcfd=540) 26 meq/L 22-29 OSMOLALITY, [id number] 16:32:00 Test Item Value Reference Range Comments OSMOLALITY URINE (BEAKER) (test qlgk=982) 573 mOsm/kg 40-1,400 POCT-GLUCOSE [id number] 13:08:00 Test Item Value Reference Range Comments POC-GLUCOSE METER (BEAKER) 118 mg/dL 70-110 TESTED AT [facility] [address] [facility] (test viog=9623[facility] [address] URINALYSIS W/ REFLEX URINE [id number] 12:51:00 Test Item Value Reference Range Comments COLOR (BEAKER) (test amkl=959) Yellow CLARITY (BEAKER) (test tgnz=901) Clear SPECIFIC GRAVITY UA (BEAKER) (test omsq=607) 1.014 1.001-1.035 PH UA (BEAKER) (test mhjf=838) 5.5 5.0-8.0 PROTEIN UA (BEAKER) (test ools=621) 10 mg/dL Negative GLUCOSE UA (BEAKER) (test rcls=321) Negative Negative KETONES UA (BEAKER) (test vacw=037) Negative Negative BILIRUBIN UA (BEAKER) (test nhae=660) Negative Negative BLOOD UA (BEAKER) (test ukwa=752) Small Negative NITRITE UA (BEAKER) (test trfg=021) Negative Negative LEUKOCYTE ESTERASE UA (BEAKER) (test tmqb=971) Small Negative UROBILINOGEN UA (BEAKER) (test fsdk=331) 0.2 mg/dL 0.2-1.0 RBC UA (BEAKER) (test upxm=229) 13 /HPF WBC UA (BEAKER) (test oopm=317) 20 /HPF MUCUS (BEAKER) (test zpne=2265) Rare SQUAMOUS EPITHELIAL (BEAKER) (test okhc=293) < /HPF SOURCE(BEAKER) (test vdhe=7330) SPUTUM CULTURE + GRAM [id number] 10:06:00 Test Item Value Reference Range Comments CULTURE (BEAKER) (test gacy=7004) See comment GRAM STAIN RESULT (BEAKER) (test 1+ WBCs ywrp=9550) GRAM STAIN RESULT (BEAKER) (test 0-5 epithelial cells ipnd=195733) GRAM STAIN RESULT (BEAKER) (test No organisms seen xpfj=003219) 1+ yeast1+ Normal respiratory jammie presentRAD, CHEST, 1 VIEW, NON [id number] 10:01:00Reason for exam:->assess lung fieldsShould this be performed at the bedside?->YesFINAL REPORT AP chest HISTORY: Assessed lung oden. COMPARISON: 09/17/2018. IMPRESSION: Tracheostomy tube. Cardiomegaly. Hypoinflation. Mild vascular congestion. No large effusion. No pneumothorax. Signed: Luana Dumont MDReport Verified Date/Time: 09/18/2018 10:01:34 ReadingLocation: [facility] B1 C013X Ortho Consult Reading Room POCT -GLUCOSE [id number] 08:38:00 Test Item Value Reference Range Comments POC-GLUCOSE METER (BEAKER) 100 mg/dL 70-110 TESTED AT [facility] [address] [facility] (test umor=2285) [facility] [address] BASIC METABOLIC [id number] 03:45:00 Test Item Value Reference Range Comments SODIUM (BEAKER) (test 155 meq/L 136-145 xvzp=394) POTASSIUM (BEAKER) (test 3.8 meq/L 3.5-5.1 pqgo=157) CHLORIDE (BEAKER) (test 121 meq/L 98-107 qcar=061) CO2 (BEAKER) (test 28 meq/L 22-29 dbyq=521) BLOOD UREA NITROGEN 36 mg/dL 7-21 (BEAKER) (test mstm=688) CREATININE (BEAKER) (test 1.26 mg/dL 0.57-1.25 erng=313) GLUCOSE RANDOM (BEAKER) 114 mg/dL 70-105 (test qdsp=680) CALCIUM (BEAKER) (test 9.4 mg/dL 8.4-10.2 arag=656) EGFR (BEAKER) (test 49 mL/min/1.73 sq m ESTIMATED GFR IS NOT sbfq=9020) ACCURATE CREATININE CLEARANCE IN PREDICTING GLOMERULAR FILTRATION RATE. ESTIMATED GFR IS NOT APPLICABLE FOR DIALYSIS PATIENTS. Check Serum Phosphorus level 4 hours after IV phosphorus replacement or 8 hours after PO replacementcompleted.[id number] 03:41:00 Test Item Value Reference Range Comments PHOSPHORUS (BEAKER) (test fcue=189) 4.0 mg/dL 2.3-4.7 Check Serum Phosphorus level 4 hours after IV phosphorus replacement or 8 hours after PO replacementcompleted.[id number] 03:41:00 Test Item Value Reference Range Comments MAGNESIUM (BEAKER) (test scbq=480) 2.3 mg/dL 1.6-2.6 Check Serum Phosphorus level 4 hours after IV phosphorus replacement or 8 hours after PO replacementcompleted.BLOOD GAS, [id number] 03:24:00 Test Item Value Reference Range Comments PH ARTERIAL (BEAKER) (test kqkv=298) 7.43 7.35-7.45 PCO2 ARTERIAL (BEAKER) (test wtko=602) 41 mmHg 35-45 PO2 ARTERIAL (BEAKER) (test ypxm=842) 295 mmHg 80-90 O2 SATURATION ARTERIAL (BEAKER) (test cuen=816) 99.7 % 96.0-97.0 HCO3 ARTERIAL (BEAKER) (test kyci=382) 26 mmol/L 21-29 BASE EXCESS ARTERIAL (BEAKER) (test bbpr=364) 1.9 mmol/L -2.0-3.0 PATIENT TEMPERATURE (BEAKER) (test hcpm=7844) 38.0 C FIO2 (BEAKER) (test rhaa=7228) 60.0 % CBC W/PLT COUNT & AUTO [id number] 03:24:00 Test Item Value Reference Range Comments WHITE BLOOD CELL COUNT (BEAKER) (test vwdg=351) 8.6 K/ L 3.5-10.5 RED BLOOD CELL COUNT (BEAKER) (test vmxt=505) 3.26 M/ L 3.93-5.22 HEMOGLOBIN (BEAKER) (test yqch=324) 9.9 GM/DL 11.2-15.7 HEMATOCRIT (BEAKER) (test dhzk=607) 32.3 % 34.1-44.9 MEAN CORPUSCULAR VOLUME (BEAKER) (test xita=090) 99.1 fL 79.4-94.8 MEAN CORPUSCULAR HEMOGLOBIN (BEAKER) (test 30.4 pg 25.6-32.2 snbw=328) MEAN CORPUSCULAR HEMOGLOBIN CONC (BEAKER) (test 30.7 GM/DL 32.2-35.5 sxgl=858) RED CELL DISTRIBUTION WIDTH (BEAKER) (test 14.5 % 11.7-14.4 wiwq=112) PLATELET COUNT (BEAKER) (test etos=606) 242 K/CU MM 150-450 MEAN PLATELET VOLUME (BEAKER) (test fpca=782) 11.8 fL 9.4-12.3 NUCLEATED RED BLOOD CELLS (BEAKER) (test 0 /100 WBC 0-0 afta=904) NEUTROPHILS RELATIVE PERCENT (BEAKER) (test 69 % ypyy=358) LYMPHOCYTES RELATIVE PERCENT (BEAKER) (test 20 % ubxe=711) MONOCYTES RELATIVE PERCENT (BEAKER) (test 8 % pqvs=550) EOSINOPHILS RELATIVE PERCENT (BEAKER) (test 2 % uuyz=180) BASOPHILS RELATIVE PERCENT (BEAKER) (test 0 % japi=218) NEUTROPHILS ABSOLUTE COUNT (BEAKER) (test 5.93 K/ L 1.56-6.13 lned=332) LYMPHOCYTES ABSOLUTE COUNT (BEAKER) (test 1.72 K/ L 1.18-3.74 yieq=872) MONOCYTES ABSOLUTE COUNT (BEAKER) (test 0.69 K/ L 0.24-0.36 wwod=835) EOSINOPHILS ABSOLUTE COUNT (BEAKER) (test 0.16 K/ L 0.04-0.36 zvku=045) BASOPHILS ABSOLUTE COUNT (BEAKER) (test 0.02 K/ L 0.01-0.08 szjy=428) IMMATURE GRANULOCYTES-RELATIVE PERCENT (BEAKER) 1 % 0-1 (test ioge=1420) POCT-GLUCOSE [id number] 00:58:00 Test Item Value Reference Range Comments POC-GLUCOSE METER (BEAKER) 108 mg/dL 70-110 TESTED AT [address] (test devo=0694) [place] [address] POCT-GLUCOSE [id number] 00:15:00 Test Item Value Reference Range Comments POC-GLUCOSE METER (BEAKER) 96 mg/dL 70-110 TESTED AT [address] (test vefk=3436) [place] [id number] BLOOD [id number] 15:17:00 Test Item Value Reference Range Comments CULTURE (BEAKER) From Anaerobic Bottle Only (test znqd=9065) Coagulase negative Staphylococcus GRAM STAIN RESULT From anaerobic bottle (BEAKER) (test only: gram positive ujtv=9057) cocci in clusters POCT-GLUCOSE [id number] 14:43:00 Test Item Value Reference Range Comments POC-GLUCOSE METER (BEAKER) 94 mg/dL 70-110 TESTED AT [facility] [address] (test woxs=9102) [facility] [address] RAD, ABDOMEN/KUB, 1 VIEW [id number] 14:29:00Reason for exam:->corpak verificationShould this be performed at the bedside?->YesFINAL REPORT AP abdomen HISTORY: Feeding tube COMPARISON: 09/14/2018 IMPRESSION:Feeding tube looped in stomach with tip at fundus. Bowel gas pattern grossly nonobstructive. Signed: Luana Dumont Verified Date/Time: 14:29:05 Reading Location: [address] Ortho Consult Reading Room RAD , ABDOMEN/KUB, 1 VIEW [id number] 14:22:00Reason for exam:->corpak verification after repositioningShould this be performed at the bedside?-> YesFINAL REPORT AP abdomen HISTORY: Feeding tube COMPARISON: 09/17/2018 IMPRESSION:Feeding tube present. Tip in descending duodenum. Bowel gas pattern grossly nonobstructive. Signed:Luana Dumont Verified Date/Time: 09/17/2018 14:22:48 Reading Location: [address] Ortho Consult Reading Room URINE [id number] 08:42:00 Test Item Value Reference Range Comments CULTURE (BEAKER) (test roaq=1658) No growth RAD, CHEST, 1 VIEW, NON [id number] 07:43:00Reason for exam:->assess lung fieldsShould this be performed at the bedside?->YesFINAL REPORT Chest, one view. HISTORY: assess lung oden COMPARISON: Radiograph from 09/16/2018 IMPRESSION: Unchanged positioning of a tracheostomy tube, right PICC, and partially visualized feeding tube. New small left pleural effusion. Left basilar atelectasis increased. Thepatient is rotated which makes evaluation suboptimal. However, there is likely interstitial edema. The cardiac silhouette is unchanged. No acute bony abnormality. Signed: Kel Moralez MDReport Verified Date/Time: 09/17/2018 07:43:11 Reading Location: [facility] B1 C013Y CT Body Reading Room 07 :43 AMPOCT-GLUCOSE [id number] 05:53:00 Test Item Value Reference Range Comments POC-GLUCOSE METER (BEAKER) 91 mg/dL 70-110 TESTED AT [facility] [address] [facility] (test ylcr=2275) [facility] [address] BLOOD GAS, [id number] 05:21:00 Test Item Value Reference Range Comments PH ARTERIAL (BEAKER) (test emgc=113) 7.46 7.35-7.45 PCO2 ARTERIAL (BEAKER) (test ykeg=251) 41 mmHg 35-45 PO2 ARTERIAL (BEAKER) (test zwsk=403) 82 mmHg 80-90 O2 SATURATION ARTERIAL (BEAKER) (test mvjh=254) 96.1 % 96.0-97.0 HCO3 ARTERIAL (BEAKER) (test ubha=088) 28 mmol/L 21-29 BASE EXCESS ARTERIAL (BEAKER) (test jpdd=207) 4.6 mmol/L -2.0-3.0 PATIENT TEMPERATURE (BEAKER) (test teyk=8978) 38.0 C FIO2 (BEAKER) (test brrg=2179) 40.0 % BASIC METABOLIC [id number] 04:58:00 Test Item Value Reference Range Comments SODIUM (BEAKER) (test 158 meq/L 136-145 pjry=071) POTASSIUM (BEAKER) (test 3.7 meq/L 3.5-5.1 itsm=012) CHLORIDE (BEAKER) (test 123 meq/L 98-107 ynmr=039) CO2 (BEAKER) (test 27 meq/L 22-29 tdyg=532) BLOOD UREA NITROGEN 32 mg/dL 7-21 (BEAKER) (test skyh=835) CREATININE (BEAKER) (test 1.22 mg/dL 0.57-1.25 ybzc=062) GLUCOSE RANDOM (BEAKER) 95 mg/dL 70-105 (test oscb=710) CALCIUM (BEAKER) (test 9.6 mg/dL 8.4-10.2 wmya=909) EGFR (BEAKER) (test 51 mL/min/1.73 sq m ESTIMATED GFR IS NOT qahd=5226) ACCURATE CREATININE CLEARANCE IN PREDICTING GLOMERULAR FILTRATION RATE. ESTIMATED GFR IS NOT APPLICABLE FOR DIALYSIS PATIENTS. [id number] 04:37:00 Test Item Value Reference Range Comments PHOSPHORUS (BEAKER) (test lhbw=230) 3.8 mg/dL 2.3-4.7 [id number] 04:37:00 Test Item Value Reference Range Comments MAGNESIUM (BEAKER) (test rfpy=032) 2.2 mg/dL 1.6-2.6 CBC W/PLT COUNT & AUTO [id number] 04:23:00 Test Item Value Reference Range Comments WHITE BLOOD CELL COUNT (BEAKER) (test nqpy=091) 9.4 K/ L 3.5-10.5 RED BLOOD CELL COUNT (BEAKER) (test txws=382) 3.43 M/ L 3.93-5.22 HEMOGLOBIN (BEAKER) (test ibor=524) 10.6 GM/DL 11.2-15.7 HEMATOCRIT (BEAKER) (test posz=791) 33.4 % 34.1-44.9 MEAN CORPUSCULAR VOLUME (BEAKER) (test uaxe=005) 97.4 fL 79.4-94.8 MEAN CORPUSCULAR HEMOGLOBIN (BEAKER) (test 30.9 pg 25.6-32.2 zuft=218) MEAN CORPUSCULAR HEMOGLOBIN CONC (BEAKER) (test 31.7 GM/DL 32.2-35.5 hkbq=502) RED CELL DISTRIBUTION WIDTH (BEAKER) (test 14.6 % 11.7-14.4 vxpr=348) PLATELET COUNT (BEAKER) (test ygpe=098) 236 K/CU MM 150-450 MEAN PLATELET VOLUME (BEAKER) (test kkyj=858) 11.9 fL 9.4-12.3 NUCLEATED RED BLOOD CELLS (BEAKER) (test 0 /100 WBC 0-0 wmdz=791) NEUTROPHILS RELATIVE PERCENT (BEAKER) (test 68 % skrx=697) LYMPHOCYTES RELATIVE PERCENT (BEAKER) (test 21 % xheb=878) MONOCYTES RELATIVE PERCENT (BEAKER) (test 8 % ucom=373) EOSINOPHILS RELATIVE PERCENT (BEAKER) (test 2 % thtf=713) BASOPHILS RELATIVE PERCENT (BEAKER) (test 0 % jnud=754) NEUTROPHILS ABSOLUTE COUNT (BEAKER) (test 6.36 K/ L 1.56-6.13 rqkt=910) LYMPHOCYTES ABSOLUTE COUNT (BEAKER) (test 1.92 K/ L 1.18-3.74 iokc=995) MONOCYTES ABSOLUTE COUNT (BEAKER) (test 0.75 K/ L 0.24-0.36 jlye=746) EOSINOPHILS ABSOLUTE COUNT (BEAKER) (test 0.17 K/ L 0.04-0.36 tvns=188) BASOPHILS ABSOLUTE COUNT (BEAKER) (test 0.03 K/ L 0.01-0.08 kbio=860) IMMATURE GRANULOCYTES-RELATIVE PERCENT (BEAKER) 1 % 0-1 (test tdrg=7288) POCT-GLUCOSE [id number] 00:01:00 Test Item Value Reference Range Comments POC-GLUCOSE METER (BEAKER) 100 mg/dL 70-110 TESTED AT [facility] [address] [facility] (test ejqk=3386) [facility] [address] BLOOD [id number] 19:01:00 Test Item Value Reference Range Comments CULTURE (BEAKER) (test rpeb=8154) No growth in 5 days RAD, CHEST, 1 VIEW, NON [id number] 17:26:00Reason for exam:->assess lung fieldsShould this be performed at the bedside?->YesFINAL REPORT Chest, 1 view. History: Assess lung oden. Comparison: 09/14/2018. Impression: There has been interval placement of a tracheostomy cannula with tip terminating approximately 4.4 cm above the lyndsay. Right-sided PICC line identified in stable position. Partially visualized enteric tube noted coursing below the diaphragm. The lungs are symmetrically expanded withoutevidence for focal consolidation, pneumothorax, or significant pleural effusion. The cardiac mediastinal silhouette is stable in appearance. No acute osseous abdomen is identified. Signed: Nacho Samson MDReport Verified Date/Time: 09/16/2018 17:26 :24 Reading Location: [facility] B1 C013W Consult Reading Room POCT-GLUCOSE [id number] 12:04:00 Test Item Value Reference Range Comments POC-GLUCOSE METER (BEAKER) 108 mg/dL 70-110 TESTED AT [facility] [address] (test mzim=0256) [facility] [address] BASIC METABOLIC [id number] 07:34:00 Test Item Value Reference Range Comments SODIUM (BEAKER) (test 157 meq/L 136-145 niuv=420) POTASSIUM (BEAKER) (test 3.6 meq/L 3.5-5.1 jhry=195) CHLORIDE (BEAKER) (test 122 meq/L 98-107 ggbw=310) CO2 (BEAKER) (test 27 meq/L 22-29 xvzf=363) BLOOD UREA NITROGEN 42 mg/dL 7-21 (BEAKER) (test vrlr=393) CREATININE (BEAKER) (test 1.35 mg/dL 0.57-1.25 afyt=101) GLUCOSE RANDOM (BEAKER) 131 mg/dL 70-105 (test rymj=305) CALCIUM (BEAKER) (test 9.4 mg/dL 8.4-10.2 vxsb=919) EGFR (BEAKER) (test 45 mL/min/1.73 sq m ESTIMATED GFR IS NOT cgkc=8937) ACCURATE CREATININE CLEARANCE IN PREDICTING GLOMERULAR FILTRATION RATE. ESTIMATED GFR IS NOT APPLICABLE FOR DIALYSIS PATIENTS. CBC W/PLT COUNT & AUTO [id number] 06:56:00 Test Item Value Reference Range Comments WHITE BLOOD CELL COUNT (BEAKER) (test odvf=598) 10.9 K/ L 3.5-10.5 RED BLOOD CELL COUNT (BEAKER) (test rxth=972) 3.54 M/ L 3.93-5.22 HEMOGLOBIN (BEAKER) (test cplg=997) 10.7 GM/DL 11.2-15.7 HEMATOCRIT (BEAKER) (test zfiv=475) 34.5 % 34.1-44.9 MEAN CORPUSCULAR VOLUME (BEAKER) (test fuat=956) 97.5 fL 79.4-94.8 MEAN CORPUSCULAR HEMOGLOBIN (BEAKER) (test 30.2 pg 25.6-32.2 fewg=195) MEAN CORPUSCULAR HEMOGLOBIN CONC (BEAKER) (test 31.0 GM/DL 32.2-35.5 ltdj=039) RED CELL DISTRIBUTION WIDTH (BEAKER) (test 14.9 % 11.7-14.4 kmwj=881) PLATELET COUNT (BEAKER) (test jltw=651) 273 K/CU MM 150-450 MEAN PLATELET VOLUME (BEAKER) (test oabe=267) 11.8 fL 9.4-12.3 NUCLEATED RED BLOOD CELLS (BEAKER) (test 0 /100 WBC 0-0 cmtq=097) NEUTROPHILS RELATIVE PERCENT (BEAKER) (test 68 % rpcm=861) LYMPHOCYTES RELATIVE PERCENT (BEAKER) (test 18 % kyjj=436) MONOCYTES RELATIVE PERCENT (BEAKER) (test 11 % ndms=238) EOSINOPHILS RELATIVE PERCENT (BEAKER) (test 3 % ndid=455) BASOPHILS RELATIVE PERCENT (BEAKER) (test 0 % alfj=816) NEUTROPHILS ABSOLUTE COUNT (BEAKER) (test 7.44 K/ L 1.56-6.13 kqrq=484) LYMPHOCYTES ABSOLUTE COUNT (BEAKER) (test 1.91 K/ L 1.18-3.74 slfe=278) MONOCYTES ABSOLUTE COUNT (BEAKER) (test 1.18 K/ L 0.24-0.36 oklp=663) EOSINOPHILS ABSOLUTE COUNT (BEAKER) (test 0.28 K/ L 0.04-0.36 crow=157) BASOPHILS ABSOLUTE COUNT (BEAKER) (test 0.02 K/ L 0.01-0.08 gvqs=899) IMMATURE GRANULOCYTES-RELATIVE PERCENT (BEAKER) 1 % 0-1 (test siqt=9351) POCT-GLUCOSE [id number] 06:49:00 Test Item Value Reference Range Comments POC-GLUCOSE METER (BEAKER) 132 mg/dL 70-110 TESTED AT [facility] [address] [facility] (test nahp=7873) [facility] [address] BLOOD GAS, [id number] 06:42:00 Test Item Value Reference Range Comments PH ARTERIAL (BEAKER) (test jvwp=865) 7.44 7.35-7.45 PCO2 ARTERIAL (BEAKER) (test qlmu=428) 44 mmHg 35-45 PO2 ARTERIAL (BEAKER) (test lphz=919) 203 mmHg 80-90 O2 SATURATION ARTERIAL (BEAKER) (test uanu=976) 99.4 % 96.0-97.0 HCO3 ARTERIAL (BEAKER) (test chbp=917) 29 mmol/L 21-29 BASE EXCESS ARTERIAL (BEAKER) (test wfps=829) 4.2 mmol/L -2.0-3.0 PATIENT TEMPERATURE (BEAKER) (test jlfc=1787) 37.5 C FIO2 (BEAKER) (test hayx=4939) 40.0 % POCT-GLUCOSE [id number] 00:18:00 Test Item Value Reference Range Comments POC-GLUCOSE METER (BEAKER) 124 mg/dL 70-110 TESTED AT [address] (test kbaz=3627) [place] [address] POCT-GLUCOSE [id number] 19:47:00 Test Item Value Reference Range Comments POC-GLUCOSE METER (BEAKER) 139 mg/dL 70-110 TESTED AT [address] (test ztfy=3583) [place] [address] POCT-GLUCOSE [id number] 12:34:00 Test Item Value Reference Range Comments POC-GLUCOSE METER (BEAKER) 120 mg/dL 70-110 TESTED AT [address] (test eksq=9118) [place] [address] CT, BRAIN, WITHOUT [id number] 08:20:00FINAL REPORT CT, BRAIN, WITHOUT CONTRAST CLINICAL INDICATION: Intracranial hemorrhage COMPARISON: September 14, 2018 TECHNIQUE: Noncontrast axial CT imaging of the brain and skull. DOSE REDUCTION: Dose modulation, iterative reconstruction, and/or weight-based adjustment of the mA/kV was utilized to reduce the radiation dose to as low as reasonably achievable. 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 Interval removal of right ventricular drainage device with minimal residual intraventricular hemorrhage. No new hemorrhagic or ischemic injury. Signed: JR Feli, Avi Gao Verified Date/Time: 09/15/2018 08:20:07 Reading Location: [facility] Neuro Reading Room POCT-GLUCOSE [id number] 06:34: 00 Test Item Value Reference Range Comments POC-GLUCOSE METER (BEAKER) 130 mg/dL 70-110 TESTED AT [address] (test ogbb=9352) [place] [address] BASIC METABOLIC [id number] 05:16:00 Test Item Value Reference Range Comments SODIUM (BEAKER) (test 155 meq/L 136-145 kzmp=427) POTASSIUM (BEAKER) (test 4.4 meq/L 3.5-5.1 moiv=255) CHLORIDE (BEAKER) (test 122 meq/L 98-107 nukr=091) CO2 (BEAKER) (test 23 meq/L 22-29 fdsd=995) BLOOD UREA NITROGEN 46 mg/dL 7-21 (BEAKER) (test muay=140) CREATININE (BEAKER) (test 1.73 mg/dL 0.57-1.25 fotk=203) GLUCOSE RANDOM (BEAKER) 113 mg/dL 70-105 (test zyzm=413) CALCIUM (BEAKER) (test 9.9 mg/dL 8.4-10.2 rkhf=741) EGFR (BEAKER) (test 34 mL/min/1.73 sq m ESTIMATED GFR IS NOT ayzt=9371) ACCURATE CREATININE CLEARANCE IN PREDICTING GLOMERULAR FILTRATION RATE. ESTIMATED GFR IS NOT APPLICABLE FOR DIALYSIS PATIENTS. [id number] 05:15:00 Test Item Value Reference Range Comments PHOSPHORUS (BEAKER) (test ddqr=876) 4.2 mg/dL 2.3-4.7 [id number] 05:15:00 Test Item Value Reference Range Comments MAGNESIUM (BEAKER) (test zdke=250) 2.7 mg/dL 1.6-2.6 CBC W/PLT COUNT & AUTO [id number] 05:02:00 Test Item Value Reference Range Comments WHITE BLOOD CELL COUNT (BEAKER) (test oewd=508) 10.8 K/ L 3.5-10.5 RED BLOOD CELL COUNT (BEAKER) (test doxx=944) 3.89 M/ L 3.93-5.22 HEMOGLOBIN (BEAKER) (test amhv=669) 11.9 GM/DL 11.2-15.7 HEMATOCRIT (BEAKER) (test yaod=064) 38.0 % 34.1-44.9 MEAN CORPUSCULAR VOLUME (BEAKER) (test xzxl=355) 97.7 fL 79.4-94.8 MEAN CORPUSCULAR HEMOGLOBIN (BEAKER) (test 30.6 pg 25.6-32.2 djan=937) MEAN CORPUSCULAR HEMOGLOBIN CONC (BEAKER) (test 31.3 GM/DL 32.2-35.5 empv=720) RED CELL DISTRIBUTION WIDTH (BEAKER) (test 15.3 % 11.7-14.4 sbre=148) PLATELET COUNT (BEAKER) (test ihaj=614) 302 K/CU MM 150-450 MEAN PLATELET VOLUME (BEAKER) (test mkhf=319) 12.3 fL 9.4-12.3 NUCLEATED RED BLOOD CELLS (BEAKER) (test 0 /100 WBC 0-0 vsdp=562) NEUTROPHILS RELATIVE PERCENT (BEAKER) (test 72 % qppa=922) LYMPHOCYTES RELATIVE PERCENT (BEAKER) (test 16 % gwae=098) MONOCYTES RELATIVE PERCENT (BEAKER) (test 9 % weto=999) EOSINOPHILS RELATIVE PERCENT (BEAKER) (test 2 % wipp=185) BASOPHILS RELATIVE PERCENT (BEAKER) (test 0 % zxdi=770) NEUTROPHILS ABSOLUTE COUNT (BEAKER) (test 7.77 K/ L 1.56-6.13 qouc=716) LYMPHOCYTES ABSOLUTE COUNT (BEAKER) (test 1.76 K/ L 1.18-3.74 giug=639) MONOCYTES ABSOLUTE COUNT (BEAKER) (test 0.97 K/ L 0.24-0.36 wjkx=625) EOSINOPHILS ABSOLUTE COUNT (BEAKER) (test 0.18 K/ L 0.04-0.36 oqbg=508) BASOPHILS ABSOLUTE COUNT (BEAKER) (test 0.04 K/ L 0.01-0.08 zlig=788) IMMATURE GRANULOCYTES-RELATIVE PERCENT (BEAKER) 1 % 0-1 (test ykoi=1920) BLOOD GAS, [id number] 04:14:00 Test Item Value Reference Range Comments PH ARTERIAL (BEAKER) (test pous=315) 7.46 7.35-7.45 PCO2 ARTERIAL (BEAKER) (test ygyb=709) 38 mmHg 35-45 PO2 ARTERIAL (BEAKER) (test zrpx=026) 164 mmHg 80-90 O2 SATURATION ARTERIAL (BEAKER) (test uptl=905) 99.1 % 96.0-97.0 HCO3 ARTERIAL (BEAKER) (test wrpk=421) 26 mmol/L 21-29 BASE EXCESS ARTERIAL (BEAKER) (test bxjs=917) 2.7 mmol/L -2.0-3.0 PATIENT TEMPERATURE (BEAKER) (test zrzl=5271) 39.0 C FIO2 (BEAKER) (test ehht=2814) 40.0 % POCT-GLUCOSE [id number] 00:28:00 Test Item Value Reference Range Comments POC-GLUCOSE METER (BEAKER) 123 mg/dL 70-110 TESTED AT [facility] [address] [facility] (test utbf=7550) [facility] [address] POCT-GLUCOSE [id number] 19:31:00 Test Item Value Reference Range Comments POC-GLUCOSE METER (BEAKER) 126 mg/dL 70-110 TESTED AT [facility] [address] [facility] (test hvzt=1700) [facility] [address] RAD, ABDOMEN/KUB, 1 VIEW [id number] 18:38:00Reason for exam:->tube feeding placementFINAL REPORT TECHNIQUE: Single View of the Abdomen. INDICATION: Feeding tube placement. COMPARISON: Radiograph from 2018. FINDINGS/IMPRESSION: Feeding tube with tip over the second portion of the duodenum. Intrauterine device over the expected location. The bowel gas pattern is normal. No acute bony abnormality. Signed: Kel Moralez MDReport Verified Date/Time: 09/14/2018 18:38:09 Reading Location: [facility] C013W Consult Reading Room 06 :38 PMRESPIRATORY PANEL [id number] 15:27:00 Test Item Value Reference Range Comments HUMAN METAPNEUMOVIRUS (BEAKER) (test Not detected Not detected, Equivocal gkak=8090) RHINOVIRUS (BEAKER) (test pahi=7641) Not detected Not detected, Equivocal INFLUENZA A (BEAKER) (test gtzh=5835) Not detected Not detected, Equivocal INFLUENZA A (NO SUBTYPE) (test Not detected, Equivocal uude=0285) INFLUENZA A SUBTYPE H1 (BEAKER) (test Not detected, Equivocal rtum=6345) INFLUENZA A SUBTYPE H3 (BEAKER) (test Not detected, Equivocal idfn=9241) INFLUENZA A SUBTYPE H1-2009 (BEAKER) Not detected, Equivocal (test sxqf=9919) INFLUENZA B (BEAKER) (test ucif=4026) Not detected Not detected, Equivocal RESPIRATORY SYNCYTIAL VIRUS (BEAKER) Not detected Not detected, Equivocal (test avlm=7150) PARAINFLUENZA VIRUS 1 (BEAKER) (test Not detected Not detected, Equivocal cqom=4705) PARAINFLUENZA VIRUS 2 (BEAKER) (test Not detected Not detected, Equivocal agig=0266) PARAINFLUENZA VIRUS 3 (BEAKER) (test Not detected Not detected, Equivocal aaeo=9166) PARAINFLUENZA VIRUS 4 (BEAKER) (test Not detected Not detected, Equivocal qhgy=6282) ADENOVIRUS (BEAKER) (test pcjm=5976) Not detected Not detected, Equivocal CORONAVIRUS 229E (BEAKER) (test Not detected Not detected, Equivocal nkrq=1188) CORONAVIRUS HKU1 (BEAKER) (test Not detected Not detected, Equivocal udfm=5744) CORONAVIRUS NL63 (BEAKER) (test Not detected Not detected, Equivocal hgkl=9958) CORONAVIRUS OC43 (BEAKER) (test Not detected Not detected, Equivocal sksj=1593) BORDETELLA PERTUSSIS (BEAKER) (test Not detected Not detected, Equivocal avfc=9396) CHLAMYDOPHILA PNEUMONIAE (BEAKER) (test Not detected Not detected, Equivocal dkom=5279) MYCOPLASMA PNEUMONIAE (BEAKER) (test Not detected Not detected, Equivocal bbpm=3613) Other viruses and bacteria not targeted by this PCR panel cannot be excluded; therefore clinical correlation and follow up of serology, culture results, and other molecular studies is required. The results are not intended to be used as the sole means for clinical diagnosis or patient management decisions. This sample was tested at the [facility] Molecular Diagnostics Laboratory using the ADIT[employer] SASArray Respiratory Panel. It is FDA cleared and has been verified and approved by the [facility] for clinical use on nasal swab specimens. It is not FDA-cleared for use on bronchial wash/lavage samples. However, for this sample type, validation was performed and test characteristics were determined and approved, by [facility] [place] [facility] for clinical use under the Clinical Laboratory Improvement Amendments (CLIA) of 1988 requirements. Therefore, FDA clearance isnot required. This laboratory is CLIA-certified and [employer] [employer] ([employer])-accredited to perform high complexity testing.SPUTUM CULTURE + GRAM [id number] 15:22:00 Test Item Value Reference Range Comments CULTURE (BEAKER) (test 4+ Normal respiratory jammie ikya=6356) present GRAM STAIN RESULT (BEAKER) 3+ White blood cells seen (test ypsu=5521) GRAM STAIN RESULT (BEAKER) 0-5 epithelial cells (test zppk=17181) GRAM STAIN RESULT (BEAKER) No organisms seen (test pxyy=58950) CSF CULTURE + GRAM [id number] 14:31:00 Test Item Value Reference Range Comments CULTURE (BEAKER) (test dntf=5076) No growth GRAM STAIN RESULT (BEAKER) (test <1+ White blood cells seen yccf=5198) GRAM STAIN RESULT (BEAKER) (test No organisms seen tsfz=97152) BASIC METABOLIC [id number] 14:08:00 Test Item Value Reference Range Comments SODIUM (BEAKER) (test 152 meq/L 136-145 oxgl=272) POTASSIUM (BEAKER) (test 3.7 meq/L 3.5-5.1 aaha=220) CHLORIDE (BEAKER) (test 121 meq/L 98-107 xpmm=856) CO2 (BEAKER) (test 25 meq/L 22-29 gqun=073) BLOOD UREA NITROGEN 35 mg/dL 7-21 (BEAKER) (test rmih=486) CREATININE (BEAKER) (test 1.08 mg/dL 0.57-1.25 niby=726) GLUCOSE RANDOM (BEAKER) 111 mg/dL 70-105 (test muiv=811) CALCIUM (BEAKER) (test 8.9 mg/dL 8.4-10.2 jrdh=610) EGFR (BEAKER) (test 59 mL/min/1.73 sq m ESTIMATED GFR IS NOT oovn=0941) ACCURATE CREATININE CLEARANCE IN PREDICTING GLOMERULAR FILTRATION RATE. ESTIMATED GFR IS NOT APPLICABLE FOR DIALYSIS PATIENTS. HEPATIC FUNCTION [id number] 13:51:00 Test Item Value Reference Range Comments TOTAL PROTEIN (BEAKER) (test nkxp=057) 6.5 gm/dL 6.0-8.3 ALBUMIN (BEAKER) (test njgw=1907) 3.3 g/dL 3.5-5.0 BILIRUBIN TOTAL (BEAKER) (test qcde=426) 0.4 mg/dL 0.2-1.2 BILIRUBIN DIRECT (BEAKER) (test qrqv=056) 0.2 mg/dL 0.1-0.5 ALKALINE PHOSPHATASE (BEAKER) (test xwww=047) 53 U/L 40-150 AST (SGOT) (BEAKER) (test jbpk=972) 46 U/L 5-34 ALT (SGPT) (BEAKER) (test nlvw=259) 136 U/L 6-55 POCT-GLUCOSE [id number] 13:07:00 Test Item Value Reference Range Comments POC-GLUCOSE METER (BEAKER) 129 mg/dL 70-110 TESTED AT [facility] [address] (test lzcx=0952) [facility] [address] CT BRAIN WITHOUT IV CONTRAST - [id number] 06:19:00Reason for exam:-> EVD clampedFINAL REPORT CT Head without contrast CLINICAL HISTORY: EVD clamped TECHNIQUE: Contiguous axial images through the head without contrast on the portable CT unit. This exam was performed according to the departmental dose optimization program which includes automated exposure control, adjustment of the mA and/or kV according to the patient size, and/or use of an iterative reconstruction technique. COMPARISON: CT head dated 09/12/2018. FINDINGS:Again seen is the right frontal approach ventricular shunt catheter with tip terminating in the foramen of Hernandez. There is been slight interval increase in size of the bilateral lateral ventricles, most evident in the frontal horns bilaterally. Unchanged appearance of the pontine hemorrhage with unchanged surrounding edema in the interval. No new intracranial hemorrhage is identified. No large territory infarction. No extra- axial fluid collections. There is no significant midline shift. Basilar cisterns are patent. Enteric tube is seen coursing inferiorly. The skull is intact. An sinus mucosal thickening with probably secretions inthe sphenoid sinuses, increased in the interval, possibly related to enteric tube. Mastoid air cellsare clear. IMPRESSION: Again seen is the right frontal approach ventricular shunt catheter with tipterminating in the foramen of Hernandez. There is been slight interval increase in size of the bilateral lateral ventricles, most evident in the frontal horns bilaterally. Unchanged appearance of the pontine hemorrhage with unchanged surrounding edema in the interval. No new intracranial hemorrhage or large territorial infarction. Signed: Shakeel [place] Verified Date/Time: 09/14/2018 06:19:36 Reading Location: [address] Transitional Reading Room VANCOMYCIN LEVEL, [id number] 05:52 :00 Test Item Value Reference Range Comments VANCOMYCIN RANDOM (BEAKER) (test jthr=109) 10.1 ug/mL Reference Range: No [id number] 05:41:00 Test Item Value Reference Range Comments PHOSPHORUS (BEAKER) (test ueea=338) 3.4 mg/dL 2.3-4.7 [id number] 05:41:00 Test Item Value Reference Range Comments MAGNESIUM (BEAKER) (test dgpx=475) 2.4 mg/dL 1.6-2.6 BASIC METABOLIC [id number] 05:41:00 Test Item Value Reference Range Comments SODIUM (BEAKER) (test 154 meq/L 136-145 zalo=444) POTASSIUM (BEAKER) (test 4.0 meq/L 3.5-5.1 alqo=124) CHLORIDE (BEAKER) (test 120 meq/L 98-107 sbzi=701) CO2 (BEAKER) (test 26 meq/L 22-29 oefx=081) BLOOD UREA NITROGEN 37 mg/dL 7-21 (BEAKER) (test aubn=061) CREATININE (BEAKER) (test 1.32 mg/dL 0.57-1.25 xlsq=743) GLUCOSE RANDOM (BEAKER) 306 mg/dL 70-105 (test zqaw=142) CALCIUM (BEAKER) (test 9.5 mg/dL 8.4-10.2 ldya=524) EGFR (BEAKER) (test 47 mL/min/1.73 sq m ESTIMATED GFR IS NOT wnha=7430) ACCURATE CREATININE CLEARANCE IN PREDICTING GLOMERULAR FILTRATION RATE. ESTIMATED GFR IS NOT APPLICABLE FOR DIALYSIS PATIENTS. POCT-GLUCOSE [id number] 05:39:00 Test Item Value Reference Range Comments POC-GLUCOSE METER (BEAKER) 127 mg/dL 70-110 TESTED AT [address] (test shoy=7361) [facility] [address] BLOOD GAS, [id number] 05:26:00 Test Item Value Reference Range Comments PH ARTERIAL (BEAKER) (test hvwg=925) 7.48 7.35-7.45 PCO2 ARTERIAL (BEAKER) (test khgy=087) 35 mmHg 35-45 PO2 ARTERIAL (BEAKER) (test rsmv=125) 232 mmHg 80-90 O2 SATURATION ARTERIAL (BEAKER) (test ehbk=854) 99.6 % 96.0-97.0 HCO3 ARTERIAL (BEAKER) (test pxyv=080) 26 mmol/L 21-29 BASE EXCESS ARTERIAL (BEAKER) (test qibh=947) 2.5 mmol/L -2.0-3.0 PATIENT TEMPERATURE (BEAKER) (test qdwg=6159) 37.5 C FIO2 (BEAKER) (test felb=1029) 40.0 % CBC W/PLT COUNT & AUTO [id number] 05:21:00 Test Item Value Reference Range Comments WHITE BLOOD CELL COUNT (BEAKER) (test riqi=046) 13.2 K/ L 3.5-10.5 RED BLOOD CELL COUNT (BEAKER) (test pcez=755) 3.96 M/ L 3.93-5.22 HEMOGLOBIN (BEAKER) (test jrof=038) 12.2 GM/DL 11.2-15.7 HEMATOCRIT (BEAKER) (test fcmo=891) 37.9 % 34.1-44.9 MEAN CORPUSCULAR VOLUME (BEAKER) (test qcqj=357) 95.7 fL 79.4-94.8 MEAN CORPUSCULAR HEMOGLOBIN (BEAKER) (test 30.8 pg 25.6-32.2 eqnq=768) MEAN CORPUSCULAR HEMOGLOBIN CONC (BEAKER) (test 32.2 GM/DL 32.2-35.5 dvmj=306) RED CELL DISTRIBUTION WIDTH (BEAKER) (test 14.9 % 11.7-14.4 ozzi=100) PLATELET COUNT (BEAKER) (test wbjf=350) 286 K/CU MM 150-450 MEAN PLATELET VOLUME (BEAKER) (test ohtp=716) 11.3 fL 9.4-12.3 NUCLEATED RED BLOOD CELLS (BEAKER) (test 0 /100 WBC 0-0 jvty=880) NEUTROPHILS RELATIVE PERCENT (BEAKER) (test 73 % hypb=338) LYMPHOCYTES RELATIVE PERCENT (BEAKER) (test 15 % iobd=480) MONOCYTES RELATIVE PERCENT (BEAKER) (test 10 % ugug=120) EOSINOPHILS RELATIVE PERCENT (BEAKER) (test 2 % oiyx=228) BASOPHILS RELATIVE PERCENT (BEAKER) (test 0 % mitu=875) NEUTROPHILS ABSOLUTE COUNT (BEAKER) (test 9.58 K/ L 1.56-6.13 ngve=141) LYMPHOCYTES ABSOLUTE COUNT (BEAKER) (test 1.91 K/ L 1.18-3.74 arzf=888) MONOCYTES ABSOLUTE COUNT (BEAKER) (test 1.27 K/ L 0.24-0.36 mlgx=512) EOSINOPHILS ABSOLUTE COUNT (BEAKER) (test 0.31 K/ L 0.04-0.36 vfoe=593) BASOPHILS ABSOLUTE COUNT (BEAKER) (test 0.05 K/ L 0.01-0.08 vzii=866) IMMATURE GRANULOCYTES-RELATIVE PERCENT (BEAKER) 1 % 0-1 (test hexk=9389) RAD, CHEST, 1 VIEW, NON [id number] 04:47:00Reason for exam:->assess ETT placementShould this be performed at the bedside?->YesFINAL REPORT Chest one view. Clinical history: assess ETT placement Comparison : Chest radiograph 09/13/2018, 6:20 AM. Technique: A single frontal view of the chest was obtained.Findings:Endotracheal and feeding tubes are in satisfactory positions. There is a right PICC line with tip in the distal SVC.The cardiomediastinal contours are stable. There is no focal pulmonary consolidation , pleural effusion, pulmonary edema or pneumothorax. Signed: Gloria Steiner Verified Date/Time: 09/14/2018 04:47:49 Reading Location: [address] Reading Room POCT-GLUCOSE [id number] 00:11:00 Test Item Value Reference Range Comments POC-GLUCOSE METER (BEAKER) 152 mg/dL 70-110 TESTED AT [address] (test ftpl=3996) [facility] [address] POCT-GLUCOSE [id number] 18:23:00 Test Item Value Reference Range Comments POC-GLUCOSE METER (BEAKER) 159 mg/dL 70-110 TESTED AT [address] (test faza=7636) [facility] [address] [id number] 18:19:00 Test Item Value Reference Range Comments POTASSIUM (BEAKER) (test hrwi=890) 3.9 meq/L 3.5-5.1 C. DIFFICILE GDH [id number] 14:15:00 Test Item Value Reference Range Comments CDT TOXIN (test Negative Negative zwdy=[id number]) CDT GDH ANTIGEN (test Negative Negative No indication of Clostridium ffan=[id number]) difficile infection and no colonization. Discontinue enteric isolation and therapy. Testing performed by [employer] Rapid Cassette Assay. For GDH, published sensitivity of the assay is 98.7% compared to cytotoxicity testing. For Toxin AB, published sensitivity is 87.8% and specificity 99.4% compared to cytotoxicity testing.Verification of kit performance was done by the [facility] Microbiology Lab prior to clinical use.[id number] 13:56:00 Test Item Value Reference Range Comments POTASSIUM (BEAKER) (test mcjx=916) 3.8 meq/L 3.5-5.1 POCT-GLUCOSE [id number] 13:32:00 Test Item Value Reference Range Comments POC-GLUCOSE METER (BEAKER) 160 mg/dL 70-110 TESTED AT [facility] [address] [facility] (test rksl=1299) [facility] [address] URINE [id number] 08:27:00 Test Item Value Reference Range Comments CULTURE (BEAKER) (test enpc=8734) No growth BASIC METABOLIC [id number] 08:22:00 Test Item Value Reference Range Comments SODIUM (BEAKER) (test 147 meq/L 136-145 uyly=820) POTASSIUM (BEAKER) (test 3.8 meq/L 3.5-5.1 arzs=460) CHLORIDE (BEAKER) (test 113 meq/L 98-107 gdfq=564) CO2 (BEAKER) (test 25 meq/L 22-29 pjrr=081) BLOOD UREA NITROGEN 35 mg/dL 7-21 (BEAKER) (test rltg=826) CREATININE (BEAKER) (test 1.40 mg/dL 0.57-1.25 kchu=072) GLUCOSE RANDOM (BEAKER) 161 mg/dL 70-105 (test lptn=297) CALCIUM (BEAKER) (test 10.0 mg/dL 8.4-10.2 tfca=869) EGFR (BEAKER) (test 44 mL/min/1.73 sq m ESTIMATED GFR IS NOT cfbh=5385) ACCURATE CREATININE CLEARANCE IN PREDICTING GLOMERULAR FILTRATION RATE. ESTIMATED GFR IS NOT APPLICABLE FOR DIALYSIS PATIENTS. VANCOMYCIN LEVEL, [id number] 08:20:00 Test Item Value Reference Range Comments VANCOMYCIN TROUGH (BEAKER) (test gzfs=736) 23.9 ug/mL 10.0-20.0 Draw 30 min prior to scheduled dose, HOLD if level > 20 mcg/mL, inform .RAD , CHEST, 1 VIEW, NON [id number] 07:18:00Reason for exam:->assess ETT placementShould this be performed at the bedside?->YesFINAL REPORT Follow up Chest radiograph Clinical History: Assess endotrachealtube placementComparison: September 12, 2018Views: One AP lordotic Chest x-ray:The cardiac and mediastinal silhouettes are unchanged. There is no evidence of a pneumothorax. There is no evidence of a pleural effusion. There is no evidence of overt cardiac failure. There is no evidence of a focal parenchymal opacity. An endotracheal tube feeding tube and right PICC line are satisfactorily positioned and unchanged. There remains a suboptimal inspiratory effort however improved aeration is visualized most likely secondary to decreased pulmonary vascular congestion. Impression:Decreased pulmonary vascular congestion and improved aeration. Signed: Katharina Gilletteort Verified Date/Time: 09/13/2018 07:18:34 Reading Location: [facility] Radiology Reading Room [id number] 06:27:00 Test Item Value Reference Range Comments POTASSIUM (BEAKER) (test nlef=092) 3.6 meq/L 3.5-5.1 CBC W/PLT COUNT & AUTO [id number] 06:18:00 Test Item Value Reference Range Comments WHITE BLOOD CELL COUNT (BEAKER) (test raav=479) 12.6 K/ L 3.5-10.5 RED BLOOD CELL COUNT (BEAKER) (test qukw=693) 4.11 M/ L 3.93-5.22 HEMOGLOBIN (BEAKER) (test afgs=883) 12.5 GM/DL 11.2-15.7 HEMATOCRIT (BEAKER) (test ugsv=989) 38.7 % 34.1-44.9 MEAN CORPUSCULAR VOLUME (BEAKER) (test iedt=208) 94.2 fL 79.4-94.8 MEAN CORPUSCULAR HEMOGLOBIN (BEAKER) (test 30.4 pg 25.6-32.2 wdro=382) MEAN CORPUSCULAR HEMOGLOBIN CONC (BEAKER) (test 32.3 GM/DL 32.2-35.5 mwpj=260) RED CELL DISTRIBUTION WIDTH (BEAKER) (test 14.6 % 11.7-14.4 yexo=369) PLATELET COUNT (BEAKER) (test kjrh=411) 300 K/CU MM 150-450 MEAN PLATELET VOLUME (BEAKER) (test cuwo=570) 12.1 fL 9.4-12.3 NUCLEATED RED BLOOD CELLS (BEAKER) (test 0 /100 WBC 0-0 pfeu=065) NEUTROPHILS RELATIVE PERCENT (BEAKER) (test 77 % rowb=349) LYMPHOCYTES RELATIVE PERCENT (BEAKER) (test 12 % ywup=706) MONOCYTES RELATIVE PERCENT (BEAKER) (test 9 % zrbz=355) EOSINOPHILS RELATIVE PERCENT (BEAKER) (test 1 % bfci=174) BASOPHILS RELATIVE PERCENT (BEAKER) (test 0 % auxa=509) NEUTROPHILS ABSOLUTE COUNT (BEAKER) (test 9.76 K/ L 1.56-6.13 ahrp=764) LYMPHOCYTES ABSOLUTE COUNT (BEAKER) (test 1.46 K/ L 1.18-3.74 ctzu=297) MONOCYTES ABSOLUTE COUNT (BEAKER) (test 1.16 K/ L 0.24-0.36 urzu=841) EOSINOPHILS ABSOLUTE COUNT (BEAKER) (test 0.11 K/ L 0.04-0.36 kryc=308) BASOPHILS ABSOLUTE COUNT (BEAKER) (test 0.04 K/ L 0.01-0.08 micx=643) IMMATURE GRANULOCYTES-RELATIVE PERCENT (BEAKER) 1 % 0-1 (test juyb=1881) BLOOD GAS, [id number] 05:06:00 Test Item Value Reference Range Comments PH ARTERIAL (BEAKER) (test flaz=229) 7.43 7.35-7.45 PCO2 ARTERIAL (BEAKER) (test rbtf=846) 40 mmHg 35-45 PO2 ARTERIAL (BEAKER) (test ejwl=955) 190 mmHg 80-90 O2 SATURATION ARTERIAL (BEAKER) (test uctp=138) 99.3 % 96.0-97.0 HCO3 ARTERIAL (BEAKER) (test xnow=466) 26 mmol/L 21-29 BASE EXCESS ARTERIAL (BEAKER) (test dsxa=959) 2.0 mmol/L -2.0-3.0 PATIENT TEMPERATURE (BEAKER) (test zsaf=3734) 38.0 C FIO2 (BEAKER) (test jide=4464) 40.0 % POCT-GLUCOSE [id number] 00:50:00 Test Item Value Reference Range Comments POC-GLUCOSE METER (BEAKER) 124 mg/dL 70-110 TESTED AT [facility] [address] (test jssx=1674) [facility] [address] BLOOD CULTURE IDENTIFICATION [id number] 19:59:00 Test Item Value Reference Range Comments LISTERIA MONOCYTOGENES (test Not detected Not detected ahrz=6904566) STAPHYLOCOCCUS (test Detected Not detected First line therapy: dpjc=7765189) Cefazolin, Nafcillin (Nafcillin preferred for Central Nervous System infection) Coagulase Negative Staphylococcus (CoNS) DETECTEDmecA NOT DETECTEDReference Range: Not Detected STAPHYLOCOCCUS AUREUS (test Not detected Not detected agtz=4402027) STREPTOCOCCUS (test Not detected Not detected qjrt=4663750) STREPTOCOCCUS AGALACTIAE Not detected Not detected (GROUP B) (test reus=0031730) STREPTOCOCCUS PNEUMONIAE Not detected Not detected (test bqkh=8233109) STREPTOCOCCUS PYOGENES (GROUP Not detected Not detected A) (test lczk=4416537) ACINETOBACTER BAUMANNII (test Not detected Not detected ggsj=2152767) HAEMOPHILUS INFLUENZAE (test Not detected Not detected uvsk=4587729) NEISSERIA MENINGITIDIS (test Not detected Not detected mywg=6010994) ENTEROBACTERIACEAE (test Not detected Not detected dsom=3767029) ENTEROBACTER CLOACOE COMPLEX Not detected Not detected (test erlw=7346652) KLEBSIELLA OXYTOCA (test Not detected Not detected qqox=4844656) KLEBSIELLA PNEUMONIAE (test Not detected Not detected qfyh=7139) PROTEUS (test uuok=4336507) Not detected Not detected SERRATIA MARCESCENS (test Not detected Not detected frzp=2671388) NURA ALBICANS (test Not detected Not detected vwqy=3951185) NURA GLABRATA (test Not detected Not detected fbmr=0774554) NURA KRUSEI (test Not detected Not detected ubjr=3227154) NURA PARAPSILOSIS (test Not detected Not detected ocbl=0573179) NURA TROPICALIS (test Not detected Not detected aamb=4814671) ESCHERICHIA COLI (test Not detected Not detected ymdw=2910514) METHICILLIN-RESISTANCE GENE Not detected Not detected (test mtih=4801101) VANCOMYCIN-RESISTANCE GENE Not detected (test kxzl=4694139) CARBAPENEM-RESISTANCE GENE Not detected (test zysq=6284753) ENTEROCOCCUS-BEAKER (test Not detected Not detected alfj=0478199) PSEUDOMONAS AERUGINOSA-BEAKER Not detected Not detected (test mxrv=1972230) Other bacteria and resistance markers not targeted by this PCR panel cannot be excluded; therefore clinical correlation and follow up of serology, culture results, and other molecular studies is required. The results are not intended to be used as the sole means for clinical diagnosis or patient management decisions. This sample was tested at the [facility] Molecular Diagnostics Laboratory using the CrossReader Blood Culture ID Panel. It is FDA cleared and has been verified and approved by the [facility] Molecular Diagnostics Laboratory for clinical use. This laboratory is CLIA-certified and College ofAmerican Pathologists (CAP)-accredited to perform high complexity testing.POCT-GLUCOSE [id number] 18:40:00 Test Item Value Reference Range Comments POC-GLUCOSE METER (BEAKER) 130 mg/dL 70-110 TESTED AT [address] (test rydi=1030) [place] [address] [id number] 18:00:00 Test Item Value Reference Range Comments POTASSIUM (BEAKER) (test gnqw=290) 3.6 meq/L 3.5-5.1 POCT-GLUCOSE [id number] 15:23:00 Test Item Value Reference Range Comments POC-GLUCOSE METER (BEAKER) 129 mg/dL 70-110 TESTED AT [address] (test pffl=5397) [place] [address] CT BRAIN WITHOUT IV CONTRAST - [id number] 12:29:00Reason for exam:-> evaluate for hydrocephalusFINAL REPORT CT BRAIN WITHOUT IV CONTRAST - PORTABLE INDICATION: evaluate forhydrocephalus TECHNIQUE: Noncontrast portable axial CT imaging was obtained from the vertex to the skull base. Axial images were reconstructed using a bone algorithm. DOSE REDUCTION: Dose modulation, iterative reconstruction, and/or weight-based adjustment of the mA/kV was utilized to reduce the radiation dose to as low as reasonably achievable. COMPARISON: September 06, 2018 FINDINGS: Interval placement of frontal approach ventricular drainage catheter terminating near the foramen of Monro. No hydrocephalus is present. 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 There is no discernible extra-axial extension. Stable associated edema. With the exceptionof ventricular drainage access, the calvarium remains intact. Scattered mild paranasal sinus diseaseis unchanged. IMPRESSION: No hydrocephalus. Signed: JR Edmond Robert MDReport Verified Date/Time: 12:29:45 Reading Location: [facility] C013 Neuro Reading Room BASIC METABOLIC [id number] 11:33:00 Test Item Value Reference Range Comments SODIUM (BEAKER) (test 147 meq/L 136-145 jmpl=298) POTASSIUM (BEAKER) (test 3.6 meq/L 3.5-5.1 zlij=901) CHLORIDE (BEAKER) (test 113 meq/L 98-107 jlxa=073) CO2 (BEAKER) (test 25 meq/L 22-29 egmi=463) BLOOD UREA NITROGEN 30 mg/dL 7-21 (BEAKER) (test jipa=971) CREATININE (BEAKER) (test 1.41 mg/dL 0.57-1.25 uwdj=413) GLUCOSE RANDOM (BEAKER) 135 mg/dL 70-105 (test lxok=096) CALCIUM (BEAKER) (test 9.2 mg/dL 8.4-10.2 thtb=562) EGFR (BEAKER) (test 43 mL/min/1.73 sq m ESTIMATED GFR IS NOT ivae=5128) ACCURATE CREATININE CLEARANCE IN PREDICTING GLOMERULAR FILTRATION RATE. ESTIMATED GFR IS NOT APPLICABLE FOR DIALYSIS PATIENTS. RAD, CHEST, 1 VIEW, NON [id number] 11:17:00Reason for exam:->assess ETT placementShould this be performed at the bedside?->YesFINAL REPORT TECHNIQUE: Frontal view of the chest. INDICATION: 33-year-old woman after endotracheal tube placement. COMPARISON: Chest radiograph 2018. FINDINGS: LINES/TUBES: Unchanged. LUNGS: Low lung volumes, which accentuate the cardiac silhouette and pulmonary vasculature. No consolidation or overt pulmonary edema. PLEURA: No pneumothorax or significant pleural effusion. HEART AND MEDIASTINUM: The cardiomediastinal silhouette is unchanged. SOFT TISSUES AND BONES: Unremarkable. IMPRESSION:No significant change since . Signed: Gisele Gaytan MDReport Verified Date/Time: 09/12/2018 11:17: 59 Reading Location: [facility] Reading Room BLOOD [id number] 11:01:00 Test Item Value Reference Range Comments CULTURE (BEAKER) (test sxpx=7990) No growth in 5 days CSF CELL COUNT [id number] 10:58:00 Test Item Value Reference Range Comments APPEARANCE CSF (BEAKER) Clear Clear (test josn=617) COLOR CSF (BEAKER) (test Colorless Colorless dnya=793) RBC CSF (BEAKER) (test 172 /cu mm 0-5 fyhk=871) WBC CSF (BEAKER) (test 2 /cu mm <=5 mpxb=0177) RBCS FRESH (BEAKER) (test 75% Fresh, 25% Crenated rrbv=4665) NUMBER OF CELLS DIFF'D 15 (BEAKER) (test sscq=9502) NEUTROPHIL, CSF (BEAKER) 27 % 0-5 (test nkip=664) LYMPHS CSF (BEAKER) (test 67 % 40-80 njbx=479) MONO/MACROPHAGE CSF 7 % 15-45 (BEAKER) (test cexd=427) EOSINOPHILS CSF (BEAKER) 0 % <=0 (test huhd=930) BASO CSF (BEAKER) (test 0 % <=0 ovjp=496) TUBE NUMBER CSF (BEAKER) Sterile container Sterile container (test ansy=7815) GENITAL CULTURE + GRAM [id number] 08:56:00 Test Item Value Reference Range Comments CULTURE (BEAKER) 4+ Beta-hemolytic (test jlfv=2417) streptococcus group B, by serological grouping GRAM STAIN RESULT 2+ WBCs (BEAKER) (test ixfs=5553) GRAM STAIN RESULT <1+ gram positive (BEAKER) (test cocci in pairs and shcu=523287) clusters GRAM STAIN RESULT 3+ gram variable rods (BEAKER) (test wvdj=270791) 4+ Normal vaginal jammie presentPOCT-GLUCOSE [id number] 06:56:00 Test Item Value Reference Range Comments POC-GLUCOSE METER (BEAKER) 118 mg/dL 70-110 TESTED AT [facility] [address] [facility] (test eplb=2471) [facility] [address] GLUCOSE, [id number] 06:40:00 Test Item Value Reference Range Comments GLUCOSE CSF (BEAKER) (test ooml=806) 76 mg/dL 40-70 PROTEIN, [id number] 06:40:00 Test Item Value Reference Range Comments PROTEIN CSF (BEAKER) (test obkk=784) 19 mg/dL 15-45 BLOOD GAS, [id number] 04:58:00 Test Item Value Reference Range Comments PH ARTERIAL (BEAKER) (test tnud=499) 7.44 7.35-7.45 PCO2 ARTERIAL (BEAKER) (test bmmb=113) 42 mmHg 35-45 PO2 ARTERIAL (BEAKER) (test jyyq=649) 194 mmHg 80-90 O2 SATURATION ARTERIAL (BEAKER) (test rmui=195) 99.4 % 96.0-97.0 HCO3 ARTERIAL (BEAKER) (test zymc=176) 27 mmol/L 21-29 BASE EXCESS ARTERIAL (BEAKER) (test lbpm=387) 3.3 mmol/L -2.0-3.0 PATIENT TEMPERATURE (BEAKER) (test jbsm=2322) 38.0 C FIO2 (BEAKER) (test uwzi=5037) 40.0 % CBC W/PLT COUNT & AUTO [id number] 04:44:00 Test Item Value Reference Range Comments WHITE BLOOD CELL COUNT (BEAKER) (test lsmc=567) 10.9 K/ L 3.5-10.5 RED BLOOD CELL COUNT (BEAKER) (test jbga=175) 3.42 M/ L 3.93-5.22 HEMOGLOBIN (BEAKER) (test pnjw=921) 10.5 GM/DL 11.2-15.7 HEMATOCRIT (BEAKER) (test gxoh=119) 32.1 % 34.1-44.9 MEAN CORPUSCULAR VOLUME (BEAKER) (test atbv=794) 93.9 fL 79.4-94.8 MEAN CORPUSCULAR HEMOGLOBIN (BEAKER) (test 30.7 pg 25.6-32.2 dfeg=517) MEAN CORPUSCULAR HEMOGLOBIN CONC (BEAKER) (test 32.7 GM/DL 32.2-35.5 vxrt=981) RED CELL DISTRIBUTION WIDTH (BEAKER) (test 14.3 % 11.7-14.4 qzwx=977) PLATELET COUNT (BEAKER) (test gpix=705) 240 K/CU MM 150-450 MEAN PLATELET VOLUME (BEAKER) (test xdep=868) 11.5 fL 9.4-12.3 NUCLEATED RED BLOOD CELLS (BEAKER) (test 0 /100 WBC 0-0 arqd=680) NEUTROPHILS RELATIVE PERCENT (BEAKER) (test 68 % mrej=661) LYMPHOCYTES RELATIVE PERCENT (BEAKER) (test 19 % abql=767) MONOCYTES RELATIVE PERCENT (BEAKER) (test 10 % cszs=308) EOSINOPHILS RELATIVE PERCENT (BEAKER) (test 2 % efcx=780) BASOPHILS RELATIVE PERCENT (BEAKER) (test 0 % fbes=249) NEUTROPHILS ABSOLUTE COUNT (BEAKER) (test 7.34 K/ L 1.56-6.13 iwce=164) LYMPHOCYTES ABSOLUTE COUNT (BEAKER) (test 2.09 K/ L 1.18-3.74 rghk=454) MONOCYTES ABSOLUTE COUNT (BEAKER) (test 1.13 K/ L 0.24-0.36 oxrx=256) EOSINOPHILS ABSOLUTE COUNT (BEAKER) (test 0.16 K/ L 0.04-0.36 rcap=066) BASOPHILS ABSOLUTE COUNT (BEAKER) (test 0.03 K/ L 0.01-0.08 qchs=644) IMMATURE GRANULOCYTES-RELATIVE PERCENT (BEAKER) 1 % 0-1 (test pruh=3452) POCT-GLUCOSE [id number] 00:05:00 Test Item Value Reference Range Comments POC-GLUCOSE METER (BEAKER) 106 mg/dL 70-110 TESTED AT [address] (test ywmz=2826) [facility] [address] POCT-GLUCOSE [id number] 18:32:00 Test Item Value Reference Range Comments POC-GLUCOSE METER (BEAKER) 133 mg/dL 70-110 TESTED AT [address] (test zopd=2699) [facility] [address] VANCOMYCIN LEVEL, [id number] 16:00:00 Test Item Value Reference Range Comments VANCOMYCIN RANDOM (BEAKER) (test cysd=023) 25.6 ug/mL Reference Range: No [id number] 15:55:00 Test Item Value Reference Range Comments POTASSIUM (BEAKER) (test dils=816) 3.5 meq/L 3.5-5.1 Check Serum Potassium level 2 hours after oral potassium replacement completed or 30 min after intravenous potassium replacement.POCT-GLUCOSE [id number] 14:31:00 Test Item Value Reference Range Comments POC-GLUCOSE METER (BEAKER) 115 mg/dL 70-110 TESTED AT [facility] [address] (test ucbs=2809) [facility] [address] RAD, CHEST, 1 VIEW, NON [id number] 11:38:00Reason for exam:->assess ETT placementShould this be performed at the bedside?->YesFINAL REPORT AP view of the chest dated 09/11/2018 COMPARISON: 09/10/2018 CLINICAL INFORMATION: assess ETT placement Comment: Heart is normal in size. Pulmonary vasculature is unremarkable. Previously noted interstitial pulmonary disease has resolved. Lungs are clear. No pulmonary infiltrate or pleural effusion is present. Endotracheal tube, feeding tube, and right PICC line remain in place. Tip of the endotracheal tube is approximately 2 cm above the lyndsay. Signed: Miles Arriaza Verified Date/Time: 09/11/2018 11:38:29 Reading Location: [facility] C013X Ortho Consult Reading Room BLOOD GAS, [id number] 05:57:00 Test Item Value Reference Range Comments PH ARTERIAL (BEAKER) (test biqk=535) 7.44 7.35-7.45 PCO2 ARTERIAL (BEAKER) (test mlpq=901) 43 mmHg 35-45 PO2 ARTERIAL (BEAKER) (test wrnz=801) 146 mmHg 80-90 O2 SATURATION ARTERIAL (BEAKER) (test atto=370) 98.9 % 96.0-97.0 HCO3 ARTERIAL (BEAKER) (test drfx=856) 28 mmol/L 21-29 BASE EXCESS ARTERIAL (BEAKER) (test rqii=839) 4.0 mmol/L -2.0-3.0 PATIENT TEMPERATURE (BEAKER) (test pcon=9537) 37.9 C FIO2 (BEAKER) (test hasp=0903) 40.0 % COMPREHENSIVE METABOLIC [id number] 05:52:00 Test Item Value Reference Range Comments TOTAL PROTEIN (BEAKER) 6.9 gm/dL 6.0-8.3 (test usnx=481) ALBUMIN (BEAKER) (test 3.5 g/dL 3.5-5.0 eznj=3129) ALKALINE PHOSPHATASE 60 U/L 40-150 (BEAKER) (test spbt=570) BILIRUBIN TOTAL (BEAKER) 0.5 mg/dL 0.2-1.2 (test irjx=807) SODIUM (BEAKER) (test 144 meq/L 136-145 vqhe=803) POTASSIUM (BEAKER) (test 3.2 meq/L 3.5-5.1 hvfd=028) CHLORIDE (BEAKER) (test 110 meq/L 98-107 olyv=228) CO2 (BEAKER) (test 28 meq/L 22-29 dmlf=712) BLOOD UREA NITROGEN 16 mg/dL 7-21 (BEAKER) (test qlqf=654) CREATININE (BEAKER) (test 0.94 mg/dL 0.57-1.25 bccu=284) GLUCOSE RANDOM (BEAKER) 109 mg/dL 70-105 (test svva=225) CALCIUM (BEAKER) (test 9.3 mg/dL 8.4-10.2 oeny=610) AST (SGOT) (BEAKER) (test 46 U/L 5-34 qioi=744) ALT (SGPT) (BEAKER) (test 50 U/L 6-55 nizk=070) EGFR (BEAKER) (test 69 mL/min/1.73 sq m ESTIMATED GFR IS NOT sswq=7887) ACCURATE CREATININE CLEARANCE IN PREDICTING GLOMERULAR FILTRATION RATE. ESTIMATED GFR IS NOT APPLICABLE FOR DIALYSIS PATIENTS. CBC W/PLT COUNT & AUTO [id number] 05:33:00 Test Item Value Reference Range Comments WHITE BLOOD CELL COUNT (BEAKER) (test mepq=568) 10.5 K/ L 3.5-10.5 RED BLOOD CELL COUNT (BEAKER) (test kaix=491) 3.88 M/ L 3.93-5.22 HEMOGLOBIN (BEAKER) (test hdkl=850) 11.7 GM/DL 11.2-15.7 HEMATOCRIT (BEAKER) (test htxk=227) 36.4 % 34.1-44.9 MEAN CORPUSCULAR VOLUME (BEAKER) (test ewxg=751) 93.8 fL 79.4-94.8 MEAN CORPUSCULAR HEMOGLOBIN (BEAKER) (test 30.2 pg 25.6-32.2 spqj=801) MEAN CORPUSCULAR HEMOGLOBIN CONC (BEAKER) (test 32.1 GM/DL 32.2-35.5 jxto=544) RED CELL DISTRIBUTION WIDTH (BEAKER) (test 14.3 % 11.7-14.4 mwrv=864) PLATELET COUNT (BEAKER) (test ugfz=056) 279 K/CU MM 150-450 MEAN PLATELET VOLUME (BEAKER) (test qkia=232) 11.1 fL 9.4-12.3 NUCLEATED RED BLOOD CELLS (BEAKER) (test 0 /100 WBC 0-0 nvxv=017) NEUTROPHILS RELATIVE PERCENT (BEAKER) (test 71 % orzq=054) LYMPHOCYTES RELATIVE PERCENT (BEAKER) (test 18 % tlhl=149) MONOCYTES RELATIVE PERCENT (BEAKER) (test 9 % dhbp=171) EOSINOPHILS RELATIVE PERCENT (BEAKER) (test 1 % llrw=397) BASOPHILS RELATIVE PERCENT (BEAKER) (test 0 % jfgl=013) NEUTROPHILS ABSOLUTE COUNT (BEAKER) (test 7.49 K/ L 1.56-6.13 vivv=184) LYMPHOCYTES ABSOLUTE COUNT (BEAKER) (test 1.92 K/ L 1.18-3.74 egxz=182) MONOCYTES ABSOLUTE COUNT (BEAKER) (test 0.95 K/ L 0.24-0.36 geyk=278) EOSINOPHILS ABSOLUTE COUNT (BEAKER) (test 0.11 K/ L 0.04-0.36 nrez=317) BASOPHILS ABSOLUTE COUNT (BEAKER) (test 0.02 K/ L 0.01-0.08 sjwb=996) IMMATURE GRANULOCYTES-RELATIVE PERCENT (BEAKER) 0 % 0-1 (test elba=4377) POCT-GLUCOSE [id number] 01:38:00 Test Item Value Reference Range Comments POC-GLUCOSE METER (BEAKER) 84 mg/dL 70-110 TESTED AT [facility] [address] [place] [address] (test myzy=6928) [facility] [address] SPUTUM CULTURE + GRAM [id number] 17:40:00 Test Item Value Reference Range Comments CULTURE (BEAKER) (test 3+ Normal respiratory jammie xlwa=9508) present GRAM STAIN RESULT (BEAKER) <1+ gram positive rods (test luuc=7088) GRAM STAIN RESULT (BEAKER) 3+ WBCs (test rzcg=80450) GRAM STAIN RESULT (BEAKER) <1+ gram positive cocci in pairs (test egyh=43313) GRAM STAIN RESULT (BEAKER) <1+ gram positive cocci in (test qipu=660740) clusters POCT-GLUCOSE [id number] 15:31:00 Test Item Value Reference Range Comments POC-GLUCOSE METER (BEAKER) 108 mg/dL 70-110 TESTED AT [facility] [address] [facility] (test wygj=8413) [facility] [address] POCT-GLUCOSE [id number] 07:37:00 Test Item Value Reference Range Comments POC-GLUCOSE METER (BEAKER) 104 mg/dL 70-110 TESTED AT [place] [id number] [facility] (test fkbn=0037) [facility] [address] BASIC METABOLIC [id number] 06:54:00 Test Item Value Reference Range Comments SODIUM (BEAKER) (test 143 meq/L 136-145 tciq=856) POTASSIUM (BEAKER) (test 3.6 meq/L 3.5-5.1 ctrj=054) CHLORIDE (BEAKER) (test 110 meq/L 98-107 kqcl=283) CO2 (BEAKER) (test 24 meq/L 22-29 cgmc=641) BLOOD UREA NITROGEN 18 mg/dL 7-21 (BEAKER) (test yfbv=122) CREATININE (BEAKER) (test 0.87 mg/dL 0.57-1.25 ebsg=776) GLUCOSE RANDOM (BEAKER) 103 mg/dL 70-105 (test bhnq=373) CALCIUM (BEAKER) (test 9.4 mg/dL 8.4-10.2 ztfp=511) EGFR (BEAKER) (test 75 mL/min/1.73 sq m ESTIMATED GFR IS NOT cdez=1115) ACCURATE CREATININE CLEARANCE IN PREDICTING GLOMERULAR FILTRATION RATE. ESTIMATED GFR IS NOT APPLICABLE FOR DIALYSIS PATIENTS. BLOOD GAS, [id number] 05:04:00 Test Item Value Reference Range Comments PH ARTERIAL (BEAKER) (test cusp=818) 7.43 7.35-7.45 PCO2 ARTERIAL (BEAKER) (test dlbe=035) 42 mmHg 35-45 PO2 ARTERIAL (BEAKER) (test evyw=267) 83 mmHg 80-90 O2 SATURATION ARTERIAL (BEAKER) (test kshj=216) 96.1 % 96.0-97.0 HCO3 ARTERIAL (BEAKER) (test jomn=340) 27 mmol/L 21-29 BASE EXCESS ARTERIAL (BEAKER) (test itgi=813) 2.5 mmol/L -2.0-3.0 PATIENT TEMPERATURE (BEAKER) (test vwut=4144) 37.5 C FIO2 (BEAKER) (test kfhw=9347) 40.0 % CBC W/PLT COUNT & AUTO [id number] 05:03:00 Test Item Value Reference Range Comments WHITE BLOOD CELL COUNT (BEAKER) (test zvss=666) 10.2 K/ L 3.5-10.5 RED BLOOD CELL COUNT (BEAKER) (test swve=260) 3.57 M/ L 3.93-5.22 HEMOGLOBIN (BEAKER) (test vpyu=357) 10.9 GM/DL 11.2-15.7 HEMATOCRIT (BEAKER) (test qenu=920) 33.5 % 34.1-44.9 MEAN CORPUSCULAR VOLUME (BEAKER) (test bhci=183) 93.8 fL 79.4-94.8 MEAN CORPUSCULAR HEMOGLOBIN (BEAKER) (test 30.5 pg 25.6-32.2 ycap=399) MEAN CORPUSCULAR HEMOGLOBIN CONC (BEAKER) (test 32.5 GM/DL 32.2-35.5 xeyy=025) RED CELL DISTRIBUTION WIDTH (BEAKER) (test 14.1 % 11.7-14.4 xiuc=815) PLATELET COUNT (BEAKER) (test ixll=039) 263 K/CU MM 150-450 MEAN PLATELET VOLUME (BEAKER) (test dpag=547) 11.3 fL 9.4-12.3 NUCLEATED RED BLOOD CELLS (BEAKER) (test 0 /100 WBC 0-0 trgu=441) NEUTROPHILS RELATIVE PERCENT (BEAKER) (test 75 % idrt=982) LYMPHOCYTES RELATIVE PERCENT (BEAKER) (test 14 % ovwf=960) MONOCYTES RELATIVE PERCENT (BEAKER) (test 9 % xpjh=497) EOSINOPHILS RELATIVE PERCENT (BEAKER) (test 1 % nvdw=205) BASOPHILS RELATIVE PERCENT (BEAKER) (test 0 % cnyi=182) NEUTROPHILS ABSOLUTE COUNT (BEAKER) (test 7.70 K/ L 1.56-6.13 acqb=958) LYMPHOCYTES ABSOLUTE COUNT (BEAKER) (test 1.46 K/ L 1.18-3.74 fovs=469) MONOCYTES ABSOLUTE COUNT (BEAKER) (test 0.87 K/ L 0.24-0.36 qttm=889) EOSINOPHILS ABSOLUTE COUNT (BEAKER) (test 0.12 K/ L 0.04-0.36 jfln=924) BASOPHILS ABSOLUTE COUNT (BEAKER) (test 0.04 K/ L 0.01-0.08 ozdn=027) IMMATURE GRANULOCYTES-RELATIVE PERCENT (BEAKER) 0 % 0-1 (test bozu=0242) RAD, CHEST, 1 VIEW, NON [id number] 04:24:00Reason for exam:-> intubatedShould this be performed at the bedside?->YesFINAL REPORT Chest one view. Clinical history: intubated Comparison: Chest radiograph 09/09/2018, 6:26 PM. Technique: A single frontal view of the chest was obtained. Findings/impression:There is an endotracheal tube in satisfactory position. There is a feeding tube with tip inthe region of the gastric antrum. There is a right PICC line with tip in the right atrium.The cardiomediastinal contours are stable. There are low lung volumes. There is a retrocardiac opacity which may represent pneumonia and/or atelectasis. There is no pleural effusion or pneumothorax. Signed: Gloria Steiner Verified Date/Time: 09/10/2018 04:24:18 Reading Location: [address] Reading Room Electronically signed by: GLORIA STEINER MD on 2018 04:24 AMPOCT-GLUCOSE [id number] 01:49:00 Test Item Value Reference Range Comments POC-GLUCOSE METER (BEAKER) 101 mg/dL 70-110 TESTED AT [place] [id number] [facility] (test drfj=5226) [facility] [address] POCT-GLUCOSE [id number] 01:49:00 Test Item Value Reference Range Comments POC-GLUCOSE METER (BEAKER) 122 mg/dL 70-110 TESTED AT [place] [id number] [facility] (test wfbf=8535) [facility] [address] RAD, ABDOMEN/KUB, 1 VIEW [id number] 19:37:00Reason for exam:->corpak placementFINAL REPORT Abdomen one view supine 09/09/2018 7 :37 PM CLINICAL INDICATION: corpak placement COMPARISON: 09/06/2018 IMPRESSION: The Corpak tip projects over the distal duodenum. There is no radiographic evidence of bowel obstruction. No abnormal calcifications are seen in the region of the gallbladder or kidneys. An intrauterine device is present. The visualized skeleton is unremarkable. Signed: Juan M Bernstein MDReport Verified Date/Time: 09/09/2018 19:37:29 Reading Location:[facility] Reading Room RAD, CHEST, 1 VIEW, NON [id number] 19:25:00Reason for exam:-> PICC LINE TIP VERIFICATION Should this be performed at the bedside?-> YesFINAL REPORT INDICATION: PICC LINE TIP VERIFICATION COMPARISON:September 09 at 3:56 AM TECHNIQUE: Chest radiograph, single view, portable technique. FINDINGS / IMPRESSION: Intervalplacement of a right PICC line that terminates in the cavoatrial junction. Endotracheal tube and feeding tube again demonstrated. Lungs are clear and the cardiac and mediastinal contours unremarkable. Signed: Prince Farris MDReport Verified Date/Time: 19:25:55 Reading Location: [facility] C013W Consult Reading Room 07: [id number] 18:18:00 Test Item Value Reference Range Comments POTASSIUM (BEAKER) (test ovlg=640) 4.0 meq/L 3.5-5.1 Check Serum Potassium level 2 hours after oral potassium replacement completed or 30 min after intravenous potassium replacement.POCT-GLUCOSE [id number] 12:09:00 Test Item Value Reference Range Comments POC-GLUCOSE METER (BEAKER) 134 mg/dL 70-110 TESTED AT [facility] [address] [place] [address] (test gjtj=7079) [facility] [address] VANCOMYCIN LEVEL, [id number] 08:47:00 Test Item Value Reference Range Comments VANCOMYCIN TROUGH (BEAKER) (test nxtl=025) 7.9 ug/mL 10.0-20.0 Please HOLD the dose until the trough comes back. If > 20 mcg/ml please DO NOT administer the dose and contact the pharmacistPOCT-GLUCOSE [id number] 06:00:00 Test Item Value Reference Range Comments POC-GLUCOSE METER (BEAKER) 118 mg/dL 70-110 TESTED AT [facility] [address] (test cnpl=0677) [facility] [address] BASIC METABOLIC [id number] 05:30:00 Test Item Value Reference Range Comments SODIUM (BEAKER) (test 141 meq/L 136-145 bmog=731) POTASSIUM (BEAKER) (test 3.5 meq/L 3.5-5.1 Specimen slightly bwdu=905) hemolyzed CHLORIDE (BEAKER) (test 108 meq/L 98-107 yjjv=539) CO2 (BEAKER) (test 24 meq/L 22-29 ilvd=243) BLOOD UREA NITROGEN 12 mg/dL 7-21 (BEAKER) (test uljv=079) CREATININE (BEAKER) (test 0.76 mg/dL 0.57-1.25 Specimen slightly uwri=439) hemolyzed GLUCOSE RANDOM (BEAKER) 99 mg/dL 70-105 (test ejta=272) CALCIUM (BEAKER) (test 9.1 mg/dL 8.4-10.2 qkzm=894) EGFR (BEAKER) (test 88 mL/min/1.73 sq m ESTIMATED GFR IS NOT narx=1423) ACCURATE CREATININE CLEARANCE IN PREDICTING GLOMERULAR FILTRATION RATE. ESTIMATED GFR IS NOT APPLICABLE FOR DIALYSIS PATIENTS. BLOOD GAS, [id number] 05:30:00 Test Item Value Reference Range Comments PH ARTERIAL (BEAKER) (test fxxg=443) 7.42 7.35-7.45 PCO2 ARTERIAL (BEAKER) (test yyhq=204) 41 mmHg 35-45 PO2 ARTERIAL (BEAKER) (test vxoi=043) 61 mmHg 80-90 O2 SATURATION ARTERIAL (BEAKER) (test nmmd=312) 91.4 % 96.0-97.0 HCO3 ARTERIAL (BEAKER) (test lfsd=798) 26 mmol/L 21-29 BASE EXCESS ARTERIAL (BEAKER) (test smul=970) 1.6 mmol/L -2.0-3.0 PATIENT TEMPERATURE (BEAKER) (test sxyn=1041) 37.4 C FIO2 (BEAKER) (test gwaw=8867) 40.0 % CBC W/PLT COUNT & AUTO [id number] 04:58:00 Test Item Value Reference Range Comments WHITE BLOOD CELL COUNT (BEAKER) (test mmgo=281) 13.5 K/ L 3.5-10.5 RED BLOOD CELL COUNT (BEAKER) (test hgqt=444) 4.21 M/ L 3.93-5.22 HEMOGLOBIN (BEAKER) (test qjoo=313) 12.9 GM/DL 11.2-15.7 HEMATOCRIT (BEAKER) (test yomf=718) 39.0 % 34.1-44.9 MEAN CORPUSCULAR VOLUME (BEAKER) (test grmm=762) 92.6 fL 79.4-94.8 MEAN CORPUSCULAR HEMOGLOBIN (BEAKER) (test 30.6 pg 25.6-32.2 lohy=902) MEAN CORPUSCULAR HEMOGLOBIN CONC (BEAKER) (test 33.1 GM/DL 32.2-35.5 riev=882) RED CELL DISTRIBUTION WIDTH (BEAKER) (test 14.3 % 11.7-14.4 idyw=174) PLATELET COUNT (BEAKER) (test mumi=430) 255 K/CU MM 150-450 MEAN PLATELET VOLUME (BEAKER) (test cxrv=362) 11.2 fL 9.4-12.3 NUCLEATED RED BLOOD CELLS (BEAKER) (test 0 /100 WBC 0-0 hkjt=936) NEUTROPHILS RELATIVE PERCENT (BEAKER) (test 71 % tsgt=993) LYMPHOCYTES RELATIVE PERCENT (BEAKER) (test 18 % momv=562) MONOCYTES RELATIVE PERCENT (BEAKER) (test 9 % lxmg=915) EOSINOPHILS RELATIVE PERCENT (BEAKER) (test 1 % kgye=831) BASOPHILS RELATIVE PERCENT (BEAKER) (test 0 % bpxk=431) NEUTROPHILS ABSOLUTE COUNT (BEAKER) (test 9.56 K/ L 1.56-6.13 egtf=248) LYMPHOCYTES ABSOLUTE COUNT (BEAKER) (test 2.44 K/ L 1.18-3.74 brjm=564) MONOCYTES ABSOLUTE COUNT (BEAKER) (test 1.22 K/ L 0.24-0.36 fmvc=874) EOSINOPHILS ABSOLUTE COUNT (BEAKER) (test 0.14 K/ L 0.04-0.36 hoya=620) BASOPHILS ABSOLUTE COUNT (BEAKER) (test 0.05 K/ L 0.01-0.08 xeho=115) IMMATURE GRANULOCYTES-RELATIVE PERCENT (BEAKER) 0 % 0-1 (test orpu=4792) RAD, CHEST, 1 VIEW, NON [id number] 04:36:00Reason for exam:-> intubatedShould this be performed at the bedside?->YesFINAL REPORT Chest one view. Clinical history: intubated Comparison: Chest radiograph 09/08/2017. Technique: A single frontal view of the chest was obtained. Findings:Endotracheal and feeding tubes are in satisfactory positions. The cardiomediastinal contours are normal. Thereare resolved bilateral congestive changes.There is no focal pulmonary consolidation, pleural effusion or pneumothorax. There is no pulmonary edema. Signed: Gloria Steiner Verified Date/Time: 09/09/2018 04:36:12 Reading Location: [address] Reading Room POCT-GLUCOSE [id number] 23:30:00 Test Item Value Reference Range Comments POC-GLUCOSE METER (BEAKER) 111 mg/dL 70-110 TESTED AT [address] (test cnxd=5550) [place] [id number] POCT-GLUCOSE [id number] 18:14:00 Test Item Value Reference Range Comments POC-GLUCOSE METER (BEAKER) 109 mg/dL 70-110 TESTED AT [address] (test eddo=1424) [place] [id number] POCT-GLUCOSE [id number] 12:32:00 Test Item Value Reference Range Comments POC-GLUCOSE METER (BEAKER) 107 mg/dL 70-110 TESTED AT [address] (test jhpe=3269) [place] [id number] POCT-GLUCOSE [id number] 05:39:00 Test Item Value Reference Range Comments POC-GLUCOSE METER (BEAKER) 115 mg/dL 70-110 TESTED AT [address] (test qmcv=6012) [facility] [address] BLOOD GAS, [id number] 04:50:00 Test Item Value Reference Range Comments PH ARTERIAL (BEAKER) (test szaa=681) 7.44 7.35-7.45 PCO2 ARTERIAL (BEAKER) (test egbt=740) 35 mmHg 35-45 PO2 ARTERIAL (BEAKER) (test mqlp=145) 200 mmHg 80-90 O2 SATURATION ARTERIAL (BEAKER) (test wrfl=278) 99.4 % 96.0-97.0 HCO3 ARTERIAL (BEAKER) (test bzgj=288) 23 mmol/L 21-29 BASE EXCESS ARTERIAL (BEAKER) (test vwox=337) -0.4 mmol/L -2.0-3.0 PATIENT TEMPERATURE (BEAKER) (test unga=9640) 37.5 C FIO2 (BEAKER) (test jnpl=7396) 40.0 % [id number] 04:42:00 Test Item Value Reference Range Comments MAGNESIUM (BEAKER) (test 2.3 mg/dL 1.6-2.6 Specimen slightly hemolyzed bsdp=937) Check Serum Phosphorus level 4 hours after IV phosphorus replacement or 8 hours after PO replacementcompleted.[id number] 04:42:00 Test Item Value Reference Range Comments PHOSPHORUS (BEAKER) (test 2.3 mg/dL 2.3-4.7 Specimen slightly hemolyzed wods=474) Check Serum Phosphorus level 4 hours after IV phosphorus replacement or 8 hours after PO replacementcompleted.BASIC METABOLIC [id number] 04:42:00 Test Item Value Reference Range Comments SODIUM (BEAKER) (test 141 meq/L 136-145 yvzg=394) POTASSIUM (BEAKER) (test 3.8 meq/L 3.5-5.1 Specimen slightly mygu=000) hemolyzed CHLORIDE (BEAKER) (test 111 meq/L 98-107 xhrq=679) CO2 (BEAKER) (test 22 meq/L 22-29 iiww=479) BLOOD UREA NITROGEN 14 mg/dL 7-21 (BEAKER) (test xuji=256) CREATININE (BEAKER) (test 0.85 mg/dL 0.57-1.25 Specimen slightly vwmm=145) hemolyzed GLUCOSE RANDOM (BEAKER) 118 mg/dL 70-105 (test exie=237) CALCIUM (BEAKER) (test 9.0 mg/dL 8.4-10.2 bker=366) EGFR (BEAKER) (test 78 mL/min/1.73 sq m ESTIMATED GFR IS NOT cgyo=9463) ACCURATE CREATININE CLEARANCE IN PREDICTING GLOMERULAR FILTRATION RATE. ESTIMATED GFR IS NOT APPLICABLE FOR DIALYSIS PATIENTS. Check Serum Phosphorus level 4 hours after IV phosphorus replacement or 8 hours after PO replacementcompleted.CBC W/PLT COUNT & AUTO [id number] 04:33:00 Test Item Value Reference Range Comments WHITE BLOOD CELL COUNT (BEAKER) (test zjpc=350) 16.0 K/ L 3.5-10.5 RED BLOOD CELL COUNT (BEAKER) (test sdcx=520) 3.92 M/ L 3.93-5.22 HEMOGLOBIN (BEAKER) (test eoag=501) 12.0 GM/DL 11.2-15.7 HEMATOCRIT (BEAKER) (test aayw=646) 36.3 % 34.1-44.9 MEAN CORPUSCULAR VOLUME (BEAKER) (test mwok=887) 92.6 fL 79.4-94.8 MEAN CORPUSCULAR HEMOGLOBIN (BEAKER) (test 30.6 pg 25.6-32.2 yqrg=318) MEAN CORPUSCULAR HEMOGLOBIN CONC (BEAKER) (test 33.1 GM/DL 32.2-35.5 idvy=586) RED CELL DISTRIBUTION WIDTH (BEAKER) (test 14.6 % 11.7-14.4 ukwc=550) PLATELET COUNT (BEAKER) (test ahkc=082) 241 K/CU MM 150-450 MEAN PLATELET VOLUME (BEAKER) (test hqio=583) 11.4 fL 9.4-12.3 NUCLEATED RED BLOOD CELLS (BEAKER) (test 0 /100 WBC 0-0 awjq=073) NEUTROPHILS RELATIVE PERCENT (BEAKER) (test 74 % woef=398) LYMPHOCYTES RELATIVE PERCENT (BEAKER) (test 17 % jolj=102) MONOCYTES RELATIVE PERCENT (BEAKER) (test 8 % xeus=673) EOSINOPHILS RELATIVE PERCENT (BEAKER) (test 0 % ixse=759) BASOPHILS RELATIVE PERCENT (BEAKER) (test 0 % kefs=860) NEUTROPHILS ABSOLUTE COUNT (BEAKER) (test 11.87 K/ L 1.56-6.13 jlwa=161) LYMPHOCYTES ABSOLUTE COUNT (BEAKER) (test 2.67 K/ L 1.18-3.74 mzvr=573) MONOCYTES ABSOLUTE COUNT (BEAKER) (test 1.32 K/ L 0.24-0.36 nvox=888) EOSINOPHILS ABSOLUTE COUNT (BEAKER) (test 0.01 K/ L 0.04-0.36 plde=626) BASOPHILS ABSOLUTE COUNT (BEAKER) (test 0.04 K/ L 0.01-0.08 keda=510) IMMATURE GRANULOCYTES-RELATIVE PERCENT (BEAKER) 0 % 0-1 (test dara=9077) RAD, CHEST, 1 VIEW, NON [id number] 04:10:00Reason for exam:-> intubatedShould this be performed at the bedside?->YesFINAL REPORT Chest one view. Clinical history: intubated Comparison: Chest radiograph 09/07/2018, 6:40 AM. Technique: A single frontal view of the chest was obtained. Findings:Endotracheal and feeding tubes are in satisfactory positions.The cardiomediastinal contours are stable. There are mild bilateral congestive changes. There is a left lower lobe opacification which may represent pneumonia and/or atelectasis. There is no pleural effusion or pneumothorax. Signed: Gloria Steiner MDReport Verified Date/Time: 09/08/2018 04:10:24 Reading Location: [address] Reading Room POCT- GLUCOSE [id number] 23:36:00 Test Item Value Reference Range Comments POC-GLUCOSE METER (BEAKER) 112 mg/dL 70-110 TESTED AT [address] (test ukww=0979) [facility] [address] POCT-GLUCOSE [id number] 18:22:00 Test Item Value Reference Range Comments POC-GLUCOSE METER (BEAKER) 111 mg/dL 70-110 TESTED AT [address] (test ajwh=4964) [facility] [address] POCT-GLUCOSE [id number] 12:15:00 Test Item Value Reference Range Comments POC-GLUCOSE METER (BEAKER) 112 mg/dL 70-110 TESTED AT [address] (test pfcu=3293) [facility] [address] HEPATIC FUNCTION [id number] 09:54:00 Test Item Value Reference Range Comments TOTAL PROTEIN (BEAKER) (test smsv=392) 6.8 gm/dL 6.0-8.3 ALBUMIN (BEAKER) (test cibv=7284) 3.7 g/dL 3.5-5.0 BILIRUBIN TOTAL (BEAKER) (test cwhu=993) 0.5 mg/dL 0.2-1.2 BILIRUBIN DIRECT (BEAKER) (test gnml=998) 0.2 mg/dL 0.1-0.5 ALKALINE PHOSPHATASE (BEAKER) (test fyfd=873) 65 U/L 40-150 AST (SGOT) (BEAKER) (test upcv=502) 17 U/L 5-34 ALT (SGPT) (BEAKER) (test xngu=253) 14 U/L 6-55 URINALYSIS W/ REFLEX URINE [id number] 09:08:00 Test Item Value Reference Range Comments COLOR (BEAKER) (test wasb=753) Yellow CLARITY (BEAKER) (test cpev=128) Clear SPECIFIC GRAVITY UA (BEAKER) (test ccci=645) 1.025 1.001-1.035 PH UA (BEAKER) (test jkdk=473) 5.5 5.0-8.0 PROTEIN UA (BEAKER) (test whwu=905) 30 mg/dL Negative GLUCOSE UA (BEAKER) (test cwho=167) 50 mg/dL Negative KETONES UA (BEAKER) (test mahb=174) 80 mg/dL Negative BILIRUBIN UA (BEAKER) (test ddav=356) Negative Negative BLOOD UA (BEAKER) (test rtly=937) Trace Negative NITRITE UA (BEAKER) (test qtkp=957) Negative Negative LEUKOCYTE ESTERASE UA (BEAKER) (test omjl=395) Negative Negative UROBILINOGEN UA (BEAKER) (test dnwn=244) 0.2 mg/dL 0.2-1.0 RBC UA (BEAKER) (test jycv=753) 2 /HPF WBC UA (BEAKER) (test cswn=715) 4 /HPF MUCUS (BEAKER) (test vzju=8384) Moderate SQUAMOUS EPITHELIAL (BEAKER) (test uuds=290) < /HPF GRANULAR CASTS (BEAKER) (test xjpu=914) 2 /LPF SOURCE(BEAKER) (test jczx=0910) RAD, CHEST, 1 VIEW, NON [id number] 08:30:00Reason for exam:-> intubatedShould this be performed at the bedside?->YesFINAL REPORT Follow up Chest radiograph Clinical History: IntubatedComparison: September 07, 2018Views: One AP lordotic Chest x-ray:The cardiac and mediastinal silhouettes are unchanged. There is no evidence of a pneumothorax. There is no evidence of a pleural effusion. There is no evidence of overt cardiac failure. There is no evidence of a focal parenchymal opacity. An endotracheal tube and nasogastric tube are satisfactorily positioned and unchanged. Impression:No change Signed: Katharina Gilletteeport Verified Date/Time: 2018 08:30:52 Reading Location: [facility] Reading Room POCT-GLUCOSE [id number] 07:51:00 Test Item Value Reference Range Comments POC-GLUCOSE METER (BEAKER) 110 mg/dL 70-110 TESTED AT [facility] [address] [facility] (test douw=3348) [facility] [address] [id number] 06:49:00 Test Item Value Reference Range Comments PHOSPHORUS (BEAKER) (test xxwx=042) 2.6 mg/dL 2.3-4.7 Once on admission and Daily AM afterwardsOnce on admission and Daily AM afterwardsOnce on admission and Daily AM [id number] 06:49:00 Test Item Value Reference Range Comments MAGNESIUM (BEAKER) (test qtwg=336) 1.8 mg/dL 1.6-2.6 Once on admission and Daily AM afterwardsOnce on admission and Daily AM afterwardsOnce on admission and Daily AM afterwardsBASIC METABOLIC [id number] 06:49:00 Test Item Value Reference Range Comments SODIUM (BEAKER) (test 138 meq/L 136-145 dhja=242) POTASSIUM (BEAKER) (test 4.0 meq/L 3.5-5.1 mrob=925) CHLORIDE (BEAKER) (test 109 meq/L 98-107 kjsu=849) CO2 (BEAKER) (test 20 meq/L 22-29 zfps=686) BLOOD UREA NITROGEN 10 mg/dL 7-21 (BEAKER) (test vwvh=222) CREATININE (BEAKER) (test 0.77 mg/dL 0.57-1.25 prtg=276) GLUCOSE RANDOM (BEAKER) 108 mg/dL 70-105 (test lziw=183) CALCIUM (BEAKER) (test 9.0 mg/dL 8.4-10.2 vofo=831) EGFR (BEAKER) (test 87 mL/min/1.73 sq m ESTIMATED GFR IS NOT kfpk=3689) ACCURATE CREATININE CLEARANCE IN PREDICTING GLOMERULAR FILTRATION RATE. ESTIMATED GFR IS NOT APPLICABLE FOR DIALYSIS PATIENTS. Once on admission and Daily AM afterwardsOnce on admission and Daily AM afterwardsOnce on admission and Daily AM afterwardsCBC W/PLT COUNT & AUTO [id number] 06:42:00 Test Item Value Reference Range Comments WHITE BLOOD CELL COUNT (BEAKER) (test jhzs=749) 14.1 K/ L 3.5-10.5 RED BLOOD CELL COUNT (BEAKER) (test bruw=730) 3.98 M/ L 3.93-5.22 HEMOGLOBIN (BEAKER) (test qxef=295) 12.2 GM/DL 11.2-15.7 HEMATOCRIT (BEAKER) (test sfol=276) 36.3 % 34.1-44.9 MEAN CORPUSCULAR VOLUME (BEAKER) (test ljnx=503) 91.2 fL 79.4-94.8 MEAN CORPUSCULAR HEMOGLOBIN (BEAKER) (test 30.7 pg 25.6-32.2 hrci=808) MEAN CORPUSCULAR HEMOGLOBIN CONC (BEAKER) (test 33.6 GM/DL 32.2-35.5 kvje=741) RED CELL DISTRIBUTION WIDTH (BEAKER) (test 14.2 % 11.7-14.4 ummc=768) PLATELET COUNT (BEAKER) (test lxjj=887) 268 K/CU MM 150-450 MEAN PLATELET VOLUME (BEAKER) (test rirq=624) 11.0 fL 9.4-12.3 NUCLEATED RED BLOOD CELLS (BEAKER) (test 0 /100 WBC 0-0 iwhf=898) NEUTROPHILS RELATIVE PERCENT (BEAKER) (test 78 % pvox=276) LYMPHOCYTES RELATIVE PERCENT (BEAKER) (test 14 % yeik=772) MONOCYTES RELATIVE PERCENT (BEAKER) (test 7 % swpb=325) EOSINOPHILS RELATIVE PERCENT (BEAKER) (test 0 % ovnr=134) BASOPHILS RELATIVE PERCENT (BEAKER) (test 0 % kyum=927) NEUTROPHILS ABSOLUTE COUNT (BEAKER) (test 10.96 K/ L 1.56-6.13 gwol=291) LYMPHOCYTES ABSOLUTE COUNT (BEAKER) (test 2.03 K/ L 1.18-3.74 yptd=690) MONOCYTES ABSOLUTE COUNT (BEAKER) (test 1.04 K/ L 0.24-0.36 jdyb=590) EOSINOPHILS ABSOLUTE COUNT (BEAKER) (test 0.00 K/ L 0.04-0.36 csbf=101) BASOPHILS ABSOLUTE COUNT (BEAKER) (test 0.02 K/ L 0.01-0.08 chgo=193) IMMATURE GRANULOCYTES-RELATIVE PERCENT (BEAKER) 1 % 0-1 (test ikbj=0399) BLOOD GAS, [id number] 05:53:00 Test Item Value Reference Range Comments PH ARTERIAL (BEAKER) (test giqg=788) 7.43 7.35-7.45 PCO2 ARTERIAL (BEAKER) (test xqiq=251) 37 mmHg 35-45 PO2 ARTERIAL (BEAKER) (test sfka=260) 199 mmHg 80-90 O2 SATURATION ARTERIAL (BEAKER) (test fvxe=387) 99.4 % 96.0-97.0 HCO3 ARTERIAL (BEAKER) (test aknz=944) 24 mmol/L 21-29 BASE EXCESS ARTERIAL (BEAKER) (test lkan=781) 0.0 mmol/L -2.0-3.0 PATIENT TEMPERATURE (BEAKER) (test yosy=1280) 38.5 C FIO2 (BEAKER) (test xywp=9353) 40.0 % RAD, CHEST, 1 VIEW, NON [id number] 04:01:00Reason for exam:-> intubatedShould this be performed at the bedside?->YesFINAL REPORT RAD, CHEST, 1 VIEW, NON DEPT INDICATION: intubated COMPARISON: Prior day's exam FINDINGS: Portable frontal view of the chest. IMPRESSION: Support Lines: ET tube tip is approximately 0.5 cm superior to the lyndsay, unchanged. ET tube may be retracted 2-3 cm. Feeding tube descends below the diaphragm. External leads.Lungs and pleura: Lungs are clear No pneumothorax.Heart and mediastinum: Stable contours. Additional findings: None. ET tube findings were relayed to nurse [place] at 3:59 AM. Signed: Kandace Roman Verified Date/Time: 09/07/2018 04:01:15 Reading Location: [facility] B1 C013V Neuro Reading Room [id number] 02:50:00 Test Item Value Reference Range Comments POTASSIUM (BEAKER) (test gkxn=467) 3.8 meq/L 3.5-5.1 Check Serum Potassium level 2 hours after oral potassium replacement completed or 30 min after intravenous potassium replacement.POCT-GLUCOSE [id number] 23:37:00 Test Item Value Reference Range Comments POC-GLUCOSE METER (BEAKER) 115 mg/dL 70-110 TESTED AT [facility] [address] [place] [address] (test ybjv=5548) [facility] [address] RAD, ABDOMEN/KUB, 1 VIEW [id number] 20:43:00Reason for exam:->Corpak insertionFINAL REPORT Abdomen one view supine 09/06/2018 at 1836 and 1928 CLINICAL INDICATION: Corpak insertion COMPARISON: None available IMPRESSION: On the second submitted image, the Corpak loops in the gastric body, with the tip terminating near the gastroesophageal junction. There isno radiographic evidence for bowel obstruction. No abnormal calcifications are seen in the region ofthe gallbladder or kidneys. The lung bases are well aerated. There are no acute-appearing skeletal abnormalities.. Signed: Juan M Bernstein Verified Date/Time: 09/06/2018 20:43:29 Reading Location: [facility] Reading Room RAD, ABDOMEN/KUB, 1 VIEW [id number] 20:43:00Reason for exam:->corpak placemnetShould this be performed at the bedside?->YesFINAL REPORT Abdomen one view supine 09/06/2018 at 1836 and 1928 CLINICAL INDICATION: Corpak insertion COMPARISON: None available IMPRESSION: On the second submitted image, the Corpak loops in the gastric body, with the tip terminating near the gastroesophageal junction. There isno radiographic evidence for bowel obstruction. No abnormal calcifications are seen in the region ofthe gallbladder or kidneys. The lung bases are well aerated. There are no acute-appearing skeletal abnormalities.. Signed: Juan M Bernstein Verified Date/Time: 09/06/2018 20:43:29 Reading Location: [facility] Reading Room CT, BRAIN, WITHOUT [id number] 20:35:00FINAL REPORT CT head without contrast 09/06 8:32 PM CLINICAL HISTORY: Stroke TECHNIQUE: Axial noncontrast CT images through the head were obtained. This examination was performed according to our departmental dose optimization program, which includes automated exposure control, adjustment of the mA and/or kV according to patient size, and/or use of iterated reconstruction technique. COMPARISON: 09/06/2018 at 1059 FINDINGS: Pontomesencephalic hemorrhage and adjacent trace subarachnoid hemorrhage is stable. There remains no mass effect or hydrocephalus. No new intracranial abnormality is evident. There is paranasal sinus mucosal thickening without fluid levels. The tympanomastoid cavities are well aerated. The skull is unremarkable. IMPRESSION: Stable intracranial appearance. Signed: Juan M Bernstein Verified Date/Time: 09/06/2018 20:35:10 Reading Location: [facility] Reading Room POCT-GLUCOSE [id number] 18:53:00 Test Item Value Reference Range Comments POC-GLUCOSE METER (BEAKER) 158 mg/dL 70-110 TESTED AT [address] (test scbb=9610) [facility] [address] BLOOD GAS, [id number] 14:15:00 Test Item Value Reference Range Comments PH ARTERIAL (BEAKER) (test jhhh=614) 7.45 7.35-7.45 PCO2 ARTERIAL (BEAKER) (test mmln=062) 31 mmHg 35-45 PO2 ARTERIAL (BEAKER) (test xzte=877) 233 mmHg 80-90 O2 SATURATION ARTERIAL (BEAKER) (test zlbs=671) 99.6 % 96.0-97.0 HCO3 ARTERIAL (BEAKER) (test jdlp=415) 22 mmol/L 21-29 BASE EXCESS ARTERIAL (BEAKER) (test egfx=122) -2.1 mmol/L -2.0-3.0 PATIENT TEMPERATURE (BEAKER) (test xixr=4647) 34.2 C FIO2 (BEAKER) (test xpdk=7624) 40.0 % POCT-LACTIC ACID, [id number] 13:58:00 Test Item Value Reference Range Comments POC-LACTIC ACID, VENOUS 1.3 mmol/L 0.9-1.7 TESTED AT [facility] [address] [facility] (BEAKER) (test mxbp=7932) [facility] [address] RAPID DRUG SCREEN, [id number] 13:43:00 Test Item Value Reference Range Comments BARBITURATE URINE (BEAKER) (test kvtj=043) Negative Negative BENZODIAZEPINE SCREEN URINE (BEAKER) (test Positive Negative lctf=147) COCAINE (METAB.) SCREEN (BEAKER) (test fftg=1107) Negative Negative METHADONE SCREEN (BEAKER) (test ksga=5601) Negative Negative OPIATE SCREEN URINE (BEAKER) (test csdd=678) Negative Negative CANNABINOID SCREEN URINE (BEAKER) (test nxwg=677) Positive Negative AMPH/METHAMPH SCREEN (BEAKER) (test lvvq=0781) Negative Negative PHENCYCLIDINE SCREEN URINE (BEAKER) (test lfcg=899) Negative Negative OXYCODONE SCREEN URINE (BEAKER) (test zbjf=5490) Negative Negative DRUG CUTOFF CONC.Cocaine 300 ng/mL Cannabinoid 50 ng/mL Benzodiazepine 200 ng/mLBarbiturate 200 ng/ mLPhencyclidine 25 ng/mLOpiate 300 ng/mLMethadone 300 ng/mLAmphetamine/ 1000 ng/mL MethamphetamineOxycodone 300 ng/mLThis assay provides an unconfirmed qualitative test result for the clinical management of patients in emergency situations. Chain of custody not maintained. Some zlfc-vqb-wxaknuy medications, as well as adulterants, may cause inaccurate results. Clinical correlation should be applied. A more comprehensive drug screen or confirmation of a detected drug may be performed upon request.RAD, CHEST, 1 VIEW, NON [id number] 12:48:00Reason for exam:-&gt ;CEREBROVASCULAR ACCIDENTShould this be performed at the bedside?->YesFINAL REPORT Chest one view. Clinical history: CEREBROVASCULAR ACCIDENT Comparison: No priors Discussion: A frontal chest is provided. Cardiac silhouette appears enlarged. Mediastinal contour is unremarkable. ET is approximately 5 mm above the lyndsay and can be retracted by 2 to 3 cm. There is no consolidation, pneumothorax, or significant effusion. No acute bony abnormalities. Signed: Carlos Mcclure Verified Date/Time: 2018 12:48:27 Reading Location: [facility] Radiology Reading Room [facility] METABOLIC [id number] 12:34:00 Test Item Value Reference Range Comments SODIUM (BEAKER) (test 136 meq/L 136-145 cfde=538) POTASSIUM (BEAKER) (test 3.0 meq/L 3.5-5.1 bdmg=397) CHLORIDE (BEAKER) (test 101 meq/L 98-107 jvkc=695) CO2 (BEAKER) (test 23 meq/L 22-29 mybe=453) BLOOD UREA NITROGEN 11 mg/dL 7-21 (BEAKER) (test rsmk=087) CREATININE (BEAKER) (test 0.77 mg/dL 0.57-1.25 qqcp=659) GLUCOSE RANDOM (BEAKER) 147 mg/dL 70-105 (test nfof=412) CALCIUM (BEAKER) (test 9.2 mg/dL 8.4-10.2 boon=073) EGFR (BEAKER) (test mL/min/1.73 sq m INSUFFICIENT CLINICAL DATA hwiu=9986) TO CALCULATE ESTIMATED GFR. HEPATIC FUNCTION [id number] 12:32:00 Test Item Value Reference Range Comments TOTAL PROTEIN (BEAKER) (test qxoa=215) 7.9 gm/dL 6.0-8.3 ALBUMIN (BEAKER) (test nfwd=4161) 4.2 g/dL 3.5-5.0 BILIRUBIN TOTAL (BEAKER) (test rewt=085) 0.4 mg/dL 0.2-1.2 BILIRUBIN DIRECT (BEAKER) (test lqpa=275) 0.2 mg/dL 0.1-0.5 ALKALINE PHOSPHATASE (BEAKER) (test ngwb=711) 80 U/L 40-150 AST (SGOT) (BEAKER) (test zqwh=968) 20 U/L 5-34 ALT (SGPT) (BEAKER) (test moxi=295) 17 U/L 6-55 CBC W/PLT COUNT & AUTO [id number] 12:29:00 Test Item Value Reference Range Comments WHITE BLOOD CELL COUNT (BEAKER) (test vzyp=773) 15.6 K/ L 3.5-10.5 RED BLOOD CELL COUNT (BEAKER) (test ymph=144) 4.69 M/ L 3.93-5.22 HEMOGLOBIN (BEAKER) (test zxmh=771) 14.0 GM/DL 11.2-15.7 HEMATOCRIT (BEAKER) (test dkcf=227) 42.3 % 34.1-44.9 MEAN CORPUSCULAR VOLUME (BEAKER) (test fzwb=769) 90.2 fL 79.4-94.8 MEAN CORPUSCULAR HEMOGLOBIN (BEAKER) (test 29.9 pg 25.6-32.2 isov=321) MEAN CORPUSCULAR HEMOGLOBIN CONC (BEAKER) (test 33.1 GM/DL 32.2-35.5 xntd=857) RED CELL DISTRIBUTION WIDTH (BEAKER) (test 13.6 % 11.7-14.4 jqcd=256) PLATELET COUNT (BEAKER) (test dzqa=690) 286 K/CU MM 150-450 MEAN PLATELET VOLUME (BEAKER) (test hklh=172) 11.1 fL 9.4-12.3 NUCLEATED RED BLOOD CELLS (BEAKER) (test 0 /100 WBC 0-0 fmpa=913) NEUTROPHILS RELATIVE PERCENT (BEAKER) (test 81 % kxbl=370) LYMPHOCYTES RELATIVE PERCENT (BEAKER) (test 14 % yrao=217) MONOCYTES RELATIVE PERCENT (BEAKER) (test 5 % zool=678) EOSINOPHILS RELATIVE PERCENT (BEAKER) (test 0 % jscs=054) BASOPHILS RELATIVE PERCENT (BEAKER) (test 0 % yxha=482) NEUTROPHILS ABSOLUTE COUNT (BEAKER) (test 12.55 K/ L 1.56-6.13 gtjp=961) LYMPHOCYTES ABSOLUTE COUNT (BEAKER) (test 2.12 K/ L 1.18-3.74 oimj=240) MONOCYTES ABSOLUTE COUNT (BEAKER) (test 0.76 K/ L 0.24-0.36 awqv=235) EOSINOPHILS ABSOLUTE COUNT (BEAKER) (test 0.07 K/ L 0.04-0.36 brzy=968) BASOPHILS ABSOLUTE COUNT (BEAKER) (test 0.03 K/ L 0.01-0.08 kane=845) IMMATURE GRANULOCYTES-RELATIVE PERCENT (BEAKER) 0 % 0-1 (test clmg=0455) [id number] 12:24:00 Test Item Value Reference Range Comments PROTIME (BEAKER) (test fqls=679) 13.0 seconds 11.7-14.7 INR (BEAKER) (test furo=962) 1.0 <=5.9 PARTIAL THROMBOPLASTIN TIME (BEAKER) (test 32.0 seconds 22.5-36.0 setu=196) RECOMMENDED COUMADIN/WARFARIN INR THERAPY RANGESSTANDARD DOSE: 2.0 - 3.0 Includes: PROPHYLAXIS forvenous thrombosis, systemic embolization; TREATMENT for venous thrombosis and/or pulmonary embolus.HIGH RISK: Target INR is 2.5-3.5 for patients with mechanical heart valves.CT, [facility] [id number] 11:57: 00FINAL REPORT CLINICAL HISTORY: Stroke TECHNIQUE: Contiguous contrast-enhancedaxial images through the neck followed by axial images through the head with coronal and sagittal reformations to assess the arterial circulation. 3-D reconstructions were performed using a volume rendered technique separately on a workstation. This exam was performed according to the departmental dose optimization program which includes automated exposure control, adjustment of the mA and/or kV according to the patient size, and/or use of an iterative reconstruction technique. 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 There is no evidence for a ak chin of Mcnamara proximal branch vessel occlusion. There is no evidence for intracranial aneurysm. There is no CTA evidence for focal vascular abnormality in the shavonne. The major intradural venous sinuses are patent. There is no hemodynamically significant stenosis in either cervical internal carotid artery by NASCET criteria. The vertebral arteries in the neck are patent including their origins. The cervical alignment and vertebral body heights are maintained. There are scattered subcentimeter lymph nodes in the neck. The visualized lung apices are clear. IMPRESSION: No CTA evidencefor focal vascular abnormality to account for the acute pontine hemorrhage. Signed: Krzysztof Seymour MDReport Verified Date/Time: 11:57:52 Reading Location: [address] Neuro Reading Room . [facility], CAROTID , [id number] 11:57:00FINAL REPORT CLINICAL HISTORY: Stroke TECHNIQUE: Contiguous contrast-enhancedaxial images through the neck followed by axial images through the head with coronal and sagittal reformations to assess the arterial circulation. 3-D reconstructions were performed using a volume rendered technique separately on a workstation. This exam was performed according to the departmental dose optimization program which includes automated exposure control, adjustment of the mA and/or kV according to the patient size, and/or use of an iterative reconstruction technique. 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 There is no evidence for a ak chin of Mcnamara proximal branch vessel occlusion. There is no evidence for intracranial aneurysm. There is no CTA evidence for focal vascular abnormality in the shavonne. The major intradural venous sinuses are patent. There is no hemodynamically significant stenosis in either cervical internal carotid artery by NASCET criteria. The vertebral arteries in the neck are patent including their origins. The cervical alignment and vertebral body heights are maintained. There are scattered subcentimeter lymph nodes in the neck. The visualized lung apices are clear. IMPRESSION: No CTA evidencefor focal vascular abnormality to account for the acute pontine hemorrhage. Signed: Krzysztof Seymour MDReport Verified Date/Time: 09/06/2018 11:57:52 Reading Location: [address] Neuro Reading Room . [facility], BRAIN/STROKE [id number] 11:11:00Reason for exam:->stroke protocolIs the patient ?->UnknownWhat is the patient's sedation requirement?->No SedationFINAL REPORT CT Head without contrast CLINICAL HISTORY: Stroke TECHNIQUE: Contiguous axial images through the head without contrast. This exam was performed according to the departmental dose optimization program which includes automated exposure control , adjustment of the mA and/or kV according to the patient size, and/or use of an iterative reconstruction technique. COMPARISON: None FINDINGS: There is an acute hemorrhage centered within the shavonne measuring approximately 2.0 cm TV x 2.5 cm CC. There is a small amount of hemorrhage that appears to extend into the prepontine cistern. There is mild mass effect narrowing the inferior fourth ventricle, without obstructive hydrocephalus at this time. There is no midline shift. There are no extra-axial fluid collections. The skullis intact. There is air-fluid levels in the paranasal sinuses with an endotracheal tube in place. IMPRESSION: Acute pontine hemorrhage. The findings were discussed with Dr. ADDY BELLO at 11:10 AM Signed: Krzysztof Seymour MDReport Verified Date/Time: 11:11:11 Reading Location: [facility] B1 [id number] Reading Room
--- NOTE | 2019-04-05 13:50 | RAD REPORT ---
EXAM DESCRIPTION: RAD - Chest Single View - 04/05/2019 1:44 pm CLINICAL HISTORY: weakness Chest pain. COMPARISON: No comparisons FINDINGS: Portable technique limits examination quality. The lungs are underinflated grossly clear. The heart is mildly prominent in size. No displaced fractu res. IMPRESSION: Underinflated lungs.
[2019-04-05 13:58] LABS: Absolute Lymphocytes (CBC) 2.9 K/uL (0.7-4.9); Basophils % 0.6 % (0-1.3); Hematocrit 39.1 % (36.0-45.0); Lymphocytes % 36.1 % (15.3-44.8); MPV 10.8 fL (7.6-11.3); RBC Red Blood Cell Count 4.51 M/uL (3.86-4.86)
[2019-04-05 14:01] LABS: Protime INR 1.04
--- NOTE | 2019-04-05 14:07 | RAD REPORT ---
EXAM DESCRIPTION: CT - Head Brain Wo Cont - 04/05/2019 1:56 pm CLINICAL HISTORY: WEAKNESS Headache, drowsiness, history CVA COMPARISON: No comparisons TECHNIQUE: All CT scans are performed using dose optimization technique as appropriate and may inclu de automated exposure control or mA/KV adjustment according to patient size. FINDINGS: No intracranial hemorrhage, hydrocephalus or extra-axial fluid collection.16 mm area of di minished density in the shavonne is noted likely gliosis related to prior infarct.No areas of brain edema or evidence of midline shift. The paranasal sinuses and mastoids are clear. The calvarium is intact. IMPRESSION: No acute intracranial abnormality. 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
[2019-04-05 14:52] LABS: ALT/SGPT 21 U/L (12-78); Albumin 3.1 g/dL (3.4-5.0); Alkaline Phosphatase 91 U/L (45-117); BUN Blood Urea Nitrogen 11 mg/dL (7-18); Bicarbonate 26 mmol/L (21-32); Bilirubin Direct < 0.1 mg/dL (0-0.2); Bilirubin Total 0.2 mg/dL (0.2-1.0); Glucose Level 70 mg/dL (74-106); NT PRO-BNP 166 pg/mL (<125); Protein, Total 7.6 g/dL (6.4-8.2); Sodium Level 140 mmol/L (136-145); Troponin (Emerg Dept Use Only) < 0.02 ng/mL (0.0-0.045)
[2019-04-05 14:53] LABS: AST/SGOT 17 U/L (15-37); Potassium 4.6 mmol/L (3.5-5.1)
--- NOTE | 2019-04-05 15:34 | EDPHYS ---
Physician Documentation [facility] Name: Donna Flynn Age: 33 yrs Sex: Female : 1985 Arrival Date: 04/05/2019 Time: 12:58 Bed 13 Private MD: ED Physician Sherman Lubin HPI: 04/05 13:12 This 33 yrs old Female presents to ER via EMS with complaints of unresponsive.jmm 13:12 Onset: The symptoms/episode began/occurred. jmm 13:12 Duration: This was a single episode, that lasted 20 minute(s). This is a 33 year old jmm female with a history of CVA in August this year that presents to the ED after she was unresponsive after a nap. According to EMS she would not wake up to verbal stimuli for 20 minutes. stated the patient had a particularly strenuous session of physical therapy today. states the patient is at baseline with left sided weakness. . 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 - Social history:: Smoking status: unknown Patient/guardian denies using alcohol, street drugs, IV drugs. - Ebola Screening: : No symptoms or risks identified at this time. ROS: 13:12 Constitutional: Negative for fever, chills, and weight loss, Cardiovascular: Negative jmm for chest pain, palpitations, and edema, Respiratory: Negative for shortness of breath, cough, wheezing, and pleuritic chest pain. 13:12 Neuro: Positive for loss of consciousness. 13:12 All other systems are negative. Exam: 13:12 Constitutional: This is a well developed, well nourished patient who is awake, alert, jmm and in no acute distress. Head/Face: atraumatic. Eyes: EOMI, no conjunctival erythema appreciated ENT: Moist Mucus Membranes Neck: Trachea midline, Supple Chest/axilla: Normal chest wall appearance and motion. Cardiovascular: Regular rate and rhythm. No edema appreciated Respiratory: Normal respirations, no respiratory distress appreciated Abdomen/GI: Non distended, soft Back: Normal ROM Skin: General appearance color normal 13:12 Musculoskeletal/extremity: left sided paralysis noted. 13:12 Neuro: left sided paralysis noted, 2+ strength in right arm and right leg. 13:12 Psych: Behavior/mood is pleasant, cooperative. 15:42 ECG was reviewed by the Attending Physician. [facility] Vital Signs: 13:04 BP 116 / 91; Pulse 65; Resp 18; Temp 98.3; Pulse Ox 100% on R/A; Weight 79.38 kg; mg2 Height 5 ft. 0 in. (152.40 cm); Pain 0/10; 14:47 Pulse 64; Resp 18; Pulse Ox 100% on R/A; Pain 0/10; mg2 15:54 BP 134 / 100; Pulse 72; Resp 18; Temp 98.3; Pulse Ox 100% on R/A; Pain 0/10; mg2 13:04 Body Mass Index 34.18 (79.38 kg, 152.40 cm) mg2 MDM: 13:12 Patient medically screened. [facility] 15:32 Data reviewed: vital signs, nurses notes. Counseling: I had a detailed discussion with [facility] the patient and/or guardian regarding: the historical points, exam findings, and any diagnostic results supporting the discharge/admit diagnosis, the need for outpatient follow up, to return to the emergency department if symptoms worsen or persist or if there are any questions or concerns that arise at home. 04/05 13:17 Order name: Basic Metabolic Panel [facility] 04/05 13:17 Order name: CBC with Diff; Complete Time: 14:08 [facility] 04/05 13:17 Order name: LFT's; Complete Time: 15:07 [facility] 04/05 13:17 Order name: Magnesium; Complete Time: 15:07 [facility] 04/05 13:17 Order name: NT PRO-BNP; Complete Time: 15:07 [facility] 04/05 13:17 Order name: PT-INR; Complete Time: 14:08 [facility] 04/05 13:17 Order name: Troponin (emerg Dept Use Only); Complete Time: 15:07 [facility] 04/05 13:17 Order name: XRAY Chest (1 view); Complete Time: 14:08 [facility] 04/05 13:17 Order name: EKG; Complete Time: 13:19 [facility] 04/05 13:17 Order name: Cardiac monitoring; Complete Time: 13:54 [facility] 04/05 13:17 Order name: EKG - Nurse/Tech; Complete Time: 14:45 [facility] 04/05 13:17 Order name: IV Saline Lock; Complete Time: 13:54 [facility] 04/05 13:17 Order name: CT Head Brain wo Cont; Complete Time: 14:08 [facility] 04/05 13:18 Order name: Basic Metabolic Panel; Complete Time: 15:07 [facility] 04/05 13:17 Order name: Labs collected and sent; Complete Time: 13:53 [facility] 04/05 13:17 Order name: O2 Per Protocol; Complete Time: 13:53 [facility] 04/05 13:17 Order name: O2 Sat Monitoring; Complete Time: 13:53 jm EC:42 Rate is 66 beats/min. Rhythm is regular. QRS [place] is Normal. [place] interval is normal. QRS jmm interval is normal. QT interval is normal. No Q waves. T waves are Normal. No ST changes noted. Reviewed by me. Administered Medications: No medications were administered Disposition: 04/05/19 15:33 Discharged to Home. Impression: Person with feared health complaint in whom no diagnosis is made. - Condition is Stable. - Discharge Instructions: Hypoglycemia. - Medication Reconciliation Form, Thank You Letter, Antibiotic Education, Prescription Opioid Use form. - Follow up: Private Physician; When: 2 - 3 days; Reason: Recheck today's complaints, Continuance of care, Re-evaluation by your physician. Signatures: Dispatcher [employer] [facility] Bobo Schmidt PA PA jmm Baxter, Heather, RN RN Jesus Sal RN RN [facility] Corrections: (The following items were deleted from the chart) 16:23 15:33 04/05/2019 15:33 Discharged to Home. Impression: Person with feared health hb complaint in whom no diagnosis is made. Condition is Stable. Forms are Medication Reconciliation Form, Thank You Letter, Antibiotic Education, Prescription Opioid Use. Follow up: Private Physician; When: 2 - 3 days; Reason: Recheck today's complaints, Continuance of care, Re-evaluation by your physician. [facility]
--- NOTE | 2019-04-05 15:34 | ER ---
Nurse's Notes [facility] Name: Donna Flynn Age: 33 yrs Sex: Female : 1985 Arrival Date: 04/05/2019 Time: 12:58 Bed 13 Private MD: Diagnosis: Person with feared health complaint in whom no diagnosis is made Presentation: 04/05 12:58 Presenting complaint: EMS states: patient was unresponsive but breathing when they mg2 reach the scene. BGL was 91 mg/dl and vs stable with EKG NSR. after 20 mins of being unresponsive to vocal she finally woke up. she had a stroke last September 06, 2018 and has limb weakness since then. suprapubic catheter in situ with 1800 ml output of urine. 13:01 Transition of care: patient was not received from another setting of care. Onset of mg2 symptoms was April 05, 2019. Risk Assessment: Do you want to hurt yourself or someone else? Patient reports no desire to harm self or others. Initial Sepsis Screen: Does the patient meet any 2 criteria? No. Patient's initial sepsis screen is negative. Does the patient have a suspected source of infection? No. Patient's initial sepsis screen is negative. Care prior to arrival: None. 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 - Social history:: Smoking status: unknown Patient/guardian denies using alcohol, street drugs, IV drugs. - Ebola Screening: : No symptoms or risks identified at this time. Screenin:54 Abuse screen: Denies threats or abuse. Denies injuries from another. Nutritional mg2 screening: No deficits noted. Tuberculosis screening: No symptoms or risk factors identified. Fall Risk Secondary diagnosis (15 points) CVA, IV access (20 points). Gait- Weak (10 pts.). Assessment: 14:46 General: Appears in no apparent distress. comfortable, Behavior is calm, cooperative. mg2 Pain: Denies pain. Neuro: Level of Consciousness is awake, alert, obeys commands, Oriented to person, place, time, situation. Cardiovascular: Capillary refill < 3 seconds Patient's skin is warm and dry. Respiratory: Airway is patent Respiratory effort is even, unlabored, Respiratory pattern is regular, symmetrical. GI: No signs and/or symptoms were reported involving the gastrointestinal system. : No signs and/or symptoms were reported regarding the genitourinary system. EENT: No signs and/or symptoms were reported regarding the EENT system. Derm: Skin is intact, is healthy with good turgor, Skin is pink, warm \T\ dry. normal. Musculoskeletal: Circulation, motion, and sensation intact. Capillary refill < 3 seconds. 16:06 Reassessment: patient was given meal. awaiting for ride to come. mg2 Vital Signs: 13:04 BP 116 / 91; Pulse 65; Resp 18; Temp 98.3; Pulse Ox 100% on R/A; Weight 79.38 kg; mg2 Height 5 ft. 0 in. (152.40 cm); Pain 0/10; 14:47 Pulse 64; Resp 18; Pulse Ox 100% on R/A; Pain 0/10; mg2 15:54 BP 134 / 100; Pulse 72; Resp 18; Temp 98.3; Pulse Ox 100% on R/A; Pain 0/10; mg2 13:04 Body Mass Index 34.18 (79.38 kg, 152.40 cm) mg2 ED Course: 12:58 Patient arrived in ED. mg2 12:58 Bobo Schmidt PA is PHCP. [facility] 12:58 Sherman Lubin MD is Attending Physician. m 13:00 Jesus Sal, DARRELL is Primary Nurse. mg2 13:04 Triage completed. mg2 13:04 Arm band placed on. mg2 13:44 XRAY Chest (1 view) In Process Unspecified. EDMS 13:54 No provider procedures requiring assistance completed. Inserted saline lock: 20 gauge mg2 in left hand, using aseptic technique. Blood collected. 13:55 Patient has correct armband on for positive identification. sign language translator on. Pulse mg2 ox on. NIBP on. 13:57 CT Head Brain wo Cont In Process Unspecified. EDMS 15:54 IV discontinued, intact, bleeding controlled, No redness/swelling at site. Pressure mg2 dressing applied. Administered Medications: No medications were administered Output: 15:55 Urine: 2000ml (Gardner); Total: 2000ml. mg2 Outcome: 15:33 Discharge ordered by . lizeth 15:54 Discharged to home via wheelchair, with family. mg2 15:54 Condition: stable 15:54 Discharge instructions given to patient, family, Instructed on discharge instructions, follow up and referral plans. Demonstrated understanding of instructions, follow-up care. 16:23 Patient left the ED. hb Signatures: Dispatcher [employer] EDMS Bobo Schmidt PA PA jmm Baxter, Heather, RN RN Jesus Sal RN RN mg2 Corrections: (The following items were deleted from the chart) 13:04 12:58 Presenting complaint: EMS states: patient was unresponsive but breathing when mg2 they reach the scene. mg2
--- NOTE | 2019-04-05 16:05 | EKG ---
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
== END 2019-04-05 16:23 | disposition home or self-care (01) ==
LOC: ER 12:51
DX: Z71.1 Person with feared health complaint in whom no diagnosis is made (principal); I10 Essential (primary) hypertension; Z86.73 Personal history of transient ischemic attack (TIA), and cerebral infarction without residual deficits
CPT/HCPCS: 36415; 70450; 71045; 80048; 80076; 83735; 83880; 84484; 85025; 85610; 93005

== ENCOUNTER 2019-05-23 02:40 | Emergency (ER) | payer OTHER ==
[2019-05-23 03:34] LABS: Urine Blood 2+ (NEG); Urine Glucose NEGATIVE (NEG); Urine Protein 2+ (NEG); Urine Specific Gravity 1.015 (1.005-1.030)
[2019-05-23 04:15] LABS: Urine Bacteria >50 /HPF (<20); Urine Culture Reflex Order NOT NEEDED
[2019-05-23 04:17] LABS: Urine RBC <5 /HPF (NONE SEEN)
[2019-05-23] MEDS ORDERED: NA CHLORIDE 0.9% 1,000 ML ONE (04:19)
[2019-05-23] MEDS ORDERED: CEFTRIAXONE/SWI 1gm 1 GM/10 ML SYR ONE (04:19)
[2019-05-23] MEDS ORDERED: NA CHLORIDE 0.9% 500 ML ONE (04:19)
[2019-05-23 04:56] LABS: Absolute Lymphocytes (CBC) 2.8 K/uL (0.7-4.9); Basophils % 0.3 % (0-1.3); MPV 10.4 fL (7.6-11.3)
[2019-05-23] MEDS ORDERED: CIPROFLOXACIN HCL 500 MG TAB ONE (05:01)
[2019-05-23 05:09] LABS: ALT/SGPT 20 U/L (12-78); AST/SGOT 12 U/L (15-37); Albumin 2.9 g/dL (3.4-5.0); Alkaline Phosphatase 97 U/L (45-117); BUN Blood Urea Nitrogen 13 mg/dL (7-18); Bicarbonate 29 mmol/L (21-32); Bilirubin Direct 0.1 mg/dL (0-0.2); Bilirubin Total 0.3 mg/dL (0.2-1.0); Glucose Level 79 mg/dL (74-106); Lipase 91 U/L (73-393); Potassium 4.1 mmol/L (3.5-5.1); Protein, Total 7.1 g/dL (6.4-8.2); Sodium Level 141 mmol/L (136-145)
--- NOTE | 2019-05-23 06:40 | EDPHYS ---
Physician Documentation [facility] Name: Donna Flynn Age: 33 yrs Sex: Female : 1985 Arrival Date: 05/23/2019 Time: 02:42 Bed 7 Private MD: ED Physician Konrad Ventura HPI: 05/23 04:09 This 33 yrs old Female presents to ER via Wheelchair with complaints of abril Urinary Incontinence. 04:09 The patient presents with pelvic pain, urinary symptoms, dysuria. Onset: The abril symptoms/episode began/occurred this morning. Modifying factors: The symptoms are alleviated by nothing, the symptoms are aggravated by nothing. Associated signs and symptoms: The patient has no apparent associated signs or symptoms. Severity of symptoms: At their worst the symptoms were mild, moderate, in the emergency department the symptoms are unchanged. 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 - Social history:: Smoking status: Patient/guardian denies using tobacco. - Ebola Screening: : No symptoms or risks identified at this time. - Family history:: not pertinent. ROS: 04:15 Constitutional: Negative for fever, chills, and weight loss, Eyes: Negative for injury, abril pain, redness, and discharge, ENT: Negative for injury, pain, and discharge, Neck: Negative for injury, pain, and swelling, Cardiovascular: Negative for chest pain, palpitations, and edema, Respiratory: Negative for shortness of breath, cough, wheezing, and pleuritic chest pain, Back: Negative for injury and pain, : Negative for injury, bleeding, discharge, and swelling, MS/Extremity: Negative for injury and deformity, Skin: Negative for injury, rash, and discoloration, Neuro: Negative for headache, weakness, numbness, tingling, and seizure, Psych: Negative for depression, anxiety, suicide ideation, homicidal ideation, and hallucinations, Allergy/Immunology: Negative for hives, rash, and allergies, Endocrine: Negative for neck swelling, polydipsia, polyuria, polyphagia, and marked weight changes, Hematologic/Lymphatic: Negative for swollen nodes, abnormal bleeding, and unusual bruising. 04:15 Abdomen/GI: Positive for abdominal pain, of the suprapubic area. Exam: 04:15 Constitutional: This is a well developed, well nourished patient who is awake, alert, abril and in no acute distress. Head/Face: Normocephalic, atraumatic. Eyes: Pupils equal round and reactive to light, extra-ocular motions intact. Lids and lashes normal. Conjunctiva and sclera are non-icteric and not injected. Cornea within normal limits. Periorbital areas with no swelling, redness, or edema. ENT: Nares patent. No nasal discharge, no septal abnormalities noted. Tympanic membranes are normal and external auditory canals are clear. Oropharynx with no redness, swelling, or masses, exudates, or evidence of obstruction, uvula midline. Mucous membranes moist. Neck: Trachea midline, no thyromegaly or masses palpated, and no cervical lymphadenopathy. Supple, full range of motion without nuchal rigidity, or vertebral point tenderness. No Meningismus. Chest/axilla: Normal chest wall appearance and motion. Nontender with no deformity. No lesions are appreciated. Cardiovascular: Regular rate and rhythm with a normal S1 and S2. No gallops, murmurs, or rubs. Normal PMI, no JVD. No pulse deficits. Respiratory: Lungs have equal breath sounds bilaterally, clear to auscultation and percussion. No rales, rhonchi or wheezes noted. No increased work of breathing, no retractions or nasal flaring. Back: No spinal tenderness. No costovertebral tenderness. Full range of motion. Female : Normal external genitalia. Skin: Warm, dry with normal turgor. Normal color with no rashes, no lesions, and no evidence of cellulitis. MS/ Extremity: Pulses equal, no cyanosis. Neurovascular intact. Full, normal range of motion. Neuro: Awake and alert, GCS 15, oriented to person, place, time, and situation. Cranial nerves II-XII grossly intact. Motor strength 5/5 in all extremities. Sensory grossly intact. Cerebellar exam normal. Normal gait. Psych: Awake, alert, with orientation to person, place and time. Behavior, mood, and affect are within normal limits. 04:15 Abdomen/GI: Inspection: distension, Bowel sounds: normal, Palpation: mild abdominal tenderness, in the suprapubic area, right lower quadrant and left lower quadrant, Liver: no appreciated palpable abnormalities, Hernia: not appreciated. Vital Signs: 02:58 BP 136 / 99; Pulse 73; Resp 18; Temp 98.3; Pulse Ox 99% on R/A; Weight 81.65 kg; Height ea 5 ft. 0 in. (152.40 cm); 03:45 BP 136 / 92; Pulse 69; Resp 18; Pulse Ox 100% on R/A; ea 04:45 BP 123 / 87; Pulse 68; Resp 18; Pulse Ox 99% on R/A; ea 05:00 BP 130 / 83; Pulse 70; Resp 18; Pulse Ox 99% on R/A; ea 06:26 BP 119 / 71; Pulse 69; Resp 18; Pulse Ox 100% on R/A; ea 02:58 Body Mass Index 35.15 (81.65 kg, 152.40 cm) ea Procedures: 06:17 Gardner cath inserted by myself - 18 Fr. Returned clear yellow urine. Patient tolerated abril well. MDM: 03:33 Patient medically screened. [facility] 04:19 Data reviewed: vital signs, nurses notes, lab test result(s), radiologic studies, CT abril scan. 05/23 03:05 Order name: Urine Culture [facility] 05/23 03:05 Order name: Urine Microscopic Only; Complete Time: 05:37 [facility] 05/23 03:13 Order name: Urine Dipstick--Ancillary (enter results); Complete Time: 04:07 ms 05/23 03:13 Order name: Urine --Ancillary (enter results); Complete Time: 04:07 ms 05/23 04:08 Order name: Basic Metabolic Panel; Complete Time: 05:37 [facility] 05/23 04:08 Order name: CBC with Diff; Complete Time: 05:37 [facility] 05/23 04:08 Order name: Creatinine for Radiology; Complete Time: 05:37 [facility] 05/23 04:08 Order name: Hepatic Function; Complete Time: 05:37 [facility] 05/23 04:08 Order name: Lipase; Complete Time: 05:37 [facility] 05/23 04:08 Order name: CT Stone Protocol [facility] 05/23 03:04 Order name: Bladder Scanner; Complete Time: 03:31 [facility] 05/23 03:04 Order name: Misc. Order: please attempt to flush suprapubic cath; Complete Time: 03:31 [facility] 05/23 03:05 Order name: Urine Dipstick-Ancillary (obtain specimen); Complete Time: 03:12 [facility] 05/23 04:08 Order name: IV Saline Lock; Complete Time: 06:22 [facility] 05/23 04:08 Order name: Labs collected and sent; Complete Time: 06:22 [facility] 05/23 04:17 Order name: Gardner; Complete Time: 06:20 [facility] Administered Medications: 04:38 Drug: NS 0.9% 500 ml Route: IV; Rate: bolus; Site: left antecubital; ea 04:38 Drug: NS 0.9% 1000 ml Route: IV; Rate: 125 ml/hr; Site: left antecubital; ea 04:38 Drug: Rocephin 1 grams Route: IV; Rate: per protocol; Site: left antecubital; ea 05:03 Drug: Cipro 500 mg Route: PO; ea 06:29 Follow up: Response: No adverse reaction ea Disposition: 05/23/19 06:39 Discharged to Home. Impression: Urinary tract infection, site not specified, Abdominal tenderness, Constipation. - Condition is Stable. - Discharge Instructions: Abdominal Pain, Adult, Constipation, Adult, Urinary Tract Infection, Adult, Urinary Tract Infection, Adult, Evob-[id number], Abdominal Pain, Adult, Nadl-eb-[id number]. - Prescriptions for Pyridium 200 mg Oral Tablet - take 1 tablet by ORAL route every 8 hours for 3 days; 9 tablet. Cipro 500 mg Oral Tablet - take 1 tablet by ORAL route every 12 hours for 7 days; 14 tablet. Bactrim DS 800- 160 mg Oral Tablet - take 1 tablet by ORAL route every 12 hours for 5 days; 10 tablet. Miralax 17 gram/dose Oral - take 1 packet by G-TUBE route once daily dilute powder in 8 ounces of water or juice; 14 packet. - Medication Reconciliation Form, Thank You Letter, Antibiotic Education, Prescription Opioid Use, Family Work Release form. - Follow up: Private Physician; When: 2 - 3 days; Reason: Recheck today's complaints, Continuance of care, Re-evaluation by your physician. - Problem is new. - Symptoms have improved. Signatures: Dispatcher [employer] EDKonrad Charlton MD MD cha Therrien, Shelly, NOUGAT CANDY MAKER HELPER-C NOUGAT CANDY MAKER HELPER-Csnw Val Pedraza RN RN ea Corrections: (The following items were deleted from the chart) 07:02 06:39 05/23/2019 06:39 Discharged to Home. Impression: Urinary tract infection, site ea not specified; Abdominal tenderness; Constipation. Condition is Stable. Discharge Instructions: Abdominal Pain, Adult, Urinary Tract Infection, Adult, Urinary Tract Infection, Adult, Glyu-fe-[id number], Abdominal Pain, Adult, Qidi-zx-Xahn. Prescriptions for Pyridium 200 mg Oral Tablet - take 1 tablet by ORAL route every 8 hours for 3 days; 9 tablet, Cipro 500 mg Oral Tablet - take 1 tablet by ORAL route every 12 hours for 7 days; 14 tablet, Bactrim DS 800-160 mg Oral Tablet - take 1 tablet by ORAL route every 12 hours for 5 days; 10 tablet. and Forms are Medication Reconciliation Form, Thank You Letter, Antibiotic Education, Prescription Opioid Use. Follow up: Private Physician; When: 2 - 3 days; Reason: Recheck today's complaints, Continuance of care, Re-evaluation by your physician. Problem is new. Symptoms have improved. abril
--- NOTE | 2019-05-23 06:40 | ER ---
Nurse's Notes [facility] Name: Donna Flynn Age: 33 yrs Sex: Female : 1985 Arrival Date: 05/23/2019 Time: 02:42 Bed 7 Private MD: Diagnosis: Urinary tract infection, site not specified;Abdominal tenderness;Constipation Presentation: 05/23 02:53 Presenting complaint: states: states pt is complaining of her bladder ea feeling really full, pt has suprapubic catheter. states "she urinated on herself the regular way" Pt reports she feels like she needs to urinate. Transition of care: patient was not received from another setting of care. Onset of symptoms was May 23, 2019. Risk Assessment: Do you want to hurt yourself or someone else? Patient reports no desire to harm self or others. Initial Sepsis Screen: Does the patient meet any 2 criteria? No. Patient's initial sepsis screen is negative. Does the patient have a suspected source of infection? No. Patient's initial sepsis screen is negative. Care prior to arrival: None. 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 - Social history:: Smoking status: Patient/guardian denies using tobacco. - Ebola Screening: : No symptoms or risks identified at this time. - Family history:: not pertinent. Screenin:00 Abuse screen: Denies threats or abuse. Nutritional screening: No deficits noted. ea Tuberculosis screening: No symptoms or risk factors identified. Fall Risk Secondary diagnosis (15 points) impaired mobility. Assessment: 03:31 General: Appears in no apparent distress. Behavior is calm, cooperative, appropriate ea for age. Pain: Denies pain. Neuro: Level of Consciousness is awake, alert, obeys commands. Cardiovascular: Patient's skin is warm and dry. Respiratory: Airway is patent Respiratory effort is even, unlabored, Respiratory pattern is regular, symmetrical. : suprapubic catheter in place to gravity drainage Parent/caregiver report the patient having reports fullness. Derm: Skin is pink, warm \\T\\ dry. 04:30 Reassessment: Patient and/or family updated on plan of care and expected duration. Pain ea level reassessed. Patient is alert, oriented x 3, equal unlabored respirations, skin warm/dry/pink. 05:30 Reassessment: Patient and/or family updated on plan of care and expected duration. Pain ea level reassessed. Patient is alert, oriented x 3, equal unlabored respirations, skin warm/dry/pink. 06:23 Reassessment: Patient and/or family updated on plan of care and expected duration. Pain ea level reassessed. Patient is alert, oriented x 3, equal unlabored respirations, skin warm/dry/pink. Awaiting on CT results. Vital Signs: 02:58 BP 136 / 99; Pulse 73; Resp 18; Temp 98.3; Pulse Ox 99% on R/A; Weight 81.65 kg; Height ea 5 ft. 0 in. (152.40 cm); 03:45 BP 136 / 92; Pulse 69; Resp 18; Pulse Ox 100% on R/A; ea 04:45 BP 123 / 87; Pulse 68; Resp 18; Pulse Ox 99% on R/A; ea 05:00 BP 130 / 83; Pulse 70; Resp 18; Pulse Ox 99% on R/A; ea 06:26 BP 119 / 71; Pulse 69; Resp 18; Pulse Ox 100% on R/A; ea 02:58 Body Mass Index 35.15 (81.65 kg, 152.40 cm) ea ED Course: 02:42 Patient arrived in ED. ds1 02:45 Val Pedraza, RN is Primary Nurse. ea 02:58 Triage completed. ea 03:04 Patient has correct armband on for positive identification. Call light in reach. ea 03:05 Arm band placed on right wrist. Patient placed in an exam room, on a stretcher, on ea pulse oximetry. 03:12 Urine Culture Sent. jb5 03:12 Urine Microscopic Only Sent. jb5 03:31 Bladder scan completed. 5 ml. ea 03:33 Konrad Ventura MD is Attending Physician. abril 05:10 Radiology exam delayed due to Waiting for Oc lift to transport patient to CT dept. kw1 05:58 CT Stone Protocol In Process Unspecified. EDMS 06:20 suprapubic 18 Fr Gardner cath inserted by Dr Ventura, balloon inflated, drainage bag to ea gravity. Pt tolerated procedure well. 07:01 No provider procedures requiring assistance completed. IV discontinued, intact, ea bleeding controlled, No redness/swelling at site. Pressure dressing applied. Administered Medications: 04:38 Drug: NS 0.9% 500 ml Route: IV; Rate: bolus; Site: left antecubital; ea 04:38 Drug: NS 0.9% 1000 ml Route: IV; Rate: 125 ml/hr; Site: left antecubital; ea 04:38 Drug: Rocephin 1 grams Route: IV; Rate: per protocol; Site: left antecubital; ea 05:03 Drug: Cipro 500 mg Route: PO; ea 06:29 Follow up: Response: No adverse reaction ea Outcome: 06:39 Discharge ordered by . abril 07:01 Discharged to home ambulatory, with family. ea 07:01 Condition: good 07:01 Discharge instructions given to patient, family, die out worker, Instructed on discharge instructions, follow up and referral plans. medication usage, safety practices, Demonstrated understanding of instructions, follow-up care, medications, Prescriptions given X 4. 07:02 Patient left the ED. ea Signatures: Dispatcher [employer] EDNC Konrad Ventura MD MD cha Sanford, Demi ds1 Ember Vick jb5 Val Pedraza RN RN Jessica Puentes kw1
[2019-05-23 07:11] VITALS: TEMP 98.3
[2019-05-23 07:17] VITALS: BP 119/71; O2SAT 100
--- NOTE | 2019-05-23 17:11 | RAD REPORT ---
EXAM DESCRIPTION: CT - Stone Protocol - 05/23/2019 6:55 am CLINICAL HISTORY: ABD PAIN COMPARISON: None Available. TECHNIQUE: CT of the abdomen and pelvis without IV contrast. Evaluation of the solid organs and vasc ulature is suboptimal due to lack of IV contrast. DLP: 1188.8 mGy-cm FINDINGS: Lung Bases: The visualized lung bases are clear. Bones: No destructive bone lesions identified. Abdomen: Liver: The liver has normal size and density. Gallbladder: No calcified gallstones. Spleen, Pancreas, and Adrenal Glands: The spleen, pancreas, and adrenal glands are unremarkable. Kidneys: The kidneys have normal size without evidence of hydronephrosis. No obstructing ureteral roverto culi. Nonspecific left perinephric fat stranding. Vasculature: Aortoiliac atherosclerosis. IVC is unremarkable. Stomach: Pigtail gastrostomy in place. Other: No free intraperitoneal air. No free fluid or lymphadenopathy. Pelvis: Bladder: Suprapubic catheter in place. Air in the urinary bladder. The urinary bladder is relativel y decompressed. Bowel: No dilated loops of large or small bowel. Large amount stool in the rectum. Appendix: Normal appendix. Pelvis: IUD. IMPRESSION: 1. Urinary bladder is relatively decompressed with suprapubic catheter in place. 2. Pigtail gastrostomy in place. 3. Large amount of stool in the rectum. This exam was performed according to our departmental dose-optimization program, which includes autom ated exposure control, adjustment of the mA and/or kV according to patient size and/or use of iterati ve reconstruction technique. Electronically signed by: Kamran Lockhart 05/23/2019 6:18 AM CDT Due to temporary technical issues with the PACS/Fluency reporting system, reports are being signed by the in house radiologist as a courtesy to ensure prompt reporting. The interpreting radiologist is f ully responsible for the content of the report.
== END 2019-05-23 07:02 | disposition home or self-care (01) ==
LOC: ER 02:40
DX: N39.0 Urinary tract infection, site not specified (principal); K59.00 Constipation, unspecified; I10 Essential (primary) hypertension; Z86.73 Personal history of transient ischemic attack (TIA), and cerebral infarction without residual deficits; Z88.5 Allergy status to narcotic agent; Z88.8 Allergy status to other drugs, medicaments and biological substances
CPT/HCPCS: 87088; 85025; 87086; 80048; 36415; 81025; 80076; 83690; 76377; 74176; 51702; 96374; 99284; J0696; J7030; 81003; 81015; 87077; 87186

== ENCOUNTER 2021-12-21 14:20 | Emergency (ER) | payer BC, OTHER ==
--- NOTE | 2021-12-21 16:22 | ER ---
Nurse's Notes [facility] Name: Donna Flynn Age: 36 yrs Sex: Female : 1985 Arrival Date: 12/21/2021 Time: 14:23 Bed 16 Private MD: Diagnosis: Encounter for fitting and adjustment of urinary device Presentation: 12/21 14:24 Chief complaint: EMS states: they were called to the home of a 36f with complaints of a ap3 clogged urinary catheter, right foot wound and bedsore on patients right posterior thigh. Coronavirus screen: At this time, the client does not indicate any symptoms associated with coronavirus-19. Ebola Screen: No symptoms or risks identified at this time. Initial Sepsis Screen: Does the patient meet any 2 criteria? No. Patient's initial sepsis screen is negative. Does the patient have a suspected source of infection? No. Patient's initial sepsis screen is negative. Risk Assessment: Do you want to hurt yourself or someone else? Patient reports no desire to harm self or others. Onset of symptoms was December 21, 2021. 14:24 Method Of Arrival: EMS: [facility] ap3 14:24 Acuity: TENNILLE 3 ap3 Triage Assessment: 14:33 General: Appears pt appears normal for her-per patients mother. Behavior is ap3 cooperative. Pain: Unable to use pain scale. 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 Neuro: Level of Consciousness is awake, alert, Oriented to person, place, time, situation, Speech patients speech has been impaired from 2019 stroke. Cardiovascular: Patient's skin is warm and dry. Respiratory: Airway is patent Respiratory effort is even, unlabored. : Gardner in place. Derm: Wound noted right foot and right hamstring. Historical: - Allergies: 14:33 GABAPENTIN; ap3 14:33 tramadol; ap3 - PMHx: 14:33 CVA; Hypertension; ap3 - Immunization history:: Adult Immunizations up to date. - Social history:: Smoking status: Patient denies any tobacco usage or history of. Screenin:37 Abuse screen: Denies threats or abuse. Nutritional screening: No deficits noted. ap3 Tuberculosis screening: No symptoms or risk factors identified. Fall Risk None identified. Assessment: 15:19 General: Appears in no apparent distress. comfortable, Behavior is calm, cooperative. jb4 Neuro: Level of Consciousness is awake, alert, Oriented to unable to speak. Cardiovascular: Patient's skin is warm and dry. Respiratory: Airway is patent Respiratory effort is even, unlabored, Respiratory pattern is regular, symmetrical. : suprapubic catheter in place Appears to have a blockage, unable to irrigate. Provider notified. 15:48 Reassessment: Patient appears in no apparent distress at this time. No changes from jb4 previously documented assessment. Patient and/or family updated on plan of care and expected duration. Pain level reassessed. 15:59 Reassessment: Assisted provider with Gardner change. jb4 16:11 Reassessment: bathed and changed pt. jb4 16:50 Reassessment: Patient appears in no apparent distress at this time. Patient and/or jb4 family updated on plan of care and expected duration. Pain level reassessed. Patient is alert, oriented x 3, equal unlabored respirations, skin warm/dry/pink. Vital Signs: 14:24 BP 141 / 111; Pulse 70; Temp 98.9(TE); Pulse Ox 96% ; Weight 102.06 kg; Height 5 ft. 5 ap3 in. (165.10 cm); 15:48 BP 138 / 102; Pulse 73; Resp 16; Pulse Ox 98% on R/A; jb4 14:24 Body Mass Index 37.44 (102.06 kg, 165.10 cm) ap3 ED Course: 14:23 Patient arrived in ED. ap3 14:25 Merritt Turk NP is PHCP. pm1 14:25 Sherman Lubin MD is Attending Physician. pm1 14:33 Triage completed. ap3 14:37 Arm band placed on left wrist. ap3 14:37 Patient has correct armband on for positive identification. Bed in low position. Call ap3 light in reach. Side rails up X2. Adult w/ patient. Pulse ox on. NIBP on. Door closed. Noise minimized. 14:40 Deanna Low, DARRELL is Primary Nurse. ap3 16:50 No provider procedures requiring assistance completed. Patient did not have IV access jb4 during this emergency room visit. Administered Medications: No medications were administered Outcome: 16:21 Discharge ordered by . pm1 16:50 Discharged to home with EMS jb4 16:50 Condition: stable 16:50 Discharge instructions given to family, Instructed on discharge instructions, follow up and referral plans. Demonstrated understanding of instructions, follow-up care. 16:50 Patient left the ED. jb4 Signatures: Merritt Turk NP CLERICAL ADMINISTRATOR pm1 Wilton Martinez, RN RN jb4 Deanna Low RN RN ap3
--- NOTE | 2021-12-21 16:22 | EDPHYS ---
Physician Documentation [facility] Name: Donna Flynn Age: 36 yrs Sex: Female : 1985 Arrival Date: 12/21/2021 Time: 14:23 Bed 16 Private MD: ED Physician Sherman Lubin HPI: 12/21 15:03 This 36 yrs old Female presents to ER via EMS with complaints of Problem With Urinary pm1 Catheter. 15:03 The patient presents with clogged suprapubic catheter. Onset: The symptoms/episode pm1 began/occurred today. Modifying factors: The symptoms are alleviated by nothing, the symptoms are aggravated by Time for the jesus catheter to be changed. Patient has it changed every two weeks. Associated signs and symptoms: The patient has no apparent associated signs or symptoms. Severity of symptoms: in the emergency department the symptoms are unchanged. The patient has been recently seen by a physician: with different complaint(s), Patient was discharged last week for bed sore to heel that has healed. Historical: - Allergies: 14:33 GABAPENTIN; ap3 14:33 tramadol; ap3 - PMHx: 14:33 CVA; Hypertension; ap3 - Immunization history:: Adult Immunizations up to date. - Social history:: Smoking status: Patient denies any tobacco usage or history of. ROS: 15:03 Positive for clogged jesus catheter. pm1 15:03 Constitutional: Negative for fever, chills, and weight loss, Cardiovascular: Negative for chest pain, palpitations, and edema, Respiratory: Negative for shortness of breath, cough, wheezing, and pleuritic chest pain, Abdomen/GI: Negative for abdominal pain, nausea, vomiting, diarrhea, and constipation. 15:03 Skin: Positive for bed sore present to buttocks and heel. 15:03 All other systems are negative. Exam: 15:03 Constitutional: This is a well developed, well nourished patient who is awake, alert, pm1 and in no acute distress. 15:03 Head/Face: Normocephalic, atraumatic. 15:03 MS/ Extremity: Pulses equal, no cyanosis. Neurovascular intact. Full, normal range of motion. 15:03 Eyes: Exam is negative for acute changes, Conjunctiva: no acute changes, no injection. 15:03 ENT: Exam is negative for acute changes, Mouth: no acute changes, Lips: normal, moist, Oral mucosa: normal, pink and intact, moist. 15:03 Cardiovascular: Exam negative for acute changes, Rate: normal, Rhythm: regular, Pulses: no pulse deficits are appreciated. 15:03 Respiratory: Exam negative for acute changes, respiratory distress, shortness of breath. 15:03 Abdomen/GI: Inspection: obese Palpation: abdomen is soft and non-tender, in all quadrants. 15:03 Neuro: Exam negative for acute changes, Orientation: is normal, Mentation: is normal, Motor: no acute changes, no active range of motion present to bilateral lower extremities and left arm. Vital Signs: 14:24 BP 141 / 111; Pulse 70; Temp 98.9(TE); Pulse Ox 96% ; Weight 102.06 kg; Height 5 ft. 5 ap3 in. (165.10 cm); 15:48 BP 138 / 102; Pulse 73; Resp 16; Pulse Ox 98% on R/A; jb4 14:24 Body Mass Index 37.44 (102.06 kg, 165.10 cm) ap3 Procedures: 15:57 Jesus cath balloon deflated, removed intact, Patient tolerated well. Jesus catheter pm1 inserted by [id number] Russian. Return clear yellow urine. MDM: 14:43 Patient medically screened. pm1 15:03 Data reviewed: vital signs. Data interpreted: Pulse oximetry: on room air is 96 %. pm1 Interpretation: normal. 16:18 Counseling: I had a detailed discussion with the patient and/or guardian regarding: the pm1 historical points, exam findings, and any diagnostic results supporting the discharge/admit diagnosis, the need for outpatient follow up, a family practitioner, to return to the emergency department if symptoms worsen or persist or if there are any questions or concerns that arise at home. Administered Medications: No medications were administered Disposition: 18:02 Co-signature as Attending Physician, Sherman Lubin MD I agree with the assessment and kdr plan of care. Disposition Summary: 12/21/21 16:21 Discharge Ordered Location: Home pm1 Problem: new pm1 Symptoms: have improved pm1 Condition: Stable pm1 Diagnosis - Encounter for fitting and adjustment of urinary device pm1 Followup: pm1 - With: Emergency Department - When: As needed - Reason: Worsening of condition Followup: pm1 - With: Private Physician - When: 2 - 3 days - Reason: Recheck today's complaints, Continuance of care, Re-evaluation by your physician Discharge Instructions: - Discharge Summary Sheet pm1 - Suprapubic Catheter Replacement pm1 - Suprapubic Catheter Home Guide pm1 Forms: - Medication Reconciliation Form pm1 - Thank You Letter pm1 - Antibiotic Education pm1 - Prescription Opioid Use pm1 - SBAR form eb Signatures: Sherman Lubin MD MD kdr Marinas, Patrick, NP COMMODITIES TRADER pm1 Deanna Low RN RN ap3
[2021-12-21 17:55] VITALS: TEMP 98.9
[2021-12-21 17:56] VITALS: BP 138/102; O2SAT 98
== END 2021-12-21 16:50 | disposition home or self-care (01) ==
LOC: ER 14:20
DX: Z46.6 Encounter for fitting and adjustment of urinary device (principal); I10 Essential (primary) hypertension; Z88.5 Allergy status to narcotic agent; Z88.8 Allergy status to other drugs, medicaments and biological substances; Z86.73 Personal history of transient ischemic attack (TIA), and cerebral infarction without residual deficits
CPT/HCPCS: 51702; 99283

== ENCOUNTER 2022-01-26 19:52 | Emergency (ER) | payer BC, OTHER ==
[2022-01-26 22:12] LABS: Urine Blood 3+ (Negative); Urine Glucose Negative (Negative); Urine Protein 1+ (Negative); Urine Specific Gravity 1.015 (1.005-1.030)
--- NOTE | 2022-01-26 22:16 | EDPHYS ---
Physician Documentation [facility] Name: Donna Flynn Age: 36 yrs Sex: Female : 1985 Arrival Date: 01/26/2022 Time: 19:54 Bed 2 Private MD: ED Physician Timmy Calzada HPI: 01/26 20:19 This 36 yrs old Female presents to ER via EMS with complaints of urinary catheter not mh7 draining. 20:19 The patient presents with urinary catheter not draining. Onset: The symptoms/episode mh7 began/occurred today. Modifying factors: The symptoms are alleviated by nothing, the symptoms are aggravated by nothing. Associated signs and symptoms: Pertinent negatives: constipation, cramping, diarrhea, dysuria, fever, hematuria, nausea, urinary frequency, vaginal bleeding, vaginal discharge, vomiting. Severity of symptoms: At their worst the symptoms were moderate, earlier today, in the emergency department the symptoms are unchanged. Historical: - Allergies: 20:13 GABAPENTIN; as6 20:13 tramadol; as6 - Home Meds: 20:13 baclofen 20 mg Oral tab [Active]; citalopram oral [Active]; lisinopril 20 mg Oral tab as6 [Active]; metoprolol tartrate 50 mg Oral tab [Active]; pregabalin Oral [Active]; - PMHx: 20:13 CVA; Hypertension; as6 - PSHx: 20:13 section; as6 - Immunization history:: Client reports having NOT received the Covid vaccine. - Social history:: Smoking status: Patient denies any tobacco usage or history of. ROS: 20:19 Constitutional: Negative for fever, chills, and weight loss, Cardiovascular: Negative mh7 for chest pain, palpitations, and edema, Respiratory: Negative for shortness of breath, cough, wheezing, and pleuritic chest pain, Abdomen/GI: Negative for abdominal pain, nausea, vomiting, diarrhea, and constipation, Back: Negative for injury and pain, Psych: Negative for depression, anxiety, suicide ideation, homicidal ideation, and hallucinations. Exam: 20:19 Constitutional: This is a well developed, well nourished patient who is awake, alert, mh7 and in no acute distress. Head/Face: Normocephalic, atraumatic. Chest/axilla: Normal chest wall appearance and motion. Nontender with no deformity. No lesions are appreciated. Cardiovascular: Regular rate and rhythm with a normal S1 and S2. No gallops, murmurs, or rubs. Normal PMI, no JVD. No pulse deficits. Respiratory: Lungs have equal breath sounds bilaterally, clear to auscultation and percussion. No rales, rhonchi or wheezes noted. No increased work of breathing, no retractions or nasal flaring. Abdomen/GI: Soft, non-tender, with normal bowel sounds. No distension or tympany. No guarding or rebound. No evidence of tenderness throughout. 20:19 Constitutional: The patient appears 20:19 Skin: Warm, dry with normal turgor. Normal color with no rashes, no lesions, and no [facility] evidence of cellulitis. 20:19 Neuro: Orientation: no acute changes, per family, Mentation: no acute changes, per 7 family, Memory: no acute changes, per family, Cranial nerves: no acute changes, Cerebellar function: no acute changes, quadraplegia, Motor: no acute changes, quadriplegia, Sensation: no acute changes, Gait: not tested. seizure activity, is not displayed by the patient, Abnormal movements: there are no abnormal movements. 20:19 Psych: Awake, alert, with orientation to person, place and time. Behavior, mood, and [facility] affect are within normal limits. 20:19 : a suprapubic catheter is noted, without active drainage. [facility] Vital Signs: 20:11 BP 137 / 92; Pulse 72; Resp 18 S; Temp 98.2(TE); Pulse Ox 97% on R/A; Weight 90.72 kg as6 (R); Height 5 ft. 0 in. (152.40 cm) (R); Pain 5/10; 21:37 BP 131 / 99; Pulse 66; Resp 18 S; Pulse Ox 98% on R/A; as6 22:48 BP 132 / 89; Pulse 74; Resp 18 S; Pulse Ox 99% on R/A; as6 20:11 Body Mass Index 39.06 (90.72 kg, 152.40 cm) as6 MDM: 21:48 Differential diagnosis: Jesus catheter malfunction, dislodge jesus. Data reviewed: [facility] vital signs, nurses notes. Data interpreted: Pulse oximetry: on room air is 98 %. Counseling: I had a detailed discussion with the patient and/or guardian regarding: the historical points, exam findings, and any diagnostic results supporting the discharge/admit diagnosis, the need for outpatient follow up, a urologist. Response to treatment: the patient's symptoms have resolved after treatment, the patient's blood pressure is in an acceptable range, mental status has returned to baseline, the patient no longer shows bradycardia, the patient is not short of breath, the patient is not tachycardic, the patient's pain is gone, the patient's temperature has normalized. 21:48 ED course: Feels better, NAD, VSS. Suprapubic catheter draining well to gravity after mh7 exchange. Patient ready for discharge.. 22:15 Patient medically screened. [facility] 01/26 21:56 Order name: Urine Culture [facility] 01/26 22:12 Order name: Urine Dipstick-Ancillary; Complete Time: 22:13 [facility] 01/26 20:58 Order name: Jesus; Complete Time: 21:35 [facility] 01/26 21:56 Order name: Urine Dipstick-Ancillary (obtain specimen); Complete Time: 22:15 [facility] Administered Medications: No medications were administered Disposition Summary: 01/26/22 22:15 Discharge Ordered Location: Home [facility] Problem: an acute exacerbation [facility] Symptoms: have improved [facility] Condition: Stable [facility] Diagnosis - Mechanical complication of urinary (indwelling) catheter [facility] - UTI/ Urinary tract infection, site not specified [facility] Followup: [facility] - With: Private Physician - When: 1 - 2 days - Reason: Worsening of condition, Recheck today's complaints, Continuance of care, Re-evaluation by your physician Discharge Instructions: - Discharge Summary Sheet [facility] - Indwelling Urinary Catheter Care, Adult [facility] - Suprapubic Catheter Replacement [facility] - Urinary Tract Infection, Adult, [id number] [facility] - Suprapubic Catheter Home Guide [facility] Forms: - Medication Reconciliation Form [facility] - Thank You Letter [facility] - Antibiotic Education [facility] - Prescription Opioid Use [facility] Prescriptions: - levofloxacin 500 mg Oral Tablet - take 1 tablet by ORAL route once daily for 10 days; 10 tablet; Refills: 0, 7 Product Selection Permitted Signatures: Dispatcher [employer]Sem[employer]Lev Timmy Whitfield MD MD [facility] Daniel Galicia, RN RN as6 Corrections: (The following items were deleted from the chart) 21:54 21:48 ED course: Feels better, NAD, VSS. Suprapubic catheter draining well to gravity. 7 Patient ready for discharge. [facility]
--- NOTE | 2022-01-26 22:16 | ER ---
Nurse's Notes [facility] Name: Donna Flynn Age: 36 yrs Sex: Female : 1985 Arrival Date: 01/26/2022 Time: 19:54 Bed 2 Private MD: Diagnosis: Mechanical complication of urinary (indwelling) catheter;UTI/ Urinary tract infection, site not specified Presentation: 01/26 20:11 Chief complaint: EMS states: suprapubic Gardner not draining. mother states that she has as6 tried to irrigate it but it wouldn't flush. Coronavirus screen: At this time, the client does not indicate any symptoms associated with coronavirus-19. Ebola Screen: No symptoms or risks identified at this time. Initial Sepsis Screen: Does the patient meet any 2 criteria? No. Patient's initial sepsis screen is negative. Does the patient have a suspected source of infection? No. Patient's initial sepsis screen is negative. Risk Assessment: Do you want to hurt yourself or someone else? Patient reports no desire to harm self or others. Onset of symptoms was January 26, 2022. 20:11 Method Of Arrival: EMS: [facility] as6 20:11 Acuity: [place] 3 as6 Historical: - Allergies: 20:13 GABAPENTIN; as6 20:13 tramadol; as6 - Home Meds: 20:13 baclofen 20 mg Oral tab [Active]; citalopram oral [Active]; lisinopril 20 mg Oral tab as6 [Active]; metoprolol tartrate 50 mg Oral tab [Active]; pregabalin Oral [Active]; - PMHx: 20:13 CVA; Hypertension; as6 - PSHx: 20:13 section; as6 - Immunization history:: Client reports having NOT received the Covid vaccine. - Social history:: Smoking status: Patient denies any tobacco usage or history of. Screenin:34 Abuse screen: Denies threats or abuse. Denies injuries from another. Nutritional as6 screening: No deficits noted. Tuberculosis screening: No symptoms or risk factors identified. Fall Risk None identified. Assessment: 20:15 General: Appears in no apparent distress. Behavior is calm, cooperative. Pain: as6 Complains of pain in suprapubic area. Neuro: Tapia Agitation-Sedation Scale (RASS): 0 - Alert and Calm Level of Consciousness is awake, alert, Oriented to person, place, time, situation, pt has previous CVA, pt is bed bound and has limited verbal response . Cardiovascular: JVD is absent Patient's skin is warm and dry. Respiratory: Respiratory effort is even, unlabored, Respiratory pattern is regular, symmetrical. : suprapubic catheter in place not draining. 22:18 General: WAS INFORMED IT WOULD 3+ HOURS FOR AN AMBULANCE TO TAKE PATIENT HOME.. tw5 22:34 General: family attempting to arrange transport home. as6 Vital Signs: 20:11 BP 137 / 92; Pulse 72; Resp 18 S; Temp 98.2(TE); Pulse Ox 97% on R/A; Weight 90.72 kg as6 (R); Height 5 ft. 0 in. (152.40 cm) (R); Pain 5/10; 21:37 BP 131 / 99; Pulse 66; Resp 18 S; Pulse Ox 98% on R/A; as6 22:48 BP 132 / 89; Pulse 74; Resp 18 S; Pulse Ox 99% on R/A; as6 20:11 Body Mass Index 39.06 (90.72 kg, 152.40 cm) as6 ED Course: 19:54 Patient arrived in ED. mw2 19:59 Daniel Galicia, DARRELL is Primary Nurse. as6 20:00 Timmy Calzada MD is Attending Physician. mh7 20:13 Triage completed. as6 20:14 Arm band placed on. as6 21:37 Gardner cath inserted, using sterile technique, 18 Fr., by wi, balloon inflated, to as6 gravity drainage. 22:34 Bed in low position. Call light in reach. Side rails up X2. Adult w/ patient. Pulse ox as6 on. NIBP on. 23:07 No provider procedures requiring assistance completed. Patient did not have IV access as6 during this emergency room visit. Administered Medications: No medications were administered Medication: 22:35 VIS not applicable for this client. as6 Outcome: 22:15 Discharge ordered by . mh7 23:08 Discharged to home via wheelchair, with family. as6 23:08 Condition: stable 23:08 Discharge instructions given to patient, family, Instructed on discharge instructions, follow up and referral plans. medication usage, Demonstrated understanding of instructions, follow-up care, medications, Prescriptions given X 1. 23:08 Patient left the ED. as6 Signatures: Tarun Santamaria mw2 Timmy Calzada MD MD mh7 Jennifer Stein tw5 Daniel Galicia, RN RN as6
[2022-01-27 00:17] VITALS: TEMP 98.2
[2022-01-27 00:23] VITALS: BP 132/89; O2SAT 99
== END 2022-01-26 23:08 | disposition home or self-care (01) ==
LOC: ER 19:52
DX: T83.098A Other mechanical complication of other urinary catheter, initial encounter (principal); N39.0 Urinary tract infection, site not specified; I10 Essential (primary) hypertension; Z86.73 Personal history of transient ischemic attack (TIA), and cerebral infarction without residual deficits; Z88.5 Allergy status to narcotic agent; Z88.8 Allergy status to other drugs, medicaments and biological substances
CPT/HCPCS: 51702; 81003; 87077; 87086; 87088; 87186; 99284

== ENCOUNTER 2022-03-01 13:36 | Emergency (ER) | payer BC, OTHER ==
--- NOTE | 2022-03-01 14:16 | EDPHYS ---
Physician Documentation [facility] Name: Donna Flynn Age: 36 yrs Sex: Female : 1985 Arrival Date: 03/01/2022 Time: 13:39 Bed 14 Private MD: ED Physician Brennan Lopez HPI: 03/01 13:51 This 36 yrs old Female presents to ER via Unassigned with complaints of Needs Urinary rn Catheter Replacement. 13:51 The patient presents with catheter problem. Onset: The symptoms/episode began/occurred rn 3 day(s) ago. Modifying factors: The symptoms are alleviated by taping tubes together, the symptoms are aggravated by nothing. Associated signs and symptoms: Pertinent positives: Pertinent negatives: dysuria, fever, hematuria, urinary frequency, vaginal discharge. Severity of symptoms: At their worst the symptoms were mild, in the emergency department the symptoms are unchanged. The patient has not experienced similar symptoms in the past. Caregiver reports trouble connecting suprapubic catheter to bag, seems to be connection issue, is draining but leaking at connection site and having to tape them together. NO fever. No vomiting. No other issues per caregiver. . Historical: - Allergies: 13:45 GABAPENTIN; vg1 13:45 tramadol; vg1 - PMHx: 13:45 CVA; Hypertension; vg1 - PSHx: 13:45 section; vg1 - Immunization history:: Client reports having NOT received the Covid vaccine. - Social history:: Smoking status: Patient denies any tobacco usage or history of. - Family history:: not pertinent. - Hospitalizations: : No recent hospitalization is reported. ROS: 13:51 Constitutional: Negative for fever, chills, and weight loss, Eyes: Negative for injury, rn pain, redness, and discharge, Cardiovascular: Negative for chest pain, palpitations, and edema, Respiratory: Negative for shortness of breath, cough, wheezing, and pleuritic chest pain, Abdomen/GI: Negative for abdominal pain, nausea, vomiting, diarrhea, and constipation, Back: Negative for injury and pain, : Negative for injury, bleeding, discharge, and swelling, MS/Extremity: Negative for injury and deformity, Skin: Negative for injury, rash, and discoloration, Neuro: Negative for headache, weakness, numbness, tingling, and seizure. Exam: 13:51 Constitutional: This is a well developed, well nourished patient who is awake, alert, rn and in no acute distress. Cardiovascular: Regular rate and rhythm. No pulse deficits. Respiratory: No increased work of breathing, no retractions or nasal flaring. Abdomen/GI: soft, non-tender Female : Suprapubic catheter in place, no redness, no leakage at ostomy site. catheter tubing taped in place, no current leaking noted. Skin: Warm, dry, no evidence of cellulitis Vital Signs: 13:45 BP 114 / 71; Pulse 70; Resp 18; Pulse Ox 99% on R/A; vg1 MDM: 13:39 Patient medically screened. rn 14:14 Differential diagnosis: catheter problem or dysfunction. Data reviewed: vital signs, rn nurses notes, and as a result, I will discharge patient. Counseling: I had a detailed discussion with the patient and/or guardian regarding: the historical points, exam findings, and any diagnostic results supporting the discharge/admit diagnosis, the need for outpatient follow up, to return to the emergency department if symptoms worsen or persist or if there are any questions or concerns that arise at home. Response to treatment: the patient's symptoms have resolved after treatment, the patient's condition has returned to base line, and as a result, I will discharge patient. Special discussion: I discussed with the patient/guardian in detail that at this point there is no indication for admission to the hospital. It is understood, however, that if the symptoms persist or worsen the patient needs to return immediately for re-evaluation. ED course: Catheter connection replaced, now functioning perfectly, will dc home with return precautions. 03/01 13:40 Order name: [facility] [place]. Order: check catheter hookup and replace; Complete Time: 14:12 rn Administered Medications: No medications were administered Disposition Summary: 03/01/22 14:15 Discharge Ordered Location: Home rn Problem: new rn Symptoms: have improved rn Condition: Stable rn Diagnosis - Leakage of urinary (indwelling) catheter rn - Mechanical complication of urinary (indwelling) catheter rn Followup: rn - With: Private Physician - When: As needed - Reason: Recheck today's complaints, Re-evaluation by your physician Discharge Instructions: - Discharge Summary Sheet rn - Suprapubic Catheter Home Guide rn Forms: - Medication Reconciliation Form rn - Thank You Letter rn - Antibiotic inpatient care manager rn - Prescription Opioid Use rn - SBAR form em1 Signatures: Brennan Lopez MD MD rn AlanDariela RN RN vg1
--- NOTE | 2022-03-01 14:16 | ER ---
Nurse's Notes [facility] Name: Donna Flynn Age: 36 yrs Sex: Female : 1985 Arrival Date: 03/01/2022 Time: 13:39 Bed 14 Private MD: Diagnosis: Leakage of urinary (indwelling) catheter;Mechanical complication of urinary (indwelling) catheter Presentation: 03/01 13:45 Chief complaint: EMS states: pt has a suprapubic catheter that continues to leak; vg1 stated may need to be replaced. Coronavirus screen: Vaccine status: Patient reports being unvaccinated. Client denies travel out of the [place] in the last 14 days. Ebola Screen: Patient denies exposure to infectious person. Patient denies travel to an Ebola-affected area in the 21 days before illness onset. Initial Sepsis Screen: Does the patient meet any 2 criteria? No. Patient's initial sepsis screen is negative. Does the patient have a suspected source of infection? No. Patient's initial sepsis screen is negative. Risk Assessment: Do you want to hurt yourself or someone else? Patient reports no desire to harm self or others. Onset of symptoms was January 27, 2022. 13:45 Method Of Arrival: EMS: [facility] vg1 13:45 Acuity: TENNILLE 4 vg1 Triage Assessment: 13:45 General: Appears in no apparent distress. comfortable, Behavior is calm, cooperative. vg1 Pain: Denies pain. EENT: No signs and/or symptoms were reported regarding the EENT system. Neuro: Level of Consciousness is awake, alert, obeys commands, Oriented to person, place, time, situation. Cardiovascular: Patient's skin is warm and dry. Respiratory: Airway is patent Respiratory effort is even, unlabored. GI: No signs and/or symptoms were reported involving the gastrointestinal system. : suprapubic catheter in place to gravity drainage. Derm: Skin is intact, Skin is pink, warm \T\ dry. Historical: - Allergies: 13:45 GABAPENTIN; vg1 13:45 tramadol; vg1 - PMHx: 13:45 CVA; Hypertension; vg1 - PSHx: 13:45 section; vg1 - Immunization history:: Client reports having NOT received the Covid vaccine. - Social history:: Smoking status: Patient denies any tobacco usage or history of. - Family history:: not pertinent. - Hospitalizations: : No recent hospitalization is reported. Screenin:11 Abuse screen: Denies threats or abuse. Nutritional screening: No deficits noted. vg1 Tuberculosis screening: No symptoms or risk factors identified. Fall Risk No fall in past 12 months (0 pts). No secondary diagnosis (0 pts). No IV (0 pts). Ambulatory Aid- None/Bed Rest/Nurse Assist (0 pts). Gait- Impaired (20 pts.). Mental Status- Oriented to own ability (0 pts). Total Kim Fall Scale indicates No Risk (0-24 pts). Assessment: 13:45 Reassessment: SEE TRIAGE. vg1 14:39 Reassessment: Patient appears in no apparent distress at this time. No changes from vg1 previously documented assessment. Patient and/or family updated on plan of care and expected duration. Pain level reassessed. Patient is alert, oriented x 3, equal unlabored respirations, skin warm/dry/pink. Vital Signs: 13:45 BP 114 / 71; Pulse 70; Resp 18; Pulse Ox 99% on R/A; vg1 ED Course: 13:39 Patient arrived in ED. rn 13:39 Brennan Lopez MD is Attending Physician. rn 13:41 Dariela Phillips RN is Primary Nurse. vg1 13:45 Arm band placed on. vg1 14:00 replaced bag and tubing to suprapubic catheter. vg1 14:09 Triage completed. vg1 14:11 Patient has correct armband on for positive identification. Bed in low position. Call vg1 light in reach. Side rails up X2. Adult w/ patient. 14:11 No provider procedures requiring assistance completed. Patient did not have IV access vg1 during this emergency room visit. Administered Medications: No medications were administered Medication: 14:12 VIS not applicable for this client. vg1 Outcome: 14:15 Discharge ordered by . 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 Demonstrated understanding of instructions, follow-up care. 14:58 Patient left the ED. vg1 Signatures: Brennan Lopez MD MD rn Garcia, Victoria, RN RN [facility]
[2022-03-01 15:10] VITALS: BP 114/71; O2SAT 99
== END 2022-03-01 14:58 | disposition home or self-care (01) ==
LOC: ER 13:36
DX: T83.038A Leakage of other urinary catheter, initial encounter (principal); I10 Essential (primary) hypertension; Z86.73 Personal history of transient ischemic attack (TIA), and cerebral infarction without residual deficits; Z88.5 Allergy status to narcotic agent; Z88.8 Allergy status to other drugs, medicaments and biological substances
CPT/HCPCS: 99282

== ENCOUNTER 2022-08-07 16:26 | Emergency (ER) | payer OTHER ==
[2022-08-07 17:10] LABS: Urine Blood 3+ (Negative); Urine Glucose Negative (Negative); Urine Protein 3+ (Negative); Urine Specific Gravity >=1.030 (1.005-1.030)
[2022-08-07] MEDS ORDERED: KETOROLAC 30 MG/ML INJ ONE (17:15)
[2022-08-07 17:20] LABS: Absolute Lymphocytes (CBC) 2.7 K/uL (0.7-4.9); Hematocrit 40.7 % (36.0-45.0); Lymphocytes % 32.9 % (15.3-44.8); MCV 94.7 fL (80-100); MPV 9.5 fL (7.6-11.3); RBC Red Blood Cell Count 4.29 M/uL (3.86-4.86)
[2022-08-07 17:30] LABS: Urine Bacteria <20 /HPF (<20); Urine Crystals Unidentified Few /HPF (None Seen); Urine Mucus 1+ /HPF (None Seen); Urine RBC >50 /HPF (None Seen); Urine WBC Clump Many /HPF (None Seen)
[2022-08-07 17:36] LABS: Albumin 3.3 g/dL (3.4-5.0); Bilirubin Total 0.4 mg/dL (0.2-1.0); Potassium 3.9 mmol/L (3.5-5.1)
[2022-08-07] MEDS ORDERED: CEFTRIAXONE 1000 MG/VIAL ONE (18:21)
[2022-08-07] MEDS ORDERED: NA CHLORIDE 0.9% 50 ML IV ONE (18:21)
--- NOTE | 2022-08-07 18:32 | RAD REPORT ---
EXAM DESCRIPTION: CT - Stone Protocol - 08/07/2022 5:50 pm CLINICAL HISTORY: Flank pain. abdomen pain, history of kidney stone COMPARISON: Abdomen Pelvis W Contrast dated 03/11/2022 TECHNIQUE: Axial images were obtained without oral or IV contrast. Lack of contrast limits solid org an and vascular assessment. The [id number] spans the entirety of the system partially obscuring uppermost abdomen and lung bases. Coronal reformatted images were obtained and reviewed. All CT scans are performed using dose optimization technique as appropriate and may include automated exposure control or mA/KV adjustment according to patient size. FINDINGS: The lower lung oden are clear. Cholelithiasis. Imaged portions of the liver and spleen show no suspicious findings on non-contrast imaging. The panc reas and adrenal glands are normal. No pathologic lymphadenopathy in the abdomen or pelvis. 15 mm stone is present in the inferior calyx collecting system. Additional 6 mm and 1 mm stones are s een in the inferior calices of the left kidney. No left-sided hydronephrosis. No right-sided stone se en. No bowel obstruction, free air, free fluid or abscess. Normal appendix noted.Large amount of stool is retained in the rectum. Suprapubic catheter is noted. No stones seen in the bladder. No significant bony abnormality. IMPRESSION: Left inferior nephrolithiasis as detailed. No hydronephrosis seen in either kidney. Suprapubic catheter in place in expected positioning. Rectal fecal retention.
--- NOTE | 2022-08-07 19:11 | EDPHYS ---
Physician Documentation [facility] Name: Donna Flynn Age: 36 yrs Sex: Female : 1985 Arrival Date: 08/07/2022 Time: 16:29 Bed 13 Private MD: ED Physician Alvin Costello HPI: 08/07 16:40 This 36 yrs old Female presents to ER via EMS with complaints of Urinary Problem. cp 16:40 The patient presents with urinary symptoms, hematuria. cp 16:40 Associated signs and symptoms: Pertinent positives: abdominal pain and history of cp kidney stones, Pertinent negatives: constipation, diarrhea, fever, vaginal bleeding, vomiting. 16:40 Severity of symptoms: in the emergency department the symptoms are unchanged, despite cp EMS interventions. 19:08 Patient reports last bowel movement was this morning. cp Historical: - Allergies: 18:35 GABAPENTIN; db 18:35 tramadol; db - PMHx: 16:42 CVA; Hypertension; db - PSHx: 16:42 section; suprapubic catheter; db - Immunization history:: Adult Immunizations unknown. - Social history:: Smoking status: Patient denies any tobacco usage or history of. ROS: 16:45 Constitutional: Negative for body aches, chills, fever, poor PO intake. cp 16:45 Eyes: Negative for injury, pain, redness, and discharge. cp 16:45 ENT: Negative for drainage from ear(s), ear pain, sore throat, difficulty swallowing, difficulty handling secretions. 16:45 Cardiovascular: Negative for chest pain, edema, palpitations. 16:45 Respiratory: Negative for cough, shortness of breath, wheezing. 16:45 Abdomen/GI: Positive for abdominal pain, Negative for vomiting, diarrhea, constipation. 16:45 : Positive for hematuria. 16:45 Neuro: Negative for altered mental status, headache. 16:45 All other systems are negative. Exam: 16:50 Constitutional: The patient appears in no acute distress, alert, awake, non-toxic, well cp developed, well nourished. 16:50 Head/Face: Normocephalic, atraumatic. cp 16:50 Eyes: Periorbital structures: appear normal, Conjunctiva: normal, no exudate, no injection, Sclera: no appreciated abnormality, Lids and lashes: appear normal, bilaterally. 16:50 ENT: External ear(s): are unremarkable, Nose: is normal, Mouth: Lips: moist, Oral mucosa: moist, Posterior pharynx: Airway: no evidence of obstruction, patent. 16:50 Chest/axilla: Inspection: normal. 16:50 Cardiovascular: Rate: normal, Rhythm: regular. 16:50 Respiratory: the patient does not display signs of respiratory distress, Respirations: normal, no use of accessory muscles, no retractions, labored breathing, is not present, Breath sounds: are clear throughout, no decreased breath sounds, no stridor, no wheezing. 16:50 Abdomen/GI: Inspection: obese Bowel sounds: active, all quadrants, Palpation: soft, in all quadrants, moderate abdominal tenderness, in the suprapubic area, right lower quadrant and left lower quadrant, rebound tenderness, is not appreciated, voluntary guarding, is not appreciated. 16:50 Neuro: Orientation: no acute changes, per family, Mentation: no acute changes, per family. Vital Signs: 16:28 BP 123 / 98; Pulse 84; Resp 18; Temp 98.6(O); Pulse Ox 99% on R/A; Weight 90.72 kg; db Height 5 ft. (152.40 cm); Pain 3/10; 17:15 BP 132 / 99; Pulse 77; Resp 16; Pulse Ox 99% ; db 18:29 BP 130 / 90; Pulse 85; Resp 16; Pulse Ox 99% on R/A; db 19:25 BP 131 / 91; Pulse 74; Resp 19; Temp 98.7; Pulse Ox 100% ; Pain 0/10; ke1 16:28 Body Mass Index 39.06 (90.72 kg, 152.40 cm) db MDM: 16:32 Patient medically screened. cp 19:10 Data reviewed: vital signs, nurses notes, lab test result(s), radiologic studies, CT cp scan. 19:10 Differential diagnosis: UTI, kidney stone vaginosis. Counseling: I had a detailed cp discussion with the patient and/or guardian regarding: the historical points, exam findings, and any diagnostic results supporting the discharge/admit diagnosis, lab results, radiology results, to return to the emergency department if symptoms worsen or persist or if there are any questions or concerns that arise at home. Response to treatment: the patient's symptoms have markedly improved after treatment. ED course: VSS. Patient appears non-toxic. Will discharge to home for continued monitoring. 08/07 16:32 Order name: CBC with Diff; Complete Time: 17:25 08/07 18:06 Interpretation: Reviewed. 08/07 16:32 Order name: CMP; Complete Time: 18:05 08/07 18:06 Interpretation: Normal except: NA 135; AST 11; ALB 3.3; GLOB 4.7; A/G 0.7. 08/07 16:32 Order name: Lipase; Complete Time: 18:05 08/07 16:32 Order name: Urine Microscopic Only; Complete Time: 17:33 08/07 17:34 Interpretation: Normal except: UWBC >50; URBC >50; UWBC Clump Many; BYST Few. 16 16:32 Order name: Urine Culture 08/07 17:10 Order name: Urine Dipstick-Ancillary; Complete Time: 17:25 EDMS 08/07 17:25 Interpretation: Normal except: UBLD 3+; UPROT 3+; UNIT Positive; UESTR 3+. 08/07 16:32 Order name: IV Saline Lock; Complete Time: 17:48 16 16:32 Order name: Labs collected and sent; Complete Time: 17:48 16 16:32 Order name: Urine Dipstick-Ancillary (obtain specimen); Complete Time: 17:48 16 16:32 Order name: Urine Test (obtain specimen); Complete Time: 17:48 08/07 17:11 Order name: Urine --Ancillary (enter results); Complete Time: 18:05 08/07 17:33 Order name: CT Stone Protocol; Complete Time: 18:42 cp Administered Medications: 17:20 Drug: Ketorolac 15 mg Route: IVP; Site: right antecubital; db 17:47 Follow up: Response: No adverse reaction db 18:10 Drug: Rocephin (cefTRIAXone) 1 grams Route: IV; Rate: calculated rate; Site: right db antecubital; 18:29 Follow up: Response: No adverse reaction; IV Status: Completed infusion; IV Intake: 50mldb Disposition Summary: 08/07/22 19:10 Discharge Ordered Location: Home cp Problem: new cp Symptoms: have improved cp Condition: Stable cp Diagnosis - UTI/ Urinary tract infection, site not specified cp - Calculus of kidney - right cp Followup: cp - With: Private Physician - When: 2 - 3 days - Reason: Recheck today's complaints Discharge Instructions: - Discharge Summary Sheet cp - Kidney Stones cp - Urinary Tract Infection, Adult cp Forms: - Medication Reconciliation Form cp - Thank You Letter cp - Antibiotic Education cp - Prescription Opioid Use cp Prescriptions: - Pyridium 200 mg Oral Tablet - take 1 tablet by ORAL route every 8 hours for 2 days; 6 tablet; Refills: 0, cp Product Selection Permitted - cefpodoxime 200 mg Oral Tablet - take 1 tablet by ORAL route every 12 hours for 10 days with food; 20 tablet; cp Refills: 0, Product Selection Permitted - Miralax - take 1 application by ORAL route once daily; 1 bottle; Refills: 0, Product cp Selection Permitted Signatures: Dispatcher [employer] EDKonrad Merrill PA PA cp Benton, Danielle, RN RN db
--- NOTE | 2022-08-07 19:11 | ER ---
Nurse's Notes [facility] Name: Donna Flynn Age: 36 yrs Sex: Female : 1985 Arrival Date: 08/07/2022 Time: 16:29 Bed 13 Private MD: Diagnosis: UTI/ Urinary tract infection, site not specified;Calculus of kidney-right Presentation: 08/07 16:28 Chief complaint: EMS states: states has blood in urine. has superpubic catheter. db Complains of abdominal pain and kidney stones. Coronavirus screen: Vaccine status: Patient reports being unvaccinated. Client denies travel out of the [place] in the last 14 days. At this time, the client does not indicate any symptoms associated with coronavirus-19. Ebola Screen: Patient negative for fever greater than or equal to 101.5 degrees Fahrenheit, and additional compatible Ebola Virus Disease symptoms Patient denies exposure to infectious person. Patient denies travel to an Ebola-affected area in the 21 days before illness onset. No symptoms or risks identified at this time. Initial Sepsis Screen: Does the patient meet any 2 criteria? No. Patient's initial sepsis screen is negative. Does the patient have a suspected source of infection? No. Patient's initial sepsis screen is negative. Risk Assessment: Do you want to hurt yourself or someone else? Patient reports no desire to harm self or others. Onset of symptoms was August 07, 2022. 16:28 Method Of Arrival: EMS db 16:28 Acuity: TENNILLE 3 db Triage Assessment: 16:42 General: Appears in no apparent distress. comfortable, Behavior is calm, cooperative, db appropriate for age. Pain: Complains of pain in abdomen. Neuro: No deficits noted. Level of Consciousness is awake, alert, obeys commands, Oriented to person, place, time, situation, Appropriate for age Speech is slurred, from stroke 4 years ago. Respiratory: No deficits noted. : suprapubic catheter in place. Historical: - Allergies: 18:35 GABAPENTIN; db 18:35 tramadol; db - PMHx: 16:42 CVA; Hypertension; db - PSHx: 16:42 section; suprapubic catheter; db - Immunization history:: Adult Immunizations unknown. - Social history:: Smoking status: Patient denies any tobacco usage or history of. Screenin:31 [facility] ED Fall Risk Assessment (Adult) History of falling in the last 3 months, db including since admission No falls in past 3 months (0 pts). Humpty Dumpty Scale Fall Assessment Tool (age< 18yrs) Age 13 years and above (1 pt) Gender Female (1 pt) Diagnosis Other diagnosis (1 pt) Cognitive Impairments Oriented to own ability (1 pt) Environmental Factors Outpatient area (1 pt) Response to Surgery/Sedation/Anesthesia More than 48 hours/ None (1 pt) Medication Usage Other medications/ None (1 pt) Fall Risk Score/ Level Low Fall Risk: </= 11 points Oriented to surroundings. Abuse screen: Denies threats or abuse. Denies injuries from another. Nutritional screening: No deficits noted. Tuberculosis screening: No symptoms or risk factors identified. Fall Risk No fall in past 12 months (0 pts). No secondary diagnosis (0 pts). IV access (20 points). Ambulatory Aid- None/Bed Rest/Nurse Assist (0 pts). Gait- Normal/Bed Rest/Wheelchair (0 pts) Mental Status- Oriented to own ability (0 pts). Total Kim Fall Scale indicates No Risk (0-24 pts). Assessment: 17:30 Reassessment: Patient appears in no apparent distress at this time. No changes from db previously documented assessment. Patient and/or family updated on plan of care and expected duration. Pain level reassessed. Patient is alert, oriented x 3, equal unlabored respirations, skin warm/dry/pink. 18:30 Reassessment: Patient appears in no apparent distress at this time. No changes from db previously documented assessment. Patient and/or family updated on plan of care and expected duration. Pain level reassessed. Patient is alert, oriented x 3, equal unlabored respirations, skin warm/dry/pink. General: Appears in no apparent distress. comfortable, Behavior is calm, cooperative, appropriate for age. Pain: Complains of pain in abdomen. Neuro: No deficits noted. Level of Consciousness is awake, alert, obeys commands, Weakness in left left weakness from previous stroke. Speech is slurred, slurred from hx of stroke. Cardiovascular: No deficits noted. Capillary refill < 3 seconds. Respiratory: No deficits noted. Airway is patent Respiratory effort is even, unlabored, Respiratory pattern is regular. GI: No deficits noted. No signs and/or symptoms were reported involving the gastrointestinal system. : No deficits noted. No signs and/or symptoms were reported regarding the genitourinary system. 19:25 Reassessment: Patient states feeling better. Patient states symptoms have improved. ke1 Vital Signs: 16:28 BP 123 / 98; Pulse 84; Resp 18; Temp 98.6(O); Pulse Ox 99% on R/A; Weight 90.72 kg; db Height 5 ft. (152.40 cm); Pain 3/10; 17:15 BP 132 / 99; Pulse 77; Resp 16; Pulse Ox 99% ; db 18:29 BP 130 / 90; Pulse 85; Resp 16; Pulse Ox 99% on R/A; db 19:25 BP 131 / 91; Pulse 74; Resp 19; Temp 98.7; Pulse Ox 100% ; Pain 0/10; ke1 16:28 Body Mass Index 39.06 (90.72 kg, 152.40 cm) db ED Course: 16:29 Patient arrived in ED. eb 16:29 Alvin Costello MD is Attending Physician. rt 16:30 Konrad Mcmahon PA is PHCP. cp 16:39 Alisha Rod, RN is Primary Nurse. db 16:40 Inserted saline lock: 20 gauge in right antecubital area, using aseptic technique. db Blood collected. 16:42 Triage completed. db 17:51 CT Stone Protocol In Process Unspecified. EDMS 18:32 Patient has correct armband on for positive identification. Bed in low position. Call db light in reach. Side rails up X2. Warm blanket given. 19:25 No provider procedures requiring assistance completed. IV discontinued. ke1 Administered Medications: 17:20 Drug: Ketorolac 15 mg Route: IVP; Site: right antecubital; db 17:47 Follow up: Response: No adverse reaction db 18:10 Drug: Rocephin (cefTRIAXone) 1 grams Route: IV; Rate: calculated rate; Site: right db antecubital; 18:29 Follow up: Response: No adverse reaction; IV Status: Completed infusion; IV Intake: 50mldb Medication: 19:28 VIS not applicable for this client. ke1 Intake: 18:29 IV: 50ml; Total: 50ml. db Outcome: 19:10 Discharge ordered by . cp 19:32 Patient left the ED. ke1 19:38 Discharged to home with family. ke1 19:38 Condition: good 19:38 Discharge instructions given to patient. Signatures: Dispatcher [employer] EDMS Konrad Mcmahon PA PA cp Botello, Elizabeth eb Ebrottie, Kouassi, RN RN ke1 Alisha Rod RN RN db [place], Ryan, MD MD rt
[2022-08-07 19:59] VITALS: BP 131/91; TEMP 98.7; O2SAT 100
== END 2022-08-07 19:32 | disposition home or self-care (01) ==
LOC: ER 16:26
DX: N39.0 Urinary tract infection, site not specified (principal); N20.0 Calculus of kidney; I10 Essential (primary) hypertension; Z88.6 Allergy status to analgesic agent; Z88.8 Allergy status to other drugs, medicaments and biological substances
CPT/HCPCS: 36415; 74176; 76377; 80053; 81003; 81015; 81025; 83690; 85025; 87077; 87086; 87088; 87186; 96365; 96375; 99284